=== PATIENT | female | born 1955 | race African-American/Black ===

== ENCOUNTER 2016-04-28 07:12 | Inpatient (IN) ==
--- NOTE | 2016-04-28 08:04 | Oncology History&Physical ---
History of Present Illness Chief complaint: Induction chemotherapy for acute myelogenous leukemia History of present illness: Ms. Hadley is a 60 year old female with recently diagnosed acute myelogenous leukemia and a history within the last year of undergoing treatment for stage IV colon cancer and stage III ovarian cancer. She is admitted now for institution of induction chemotherapy for her acute myelogenous leukemia. This is been bone marrow biopsy proven and we are going to start her with a Cytosar infusion and at least initially not use daunorubicin. So far, flow cytometry and cytogenetics do not suggest that this leukemia would be more resistant than de gio leukemia in someone who has never had chemotherapy. She has had chemotherapy drugs that are known to be oncogenic. See my comments below. She complains of some bruising on her right leg both anteriorly and posteriorly just above the knee. This leukemia is presumably a result of previous chemotherapy as outlined below. Ms. Hadley is a 60 year old female who has been on chemotherapy for metastatic colon cancer, stage IV. She coincidentally was diagnosed as having stage IIIc ovarian cancer. The ovarian cancer was diagnosed in March 2013 and she was treated with Abraxane and carboplatin. Her ovarian cancer antigen improved. 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 She was treated with 11 courses of FOLFOX /Folfiri and has recently been on Avastin as a single agent. She is in complete remission from both the colon cancer and ovarian cancer. She has actually had a remarkable response to chemotherapy and has been off chemotherapy since April 2015. On her last office visit, she had a normal CEA level of 4.6 and a normal ovarian cancer antigen. She continues to have right lower quadrant abdominal pain but as stated, we had a CT of the abdomen and pelvis on 11/29/2015 and she had no evidence of metastatic disease. She is scheduled for another CT of the abdomen and pelvis relatively soon. But it had been held because of elevated serum creatinine. Her serum creatinine is now normal so we will proceed. Past medical history: She has no known allergies. She has a past medical history is positive for anemia, hypertension and for ovarian cancer for which she is undergone surgery. She also has a history of gastroesophageal reflux disease and peptic ulcer disease. Family history is positive for diabetes in her grandmother and cancer of the pancreas and her mother. Social history is negative for alcohol or tobacco use. Review of systems Gen.: Negative for fever or chills weight loss or anorexia Eyes: Negative for inflammation or infections or further visual impairment ENT: Negative for stomatitis, mucositis or odynophagia. Pulmonary: Negative for asthma, emphysema or recurrent pneumonia and negative for hemoptysis Cardiovascular: Negative for congestive heart failure, angina, heart attack, coronary artery disease or cardiac arrhythmia GI: Negative for pancreatic disease or disorders but otherwise positive as pertains to her colon cancer. Negative for abdominal pain or bloating, hematemesis, melena or hematochezia. : Negative for kidney stones, kidney infections or hematuria. Neurologic: Negative for seizures, convulsions or paralysis. Psychiatric: Negative for psychiatric illness or depression confusion. Nodes: Negative for any cervical, supraclavicular, axillary or submandibular adenopathy. Skin: Negative for any significant skin rashes or diseases. Physical examination: Gen.: The patient is well-developed, well-nourished and in no acute distress. Eyes: Lids and conjunctivae are normal. ENT: Her oral mucosa and pharynx are normal, her trachea is midline she has no neck masses. Lungs: Breath sounds are normal without rubs, rales or rhonchi. There is symmetrical unlabored chest motion with respiration. Cardiovascular: Her heart rhythm is regular without murmur, gallop or rub. There is no jugular venous distention, clubbing or cyanosis. Abdomen: She has no abdominal masses, organomegaly, distention, tenderness or ascites. Musculoskeletal: There is no focal muscle atrophy or bone or joint deformity. Neurologic: Cranial nerves II through XII are intact and no focal neurologic deficits. Nodes: There is no submandibular, cervical, supraclavicular or axillary adenopathy. Skin: She has a reddish slightly raised bruise or possibly cellulitis on the right side just above the knee and medially and she also has a second 1 that actually is below the knee on the posterior calf. Impression: Acute myelogenous leukemia admitted for institution of induction chemotherapy thrombocytopenia requiring platelet transfusion Anemia requiring blood transfusion Stage IV adenocarcinoma: In remission Stage III ovarian cancer in remission Home Medications Medication Instructions Recorded Confirmed Type Aspirin [Ecotrin] 81 mg PO DAILY 12/10/14 04/28/16 History Docusate Sodium Cap [Colace Cap] 200 mg PO DAILY 12/10/14 04/28/16 History Famotidine 20 mg PO BID 12/10/14 04/28/16 History Potassium Chloride Cap/Tab [K Dur] 20 meq PO DAILY 12/10/14 04/28/16 History Magnesium Chloride [Mag Delay] 64 mg PO BID W/MEALS 12/31/14 04/28/16 History Furosemide Tab [Lasix Tab] 20 mg PO DAILY PRN 01/28/15 04/28/16 History Cholecalciferol (Vitamin D3) 1,000 unit PO DAILY 02/05/16 04/28/16 History [Vitamin D3] Metoprolol Succinate Xl [Toprol Xl] 25 mg PO DAILY 03/29/16 04/28/16 History Allergies Allergy/AdvReac Type Severity Reaction Status Date / Time No Known Allergies Allergy Verified 01/07/15 10:52 Medical,Surgical,& Family Hx - Medical History Cardio: History of: Hypertension Rheumatology: History of;: 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) Gastrointestinal: History of: Gastrointestinal Cancer (colon cancer) Hematology: No history of: Blood Transfusion Reaction Reproductive: History of: Reproductive Cancer (hx of ovarian cancer) - Surgical History Abdominal Surgeries: Surgical HX of: Abdominal Surgery (colon surgery) - Family History Family History: Reports;: Family Diabetes (grandmother), Family Heart Disease ( grandmother), Family Hypertension (grandmother) Denies;: Family Cancer - Social History Smoking Status: Never smoker Results - Labs CBC & BMP: 04/28/16 08:09
[2016-04-28 08:18] LABS: Eosinophils % 0.7 % (0.00-10.9); Hematocrit 21.7 VOL% (35.7-47.0); Hemoglobin 7.5 GM/DL (12.0-16.0); Lymphocytes # 1.2 10*3/uL (1.4-4.0); Lymphocytes % 81.1 % (21.3-54.2); Mean Corpuscular HGB Conc 34.6 GM/DL (32-36); Mean Corpuscular Hemoglobin 32 PG (27-34); Mean Corpuscular Volume 92.3 FL (87-102); Mean Platelet Volume 9.7 FL (9.6-12.0); Monocytes # 0.2 10*3/uL (0.11-0.8); Monocytes % 13.5 % (1.7-12.7); Neutrophils # 0.1 10*3/uL (1.4-7.4); Neutrophils % 4.7 % (38.7-73.9); Red Blood Count 2.35 10*6/uL (3.8-5.5); Red Cell Distribution Width 15.9 % (9.3-17.3); White Blood Count 1.5 10*3/uL (4.5-13.71)
[2016-04-28 08:21] LABS: Platelet Count 15 10*3/uL (130-400)
[2016-04-28] MEDS ORDERED: FUROSEMIDE 20 MG TABLET PO PRN (08:40)
[2016-04-28] MEDS ORDERED: SODIUM CHLORIDE 0.9% 250 ML IV PRN ×2 (08:42→08:43)
[2016-04-28 08:43] LABS: Atypical Lymphocytes Few; Band Neutrophils 1 % (0-10); Hypochromasia 1+; Lymphocytes 94 % (20-55); Microcytosis Slight; Platelet Estimate Decreased; Segmented Neutrophils 2 % (50-85); Total Cells Counted 100
[2016-04-28 08:52] LABS: Albumin 2.6 G/DL (3.4-5.0); Bilirubin,Total 0.5 MG/DL (0.2-1.0); Calcium 8.4 MG/DL (8.5-10.1); Magnesium 1.8 MG/DL (1.8-2.4); Osmolality,Calculated 282.5 MOS/KG (273-304); Potassium 4.2 MMOL/L (3.5-5.1); Total Protein 7.2 G/DL (6.4-8.3); Uric Acid 4.7 MG/DL (2.6-6.0)
[2016-04-28] MEDS ORDERED: MEROPENEM 500 MG in SODIUM CHLORIDE 0.9% 100 ML IV SCH (09:30)
--- NOTE | 2016-04-28 09:38 | XRay Report ---
XR chest 2V Indication: Leukemia Comparison: Chest x-ray dated March 29, 2016 Technique: Frontal and lateral views of the chest Findings: Borderline heart size, unchanged. Port catheter appears grossly unchanged with tip projecting over the expected location of the brachiocephalic confluence. No focal consolidation, pleural effusion, or pneumothorax. Osseous and surrounding soft tissue structures appear grossly unchanged. IMPRESSION: No acute cardiopulmonary process demonstrated. PROCEDURE INTERPRETED AT [facility] DEPARTMENT OF RADIOLOGY Final Report Signed by: Dr Javon Pizarro
[2016-04-28 09:44] LABS: Apearance,Urine Slightly Hazy (Clear); Bacteria,Urine Occasional /HPF (Few); Bilirubin,Urine Negative (Negative); Blood, Urine Small mg/dL (Negative); Glucose,Urine (UA) Negative (Negative); Ketones,Urine Negative (Negative); Mucus,Urine Occasional /LPF (Occasional); Nitrite,Urine Negative (Negative); Protein,Urine 100 MG/DL; RBC,Urine 5 /HPF (0-4); Squamous Epithelial Cell,Urine Occasional /HPF (0-10); Urine Color Yellow (Yellow); Urine Specific Gravity 1.018 (1.001-1.035); Urine Urobilinogen < 2.0 EU/DL (0.2-1.0); WBC,Urine 1 /HPF (0-6)
[2016-04-28] MEDS ORDERED: VANCOMYCIN INJ 1,000 MG in SODIUM CHLORIDE 0.9% 250 ML IV SCH (10:00)
[2016-04-28] MEDS: SODIUM CHLORIDE 0.9% IV SCH (11:00)
[2016-04-28] MEDS: GRANISETRON 1 MG/1 ML VIAL IV SCH (11:00)
[2016-04-28] MEDS: CYTARABINE IV SCH (11:00)
[2016-04-28] MEDS: DOCUSATE SODIUM 100 MG CAPSULE PO SCH (11:02)
[2016-04-28] MEDS: POTASSIUM CHLORIDE 20 MEQ TABLET PO SCH (11:02)
[2016-04-28] MEDS: ASPIRIN EC 81 MG TABLET PO SCH (11:02)
[2016-04-28] MEDS: METOPROLOL SUCCINATE XL 25 MG TABLET PO SCH (11:02)
[2016-04-28] MEDS: FAMOTIDINE 20 MG TABLET PO SCH ×2 (11:03→20:43)
[2016-04-28] MEDS ORDERED: chlorproMAZINE 25 MG TABLET PO PRN (14:55)
[2016-04-28] MEDS ORDERED: chlorproMAZINE INJ 25 MG in SODIUM CHLORIDE 0.9% 100 ML IV PRN (14:55)
[2016-04-28] MEDS ORDERED: TEMAZEPAM 7.5 MG CAPSULE PO PRN (14:55)
[2016-04-28] MEDS ORDERED: ACETAMINOPHEN 325 MG TABLET PO PRN (14:55)
[2016-04-28] MEDS ORDERED: LACTULOSE 20 GM/30 ML UDCUP PO PRN (14:55)
[2016-04-28] MEDS ORDERED: guaiFENesin 200 MG/10 ML UDCUP PO PRN (14:55)
[2016-04-28] MEDS ORDERED: chlorproMAZINE INJ 50 MG in SODIUM CHLORIDE 0.9% 100 ML IV PRN (14:55)
[2016-04-28] MEDS ORDERED: ALUMINUM/MAGNES/SIMETH MAX STR 30 ML UDCUP PO PRN (14:55)
[2016-04-28] MEDS ORDERED: MYLANTA/LIDO VISC 2:1 300 ML BOTTLE SWISH/SWAL PRN (14:55)
[2016-04-28] MEDS ORDERED: MYLANTA/LIDO VISC 2:1 300 ML BOTTLE SWISH/SPIT PRN (14:55)
[2016-04-28] MEDS ORDERED: BENZTROPINE 2 MG/2 ML AMP IV PRN (14:55)
[2016-04-28] MEDS ORDERED: traMADol 50 MG TABLET PO PRN (14:55)
[2016-04-28] MEDS ORDERED: ALPRAZolam 0.25 MG TABLET PO PRN (14:55)
[2016-04-28] MEDS ORDERED: LOPERAMIDE 2 MG CAPSULE PO PRN ×2 (14:55)
[2016-04-28] MEDS ORDERED: MAGNESIUM HYDROXIDE SUSP 30 ML UDCUP PO PRN (14:55)
[2016-04-28] MEDS: diphenhydrAMINE CAP 25 MG CAPSULE PO PRN (15:12)
[2016-04-28] MEDS: MAGNESIUM CHLORIDE 64 MG TABLET PO SCH (17:21)
[2016-04-29 04:15] LABS: Hematocrit 26.8 VOL% (35.7-47.0); Hemoglobin 9.1 GM/DL (12.0-16.0); Lymphocytes # 1.9 10*3/uL (1.4-4.0); Lymphocytes % 89.4 % (21.3-54.2); Mean Corpuscular Hemoglobin 31 PG (27-34); Mean Corpuscular Volume 90.8 FL (87-102); Mean Platelet Volume 9.7 FL (9.6-12.0); Monocytes # 0.2 10*3/uL (0.11-0.8); Monocytes % 8.2 % (1.7-12.7); Neutrophils # 0.1 10*3/uL (1.4-7.4); Neutrophils % 2.4 % (38.7-73.9); Red Blood Count 2.95 10*6/uL (3.8-5.5); Red Cell Distribution Width 15.5 % (9.3-17.3); White Blood Count 2.1 10*3/uL (4.5-13.71)
[2016-04-29 04:21] LABS: Platelet Count 10 10*3/uL (130-400)
[2016-04-29 04:58] LABS: Anisocytosis Slight; Lymphocytes 93 % (20-55); Myelocytes 1 %; Platelet Estimate Decreased; Segmented Neutrophils 4 % (50-85); Total Cells Counted 100
[2016-04-29 05:03] LABS: Albumin 2.4 G/DL (3.4-5.0); Bilirubin,Total 0.5 MG/DL (0.2-1.0); Calcium 8.1 MG/DL (8.5-10.1); Potassium 4.3 MMOL/L (3.5-5.1); Total Protein 6.6 G/DL (6.4-8.3)
--- NOTE | 2016-04-29 08:54 | Oncology Progress Note ---
Oncology Subjective PN Interval history: This is a patient with acute myelogenous leukemia who has just started her first course of induction chemotherapy using Cytosar-U. She has stage IV adenocarcinoma colon and stage III ovarian cancer for which she has been treated earlier this year. Both of these are in remission. She is thrombocytopenic today and has received platelets. She is having no nausea or vomiting, just some decrease in her appetite. Watching her closely for neutropenic sepsis. We are also monitoring her for toxicity from this chemotherapy. She is neutropenic, thrombocytopenic and anemic. Exam - Constitutional Vitals: Period Temp Pulse Resp BP Sys/Ceballos Pulse Ox Last 24 Hr 96.8 F-98.7 F 81-105 16-20 104-157/57-84 95-99 Results - Labs CBC & BMP: 04/29/16 04:00 04/29/16 04:00 Specialty Discharge - Follow Up or Referrals - Discharge Medications No Action Potassium Chloride Cap/Tab [K Dur] 20 meq PO DAILY Docusate Sodium Cap [Colace Cap] 200 mg PO DAILY Famotidine 20 mg PO BID Aspirin [Ecotrin] 81 mg PO DAILY Magnesium Chloride [Mag Delay] 64 mg PO BID W/MEALS Furosemide Tab [Lasix Tab] 20 mg PO DAILY PRN PRN Reason: Edema Cholecalciferol (Vitamin D3) [Vitamin D3] 1,000 unit PO DAILY Metoprolol Succinate Xl [Toprol Xl] 25 mg PO DAILY
[2016-04-29] MEDS: MAGNESIUM CHLORIDE 64 MG TABLET PO SCH ×2 (11:20→18:52)
[2016-04-29] MEDS: METOPROLOL SUCCINATE XL 25 MG TABLET PO SCH (11:20)
[2016-04-29] MEDS: FAMOTIDINE 20 MG TABLET PO SCH ×2 (11:21→20:49)
[2016-04-29] MEDS: GRANISETRON 1 MG/1 ML VIAL IV SCH (11:21)
[2016-04-29] MEDS: DOCUSATE SODIUM 100 MG CAPSULE PO SCH (11:21)
[2016-04-29] MEDS: POTASSIUM CHLORIDE 20 MEQ TABLET PO SCH (11:21)
[2016-04-29] MEDS: ASPIRIN EC 81 MG TABLET PO SCH (11:22)
[2016-04-29] MEDS: SODIUM CHLORIDE 0.9% IV SCH (13:49)
[2016-04-29] MEDS: CYTARABINE IV SCH (13:49)
[2016-04-30 05:44] LABS: Hematocrit 28.3 VOL% (35.7-47.0); Hemoglobin 9.5 GM/DL (12.0-16.0); Lymphocytes # 2.1 10*3/uL (1.4-4.0); Mean Corpuscular HGB Conc 33.6 GM/DL (32-36); Mean Corpuscular Hemoglobin 31 PG (27-34); Mean Corpuscular Volume 91.6 FL (87-102); Mean Platelet Volume 10.4 FL (9.6-12.0); Monocytes # 0.1 10*3/uL (0.11-0.8); Monocytes % 3.2 % (1.7-12.7); Neutrophils # 0.1 10*3/uL (1.4-7.4); Neutrophils % 2.8 % (38.7-73.9); Red Blood Count 3.09 10*6/uL (3.8-5.5); Red Cell Distribution Width 15.5 % (9.3-17.3); White Blood Count 2.2 10*3/uL (4.5-13.71)
[2016-04-30 05:50] LABS: Platelet Count 33 10*3/uL (130-400)
[2016-04-30 06:11] LABS: Lymphocytes 95 % (20-55); Segmented Neutrophils 3 % (50-85); Total Cells Counted 100
[2016-04-30 06:12] LABS: Atypical Lymphocytes Few; Hypochromasia 1+; Macrocytosis 1+; Platelet Estimate Decreased
[2016-04-30 06:23] LABS: Albumin 2.5 G/DL (3.4-5.0); Bilirubin,Total 1.1 MG/DL (0.2-1.0); Calcium 8.5 MG/DL (8.5-10.1); Potassium 4.2 MMOL/L (3.5-5.1); Total Protein 6.9 G/DL (6.4-8.3)
--- NOTE | 2016-04-30 07:52 | Oncology Progress Note ---
Oncology Subjective PN Interval history: Ms. Hadley is starting day 3 of 7 day course of Cytosar-U induction chemotherapy for acute myelogenous leukemia. She seems to be tolerating it fairly well and I am starting her on daunorubicin but I have ordered today. The dose will be 120 mg IV daily for at least 2 days. She is pancytopenic. She is requiring blood transfusions and platelet transfusions. She is requiring close monitoring for adverse effects from the chemotherapy. She is requiring close monitoring for adverse effects from the complications of the AML as well. She is severely neutropenic and she is severely thrombocytopenic. In addition, within the last year, she has been treated for stage IV colon cancer that remains in remission and for stage III ovarian cancer that remains in remission. White cell count today is 2200. Platelet count is 33,000. Her hemoglobin is above 9. She complains of some substernal chest type pain but I do not think this is cardiac. We will try Mylanta. On physical examination she is acutely ill appearing. Eyes: Lids and conjunctive are normal. ENT: Her oral mucosa and pharynx and her hearing are normal. Lungs: Clear with normal breath sounds. Cardiovascular: Her heart rhythm is regular without murmur, gallop or rub. There is no jugular venous distention, clubbing or cyanosis. Abdomen: No abdominal distention or masses and no significant tenderness. Neurologic: Cranial nerves II through XII are intact no focal neurologic deficits. Continuing chemotherapy and monitor for toxicity. Exam - Constitutional Vitals: Period Temp Pulse Resp BP Sys/Ceballos Pulse Ox Last 24 Hr 96.4 F-98.5 F 85-100 18-18 110-144/60-75 95-98 Results - Labs CBC & BMP: 04/30/16 04:28 04/30/16 04:28 Specialty Discharge - Follow Up or Referrals - Discharge Medications No Action Potassium Chloride Cap/Tab [K Dur] 20 meq PO DAILY Docusate Sodium Cap [Colace Cap] 200 mg PO DAILY Famotidine 20 mg PO BID Aspirin [Ecotrin] 81 mg PO DAILY Magnesium Chloride [Mag Delay] 64 mg PO BID W/MEALS Furosemide Tab [Lasix Tab] 20 mg PO DAILY PRN PRN Reason: Edema Cholecalciferol (Vitamin D3) [Vitamin D3] 1,000 unit PO DAILY Metoprolol Succinate Xl [Toprol Xl] 25 mg PO DAILY
[2016-04-30] MEDS ORDERED: DAUNORUBICIN IV ONE (08:30)
[2016-04-30] MEDS: DOCUSATE SODIUM 100 MG CAPSULE PO SCH (11:24)
[2016-04-30] MEDS: POTASSIUM CHLORIDE 20 MEQ TABLET PO SCH (11:24)
[2016-04-30] MEDS: FAMOTIDINE 20 MG TABLET PO SCH ×3 (11:24→20:40)
[2016-04-30] MEDS: METOPROLOL SUCCINATE XL 25 MG TABLET PO SCH (11:24)
[2016-04-30] MEDS: MAGNESIUM CHLORIDE 64 MG TABLET PO SCH ×2 (11:24→18:18)
[2016-04-30] MEDS: ASPIRIN EC 81 MG TABLET PO SCH (11:24)
[2016-04-30] MEDS: GRANISETRON 1 MG/1 ML VIAL IV SCH (11:25)
[2016-04-30] MEDS ORDERED: DEXAMETHASONE 10 MG/1 ML VIAL ONE (13:24)
[2016-04-30] MEDS ORDERED: DEXAMETHASONE 4 MG/1 ML VIAL IV SCH (13:29)
[2016-04-30] MEDS: CYTARABINE IV SCH (17:00)
[2016-04-30] MEDS: SODIUM CHLORIDE 0.9% IV SCH (17:00)
[2016-05-01 05:15] LABS: Hematocrit 28.8 VOL% (35.7-47.0); Hemoglobin 9.6 GM/DL (12.0-16.0); Lymphocytes # 0.5 10*3/uL (1.4-4.0); Lymphocytes % 85.5 % (21.3-54.2); Mean Corpuscular HGB Conc 33.3 GM/DL (32-36); Mean Corpuscular Hemoglobin 30 PG (27-34); Mean Corpuscular Volume 91.1 FL (87-102); Mean Platelet Volume 10.1 FL (9.6-12.0); Monocytes % 5.5 % (1.7-12.7); Neutrophils # 0.1 10*3/uL (1.4-7.4); Red Blood Count 3.16 10*6/uL (3.8-5.5); Red Cell Distribution Width 14.6 % (9.3-17.3)
[2016-05-01 05:23] LABS: Platelet Count 26 10*3/uL (130-400); White Blood Count 0.6 10*3/uL (4.5-13.71)
[2016-05-01 05:49] LABS: Atypical Lymphocytes Few; Hypochromasia Slight; Lymphocytes 89 % (20-55); Segmented Neutrophils 9 % (50-85); Total Cells Counted 100
[2016-05-01 05:50] LABS: Macrocytosis 1+; Platelet Estimate Decreased
[2016-05-01 05:58] LABS: Albumin 2.4 G/DL (3.4-5.0); Bilirubin,Total 0.5 MG/DL (0.2-1.0); Calcium 9.1 MG/DL (8.5-10.1); Potassium 4.9 MMOL/L (3.5-5.1); Total Protein 7.1 G/DL (6.4-8.3)
[2016-05-01] MEDS ORDERED: DAUNORUBICIN IV ONE (07:30)
[2016-05-01] MEDS: METOPROLOL SUCCINATE XL 25 MG TABLET PO SCH (08:38)
[2016-05-01] MEDS: MAGNESIUM CHLORIDE 64 MG TABLET PO SCH ×2 (08:38→17:02)
[2016-05-01] MEDS: POTASSIUM CHLORIDE 20 MEQ TABLET PO SCH (08:38)
[2016-05-01] MEDS: DOCUSATE SODIUM 100 MG CAPSULE PO SCH (08:38)
[2016-05-01] MEDS: FAMOTIDINE 20 MG TABLET PO SCH ×3 (08:38→20:19)
[2016-05-01] MEDS: ASPIRIN EC 81 MG TABLET PO SCH (08:38)
--- NOTE | 2016-05-01 09:01 | Oncology Progress Note ---
Oncology Subjective PN Interval history: She is starting day 4 of a 7 day course of continuous infusion Cytosar-U 200 mg IV over 24 hours daily. In addition, she is receiving day #2 of daunorubicin. This is induction chemotherapy for recently diagnosed acute myelogenous leukemia. She is pancytopenic and her white cell count is falling. She has standing orders for packed red cells and platelets. Her white cell count is down to 600 today. Secondary diagnoses include stage IV colon cancer and stage III ovarian cancer that are both apparently in complete remission. We have standing orders for side effects and complications from her leukemia. She is fully oriented and alert. Her appetite is not good. Her oral mucosa is normal. She has no focal neurologic deficits. She remains in extremely pleasant person who complains very little about her illness. Psychologically, she seems to be handling this amazingly well. Exam - Constitutional Vitals: Period Temp Pulse Resp BP Sys/Ceballos Pulse Ox Last 24 Hr 96.3 F-99.4 F 80-93 18-20 112-160/67-89 95-100 Results - Labs CBC & BMP: 05/01/16 04:54 05/01/16 04:54 Specialty Discharge - Follow Up or Referrals - Discharge Medications No Action Potassium Chloride Cap/Tab [K Dur] 20 meq PO DAILY Docusate Sodium Cap [Colace Cap] 200 mg PO DAILY Famotidine 20 mg PO BID Aspirin [Ecotrin] 81 mg PO DAILY Magnesium Chloride [Mag Delay] 64 mg PO BID W/MEALS Furosemide Tab [Lasix Tab] 20 mg PO DAILY PRN PRN Reason: Edema Cholecalciferol (Vitamin D3) [Vitamin D3] 1,000 unit PO DAILY Metoprolol Succinate Xl [Toprol Xl] 25 mg PO DAILY
[2016-05-01] MEDS ORDERED: DEXAMETHASONE 10 MG/1 ML VIAL ONE (18:55)
[2016-05-01] MEDS: GRANISETRON 1 MG/1 ML VIAL IV SCH (19:11)
[2016-05-01] MEDS: CYTARABINE IV SCH (19:23)
[2016-05-01] MEDS: SODIUM CHLORIDE 0.9% IV SCH (19:23)
[2016-05-02 04:33] LABS: Hematocrit 28.3 VOL% (35.7-47.0); Hemoglobin 9.5 GM/DL (12.0-16.0); Lymphocytes # 0.4 10*3/uL (1.4-4.0); Lymphocytes % 84.3 % (21.3-54.2); Mean Corpuscular HGB Conc 33.6 GM/DL (32-36); Mean Corpuscular Hemoglobin 31 PG (27-34); Mean Corpuscular Volume 91.3 FL (87-102); Mean Platelet Volume 9.5 FL (9.6-12.0); Monocytes % 3.9 % (1.7-12.7); Neutrophils # 0.1 10*3/uL (1.4-7.4); Neutrophils % 11.8 % (38.7-73.9); Red Cell Distribution Width 14.5 % (9.3-17.3)
[2016-05-02 04:38] LABS: Platelet Count 16 10*3/uL (130-400); White Blood Count 0.5 10*3/uL (4.5-13.71)
[2016-05-02 05:23] LABS: Albumin 2.4 G/DL (3.4-5.0); Bilirubin,Total 1.3 MG/DL (0.2-1.0); Calcium 8.5 MG/DL (8.5-10.1); Osmolality,Calculated 303.7 MOS/KG (273-304); Potassium 5.2 MMOL/L (3.5-5.1); Total Protein 6.6 G/DL (6.4-8.3)
[2016-05-02 06:19] LABS: Lymphocytes 90 % (20-55); Segmented Neutrophils 10 % (50-85)
[2016-05-02 06:20] LABS: Platelet Estimate Decreased; Total Cells Counted 100
--- NOTE | 2016-05-02 06:50 | Oncology Progress Note ---
Oncology Subjective PN Interval history: Patient with distant history of ovarian cancer approximately 4 years prior. Currently receiving day #407+3 chemotherapy for acute myelogenous leukemia. IV access is by previously placed right Mediport catheter. She is on room air. She is ambulatory and nontoxic. Her lungs are clear bilaterally her abdomen is soft and nontender. Her skin is warm and dry. Platelet count of 16 today is noted without significant ecchymosis or hemorrhage. Exam - Constitutional Vitals: Period Temp Pulse Resp BP Sys/Ceballos Pulse Ox Last 24 Hr 96.2 F-97.6 F 57-80 17-20 112-147/54-77 94-100 Results - Labs CBC & BMP: 05/02/16 04:19 05/02/16 04:19 Specialty Discharge - Follow Up or Referrals - Discharge Medications No Action Potassium Chloride Cap/Tab [K Dur] 20 meq PO DAILY Docusate Sodium Cap [Colace Cap] 200 mg PO DAILY Famotidine 20 mg PO BID Aspirin [Ecotrin] 81 mg PO DAILY Magnesium Chloride [Mag Delay] 64 mg PO BID W/MEALS Furosemide Tab [Lasix Tab] 20 mg PO DAILY PRN PRN Reason: Edema Cholecalciferol (Vitamin D3) [Vitamin D3] 1,000 unit PO DAILY Metoprolol Succinate Xl [Toprol Xl] 25 mg PO DAILY
[2016-05-02] MEDS: POTASSIUM CHLORIDE 20 MEQ TABLET PO SCH (10:52)
[2016-05-02] MEDS: FAMOTIDINE 20 MG TABLET PO SCH ×2 (10:52→21:24)
[2016-05-02] MEDS: DOCUSATE SODIUM 100 MG CAPSULE PO SCH (10:52)
[2016-05-02] MEDS: ASPIRIN EC 81 MG TABLET PO SCH (10:53)
[2016-05-02] MEDS: MAGNESIUM CHLORIDE 64 MG TABLET PO SCH ×2 (10:53→18:34)
[2016-05-02] MEDS: METOPROLOL SUCCINATE XL 25 MG TABLET PO SCH (10:53)
[2016-05-02] MEDS: GRANISETRON 1 MG/1 ML VIAL IV SCH (15:55)
[2016-05-02] MEDS: CYTARABINE IV SCH (18:34)
[2016-05-02] MEDS: SODIUM CHLORIDE 0.9% IV SCH (18:34)
[2016-05-02] MEDS: PROMETHAZINE INJ 25 MG in SODIUM CHLORIDE 0.9% 50 ML IV PRN (18:38)
[2016-05-03 06:49] LABS: Hematocrit 25.1 VOL% (35.7-47.0); Hemoglobin 8.5 GM/DL (12.0-16.0); Lymphocytes # 1.3 10*3/uL (1.4-4.0); Mean Corpuscular HGB Conc 33.9 GM/DL (32-36); Mean Corpuscular Hemoglobin 31 PG (27-34); Mean Corpuscular Volume 91.3 FL (87-102); Mean Platelet Volume 10.8 FL (9.6-12.0); Monocytes % 0.8 % (1.7-12.7); Neutrophils % 2.2 % (38.7-73.9); Platelet Count 12 10*3/uL (130-400); Red Blood Count 2.75 10*6/uL (3.8-5.5); Red Cell Distribution Width 14.7 % (9.3-17.3); White Blood Count 1.3 10*3/uL (4.5-13.71)
[2016-05-03 06:58] LABS: Albumin 2.1 G/DL (3.4-5.0); Bilirubin,Total 1.2 MG/DL (0.2-1.0); Calcium 8.4 MG/DL (8.5-10.1); Osmolality,Calculated 298.6 MOS/KG (273-304); Potassium 4.3 MMOL/L (3.5-5.1); Total Protein 5.7 G/DL (6.4-8.3)
[2016-05-03 08:13] LABS: Hypochromasia 2+; Lymphocytes 95 % (20-55); Microcytosis 2+; Platelet Estimate Decreased; Segmented Neutrophils 5 % (50-85); Total Cells Counted 100
[2016-05-03] MEDS ORDERED: diphenhydrAMINE CAP 25 MG CAPSULE PO ONE (08:57)
[2016-05-03] MEDS ORDERED: ACETAMINOPHEN 325 MG TABLET PO ONE (08:57)
--- NOTE | 2016-05-03 10:26 | Oncology Progress Note ---
Oncology Subjective PN Interval history: Patient to receive day 6 today of Moran. Previous 2 days of daunorubicin. Some nausea treated with Phenergan last night. Lately count of 12 is noted today with plans for transfusion. No bleeding. Stable hemoglobin and hematocrit. No fever is noted. I encouraged patient to ambulate in the halls today Exam - Constitutional Vitals: Period Temp Pulse Resp BP Sys/Ceballos Pulse Ox Last 24 Hr 97.4 F-98.1 F 77-88 16-20 108-124/59-72 97-98 Results - Labs CBC & BMP: 05/03/16 04:00 05/03/16 04:00 Specialty Discharge - Follow Up or Referrals - Discharge Medications No Action Potassium Chloride Cap/Tab [K Dur] 20 meq PO DAILY Docusate Sodium Cap [Colace Cap] 200 mg PO DAILY Famotidine 20 mg PO BID Aspirin [Ecotrin] 81 mg PO DAILY Magnesium Chloride [Mag Delay] 64 mg PO BID W/MEALS Furosemide Tab [Lasix Tab] 20 mg PO DAILY PRN PRN Reason: Edema Cholecalciferol (Vitamin D3) [Vitamin D3] 1,000 unit PO DAILY Metoprolol Succinate Xl [Toprol Xl] 25 mg PO DAILY
[2016-05-03] MEDS: ASPIRIN EC 81 MG TABLET PO SCH (11:14)
[2016-05-03] MEDS: DOCUSATE SODIUM 100 MG CAPSULE PO SCH (11:15)
[2016-05-03] MEDS: FAMOTIDINE 20 MG TABLET PO SCH ×2 (11:15→20:46)
[2016-05-03] MEDS: METOPROLOL SUCCINATE XL 25 MG TABLET PO SCH (11:15)
[2016-05-03] MEDS: MAGNESIUM CHLORIDE 64 MG TABLET PO SCH ×2 (11:15→17:25)
[2016-05-03] MEDS: GRANISETRON 1 MG/1 ML VIAL IV SCH (14:38)
[2016-05-03] MEDS: CYTARABINE IV SCH (18:41)
[2016-05-03] MEDS: SODIUM CHLORIDE 0.9% IV SCH (18:41)
[2016-05-04 07:58] LABS: Hematocrit 25.9 VOL% (35.7-47.0); Hemoglobin 8.6 GM/DL (12.0-16.0); Lymphocytes # 1.1 10*3/uL (1.4-4.0); Lymphocytes % 98.2 % (21.3-54.2); Mean Corpuscular HGB Conc 33.2 GM/DL (32-36); Mean Corpuscular Hemoglobin 31 PG (27-34); Mean Corpuscular Volume 91.8 FL (87-102); Mean Platelet Volume 12.4 FL (9.6-12.0); Neutrophils % 1.8 % (38.7-73.9); Platelet Count 40 10*3/uL (130-400); Red Blood Count 2.82 10*6/uL (3.8-5.5); White Blood Count 1.1 10*3/uL (4.5-13.71)
[2016-05-04 08:10] LABS: Albumin 2.2 G/DL (3.4-5.0); Bilirubin,Total 1.3 MG/DL (0.2-1.0); Calcium 8.4 MG/DL (8.5-10.1); Osmolality,Calculated 290.7 MOS/KG (273-304); Potassium 4.1 MMOL/L (3.5-5.1); Total Protein 5.9 G/DL (6.4-8.3)
[2016-05-04] MEDS: GRANISETRON 1 MG/1 ML VIAL IV SCH (08:51)
[2016-05-04] MEDS: DOCUSATE SODIUM 100 MG CAPSULE PO SCH (09:07)
[2016-05-04] MEDS: FAMOTIDINE 20 MG TABLET PO SCH ×2 (09:08→20:41)
[2016-05-04] MEDS: METOPROLOL SUCCINATE XL 25 MG TABLET PO SCH (09:08)
[2016-05-04] MEDS: MAGNESIUM CHLORIDE 64 MG TABLET PO SCH ×2 (09:08→17:49)
--- NOTE | 2016-05-04 09:35 | Oncology Progress Note ---
Oncology Subjective PN Interval history: Day 7 induction chemotherapy for AML. Patient reports ongoing nausea with abdominal queasiness without vomiting. No fever. Blood counts are acceptable today. I am going to place her on scheduled Zofran for the next 36 hours. She has excess sedation from Phenergan, and is reluctant to take this. We discussed the next few weeks to be at time to monitor for thrombocytopenia and infection. We have discussed at least 2 weeks if not 3 weeks of inpatient time awaiting count recovery. We have also discussed a day 14 bone marrow also is a possibility. She appears nontoxic and pleasant. Exam - Constitutional Vitals: Period Temp Pulse Resp BP Sys/Ceballos Pulse Ox Last 24 Hr 97.2 F-98.7 F 77-107 16-20 101-116/54-87 95-98 Results - Labs CBC & BMP: 05/04/16 04:00 05/04/16 04:00 Specialty Discharge - Follow Up or Referrals - Discharge Medications No Action Potassium Chloride Cap/Tab [K Dur] 20 meq PO DAILY Docusate Sodium Cap [Colace Cap] 200 mg PO DAILY Famotidine 20 mg PO BID Aspirin [Ecotrin] 81 mg PO DAILY Magnesium Chloride [Mag Delay] 64 mg PO BID W/MEALS Furosemide Tab [Lasix Tab] 20 mg PO DAILY PRN PRN Reason: Edema Cholecalciferol (Vitamin D3) [Vitamin D3] 1,000 unit PO DAILY Metoprolol Succinate Xl [Toprol Xl] 25 mg PO DAILY
[2016-05-04] MEDS: ONDANSETRON 4 MG/2 ML VIAL IV SCH ×2 (10:10→17:55)
[2016-05-04] MEDS: SODIUM CHLORIDE 0.9% IV SCH (18:56)
[2016-05-04] MEDS: CYTARABINE IV SCH (18:56)
[2016-05-05] MEDS: ONDANSETRON 4 MG/2 ML VIAL IV SCH ×3 (02:05→17:56)
[2016-05-05 08:01] LABS: Hematocrit 26.2 VOL% (35.7-47.0); Hemoglobin 8.9 GM/DL (12.0-16.0); Lymphocytes # 0.9 10*3/uL (1.4-4.0); Lymphocytes % 98.9 % (21.3-54.2); Mean Corpuscular Hemoglobin 31 PG (27-34); Mean Corpuscular Volume 89.7 FL (87-102); Mean Platelet Volume 11.1 FL (9.6-12.0); Neutrophils % 1.1 % (38.7-73.9); Red Blood Count 2.92 10*6/uL (3.8-5.5); Red Cell Distribution Width 14.6 % (9.3-17.3)
[2016-05-05 08:06] LABS: White Blood Count 0.9 10*3/uL (4.5-13.71)
[2016-05-05 08:07] LABS: Platelet Count 28 10*3/uL (130-400)
--- NOTE | 2016-05-05 08:25 | Physician Query Form ---
CLICK EDIT DOCUMENT TO SELECT QUERY ANSWER --> OK --> SIGN Leta Park RN, CCDS Certified Clinical Director [employer] W) [phone] (f) [phone] [email or web address] PROVIDERS: Make your selection(s) from the choices in EACH section by typing an "x" and enter comments in the comment section. Please use your independent medical judgment in providing your response. This request does not imply that any particular answer is desired or expected. CLINICAL INDICATORS: (Providers should not edit this section) Patient admitted for chemo induction for acute myelogenous leukemia, "She is severely pancytopenic. I will continue IV fluids after her chemotherapy completes later today or tonight. Although this is acute myelogenous leukemia following chemotherapy, the cytogenetics and flow cytometry do not suggest that it has a worse prognosis than usual." Based on the above, could you clarify which of the following conditions you are evaluating, treating, and/or monitoring? ( ) Chemo induced pancytopenia ( ) Pancytopenia due to other cause, please specify: ( ) Other condition, please specify: ( ) Clinically unable to determine COMMENTS: Use of terms such as suspected, likely, or probable (associated with a specific diagnosis that is being evaluated, monitored, or treated as if it exists) are acceptable and can be restated in the discharge summary if not ruled out. MTDD
[2016-05-05 08:26] LABS: Albumin 2.5 G/DL (3.4-5.0); Bilirubin,Total 0.5 MG/DL (0.2-1.0); Calcium 8.7 MG/DL (8.5-10.1); Osmolality,Calculated 285.1 MOS/KG (273-304); Potassium 4.1 MMOL/L (3.5-5.1); Total Protein 6.3 G/DL (6.4-8.3)
[2016-05-05] MEDS: PROMETHAZINE INJ 25 MG in SODIUM CHLORIDE 0.9% 50 ML IV PRN ×2 (08:40→22:10)
[2016-05-05] MEDS: GRANISETRON 1 MG/1 ML VIAL IV SCH (08:41)
[2016-05-05 08:42] LABS: Hypochromasia 1+; Lymphocytes 99 % (20-55); Platelet Estimate Decreased; Total Cells Counted 100
[2016-05-05 08:43] LABS: Atypical Lymphocytes Few; Microcytosis Slight
[2016-05-05] MEDS ORDERED: FOSAPREPITANT 150 MG in SODIUM CHLORIDE 0.9% 100 ML IV ONE (09:01)
--- NOTE | 2016-05-05 09:04 | Oncology Progress Note ---
Oncology Subjective PN Interval history: Ms. Hadley completes her first 7 day induction chemotherapy for treatment of acute myelogenous leukemia complicating stage IV colon cancer and stage III ovarian cancer, both of which are in complete remission. She is having intractable nausea and vomiting. She is on Kytril. We are giving her Phenergan. I am going to add Emend. She is severely pancytopenic. I will continue IV fluids after her chemotherapy completes later today or tonight. Although this is acute myelogenous leukemia following chemotherapy, the cytogenetics and flow cytometry do not suggest that it has a worse prognosis than usual. We will continue to monitor count, hemoglobin and white cell count and will continue to transfuse red cells and platelets as needed. Exam - Constitutional Vitals: Period Temp Pulse Resp BP Sys/Ceballos Pulse Ox Last 24 Hr 96.4 F-98.6 F 89-97 18-20 113-133/63-72 97-98 Results - Labs CBC & BMP: 05/05/16 07:45 05/05/16 07:45 Specialty Discharge - Follow Up or Referrals - Discharge Medications No Action Potassium Chloride Cap/Tab [K Dur] 20 meq PO DAILY Docusate Sodium Cap [Colace Cap] 200 mg PO DAILY Famotidine 20 mg PO BID Aspirin [Ecotrin] 81 mg PO DAILY Magnesium Chloride [Mag Delay] 64 mg PO BID W/MEALS Furosemide Tab [Lasix Tab] 20 mg PO DAILY PRN PRN Reason: Edema Cholecalciferol (Vitamin D3) [Vitamin D3] 1,000 unit PO DAILY Metoprolol Succinate Xl [Toprol Xl] 25 mg PO DAILY
[2016-05-05] MEDS: DOCUSATE SODIUM 100 MG CAPSULE PO SCH (09:48)
[2016-05-05] MEDS: MAGNESIUM CHLORIDE 64 MG TABLET PO SCH ×2 (09:48→17:15)
[2016-05-05] MEDS: POTASSIUM CHLORIDE 20 MEQ TABLET PO SCH (09:48)
[2016-05-05] MEDS: METOPROLOL SUCCINATE XL 25 MG TABLET PO SCH (09:48)
[2016-05-05] MEDS: FAMOTIDINE 20 MG TABLET PO SCH ×2 (09:48→21:18)
[2016-05-05] MEDS ORDERED: HEPARIN LOCK FLUSH 500 UNIT/5 ML SYRINGE IV ONE (21:12)
[2016-05-05] MEDS: DEXT 5% NACL 0.45% KCL 20 MEQ 20 MEQ/1,000 ML BAG IV SCH (22:10)
[2016-05-06 05:27] LABS: Hematocrit 23.8 VOL% (35.7-47.0); Hemoglobin 7.8 GM/DL (12.0-16.0); Lymphocytes # 0.7 10*3/uL (1.4-4.0); Lymphocytes % 98.6 % (21.3-54.2); Mean Corpuscular HGB Conc 32.8 GM/DL (32-36); Mean Corpuscular Hemoglobin 30 PG (27-34); Mean Corpuscular Volume 91.5 FL (87-102); Mean Platelet Volume 12.3 FL (9.6-12.0); Neutrophils % 1.4 % (38.7-73.9); Red Cell Distribution Width 14.4 % (9.3-17.3)
[2016-05-06 05:31] LABS: Platelet Count 19 10*3/uL (130-400); White Blood Count 0.7 10*3/uL (4.5-13.71)
[2016-05-06] MEDS ORDERED: SODIUM CHLORIDE 0.9% 250 ML IV PRN (05:38)
[2016-05-06 05:59] LABS: Atypical Lymphocytes Few; Hypochromasia Slight; Lymphocytes 100 % (20-55); Ovalocytes Slight; Platelet Estimate Decreased; Total Cells Counted 100
[2016-05-06 06:00] LABS: Microcytosis Slight
[2016-05-06 07:00] LABS: Albumin 2.3 G/DL (3.4-5.0); Bilirubin,Total 0.4 MG/DL (0.2-1.0); Calcium 8.5 MG/DL (8.5-10.1); Osmolality,Calculated 281.4 MOS/KG (273-304); Potassium 4.1 MMOL/L (3.5-5.1); Total Protein 5.9 G/DL (6.4-8.3)
--- NOTE | 2016-05-06 08:32 | Oncology Progress Note ---
Oncology Subjective PN Interval history: Patient with acute myelogenous leukemia now 8 days post institution of course # 1 of induction chemotherapy. She is pancytopenic. Her hemoglobin is falling. Her white cell count is 700 and her platelet count is significantly depressed. She has standing orders for red blood cell transfusions as well as platelet transfusions. She will receive 2 units of packed red cells today because of anemia. I am uncertain how good her appetite is presently although she is trying to eat and she does not seem to be having any nausea or vomiting. The patient has a history of stage IV colon cancer and stage III ovarian cancer , both of which have been actively treated within the last year and both of which are in complete remission. Exam - Constitutional Vitals: Period Temp Pulse Resp BP Sys/Ceballos Pulse Ox Last 24 Hr 96.8 F-97.9 F 94-102 18-20 103-127/61-83 96-97 Results - Labs CBC & BMP: 05/06/16 04:00 05/06/16 04:00 Specialty Discharge - Follow Up or Referrals - Discharge Medications No Action Potassium Chloride Cap/Tab [K Dur] 20 meq PO DAILY Docusate Sodium Cap [Colace Cap] 200 mg PO DAILY Famotidine 20 mg PO BID Aspirin [Ecotrin] 81 mg PO DAILY Magnesium Chloride [Mag Delay] 64 mg PO BID W/MEALS Furosemide Tab [Lasix Tab] 20 mg PO DAILY PRN PRN Reason: Edema Cholecalciferol (Vitamin D3) [Vitamin D3] 1,000 unit PO DAILY Metoprolol Succinate Xl [Toprol Xl] 25 mg PO DAILY
[2016-05-06] MEDS: POTASSIUM CHLORIDE 20 MEQ TABLET PO SCH (08:47)
[2016-05-06] MEDS: DOCUSATE SODIUM 100 MG CAPSULE PO SCH (08:47)
[2016-05-06] MEDS: METOPROLOL SUCCINATE XL 25 MG TABLET PO SCH (08:47)
[2016-05-06] MEDS: FAMOTIDINE 20 MG TABLET PO SCH ×2 (08:47→20:33)
[2016-05-06] MEDS: MAGNESIUM CHLORIDE 64 MG TABLET PO SCH ×2 (08:47→17:16)
[2016-05-06] MEDS ORDERED: ACETAMINOPHEN 325 MG TABLET PO ONE ×2 (10:36→10:42)
[2016-05-06] MEDS ORDERED: diphenhydrAMINE CAP 25 MG CAPSULE PO ONE ×2 (10:37→10:45)
[2016-05-06] MEDS: DEXT 5% NACL 0.45% KCL 20 MEQ 20 MEQ/1,000 ML BAG IV SCH (17:16)
[2016-05-07 05:26] LABS: Hematocrit 31.4 VOL% (35.7-47.0); Lymphocytes # 0.8 10*3/uL (1.4-4.0); Lymphocytes % 98.8 % (21.3-54.2); Mean Corpuscular HGB Conc 33.8 GM/DL (32-36); Mean Corpuscular Hemoglobin 29 PG (27-34); Mean Corpuscular Volume 84.6 FL (87-102); Mean Platelet Volume 11.1 FL (9.6-12.0); Neutrophils % 1.2 % (38.7-73.9); Red Cell Distribution Width 16.5 % (9.3-17.3)
[2016-05-07 05:43] LABS: Platelet Count 16 10*3/uL (130-400); Red Blood Count 3.71 10*6/uL (3.8-5.5); White Blood Count 0.8 10*3/uL (4.5-13.71)
[2016-05-07 05:44] LABS: Hemoglobin 10.6 GM/DL (12.0-16.0)
[2016-05-07 05:53] LABS: Atypical Lymphocytes Few; Hypochromasia Slight; Lymphocytes 100 % (20-55); Platelet Estimate Decreased; Total Cells Counted 100
[2016-05-07 05:54] LABS: Microcytosis Slight
[2016-05-07 06:20] LABS: Albumin 2.3 G/DL (3.4-5.0); Bilirubin,Total 0.5 MG/DL (0.2-1.0); Osmolality,Calculated 278.5 MOS/KG (273-304); Potassium 4.4 MMOL/L (3.5-5.1)
[2016-05-07] MEDS: DEXT 5% NACL 0.45% KCL 20 MEQ 20 MEQ/1,000 ML BAG IV SCH ×2 (07:52→20:51)
--- NOTE | 2016-05-07 08:07 | Oncology Progress Note ---
Oncology Subjective PN Interval history: Ms. Hadley is 9 days post institution of induction chemotherapy course #1 for acute myelogenous leukemia. She is severely thrombocytopenic as well as severely neutropenic and leukopenic. She has some stomatitis and we are starting her on Diflucan. She is having nausea and diarrhea and we will continue to watch it closely. I do not think it is bad enough to check for Clostridium difficile yet. She has an exudate on her tongue that appears to be monilia. She has underlying stage IV colon cancer and stage III ovarian cancer, both of which are in an apparent remission but both of which have been treated with chemotherapy within about the last year. Exam - Constitutional Vitals: Period Temp Pulse Resp BP Sys/Ceballos Pulse Ox Last 24 Hr 96.2 F-99.3 F 76-98 16-20 88-142/55-81 96-100 Results - Labs CBC & BMP: 05/07/16 04:00 05/07/16 04:00 Specialty Discharge - Follow Up or Referrals - Discharge Medications No Action Potassium Chloride Cap/Tab [K Dur] 20 meq PO DAILY Docusate Sodium Cap [Colace Cap] 200 mg PO DAILY Famotidine 20 mg PO BID Aspirin [Ecotrin] 81 mg PO DAILY Magnesium Chloride [Mag Delay] 64 mg PO BID W/MEALS Furosemide Tab [Lasix Tab] 20 mg PO DAILY PRN PRN Reason: Edema Cholecalciferol (Vitamin D3) [Vitamin D3] 1,000 unit PO DAILY Metoprolol Succinate Xl [Toprol Xl] 25 mg PO DAILY
[2016-05-07] MEDS: POTASSIUM CHLORIDE 20 MEQ TABLET PO SCH (10:10)
[2016-05-07] MEDS: MAGNESIUM CHLORIDE 64 MG TABLET PO SCH ×2 (10:11→19:36)
[2016-05-07] MEDS: METOPROLOL SUCCINATE XL 25 MG TABLET PO SCH (10:11)
[2016-05-07] MEDS: FAMOTIDINE 20 MG TABLET PO SCH ×2 (10:11→20:51)
[2016-05-07] MEDS: DOCUSATE SODIUM 100 MG CAPSULE PO SCH (10:12)
[2016-05-07] MEDS: ONDANSETRON 4 MG/2 ML VIAL IV PRN (10:19)
[2016-05-07] MEDS: FLUCONAZOLE 100 MG TABLET PO SCH (11:38)
[2016-05-07] MEDS: MEROPENEM 1,000 MG in SODIUM CHLORIDE 0.9% 100 ML IV SCH (16:47)
[2016-05-08] MEDS: MEROPENEM 1,000 MG in SODIUM CHLORIDE 0.9% 100 ML IV SCH ×3 (00:53→17:20)
[2016-05-08 03:04] LABS: Apearance,Urine CLEAR (Clear); Bacteria,Urine Many /HPF (Few); Bilirubin,Urine Negative (Negative); Blood, Urine Small mg/dL (Negative); Glucose,Urine (UA) Negative (Negative); Ketones,Urine Negative (Negative); Mucus,Urine Occasional /LPF (Occasional); Nitrite,Urine Negative (Negative); Protein,Urine Negative; RBC,Urine 3 /HPF (0-4); Squamous Epithelial Cell,Urine Occasional /HPF (0-10); Urine Color Yellow (Yellow); Urine Specific Gravity 1.012 (1.001-1.035); Urine Urobilinogen < 2.0 EU/DL (0.2-1.0); WBC,Urine 1 /HPF (0-6)
[2016-05-08 05:32] LABS: Hematocrit 30.9 VOL% (35.7-47.0); Lymphocytes # 0.9 10*3/uL (1.4-4.0); Lymphocytes % 97.7 % (21.3-54.2); Mean Corpuscular HGB Conc 32.4 GM/DL (32-36); Mean Corpuscular Hemoglobin 27 PG (27-34); Mean Corpuscular Volume 84.7 FL (87-102); Monocytes % 1.1 % (1.7-12.7); Neutrophils % 1.2 % (38.7-73.9); Red Blood Count 3.65 10*6/uL (3.8-5.5); Red Cell Distribution Width 16.2 % (9.3-17.3)
[2016-05-08 05:37] LABS: Platelet Count 13 10*3/uL (130-400); White Blood Count 0.9 10*3/uL (4.5-13.71)
[2016-05-08 06:07] LABS: Atypical Lymphocytes Few; Hypochromasia Slight; Lymphocytes 100 % (20-55); Microcytosis Slight; Platelet Estimate Decreased; Total Cells Counted 100
[2016-05-08 06:08] LABS: Alanine Aminotransferase 11 U/L (13-56); Albumin 2.7 G/DL (3.4-5.0); Alkaline Phosphatase 69 U/L (45-117); Aspartate Amino Transferase 15 U/L (0-37); Bilirubin,Total < 0.39 MG/DL (0.2-1.0); Blood Urea Nitrogen 25 MG/DL (7-18); Calcium 8.2 MG/DL (8.5-10.1); Glucose 94 MG/DL (74-106); Osmolality,Calculated 284.3 MOS/KG (273-304); Potassium 4.7 MMOL/L (3.5-5.1); Sodium 141 MMOL/L (136-145)
[2016-05-08] MEDS ORDERED: SODIUM CHLORIDE 0.9% 250 ML IV PRN (06:49)
--- NOTE | 2016-05-08 08:49 | Oncology Progress Note ---
Oncology Subjective PN Interval history: This is a patient with acute myelogenous leukemia who was just diagnosed and who just completed induction chemotherapy using daunorubicin and Cytosar. She complains of severe fatigue and anorexia. She severely pancytopenic and requiring blood and platelet transfusions. However, she is in no acute distress otherwise. She had a fever spike yesterday and we started her on Merrem. She is afebrile today. I will consider adding vancomycin if she has another fever spike. This lady has completed her first course of induction chemotherapy for acute myelogenous leukemia. White cell count today is 900. Platelet count today is 13,000. She has a history of recently been treated for stage IV adenocarcinoma of colorectal origin as well as stage III ovarian cancer. Exam - Constitutional Vitals: Period Temp Pulse Resp BP Sys/Ceballos Pulse Ox Last 24 Hr 96.9 F-100.5 F 92-104 18-20 116-126/60-71 95-100 Results - Labs CBC & BMP: 05/08/16 03:45 05/08/16 04:00 Specialty Discharge - Follow Up or Referrals - Discharge Medications No Action Potassium Chloride Cap/Tab [K Dur] 20 meq PO DAILY Docusate Sodium Cap [Colace Cap] 200 mg PO DAILY Famotidine 20 mg PO BID Aspirin [Ecotrin] 81 mg PO DAILY Magnesium Chloride [Mag Delay] 64 mg PO BID W/MEALS Furosemide Tab [Lasix Tab] 20 mg PO DAILY PRN PRN Reason: Edema Cholecalciferol (Vitamin D3) [Vitamin D3] 1,000 unit PO DAILY Metoprolol Succinate Xl [Toprol Xl] 25 mg PO DAILY
[2016-05-08] MEDS: METOPROLOL SUCCINATE XL 25 MG TABLET PO SCH (09:50)
[2016-05-08] MEDS: POTASSIUM CHLORIDE 20 MEQ TABLET PO SCH (09:51)
[2016-05-08] MEDS: FLUCONAZOLE 100 MG TABLET PO SCH (09:51)
[2016-05-08] MEDS: DOCUSATE SODIUM 100 MG CAPSULE PO SCH (09:51)
[2016-05-08] MEDS: FAMOTIDINE 20 MG TABLET PO SCH ×2 (09:51→21:11)
[2016-05-08] MEDS: MAGNESIUM CHLORIDE 64 MG TABLET PO SCH ×2 (11:10→17:19)
[2016-05-08] MEDS: PROMETHAZINE INJ 25 MG in SODIUM CHLORIDE 0.9% 50 ML IV PRN (14:42)
[2016-05-08] MEDS: DEXT 5% NACL 0.45% KCL 20 MEQ 20 MEQ/1,000 ML BAG IV SCH (15:38)
[2016-05-09] MEDS: MEROPENEM 1,000 MG in SODIUM CHLORIDE 0.9% 100 ML IV SCH ×3 (00:08→16:45)
[2016-05-09] MEDS: DEXT 5% NACL 0.45% KCL 20 MEQ 20 MEQ/1,000 ML BAG IV SCH ×2 (01:52→16:45)
[2016-05-09 06:01] LABS: Hematocrit 29.6 VOL% (35.7-47.0); Hemoglobin 9.9 GM/DL (12.0-16.0); Lymphocytes # 0.8 10*3/uL (1.4-4.0); Lymphocytes % 98.8 % (21.3-54.2); Mean Corpuscular HGB Conc 33.4 GM/DL (32-36); Mean Corpuscular Hemoglobin 28 PG (27-34); Mean Corpuscular Volume 85.1 FL (87-102); Mean Platelet Volume 9.4 FL (9.6-12.0); Monocytes % 1.2 % (1.7-12.7); Platelet Count 41 10*3/uL (130-400); Red Blood Count 3.48 10*6/uL (3.8-5.5); Red Cell Distribution Width 15.9 % (9.3-17.3); White Blood Count 0.8 10*3/uL (4.5-13.71)
[2016-05-09 06:09] LABS: Albumin 2.3 G/DL (3.4-5.0); Bilirubin,Total 0.5 MG/DL (0.2-1.0); Calcium 8.1 MG/DL (8.5-10.1); Osmolality,Calculated 272.8 MOS/KG (273-304); Potassium 4.4 MMOL/L (3.5-5.1); Total Protein 6.1 G/DL (6.4-8.3)
[2016-05-09 06:30] LABS: Lymphocytes 100 % (20-55); Platelet Estimate Decreased; Total Cells Counted 10
[2016-05-09] MEDS: MAGNESIUM CHLORIDE 64 MG TABLET PO SCH ×2 (08:51→16:44)
[2016-05-09] MEDS: FAMOTIDINE 20 MG TABLET PO SCH ×2 (08:51→21:41)
[2016-05-09] MEDS: METOPROLOL SUCCINATE XL 25 MG TABLET PO SCH (08:51)
[2016-05-09] MEDS: POTASSIUM CHLORIDE 20 MEQ TABLET PO SCH (08:51)
[2016-05-09] MEDS: FLUCONAZOLE 100 MG TABLET PO SCH (08:51)
[2016-05-09] MEDS: DOCUSATE SODIUM 100 MG CAPSULE PO SCH (08:51)
--- NOTE | 2016-05-09 11:02 | Oncology Progress Note ---
Oncology Subjective PN Interval history: Hemoglobin today is 9.9. Her absolute neutrophil count is 0, With a total white count of 800. Platelet count is 41,000 after platelet transfusion. This is a patient with AML who is post course #1 of induction chemotherapy and is pancytopenic as expected. She complains of mouth tenderness she still having diarrhea. I am going to try a couple of other things for the diarrhea and mouth discomfort. She has a past history of stage IV colon cancer and stage III ovarian cancer, both of which have been treated within the last year. Exam - Constitutional Vitals: Period Temp Pulse Resp BP Sys/Ceballos Pulse Ox Last 24 Hr 96.4 F-98 F 90-101 18-20 100-132/56-71 94-100 Results - Labs CBC & BMP: 05/09/16 04:00 05/09/16 04:00 Specialty Discharge - Follow Up or Referrals - Discharge Medications No Action Potassium Chloride Cap/Tab [K Dur] 20 meq PO DAILY Docusate Sodium Cap [Colace Cap] 200 mg PO DAILY Famotidine 20 mg PO BID Aspirin [Ecotrin] 81 mg PO DAILY Magnesium Chloride [Mag Delay] 64 mg PO BID W/MEALS Furosemide Tab [Lasix Tab] 20 mg PO DAILY PRN PRN Reason: Edema Cholecalciferol (Vitamin D3) [Vitamin D3] 1,000 unit PO DAILY Metoprolol Succinate Xl [Toprol Xl] 25 mg PO DAILY
[2016-05-09] MEDS: CLOTRIMAZOLE 10 MG TROCHE PO SCH ×3 (14:10→21:42)
[2016-05-09] MEDS: CHOLESTYRAMINE 4 GM PACK PO SCH ×2 (14:11→21:41)
[2016-05-10] MEDS: MEROPENEM 1,000 MG in SODIUM CHLORIDE 0.9% 100 ML IV SCH ×3 (00:29→16:44)
[2016-05-10 06:07] LABS: Hematocrit 29.7 VOL% (35.7-47.0); Hemoglobin 9.8 GM/DL (12.0-16.0); Lymphocytes # 0.9 10*3/uL (1.4-4.0); Lymphocytes % 97.8 % (21.3-54.2); Mean Corpuscular Hemoglobin 28 PG (27-34); Mean Corpuscular Volume 84.9 FL (87-102); Monocytes % 1.1 % (1.7-12.7); Neutrophils % 1.1 % (38.7-73.9); Red Cell Distribution Width 15.8 % (9.3-17.3)
[2016-05-10 06:11] LABS: Platelet Count 29 10*3/uL (130-400); White Blood Count 0.9 10*3/uL (4.5-13.71)
[2016-05-10 06:49] LABS: Albumin 2.3 G/DL (3.4-5.0); Bilirubin,Total 0.8 MG/DL (0.2-1.0); Calcium 8.2 MG/DL (8.5-10.1); Osmolality,Calculated 273.8 MOS/KG (273-304); Potassium 4.3 MMOL/L (3.5-5.1); Total Protein 6.3 G/DL (6.4-8.3)
[2016-05-10 06:51] LABS: Lymphocytes 100 % (20-55); Total Cells Counted 100
[2016-05-10 06:54] LABS: Hypochromasia Slight
[2016-05-10 06:55] LABS: Atypical Lymphocytes Few; Microcytosis 1+; Platelet Estimate Decreased
[2016-05-10] MEDS: DEXT 5% NACL 0.45% KCL 20 MEQ 20 MEQ/1,000 ML BAG IV SCH ×2 (08:23→23:09)
[2016-05-10] MEDS: MAGNESIUM CHLORIDE 64 MG TABLET PO SCH ×2 (09:44→16:44)
[2016-05-10] MEDS: DOCUSATE SODIUM 100 MG CAPSULE PO SCH (09:45)
[2016-05-10] MEDS: POTASSIUM CHLORIDE 20 MEQ TABLET PO SCH (09:45)
[2016-05-10] MEDS: METOPROLOL SUCCINATE XL 25 MG TABLET PO SCH (09:45)
[2016-05-10] MEDS: CLOTRIMAZOLE 10 MG TROCHE PO SCH ×4 (09:45→20:40)
[2016-05-10] MEDS: FLUCONAZOLE 100 MG TABLET PO SCH (09:45)
[2016-05-10] MEDS: FAMOTIDINE 20 MG TABLET PO SCH ×2 (09:45→20:41)
[2016-05-10] MEDS: CHOLESTYRAMINE 4 GM PACK PO SCH ×2 (09:46→20:40)
--- NOTE | 2016-05-10 12:28 | Oncology Progress Note ---
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 She is still effectively severely neutropenic and thrombocytopenic. She has also required blood transfusions for anemia. Her white cell count is 900 with 0 neutrophils. Her platelet count is 29,000 today. She has been having problems with stomatitis. This is improving. She is ambulatory but exceedingly weak and her appetite is only mediocre. We will continue to support her while she recovers from this first course of induction chemotherapy. Exam - Constitutional Vitals: Period Temp Pulse Resp BP Sys/Ceballos Pulse Ox Last 24 Hr 97.1 F-99.5 F 68-109 18-20 106-133/59-77 96-99 Results - Labs CBC & BMP: 05/10/16 04:00 05/10/16 04:00 Specialty Discharge - Follow Up or Referrals - Discharge Medications No Action Potassium Chloride Cap/Tab [K Dur] 20 meq PO DAILY Docusate Sodium Cap [Colace Cap] 200 mg PO DAILY Famotidine 20 mg PO BID Aspirin [Ecotrin] 81 mg PO DAILY Magnesium Chloride [Mag Delay] 64 mg PO BID W/MEALS Furosemide Tab [Lasix Tab] 20 mg PO DAILY PRN PRN Reason: Edema Cholecalciferol (Vitamin D3) [Vitamin D3] 1,000 unit PO DAILY Metoprolol Succinate Xl [Toprol Xl] 25 mg PO DAILY
[2016-05-11] MEDS: MEROPENEM 1,000 MG in SODIUM CHLORIDE 0.9% 100 ML IV SCH ×3 (01:07→16:57)
[2016-05-11 06:34] LABS: Hematocrit 28.5 VOL% (35.7-47.0); Hemoglobin 9.4 GM/DL (12.0-16.0); Lymphocytes # 1.1 10*3/uL (1.4-4.0); Lymphocytes % 99.1 % (21.3-54.2); Mean Corpuscular Hemoglobin 28 PG (27-34); Mean Corpuscular Volume 85.1 FL (87-102); Monocytes % 0.9 % (1.7-12.7); Red Blood Count 3.35 10*6/uL (3.8-5.5); Red Cell Distribution Width 15.5 % (9.3-17.3); White Blood Count 1.1 10*3/uL (4.5-13.71)
[2016-05-11 06:48] LABS: Albumin 2.3 G/DL (3.4-5.0); Bilirubin,Total 0.5 MG/DL (0.2-1.0); Calcium 8.7 MG/DL (8.5-10.1); Osmolality,Calculated 277.5 MOS/KG (273-304); Potassium 4.5 MMOL/L (3.5-5.1); Total Protein 6.1 G/DL (6.4-8.3)
[2016-05-11 06:57] LABS: Platelet Count 22 10*3/uL (130-400)
[2016-05-11 07:12] LABS: Lymphocytes 100 % (20-55); Platelet Estimate Decreased; Total Cells Counted 100
[2016-05-11 07:13] LABS: Atypical Lymphocytes Few; Hypochromasia 1+; Microcytosis 1+; Ovalocytes Slight
--- NOTE | 2016-05-11 07:22 | Oncology Progress Note ---
Oncology Subjective PN Interval history: Ms. Hadley's white cell count is marginally higher but she still has 0 neutrophils. She is about 2 weeks out from her first course of induction chemotherapy for acute myelogenous leukemia that developed shortly after she completed chemotherapy for stage IV colon cancer and stage III B ovarian cancer. Her marrow was hypoplastic at the beginning of induction chemotherapy. This was her first course of it. Although she did not have any adverse chromosomal or cytogenetic findings on evaluation, this is still a leukemia that developed following chemotherapy for 2 prior malignancies with some of the medications that were used to treat him being responsible for causing some myelodysplastic syndromes and even leukemia. Her stomatitis has resolved. She is feeling better generally. I anticipate discharging her later this week and bring her back for consolidation chemotherapy in a couple of weeks. Exam - Constitutional Vitals: Period Temp Pulse Resp BP Sys/Ceballos Pulse Ox Last 24 Hr 96.9 F-98.4 F 18-107 12-20 106-133/53-77 98-99 Results - Labs CBC & BMP: 05/11/16 04:00 05/11/16 04:00 Specialty Discharge - Follow Up or Referrals - Discharge Medications No Action Potassium Chloride Cap/Tab [K Dur] 20 meq PO DAILY Docusate Sodium Cap [Colace Cap] 200 mg PO DAILY Famotidine 20 mg PO BID Aspirin [Ecotrin] 81 mg PO DAILY Magnesium Chloride [Mag Delay] 64 mg PO BID W/MEALS Furosemide Tab [Lasix Tab] 20 mg PO DAILY PRN PRN Reason: Edema Cholecalciferol (Vitamin D3) [Vitamin D3] 1,000 unit PO DAILY Metoprolol Succinate Xl [Toprol Xl] 25 mg PO DAILY
[2016-05-11] MEDS: METOPROLOL SUCCINATE XL 25 MG TABLET PO SCH (11:24)
[2016-05-11] MEDS: MAGNESIUM CHLORIDE 64 MG TABLET PO SCH ×2 (11:24→16:57)
[2016-05-11] MEDS: FLUCONAZOLE 100 MG TABLET PO SCH (11:24)
[2016-05-11] MEDS: FAMOTIDINE 20 MG TABLET PO SCH ×2 (11:25→20:46)
[2016-05-11] MEDS: DOCUSATE SODIUM 100 MG CAPSULE PO SCH (11:25)
[2016-05-11] MEDS: POTASSIUM CHLORIDE 20 MEQ TABLET PO SCH (11:25)
[2016-05-11] MEDS: CHOLESTYRAMINE 4 GM PACK PO SCH ×2 (11:26→20:46)
[2016-05-11] MEDS: CLOTRIMAZOLE 10 MG TROCHE PO SCH ×4 (11:26→20:46)
[2016-05-11] MEDS: DEXT 5% NACL 0.45% KCL 20 MEQ 20 MEQ/1,000 ML BAG IV SCH (13:15)
[2016-05-12] MEDS: MEROPENEM 1,000 MG in SODIUM CHLORIDE 0.9% 100 ML IV SCH ×3 (01:40→16:33)
[2016-05-12] MEDS: DEXT 5% NACL 0.45% KCL 20 MEQ 20 MEQ/1,000 ML BAG IV SCH ×2 (07:19→17:15)
[2016-05-12 07:42] LABS: Hematocrit 28.2 VOL% (35.7-47.0); Hemoglobin 9.4 GM/DL (12.0-16.0); Lymphocytes # 1.1 10*3/uL (1.4-4.0); Lymphocytes % 99.1 % (21.3-54.2); Mean Corpuscular HGB Conc 33.3 GM/DL (32-36); Mean Corpuscular Hemoglobin 28 PG (27-34); Mean Corpuscular Volume 85.2 FL (87-102); Mean Platelet Volume 9.6 FL (9.6-12.0); Neutrophils % 0.9 % (38.7-73.9); Red Blood Count 3.31 10*6/uL (3.8-5.5); Red Cell Distribution Width 15.5 % (9.3-17.3); White Blood Count 1.1 10*3/uL (4.5-13.71)
[2016-05-12 07:46] LABS: Platelet Count 14 10*3/uL (130-400)
--- NOTE | 2016-05-12 07:47 | Oncology Progress Note ---
Oncology Subjective PN Interval history: Ms. Hadley still has no neutrophils. She is over a week post induction chemotherapy for acute myelogenous leukemia that developed after she had been treated earlier last year for stage IV metastatic colon cancer and for stage III ovarian cancer. She is feeling better. Her stomatitis is cleared. She is no longer nauseated. Her oral mucosa appears normal. Cranial nerves II through XII are intact. She is very pleasant and she is fully oriented to time, place, person and situation. We are continuing aggressive supportive care and she is on antibiotics for fever that occurred while she was neutropenic. Exam - Constitutional Vitals: Period Temp Pulse Resp BP Sys/Ceballos Pulse Ox Last 24 Hr 96.7 F-98.5 F 94-114 16-20 110-131/65-80 96-99 Results - Labs CBC & BMP: 05/12/16 04:40 05/11/16 04:00 Specialty Discharge - Follow Up or Referrals - Discharge Medications No Action Potassium Chloride Cap/Tab [K Dur] 20 meq PO DAILY Docusate Sodium Cap [Colace Cap] 200 mg PO DAILY Famotidine 20 mg PO BID Aspirin [Ecotrin] 81 mg PO DAILY Magnesium Chloride [Mag Delay] 64 mg PO BID W/MEALS Furosemide Tab [Lasix Tab] 20 mg PO DAILY PRN PRN Reason: Edema Cholecalciferol (Vitamin D3) [Vitamin D3] 1,000 unit PO DAILY Metoprolol Succinate Xl [Toprol Xl] 25 mg PO DAILY
[2016-05-12 08:09] LABS: Atypical Lymphocytes Few; Hypochromasia 1+; Lymphocytes 98 % (20-55); Microcytosis 1+; Platelet Estimate Decreased; Segmented Neutrophils 1 % (50-85); Total Cells Counted 100
[2016-05-12] MEDS: MAGNESIUM CHLORIDE 64 MG TABLET PO SCH ×2 (09:13→17:15)
[2016-05-12] MEDS: FLUCONAZOLE 100 MG TABLET PO SCH (09:13)
[2016-05-12] MEDS: FAMOTIDINE 20 MG TABLET PO SCH ×2 (09:13→22:03)
[2016-05-12] MEDS: CLOTRIMAZOLE 10 MG TROCHE PO SCH ×4 (09:13→22:03)
[2016-05-12] MEDS: DOCUSATE SODIUM 100 MG CAPSULE PO SCH (09:13)
[2016-05-12] MEDS: POTASSIUM CHLORIDE 20 MEQ TABLET PO SCH (09:13)
[2016-05-12] MEDS: METOPROLOL SUCCINATE XL 25 MG TABLET PO SCH (09:13)
[2016-05-12] MEDS: CHOLESTYRAMINE 4 GM PACK PO SCH ×2 (09:14→22:04)
[2016-05-13] MEDS: MEROPENEM 1,000 MG in SODIUM CHLORIDE 0.9% 100 ML IV SCH ×3 (00:38→17:25)
[2016-05-13] MEDS: DEXT 5% NACL 0.45% KCL 20 MEQ 20 MEQ/1,000 ML BAG IV SCH ×2 (06:48→21:15)
[2016-05-13 07:49] LABS: Hematocrit 26.3 VOL% (35.7-47.0); Hemoglobin 8.8 GM/DL (12.0-16.0); Lymphocytes # 1.2 10*3/uL (1.4-4.0); Lymphocytes % 99.2 % (21.3-54.2); Mean Corpuscular HGB Conc 33.5 GM/DL (32-36); Mean Corpuscular Hemoglobin 28 PG (27-34); Mean Platelet Volume 11.1 FL (9.6-12.0); Monocytes % 0.8 % (1.7-12.7); Red Blood Count 3.13 10*6/uL (3.8-5.5); Red Cell Distribution Width 15.3 % (9.3-17.3); White Blood Count 1.2 10*3/uL (4.5-13.71)
[2016-05-13 07:53] LABS: Platelet Count 65 10*3/uL (130-400)
[2016-05-13 08:16] LABS: Hypochromasia 1+; Lymphocytes 97 % (20-55); Microcytosis 1+; Platelet Estimate Decreased; Total Cells Counted 100
[2016-05-13 08:17] LABS: Atypical Lymphocytes Few
--- NOTE | 2016-05-13 08:30 | Oncology Progress Note ---
Oncology Subjective PN Interval history: Ms. Hadley has had gradual improvement of a minimal nature, and her blood counts. She is post course #1 of induction chemotherapy for acute myelogenous leukemia. Her white cell count is 1200 but she has no neutrophils. Her platelet count is up to 65,000 today. Her hemoglobin is 8.8. She is having symptoms of a vaginal yeast infection. She is already on Diflucan. We will add a nystatin suppository or powder. She is not due chemotherapy again for at least 2 weeks. I am not optimistic that she is going to have a good response to this chemotherapy because of her prior history of stage IV adenocarcinoma colon and stage III ovarian cancer. She had treatment for both of these within the last 12-14 months. Exam - Constitutional Vitals: Period Temp Pulse Resp BP Sys/Ceballos Pulse Ox Last 24 Hr 96.0 F-98.2 F 97-111 18-20 111-144/57-86 94-100 Results - Labs CBC & BMP: 05/13/16 03:45 05/11/16 04:00
[2016-05-13] MEDS: CHOLESTYRAMINE 4 GM PACK PO SCH ×2 (09:19→21:16)
[2016-05-13] MEDS: CLOTRIMAZOLE 10 MG TROCHE PO SCH ×4 (09:19→21:17)
[2016-05-13] MEDS: DOCUSATE SODIUM 100 MG CAPSULE PO SCH (09:19)
[2016-05-13] MEDS: METOPROLOL SUCCINATE XL 25 MG TABLET PO SCH (09:19)
[2016-05-13] MEDS: POTASSIUM CHLORIDE 20 MEQ TABLET PO SCH (09:19)
[2016-05-13] MEDS: FLUCONAZOLE 100 MG TABLET PO SCH (09:19)
[2016-05-13] MEDS: FAMOTIDINE 20 MG TABLET PO SCH ×2 (09:19→21:17)
[2016-05-13] MEDS: MAGNESIUM CHLORIDE 64 MG TABLET PO SCH ×2 (09:19→17:25)
[2016-05-13] MEDS: NYSTATIN POWDER 15 GM BOTTLE TOP SCH (21:19)
[2016-05-14] MEDS: MEROPENEM 1,000 MG in SODIUM CHLORIDE 0.9% 100 ML IV SCH ×3 (01:52→17:23)
[2016-05-14 05:18] LABS: Hematocrit 25.7 VOL% (35.7-47.0); Hemoglobin 8.5 GM/DL (12.0-16.0); Lymphocytes # 1.1 10*3/uL (1.4-4.0); Lymphocytes % 99.1 % (21.3-54.2); Mean Corpuscular HGB Conc 33.1 GM/DL (32-36); Mean Corpuscular Hemoglobin 28 PG (27-34); Mean Corpuscular Volume 84.8 FL (87-102); Mean Platelet Volume 10.2 FL (9.6-12.0); Neutrophils % 0.9 % (38.7-73.9); Red Blood Count 3.03 10*6/uL (3.8-5.5); Red Cell Distribution Width 15.2 % (9.3-17.3); White Blood Count 1.1 10*3/uL (4.5-13.71)
[2016-05-14 05:20] LABS: Platelet Count 39 10*3/uL (130-400)
[2016-05-14 05:50] LABS: Hypochromasia Slight; Lymphocytes 98 % (20-55); Platelet Estimate Decreased; Segmented Neutrophils 2 % (50-85); Total Cells Counted 100
[2016-05-14 05:51] LABS: Atypical Lymphocytes Few; Microcytosis 1+
--- NOTE | 2016-05-14 08:24 | Oncology Progress Note ---
Oncology Subjective PN Interval history: This unfortunate lady has AML and completed induction chemotherapy last week. She is severely neutropenic with an absolute neutrophil count of 0. There is no sign that she is recovering yet from the induction chemotherapy. Her platelet count is 39,000. She is fully oriented and alert but unfortunately she has no neutrophils. I would consider discharging her if her neutrophil count began to rise even a little. She has underlying stage IV adenocarcinoma colon and stage III ovarian cancer. She is oriented and alert. Her oral mucosa is normal. Her respirations are unlabored. She has no focal neurologic deficits. I am still waiting for a response to chemotherapy. She is about 18 days post induction chemotherapy using Cytosar and daunorubicin. Exam - Constitutional Vitals: Period Temp Pulse Resp BP Sys/Ceballos Pulse Ox Last 24 Hr 97.3 F-98.8 F 100-108 18-20 109-122/56-78 96-98 Results - Labs CBC & BMP: 05/15/16 04:00 05/11/16 04:00
[2016-05-14] MEDS: CLOTRIMAZOLE 10 MG TROCHE PO SCH ×4 (08:54→21:20)
[2016-05-14] MEDS: METOPROLOL SUCCINATE XL 25 MG TABLET PO SCH (08:54)
[2016-05-14] MEDS: FAMOTIDINE 20 MG TABLET PO SCH ×2 (08:54→21:18)
[2016-05-14] MEDS: CHOLESTYRAMINE 4 GM PACK PO SCH ×2 (08:54→21:20)
[2016-05-14] MEDS: NYSTATIN POWDER 15 GM BOTTLE TOP SCH ×2 (08:54→21:20)
[2016-05-14] MEDS: DOCUSATE SODIUM 100 MG CAPSULE PO SCH (08:54)
[2016-05-14] MEDS: POTASSIUM CHLORIDE 20 MEQ TABLET PO SCH (08:54)
[2016-05-14] MEDS: FLUCONAZOLE 100 MG TABLET PO SCH (08:54)
[2016-05-14] MEDS: MAGNESIUM CHLORIDE 64 MG TABLET PO SCH ×2 (08:54→17:23)
[2016-05-14] MEDS: DEXT 5% NACL 0.45% KCL 20 MEQ 20 MEQ/1,000 ML BAG IV SCH (13:02)
[2016-05-15] MEDS: MEROPENEM 1,000 MG in SODIUM CHLORIDE 0.9% 100 ML IV SCH ×3 (01:00→16:50)
[2016-05-15] MEDS: DEXT 5% NACL 0.45% KCL 20 MEQ 20 MEQ/1,000 ML BAG IV SCH ×2 (01:46→20:32)
[2016-05-15 05:18] LABS: Hematocrit 25.5 VOL% (35.7-47.0); Hemoglobin 8.3 GM/DL (12.0-16.0); Mean Corpuscular HGB Conc 32.5 GM/DL (32-36); Mean Corpuscular Hemoglobin 28 PG (27-34); Mean Corpuscular Volume 86.4 FL (87-102); Mean Platelet Volume 11.7 FL (9.6-12.0); Red Blood Count 2.95 10*6/uL (3.8-5.5); Red Cell Distribution Width 15.7 % (9.3-17.3)
[2016-05-15 05:25] LABS: Platelet Count 37 10*3/uL (130-400)
[2016-05-15 06:18] LABS: Lymphocytes 100 % (20-55); Total Cells Counted 100
[2016-05-15 06:20] LABS: Microcytosis Slight; Platelet Estimate Decreased
[2016-05-15 06:22] LABS: Atypical Lymphocytes Few
[2016-05-15] MEDS: MAGNESIUM CHLORIDE 64 MG TABLET PO SCH ×2 (09:25→16:51)
[2016-05-15] MEDS: DOCUSATE SODIUM 100 MG CAPSULE PO SCH (09:25)
[2016-05-15] MEDS: METOPROLOL SUCCINATE XL 25 MG TABLET PO SCH (09:25)
[2016-05-15] MEDS: FLUCONAZOLE 100 MG TABLET PO SCH (09:25)
[2016-05-15] MEDS: CLOTRIMAZOLE 10 MG TROCHE PO SCH ×4 (09:26→20:29)
[2016-05-15] MEDS: POTASSIUM CHLORIDE 20 MEQ TABLET PO SCH (09:26)
[2016-05-15] MEDS: FAMOTIDINE 20 MG TABLET PO SCH ×2 (09:26→20:29)
[2016-05-15] MEDS: NYSTATIN POWDER 15 GM BOTTLE TOP SCH ×2 (09:28→20:29)
[2016-05-15] MEDS: CHOLESTYRAMINE 4 GM PACK PO SCH ×2 (09:29→20:32)
--- NOTE | 2016-05-15 10:16 | Oncology Progress Note ---
Oncology Subjective PN Interval history: Ms. Hadley is 18 days post course #1 of induction chemotherapy for acute myelogenous leukemia. She has had no significant marrow recovery so far. She still has no neutrophils. She still thrombocytopenic and requiring platelet transfusions as well as red cell transfusions intermittently. If she improves enough to be discharged, she needs to be scheduled for readmission May 25 as an outpatient to begin with. I will reassess her condition at that point and make a decision about further chemotherapy. She has underlying prior history of both stage IV adenocarcinoma the colon with liver metastases and stage III ovarian cancer which she has apparently achieved complete remission from both of these malignancies. 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 We are basically continuing hematologic support to see if her condition will improve after induction chemotherapy for the AML. Although I have not made the patient a no code, if her condition should clearly deteriorate, it would be appropriate to change her CODE STATUS. However, currently she stable. She has a very sweet disposition and I think she is very realistic about her prognosis but frankly, someone who has survived stage IV colon cancer expects to survive the other malignancies as well. Exam - Constitutional Vitals: Period Temp Pulse Resp BP Sys/Ceballos Pulse Ox Last 24 Hr 96.4 F-97.6 F 105-116 18-20 107-152/54-72 93-100 Results - Labs CBC & BMP: 05/15/16 04:00 05/11/16 04:00
[2016-05-16] MEDS: DEXT 5% NACL 0.45% KCL 20 MEQ 20 MEQ/1,000 ML BAG IV SCH ×2 (01:26→21:06)
[2016-05-16] MEDS: MEROPENEM 1,000 MG in SODIUM CHLORIDE 0.9% 100 ML IV SCH ×3 (01:27→18:06)
[2016-05-16] MEDS ORDERED: HEPARIN LOCK FLUSH 500 UNIT/5 ML SYRINGE IV ONE (04:50)
[2016-05-16 06:20] LABS: Hematocrit 24.4 VOL% (35.7-47.0); Hemoglobin 7.9 GM/DL (12.0-16.0); Mean Corpuscular HGB Conc 32.4 GM/DL (32-36); Mean Corpuscular Hemoglobin 28 PG (27-34); Mean Corpuscular Volume 85.3 FL (87-102); Mean Platelet Volume 11.2 FL (9.6-12.0); Red Blood Count 2.86 10*6/uL (3.8-5.5); Red Cell Distribution Width 14.9 % (9.3-17.3)
[2016-05-16 06:26] LABS: Platelet Count 25 10*3/uL (130-400)
[2016-05-16 06:58] LABS: Lymphocytes 96 % (20-55); Ovalocytes Few; Platelet Estimate Decreased; Segmented Neutrophils 2 % (50-85); Total Cells Counted 100
--- NOTE | 2016-05-16 12:07 | Oncology Progress Note ---
Assessment and Plan (1) AML (acute myeloblastic leukemia) Status: Acute Assessment and plan: Day 19 from induction chemotherapy -tolerated well thus far - continue with count support - transfuse 2 units PRBC today - no platelets today - awaiting count return. ANC remains 0 - continue with diflucan ppx Current Visit: Yes (2) Neutropenia Status: Acute Assessment and plan: h/o febrile neutropenia - cultures negative - resolved now - continue with meropenem while ANC 0 Current Visit: No Oncology Subjective PN Interval history: 60 year old female with PMHx of colon cancer, ovarian cancer and admitted for newly dx AML s/p induction day 19 today. Today patient states generally does not feel well for last couple days without any acute symptoms. No pain. No fevers nor chills. Poor Po intake. Regular bowel movements. Intermittent nausea. Exam - Constitutional Vitals: Period Temp Pulse Resp BP Sys/Ceballos Pulse Ox Last 24 Hr 96.7 F-99.1 F 98-112 16-20 107-124/64-73 96-98 General appearance: no acute distress - Eye Eye Exam: Present: EOMI - Respiratory Respiratory exam: Present: CTAB - Cardiovascular Cardiovascular exam: Present: RRR - GI/Abdominal GI/Abdominal exam: Present: soft. Absent: distended, tenderness - Extremities Exam Extremities exam: Absent: edema - Neurological Exam Neurological exam: Present: alert, oriented X3 - Skin Skin exam: Present: warm Results - Labs CBC & BMP: 05/16/16 04:30 05/11/16 04:00
[2016-05-16] MEDS: CLOTRIMAZOLE 10 MG TROCHE PO SCH ×4 (13:02→20:59)
[2016-05-16] MEDS: DOCUSATE SODIUM 100 MG CAPSULE PO SCH (13:05)
[2016-05-16] MEDS: FAMOTIDINE 20 MG TABLET PO SCH ×2 (13:06→20:59)
[2016-05-16] MEDS: FLUCONAZOLE 100 MG TABLET PO SCH (13:06)
[2016-05-16] MEDS: MAGNESIUM CHLORIDE 64 MG TABLET PO SCH ×2 (13:06→18:02)
[2016-05-16] MEDS: METOPROLOL SUCCINATE XL 25 MG TABLET PO SCH (13:06)
[2016-05-16] MEDS: NYSTATIN POWDER 15 GM BOTTLE TOP SCH ×2 (13:07→20:59)
[2016-05-16] MEDS: POTASSIUM CHLORIDE 20 MEQ TABLET PO SCH (13:07)
[2016-05-16] MEDS: CHOLESTYRAMINE 4 GM PACK PO SCH ×2 (13:08→21:00)
[2016-05-16] MEDS: PROMETHAZINE INJ 25 MG in SODIUM CHLORIDE 0.9% 50 ML IV PRN (23:50)
[2016-05-17] MEDS: MEROPENEM 1,000 MG in SODIUM CHLORIDE 0.9% 100 ML IV SCH ×3 (02:53→17:50)
[2016-05-17] MEDS ORDERED: HEPARIN LOCK FLUSH 500 UNIT/5 ML SYRINGE IV ONE (04:28)
[2016-05-17] MEDS: DEXT 5% NACL 0.45% KCL 20 MEQ 20 MEQ/1,000 ML BAG IV SCH (05:42)
[2016-05-17 06:26] LABS: Hemoglobin 10.5 GM/DL (12.0-16.0); Lymphocytes # 0.7 10*3/uL (1.4-4.0); Lymphocytes % 98.5 % (21.3-54.2); Mean Corpuscular HGB Conc 32.8 GM/DL (32-36); Mean Corpuscular Hemoglobin 28 PG (27-34); Mean Corpuscular Volume 84.9 FL (87-102); Mean Platelet Volume 9.6 FL (9.6-12.0); Neutrophils % 1.5 % (38.7-73.9); Red Blood Count 3.77 10*6/uL (3.8-5.5); Red Cell Distribution Width 14.6 % (9.3-17.3)
[2016-05-17 06:40] LABS: Platelet Count 12 10*3/uL (130-400); White Blood Count 0.7 10*3/uL (4.5-13.71)
[2016-05-17] MEDS ORDERED: SODIUM CHLORIDE 0.9% 250 ML IV PRN (06:45)
[2016-05-17 07:02] LABS: Lymphocytes 98 % (20-55); Microcytosis 1+; Platelet Estimate Decreased; Total Cells Counted 100
[2016-05-17 07:03] LABS: Hypochromasia 1+
[2016-05-17 07:11] LABS: Albumin 2.5 G/DL (3.4-5.0); Bilirubin,Total 0.9 MG/DL (0.2-1.0); Potassium 4.7 MMOL/L (3.5-5.1)
[2016-05-17] MEDS: POTASSIUM CHLORIDE 20 MEQ TABLET PO SCH (09:25)
[2016-05-17] MEDS: FLUCONAZOLE 100 MG TABLET PO SCH (09:25)
[2016-05-17] MEDS: FAMOTIDINE 20 MG TABLET PO SCH ×2 (09:25→21:06)
[2016-05-17] MEDS: DOCUSATE SODIUM 100 MG CAPSULE PO SCH (09:25)
[2016-05-17] MEDS: MAGNESIUM CHLORIDE 64 MG TABLET PO SCH ×2 (09:25→18:00)
[2016-05-17] MEDS: METOPROLOL SUCCINATE XL 25 MG TABLET PO SCH (09:26)
[2016-05-17] MEDS: diphenhydrAMINE CAP 25 MG CAPSULE PO PRN (09:26)
[2016-05-17] MEDS: CHOLESTYRAMINE 4 GM PACK PO SCH ×2 (09:27→21:06)
[2016-05-17] MEDS: NYSTATIN POWDER 15 GM BOTTLE TOP SCH ×2 (09:27→21:15)
[2016-05-17] MEDS: CLOTRIMAZOLE 10 MG TROCHE PO SCH ×4 (09:27→21:06)
[2016-05-17] MEDS: ONDANSETRON 4 MG/2 ML VIAL IV PRN (09:43)
--- NOTE | 2016-05-17 11:59 | Oncology Progress Note ---
Assessment and Plan (1) AML (acute myeloblastic leukemia) Status: Acute Assessment and plan: Day 20 from induction chemotherapy -tolerated well thus far - continue with count support - transfuse 2 units PRBC 05/16/16 - transfuse 1 unit platelets today - awaiting count return. ANC remains 0 - continue with diflucan ppx - may need repeat bone marrow biopsy if counts do not return on own rule out residual disease Current Visit: Yes (2) Neutropenia Status: Acute Assessment and plan: h/o febrile neutropenia - cultures negative - resolved now - continue with meropenem while ANC 0 Current Visit: Yes Oncology Subjective PN Interval history: 60 year old female with PMHx of colon ca, ovarian ca in remission admitted for induction chemotherapy for newly dx AML. Patient is day 20 from induction and tolerated well. At one point had febrile neutropenia now resolved . Doing well today with no compliants and no new events. Refers poor PO intake and intermittent nausea. No chills. Overall feels better today than yesterday. Normal BM. No mucositis. Exam - Constitutional Vitals: Period Temp Pulse Resp BP Sys/Ceballos Pulse Ox Last 24 Hr 97.1 F-99.3 F 101-119 18-20 110-128/58-75 94-99 General appearance: no acute distress - Eye Eye Exam: Present: EOMI Pupils: Present: PERRL - Respiratory Respiratory exam: Present: CTAB - Cardiovascular Cardiovascular exam: Present: RRR - GI/Abdominal GI/Abdominal exam: Present: soft. Absent: ascites, distended, mass - Extremities Exam Extremities exam: Absent: edema - Neurological Exam Neurological exam: Present: alert, oriented X3 - Skin Skin exam: Present: warm Results - Labs CBC & BMP: 05/17/16 06:14 05/17/16 06:14
[2016-05-17] MEDS: PROMETHAZINE INJ 25 MG in SODIUM CHLORIDE 0.9% 50 ML IV PRN (13:37)
[2016-05-18] MEDS: MEROPENEM 1,000 MG in SODIUM CHLORIDE 0.9% 100 ML IV SCH ×4 (00:20→23:52)
[2016-05-18] MEDS: DEXT 5% NACL 0.45% KCL 20 MEQ 20 MEQ/1,000 ML BAG IV SCH ×3 (00:24→23:51)
[2016-05-18 05:15] LABS: Hematocrit 29.5 VOL% (35.7-47.0); Hemoglobin 9.8 GM/DL (12.0-16.0); Lymphocytes # 0.7 10*3/uL (1.4-4.0); Lymphocytes % 98.5 % (21.3-54.2); Mean Corpuscular HGB Conc 33.2 GM/DL (32-36); Mean Corpuscular Hemoglobin 28 PG (27-34); Mean Corpuscular Volume 85.5 FL (87-102); Mean Platelet Volume 10.1 FL (9.6-12.0); Monocytes % 1.5 % (1.7-12.7); Platelet Count 40 10*3/uL (130-400); Red Blood Count 3.45 10*6/uL (3.8-5.5); Red Cell Distribution Width 14.6 % (9.3-17.3)
[2016-05-18 05:21] LABS: White Blood Count 0.7 10*3/uL (4.5-13.71)
[2016-05-18 05:40] LABS: Albumin 2.4 G/DL (3.4-5.0); Bilirubin,Total 0.9 MG/DL (0.2-1.0); Calcium 8.6 MG/DL (8.5-10.1); Osmolality,Calculated 275.7 MOS/KG (273-304); Potassium 4.6 MMOL/L (3.5-5.1); Total Protein 7.1 G/DL (6.4-8.3)
[2016-05-18 05:41] LABS: Lymphocytes 100 % (20-55); Platelet Estimate Decreased; Total Cells Counted 100
--- NOTE | 2016-05-18 08:52 | Oncology Progress Note ---
Oncology Subjective PN Interval history: Day 21 AML induction. Treating with best supportive care. No fever at present. She is receiving meropenem which was started on May 07. Previous negative C. difficile testing. No diarrhea at present. Lungs are clear abdomen is obese but soft and nontender. Neurologically afocal. Still reporting sporadic nausea which we are treating with Phenergan. She is on low rate IV fluids. Her weight was checked today which was down 3-4 pounds from prior levels. She does not require transfusions today Exam - Constitutional Vitals: Period Temp Pulse Resp BP Sys/Ceballos Pulse Ox Last 24 Hr 97.2 F-98.8 F 100-114 16-20 99-147/57-86 94-99 Results - Labs CBC & BMP: 05/18/16 04:54 05/18/16 04:54
[2016-05-18] MEDS: CLOTRIMAZOLE 10 MG TROCHE PO SCH ×4 (10:01→21:29)
[2016-05-18] MEDS: POTASSIUM CHLORIDE 20 MEQ TABLET PO SCH (10:01)
[2016-05-18] MEDS: FAMOTIDINE 20 MG TABLET PO SCH ×2 (10:01→21:29)
[2016-05-18] MEDS: FLUCONAZOLE 100 MG TABLET PO SCH (10:01)
[2016-05-18] MEDS: DOCUSATE SODIUM 100 MG CAPSULE PO SCH (10:01)
[2016-05-18] MEDS: METOPROLOL SUCCINATE XL 25 MG TABLET PO SCH (10:01)
[2016-05-18] MEDS: MAGNESIUM CHLORIDE 64 MG TABLET PO SCH ×2 (10:01→17:42)
[2016-05-18] MEDS: CHOLESTYRAMINE 4 GM PACK PO SCH ×2 (10:02→22:08)
[2016-05-18] MEDS: NYSTATIN POWDER 15 GM BOTTLE TOP SCH ×2 (10:02→21:29)
[2016-05-19 05:16] LABS: Hematocrit 27.9 VOL% (35.7-47.0); Hemoglobin 9.1 GM/DL (12.0-16.0); Lymphocytes # 0.7 10*3/uL (1.4-4.0); Lymphocytes % 96.1 % (21.3-54.2); Mean Corpuscular HGB Conc 32.6 GM/DL (32-36); Mean Corpuscular Hemoglobin 28 PG (27-34); Mean Corpuscular Volume 86.6 FL (87-102); Mean Platelet Volume 10.4 FL (9.6-12.0); Monocytes % 1.3 % (1.7-12.7); Neutrophils % 2.6 % (38.7-73.9); Red Blood Count 3.22 10*6/uL (3.8-5.5); Red Cell Distribution Width 14.5 % (9.3-17.3)
[2016-05-19 05:29] LABS: Platelet Count 31 10*3/uL (130-400); White Blood Count 0.8 10*3/uL (4.5-13.71)
[2016-05-19 05:45] LABS: Albumin 2.3 G/DL (3.4-5.0); Bilirubin,Total 0.5 MG/DL (0.2-1.0); Calcium 8.4 MG/DL (8.5-10.1); Osmolality,Calculated 278.5 MOS/KG (273-304); Potassium 4.6 MMOL/L (3.5-5.1); Total Protein 6.8 G/DL (6.4-8.3)
[2016-05-19 05:53] LABS: Atypical Lymphocytes Few; Lymphocytes 99 % (20-55); Platelet Estimate Decreased; Total Cells Counted 100
[2016-05-19 05:54] LABS: Hypochromasia Slight; Microcytosis 1+
[2016-05-19] MEDS: MEROPENEM 1,000 MG in SODIUM CHLORIDE 0.9% 100 ML IV SCH ×2 (09:25→16:47)
[2016-05-19] MEDS: MAGNESIUM CHLORIDE 64 MG TABLET PO SCH ×2 (09:27→16:48)
[2016-05-19] MEDS: CLOTRIMAZOLE 10 MG TROCHE PO SCH ×4 (09:28→20:17)
[2016-05-19] MEDS: FLUCONAZOLE 100 MG TABLET PO SCH (09:28)
[2016-05-19] MEDS: DOCUSATE SODIUM 100 MG CAPSULE PO SCH (09:28)
[2016-05-19] MEDS: METOPROLOL SUCCINATE XL 25 MG TABLET PO SCH (09:28)
[2016-05-19] MEDS: FAMOTIDINE 20 MG TABLET PO SCH ×2 (09:28→20:16)
[2016-05-19] MEDS: POTASSIUM CHLORIDE 20 MEQ TABLET PO SCH (09:28)
[2016-05-19] MEDS: CHOLESTYRAMINE 4 GM PACK PO SCH ×2 (09:29→20:16)
[2016-05-19] MEDS: DEXT 5% NACL 0.45% KCL 20 MEQ 20 MEQ/1,000 ML BAG IV SCH ×5 (09:29→16:56)
[2016-05-19] MEDS: NYSTATIN POWDER 15 GM BOTTLE TOP SCH ×2 (09:29→20:17)
--- NOTE | 2016-05-19 09:32 | Oncology Progress Note ---
Oncology Subjective PN Interval history: Patient is continuing observation and supportive care for acute myelogenous leukemia now approximately 2 weeks post induction. Still with significant neutropenia and is still requiring occasional transfusions. She appears nontoxic and comfortable this morning. No fever. She is receiving meropenem 1 g every 8 hours. She has as needed orders for vancomycin should she develop fever. Denies diarrhea. Her abdomen is soft and nontender. Her lungs are clear to auscultation bilaterally Exam - Constitutional Vitals: Period Temp Pulse Resp BP Sys/Ceballos Pulse Ox Last 24 Hr 96.2 F-98.6 F 76-114 18-20 114-137/60-93 95-99 Results - Labs CBC & BMP: 05/19/16 04:45 05/19/16 04:45
[2016-05-19] MEDS ORDERED: HEPARIN LOCK FLUSH 500 UNIT/5 ML SYRINGE IV ONE (18:19)
[2016-05-20] MEDS: MEROPENEM 1,000 MG in SODIUM CHLORIDE 0.9% 100 ML IV SCH ×4 (00:05→23:46)
[2016-05-20 05:27] LABS: Hematocrit 28.1 VOL% (35.7-47.0); Hemoglobin 9.1 GM/DL (12.0-16.0); Lymphocytes # 0.9 10*3/uL (1.4-4.0); Lymphocytes % 96.6 % (21.3-54.2); Mean Corpuscular HGB Conc 32.4 GM/DL (32-36); Mean Corpuscular Hemoglobin 28 PG (27-34); Mean Corpuscular Volume 86.5 FL (87-102); Mean Platelet Volume 10.5 FL (9.6-12.0); Monocytes % 1.1 % (1.7-12.7); Neutrophils % 2.3 % (38.7-73.9); Red Blood Count 3.25 10*6/uL (3.8-5.5); Red Cell Distribution Width 14.5 % (9.3-17.3)
[2016-05-20 05:57] LABS: Platelet Count 27 10*3/uL (130-400); White Blood Count 0.9 10*3/uL (4.5-13.71)
[2016-05-20 06:27] LABS: Hypochromasia 1+; Lymphocytes 100 % (20-55); Microcytosis 1+; Platelet Estimate Decreased; Total Cells Counted 100
--- NOTE | 2016-05-20 07:46 | Oncology Progress Note ---
Oncology Subjective PN Interval history: 60-year-old female with acute myelogenous leukemia now approximately 3 weeks into initial induction therapy. We are waiting for bone marrow recovery at this time. She is reporting some mild abdominal pain at this point. She did not require any nausea medicines yesterday. Her white count seems to be slightly improved. She has not required red blood cells in several days. Platelets are still at 27,000 today with last transfusion 4 days prior. She appears nontoxic. Her abdomen is obese but soft and nontender no distention guarding or rebound is noted. Bowel sounds are hypoactive but present. Exam - Constitutional Vitals: Period Temp Pulse Resp BP Sys/Ceballos Pulse Ox Last 24 Hr 96.0 F-98.9 F 96-119 18-20 114-125/60-86 96-100 Results - Labs CBC & BMP: 05/20/16 05:04 05/19/16 04:45
[2016-05-20] MEDS: MAGNESIUM CHLORIDE 64 MG TABLET PO SCH ×2 (07:54→17:12)
[2016-05-20] MEDS: DOCUSATE SODIUM 100 MG CAPSULE PO SCH (09:03)
[2016-05-20] MEDS: CLOTRIMAZOLE 10 MG TROCHE PO SCH ×4 (09:03→20:48)
[2016-05-20] MEDS: CHOLESTYRAMINE 4 GM PACK PO SCH ×2 (09:04→20:52)
[2016-05-20] MEDS: FLUCONAZOLE 100 MG TABLET PO SCH (09:04)
[2016-05-20] MEDS: POTASSIUM CHLORIDE 20 MEQ TABLET PO SCH (09:04)
[2016-05-20] MEDS: FAMOTIDINE 20 MG TABLET PO SCH ×2 (09:04→20:37)
[2016-05-20] MEDS: METOPROLOL SUCCINATE XL 25 MG TABLET PO SCH (09:30)
[2016-05-20] MEDS: NYSTATIN POWDER 15 GM BOTTLE TOP SCH ×2 (09:30→20:54)
[2016-05-20] MEDS: DEXT 5% NACL 0.45% KCL 20 MEQ 20 MEQ/1,000 ML BAG IV SCH ×3 (11:48→23:57)
[2016-05-20] MEDS ORDERED: HEPARIN LOCK FLUSH 500 UNIT/5 ML SYRINGE IV ONE (17:46)
[2016-05-20] MEDS ORDERED: ALTEPLASE 2 MG VIAL INTRACATH ONE (21:27)
[2016-05-21 05:12] LABS: Hematocrit 27.3 VOL% (35.7-47.0); Hemoglobin 8.9 GM/DL (12.0-16.0); Lymphocytes # 0.8 10*3/uL (1.4-4.0); Lymphocytes % 94.3 % (21.3-54.2); Mean Corpuscular HGB Conc 32.6 GM/DL (32-36); Mean Corpuscular Hemoglobin 28 PG (27-34); Mean Corpuscular Volume 86.7 FL (87-102); Mean Platelet Volume 9.2 FL (9.6-12.0); Monocytes % 1.1 % (1.7-12.7); Neutrophils % 4.6 % (38.7-73.9); Red Blood Count 3.15 10*6/uL (3.8-5.5); Red Cell Distribution Width 14.5 % (9.3-17.3)
[2016-05-21 05:42] LABS: Platelet Count 22 10*3/uL (130-400); White Blood Count 0.9 10*3/uL (4.5-13.71)
[2016-05-21 05:46] LABS: Albumin 2.3 G/DL (3.4-5.0); Bilirubin,Total 0.4 MG/DL (0.2-1.0); Calcium 8.6 MG/DL (8.5-10.1); Osmolality,Calculated 275.5 MOS/KG (273-304); Potassium 4.3 MMOL/L (3.5-5.1); Total Protein 6.7 G/DL (6.4-8.3)
[2016-05-21 06:17] LABS: Lymphocytes 95 % (20-55); Segmented Neutrophils 5 % (50-85); Total Cells Counted 100
[2016-05-21 06:18] LABS: Hypochromasia 1+
[2016-05-21 06:19] LABS: Atypical Lymphocytes Few; Microcytosis 1+; Platelet Estimate Decreased
--- NOTE | 2016-05-21 08:08 | Oncology Progress Note ---
Oncology Subjective PN Interval history: AML post induction awaiting marrow recovery. She is having some right upper quadrant discomfort. She does have some abnormal breath sounds on posterior lung auscultation. This simply may be atelectasis. She is not febrile. Her lower abdominal pain is now resolved. She does not require transfusions today. I have encouraged her to be out of bed as much as possible. I will update her chest x-ray Exam - Constitutional Vitals: Period Temp Pulse Resp BP Sys/Ceballos Pulse Ox Last 24 Hr 96.2 F-97.8 F 89-121 16-20 106-116/54-69 94-99 Results - Labs CBC & BMP: 05/21/16 04:19 05/21/16 04:00
--- NOTE | 2016-05-21 09:05 | XRay Report ---
Exam: XR chest 2V Date: 05/21/2016 8:08 AM Indication: Leukemia Comparison: 04/28/2016 Technical:PA lateral chest Findings: A port catheter is present from a right-sided approach with the distal tip in superior vena cava. Minimal atelectatic change present in the basilar regions. No obvious infiltrate or effusion. Mediastinal and bony structures are otherwise intact. No pneumothorax Impression: 1. Minimal basilar atelectasis 2. Stable position of the right sided IJ port catheter PROCEDURE INTERPRETED AT [facility] DEPARTMENT OF RADIOLOGY Final Report Signed by: Dr. Warren Hull
[2016-05-21] MEDS: METOPROLOL SUCCINATE XL 25 MG TABLET PO SCH (09:50)
[2016-05-21] MEDS: POTASSIUM CHLORIDE 20 MEQ TABLET PO SCH (09:50)
[2016-05-21] MEDS: FLUCONAZOLE 100 MG TABLET PO SCH (09:50)
[2016-05-21] MEDS: FAMOTIDINE 20 MG TABLET PO SCH ×2 (09:51→20:12)
[2016-05-21] MEDS: DOCUSATE SODIUM 100 MG CAPSULE PO SCH (09:51)
[2016-05-21] MEDS: MAGNESIUM CHLORIDE 64 MG TABLET PO SCH ×2 (09:51→17:57)
[2016-05-21] MEDS: CLOTRIMAZOLE 10 MG TROCHE PO SCH ×4 (09:51→20:11)
[2016-05-21] MEDS: NYSTATIN POWDER 15 GM BOTTLE TOP SCH ×2 (09:52→20:14)
[2016-05-21] MEDS: MEROPENEM 1,000 MG in SODIUM CHLORIDE 0.9% 100 ML IV SCH ×2 (09:53→18:04)
[2016-05-21] MEDS: CHOLESTYRAMINE 4 GM PACK PO SCH ×2 (09:55→20:12)
[2016-05-21] MEDS: DEXT 5% NACL 0.45% KCL 20 MEQ 20 MEQ/1,000 ML BAG IV SCH (18:03)
[2016-05-22] MEDS: MEROPENEM 1,000 MG in SODIUM CHLORIDE 0.9% 100 ML IV SCH (01:29)
[2016-05-22 04:59] LABS: Hematocrit 27.4 VOL% (35.7-47.0); Hemoglobin 8.8 GM/DL (12.0-16.0); Lymphocytes # 0.8 10*3/uL (1.4-4.0); Lymphocytes % 90.4 % (21.3-54.2); Mean Corpuscular HGB Conc 32.1 GM/DL (32-36); Mean Corpuscular Hemoglobin 28 PG (27-34); Mean Corpuscular Volume 86.4 FL (87-102); Mean Platelet Volume 9.4 FL (9.6-12.0); Monocytes % 2.4 % (1.7-12.7); Neutrophils # 0.1 10*3/uL (1.4-7.4); Neutrophils % 7.2 % (38.7-73.9); Red Blood Count 3.17 10*6/uL (3.8-5.5); Red Cell Distribution Width 14.3 % (9.3-17.3)
[2016-05-22 05:12] LABS: Platelet Count 30 10*3/uL (130-400); White Blood Count 0.8 10*3/uL (4.5-13.71)
[2016-05-22 05:31] LABS: Band Neutrophils 1 % (0-10); Lymphocytes 94 % (20-55); Segmented Neutrophils 4 % (50-85); Total Cells Counted 100
[2016-05-22 05:32] LABS: Atypical Lymphocytes Few; Hypochromasia 1+; Microcytosis 1+; Platelet Estimate Decreased
--- NOTE | 2016-05-22 07:46 | Oncology Progress Note ---
Oncology Subjective PN Interval history: Day 25 AML induction. Patient still with occasional mild nausea. Her platelets are improved today. Still with neutropenia. Afebrile and nontoxic appearing. Abdomen soft and nontender. Respirations even and nonlabored on room air. Cardiac rhythm regular. Still awaiting white blood cell count recovery before planning discharge Exam - Constitutional Vitals: Period Temp Pulse Resp BP Sys/Ceballos Pulse Ox Last 24 Hr 96.3 F-98.8 F 89-109 18-20 105-127/53-64 97-99 Results - Labs CBC & BMP: 05/22/16 04:00 05/21/16 04:00
[2016-05-22] MEDS: DOCUSATE SODIUM 100 MG CAPSULE PO SCH (10:18)
[2016-05-22] MEDS: MAGNESIUM CHLORIDE 64 MG TABLET PO SCH ×2 (10:18→18:37)
[2016-05-22] MEDS: CLOTRIMAZOLE 10 MG TROCHE PO SCH ×4 (10:18→21:21)
[2016-05-22] MEDS: METOPROLOL SUCCINATE XL 25 MG TABLET PO SCH (10:18)
[2016-05-22] MEDS: CHOLESTYRAMINE 4 GM PACK PO SCH ×2 (10:19→21:21)
[2016-05-22] MEDS: NYSTATIN POWDER 15 GM BOTTLE TOP SCH ×2 (10:19→21:21)
[2016-05-22] MEDS: POTASSIUM CHLORIDE 20 MEQ TABLET PO SCH (10:19)
[2016-05-22] MEDS: FAMOTIDINE 20 MG TABLET PO SCH ×2 (10:19→20:29)
[2016-05-22] MEDS: DEXT 5% NACL 0.45% KCL 20 MEQ 20 MEQ/1,000 ML BAG IV SCH ×2 (17:11→17:15)
[2016-05-23 04:43] LABS: Hematocrit 27.5 VOL% (35.7-47.0); Hemoglobin 8.8 GM/DL (12.0-16.0); Lymphocytes # 0.9 10*3/uL (1.4-4.0); Lymphocytes % 89.7 % (21.3-54.2); Mean Corpuscular Hemoglobin 27 PG (27-34); Mean Corpuscular Volume 85.4 FL (87-102); Mean Platelet Volume 9.1 FL (9.6-12.0); Neutrophils # 0.1 10*3/uL (1.4-7.4); Neutrophils % 9.3 % (38.7-73.9); Red Blood Count 3.22 10*6/uL (3.8-5.5); Red Cell Distribution Width 14.4 % (9.3-17.3)
[2016-05-23 05:01] LABS: Platelet Count 38 10*3/uL (130-400)
[2016-05-23 06:37] LABS: Anisocytosis 1+; Lymphocytes 96 % (20-55); Segmented Neutrophils 4 % (50-85); Total Cells Counted 50
[2016-05-23 06:38] LABS: Platelet Estimate Decreased; Tear Drop Cells Few
--- NOTE | 2016-05-23 09:51 | Oncology Progress Note ---
Oncology Subjective PN Interval history: AML status post induction. Patient's platelets are recovering at this time with also gradual improvement of the white blood cell count and hematocrit. I examined her while she was up walking in her room with clear breath sounds on posterior bilateral pulmonary auscultation. Her abdomen is soft nontender. She has no significant peripheral edema and appears nontoxic. We may be approaching discharge within the next 3-4 days hopefully. Exam - Constitutional Vitals: Period Temp Pulse Resp BP Sys/Ceballos Pulse Ox Last 24 Hr 97.2 F-98.2 F 83-110 18-20 110-122/55-68 95-98 Results - Labs CBC & BMP: 05/23/16 04:00 05/21/16 04:00
[2016-05-23] MEDS: CLOTRIMAZOLE 10 MG TROCHE PO SCH ×4 (10:00→20:55)
[2016-05-23] MEDS: FAMOTIDINE 20 MG TABLET PO SCH ×2 (10:00→20:55)
[2016-05-23] MEDS: POTASSIUM CHLORIDE 20 MEQ TABLET PO SCH (10:01)
[2016-05-23] MEDS: METOPROLOL SUCCINATE XL 25 MG TABLET PO SCH (10:01)
[2016-05-23] MEDS: DOCUSATE SODIUM 100 MG CAPSULE PO SCH (10:01)
[2016-05-23] MEDS: MAGNESIUM CHLORIDE 64 MG TABLET PO SCH ×2 (10:01→17:54)
[2016-05-23] MEDS: CHOLESTYRAMINE 4 GM PACK PO SCH ×2 (10:01→20:54)
[2016-05-23] MEDS: NYSTATIN POWDER 15 GM BOTTLE TOP SCH ×2 (10:01→20:56)
[2016-05-23] MEDS: DEXT 5% NACL 0.45% KCL 20 MEQ 20 MEQ/1,000 ML BAG IV SCH (15:19)
[2016-05-24 05:59] LABS: Hematocrit 25.6 VOL% (35.7-47.0); Hemoglobin 8.3 GM/DL (12.0-16.0); Lymphocytes # 0.9 10*3/uL (1.4-4.0); Lymphocytes % 89.4 % (21.3-54.2); Mean Corpuscular HGB Conc 32.4 GM/DL (32-36); Mean Corpuscular Hemoglobin 28 PG (27-34); Mean Corpuscular Volume 86.8 FL (87-102); Mean Platelet Volume 9.7 FL (9.6-12.0); Neutrophils # 0.1 10*3/uL (1.4-7.4); Neutrophils % 10.6 % (38.7-73.9); Platelet Count 44 10*3/uL (130-400); Red Blood Count 2.95 10*6/uL (3.8-5.5); Red Cell Distribution Width 14.3 % (9.3-17.3)
--- NOTE | 2016-05-24 06:28 | Oncology Progress Note ---
Oncology Subjective PN Interval history: Continues to appear stable and nontoxic. Abdomen soft and nontender respirations even and nonlabored. Awake alert and oriented. She continues to show platelet increase from autologous production. Exam - Constitutional Vitals: Period Temp Pulse Resp BP Sys/Ceballos Pulse Ox Last 24 Hr 97 F-98 F 79-116 18-20 112-135/60-69 95-98 Results - Labs CBC & BMP: 05/24/16 04:30 05/21/16 04:00
[2016-05-24 06:59] LABS: Band Neutrophils 5 % (0-10); Lymphocytes 80 % (20-55); Segmented Neutrophils 15 % (50-85); Total Cells Counted 100
[2016-05-24 07:00] LABS: Hypochromasia 2+; Microcytosis 2+; Platelet Estimate Decreased
[2016-05-24] MEDS: DEXT 5% NACL 0.45% KCL 20 MEQ 20 MEQ/1,000 ML BAG IV SCH (08:36)
[2016-05-24] MEDS: POTASSIUM CHLORIDE 20 MEQ TABLET PO SCH (11:51)
[2016-05-24] MEDS: DOCUSATE SODIUM 100 MG CAPSULE PO SCH (11:51)
[2016-05-24] MEDS: FAMOTIDINE 20 MG TABLET PO SCH ×2 (11:51→20:58)
[2016-05-24] MEDS: CLOTRIMAZOLE 10 MG TROCHE PO SCH ×4 (11:51→20:58)
[2016-05-24] MEDS: METOPROLOL SUCCINATE XL 25 MG TABLET PO SCH (11:51)
[2016-05-24] MEDS: MAGNESIUM CHLORIDE 64 MG TABLET PO SCH ×2 (11:51→19:03)
[2016-05-24] MEDS: CHOLESTYRAMINE 4 GM PACK PO SCH ×2 (11:52→20:59)
[2016-05-24] MEDS: NYSTATIN POWDER 15 GM BOTTLE TOP SCH ×2 (11:52→20:59)
[2016-05-25] MEDS: DEXT 5% NACL 0.45% KCL 20 MEQ 20 MEQ/1,000 ML BAG IV SCH (02:13)
[2016-05-25 05:41] LABS: Hematocrit 24.7 VOL% (35.7-47.0); Hemoglobin 7.9 GM/DL (12.0-16.0); Immature Granulocytes % 7.2 %; Immature Granulocytes Absolute 0.08 #; Lymphocytes % 87.4 % (21.3-54.2); Mean Corpuscular Hemoglobin 27 PG (27-34); Mean Corpuscular Volume 85.8 FL (87-102); Neutrophils # 0.1 10*3/uL (1.4-7.4); Neutrophils % 5.4 % (38.7-73.9); Platelet Count 51 10*3/uL (130-400); Red Blood Count 2.88 10*6/uL (3.8-5.5); Red Cell Distribution Width 14.5 % (9.3-17.3); White Blood Count 1.1 10*3/uL (4.5-13.71)
[2016-05-25 06:11] LABS: Lymphocytes 88 % (20-55); Segmented Neutrophils 11 % (50-85); Total Cells Counted 100
[2016-05-25 06:12] LABS: Atypical Lymphocytes Few; Hypochromasia 1+; Microcytosis 1+; Platelet Estimate Decreased
[2016-05-25] MEDS ORDERED: SODIUM CHLORIDE 0.9% 250 ML IV PRN (06:53)
--- NOTE | 2016-05-25 09:06 | Oncology Progress Note ---
Oncology Subjective PN Interval history: Ms. Hadley is now 29 days post induction chemotherapy and she still has no significant number of neutrophils. She was treated for acute myelogenous leukemia. Her platelet count is rising which is encouraging. However, there is no significant rising neutrophils and I am proceeding with a bone marrow biopsy and aspirate in the morning. She seems to feel better but I am discouraged about the lack of production of neutrophils. This is not a good sign. Exam - Constitutional Vitals: Period Temp Pulse Resp BP Sys/Ceballos Pulse Ox Last 24 Hr 97.1 F-97.6 F 65-105 18-20 106-142/65-78 93-98 Results - Labs CBC & BMP: 05/25/16 05:37 05/21/16 04:00
[2016-05-25] MEDS: CHOLESTYRAMINE 4 GM PACK PO SCH ×2 (09:59→22:22)
[2016-05-25] MEDS: FAMOTIDINE 20 MG TABLET PO SCH ×3 (10:00→22:21)
[2016-05-25] MEDS: DOCUSATE SODIUM 100 MG CAPSULE PO SCH (10:00)
[2016-05-25] MEDS: MAGNESIUM CHLORIDE 64 MG TABLET PO SCH ×2 (10:00→17:40)
[2016-05-25] MEDS: POTASSIUM CHLORIDE 20 MEQ TABLET PO SCH (10:00)
[2016-05-25] MEDS: CLOTRIMAZOLE 10 MG TROCHE PO SCH ×5 (10:01→22:20)
[2016-05-25] MEDS: NYSTATIN POWDER 15 GM BOTTLE TOP SCH ×3 (10:01→22:21)
[2016-05-25] MEDS: METOPROLOL SUCCINATE XL 25 MG TABLET PO SCH (10:01)
[2016-05-26] MEDS: DEXT 5% NACL 0.45% KCL 20 MEQ 20 MEQ/1,000 ML BAG IV SCH ×4 (03:56→20:32)
[2016-05-26 05:52] LABS: Hematocrit 31.9 VOL% (35.7-47.0); Hemoglobin 10.5 GM/DL (12.0-16.0); Immature Granulocytes % 2.3 %; Immature Granulocytes Absolute 0.03 #; Lymphocytes # 1.1 10*3/uL (1.4-4.0); Lymphocytes % 83.1 % (21.3-54.2); Mean Corpuscular HGB Conc 32.9 GM/DL (32-36); Mean Corpuscular Hemoglobin 29 PG (27-34); Mean Corpuscular Volume 86.7 FL (87-102); Mean Platelet Volume 8.7 FL (9.6-12.0); Monocytes % 0.8 % (1.7-12.7); Neutrophils # 0.2 10*3/uL (1.4-7.4); Neutrophils % 13.8 % (38.7-73.9); Platelet Count 65 10*3/uL (130-400); Red Blood Count 3.68 10*6/uL (3.8-5.5); White Blood Count 1.3 10*3/uL (4.5-13.71)
[2016-05-26 06:22] LABS: Band Neutrophils 1 % (0-10); Hypochromasia 1+; Lymphocytes 82 % (20-55); Microcytosis 1+; Segmented Neutrophils 16 % (50-85); Total Cells Counted 100
[2016-05-26 06:23] LABS: Atypical Lymphocytes Few; Platelet Estimate Decreased
[2016-05-26 07:26] LABS: Alanine Aminotransferase 31 U/L (13-56); Albumin 2.2 G/DL (3.4-5.0); Alkaline Phosphatase 73 U/L (45-117); Aspartate Amino Transferase 19 U/L (0-37); Bilirubin,Total < 0.39 MG/DL (0.2-1.0); Blood Urea Nitrogen 11 MG/DL (7-18); Calcium 8.4 MG/DL (8.5-10.1); Glucose 215 MG/DL (74-106); Osmolality,Calculated 283.4 MOS/KG (273-304); Potassium 4.1 MMOL/L (3.5-5.1); Sodium 140 MMOL/L (136-145); Total Protein 6.5 G/DL (6.4-8.3)
--- NOTE | 2016-05-26 07:27 | Oncology Progress Note ---
Oncology Subjective PN Interval history: Giovanni is not working I had planned to do a bone marrow biopsy and aspirate on this patient but I do not have time because of this disruption and care. This is a patient with acute myelogenous leukemia who also has a history of stage IV metastatic colon cancer with liver metastases that is in complete remission and stage III ovarian cancer that is in remission. She was treated for both of these cancers within the last 18 months. Her platelet count is rising. Her absolute neutrophil count is also rising but it is extremely low still. She is oriented and alert and in no acute distress. I will try to do the bone marrow biopsy on her as soon as I can get it done but I cannot get everything done on these patients because of delays in being able to document and to order things because of failure of the electronic medical record. Exam - Constitutional Vitals: Period Temp Pulse Resp BP Sys/Ceballos Pulse Ox Last 24 Hr 96 F-97.9 F 80-112 14-20 109-134/60-88 94-99 Results - Labs CBC & BMP: 05/26/16 04:00 05/26/16 04:00
[2016-05-26] MEDS ORDERED: HEPARIN 10,000 UNIT/10 ML VIAL ONE (07:42)
[2016-05-26] MEDS ORDERED: MEPERIDINE 50 MG/1 ML VIAL IV ONE (09:07)
[2016-05-26] MEDS: METOPROLOL SUCCINATE XL 25 MG TABLET PO SCH (09:48)
[2016-05-26] MEDS: DOCUSATE SODIUM 100 MG CAPSULE PO SCH (09:49)
[2016-05-26] MEDS: FAMOTIDINE 20 MG TABLET PO SCH ×2 (09:49→20:37)
[2016-05-26] MEDS: CLOTRIMAZOLE 10 MG TROCHE PO SCH ×4 (09:49→20:37)
[2016-05-26] MEDS: CHOLESTYRAMINE 4 GM PACK PO SCH ×3 (09:49→20:32)
[2016-05-26] MEDS: POTASSIUM CHLORIDE 20 MEQ TABLET PO SCH (09:49)
[2016-05-26] MEDS: MAGNESIUM CHLORIDE 64 MG TABLET PO SCH ×2 (09:49→16:55)
[2016-05-26] MEDS: NYSTATIN POWDER 15 GM BOTTLE TOP SCH ×2 (09:50→20:37)
--- NOTE | 2016-05-26 18:17 | IR History and Physical Update ---
IR Pre-Procedure - History and Physical H&P was reviewed, the patient examined and there: are no changes in the patients condition since last H&P was completed. Reason for procedure:: 60-year-old female with acute myelogenous leukemia. L requesting bone marrow aspirate. - Dictation Physical: refer to H&P completed by admitting physician - Physical Exam Vital Signs: Last Vital Signs Temp 97.1 F L 05/26/16 16:10 Pulse 88 05/26/16 16:10 Resp 18 05/26/16 16:10 BP 112/64 05/26/16 16:10 Pulse Ox 99 05/26/16 16:10 Mental Status: alert and oriented - Sedation IR anesthesia plan for sedation: minimal ASA Class: II - Risks Risks: Procedures explained. Risks discussed include, but not limited to, the following:[ Pain, bleeding, infection] All questions answered. The following alternatives were discussed:[ None] Risks and benefits discussed with: patient Consent obtained from: patient Assessment and Plan - Time spent with patient Time spent with patient: Less than 30 minutes
[2016-05-27 05:13] LABS: Hematocrit 31.5 VOL% (35.7-47.0); Hemoglobin 10.3 GM/DL (12.0-16.0); Immature Granulocytes % 1.7 %; Immature Granulocytes Absolute 0.02 #; Lymphocytes # 0.9 10*3/uL (1.4-4.0); Mean Corpuscular HGB Conc 32.7 GM/DL (32-36); Mean Corpuscular Hemoglobin 29 PG (27-34); Mean Corpuscular Volume 87.5 FL (87-102); Mean Platelet Volume 9.2 FL (9.6-12.0); Monocytes % 0.9 % (1.7-12.7); Neutrophils # 0.2 10*3/uL (1.4-7.4); Neutrophils % 16.4 % (38.7-73.9); Platelet Count 72 10*3/uL (130-400); Red Cell Distribution Width 14.2 % (9.3-17.3); White Blood Count 1.2 10*3/uL (4.5-13.71)
[2016-05-27 05:39] LABS: Atypical Lymphocytes Few; Hypochromasia 1+; Lymphocytes 85 % (20-55); Microcytosis 1+; Platelet Estimate Decreased; Segmented Neutrophils 15 % (50-85); Total Cells Counted 100
[2016-05-27 06:00] LABS: Alanine Aminotransferase 30 U/L (13-56); Albumin 2.3 G/DL (3.4-5.0); Alkaline Phosphatase 75 U/L (45-117); Aspartate Amino Transferase 15 U/L (0-37); Bilirubin,Total < 0.39 MG/DL (0.2-1.0); Blood Urea Nitrogen 12 MG/DL (7-18); Calcium 8.6 MG/DL (8.5-10.1); Glucose 173 MG/DL (74-106); Potassium 4.3 MMOL/L (3.5-5.1); Sodium 143 MMOL/L (136-145); Total Protein 6.7 G/DL (6.4-8.3)
[2016-05-27] MEDS ORDERED: DIAZEPAM 5 MG TABLET PO ONE (07:00)
[2016-05-27] MEDS ORDERED: fentaNYL 100 MCG/2 ML VIAL IV ONE (07:00)
[2016-05-27] MEDS ORDERED: MIDAZOLAM 2 MG/2 ML VIAL IV ONE (07:00)
--- NOTE | 2016-05-27 07:32 | Oncology Progress Note ---
Oncology Subjective PN Interval history: Patient with acute myelogenous leukemia complicating to other prior cancers including stage IV colon cancer with liver metastases and stage III ovarian cancer. She is 4 weeks out from her first course of induction chemotherapy and does not show what I considered to be adequate signs of recovery. Her ANC is still only 200. Her platelet count continues to rise and is currently 72,000. Her hemoglobin is 10.3. She is fully oriented and alert. Respirations are unlabored. Her voice is clear. Her oral mucosa is normal. We will make a decision about continuing chemotherapy on her acute myelogenous leukemia depending on the reports from the bone marrow biopsy. Exam - Constitutional Vitals: Period Temp Pulse Resp BP Sys/Ceballos Pulse Ox Last 24 Hr 97.1 F-97.6 F 88-107 18-20 112-135/64-82 97-100 Results - Labs CBC & BMP: 05/27/16 03:40 05/27/16 03:40
[2016-05-27] MEDS: MAGNESIUM CHLORIDE 64 MG TABLET PO SCH ×2 (09:58→17:12)
[2016-05-27] MEDS: CLOTRIMAZOLE 10 MG TROCHE PO SCH ×4 (09:58→20:50)
[2016-05-27] MEDS: CHOLESTYRAMINE 4 GM PACK PO SCH ×2 (09:59→20:50)
[2016-05-27] MEDS: POTASSIUM CHLORIDE 20 MEQ TABLET PO SCH (10:02)
[2016-05-27] MEDS: FAMOTIDINE 20 MG TABLET PO SCH ×2 (10:02→20:49)
[2016-05-27] MEDS: METOPROLOL SUCCINATE XL 25 MG TABLET PO SCH (10:02)
[2016-05-27] MEDS: DOCUSATE SODIUM 100 MG CAPSULE PO SCH (10:02)
[2016-05-27] MEDS: NYSTATIN POWDER 15 GM BOTTLE TOP SCH ×2 (10:03→20:49)
[2016-05-27] MEDS ORDERED: HEPARIN 1,000 UNIT/1 ML VIAL ONE (10:43)
--- NOTE | 2016-05-27 10:58 | Post Interventional Procedure ---
Pre-op diagnosis: AML Post-op diagnosis: same Procedure: Bone marrow aspirate Flouroscopy: 0.7 min Radiologist: Marvin Polk Anesthesia: local Specimens: other (15 cc marrow aspirate, 11 ga core biopsy marrow) Estimated blood loss: none Complications: none Condition: stable Assessment and Plan - Time spent with patient Time spent with patient: Less than 30 minutes
--- NOTE | 2016-05-27 16:40 | Interventional Radiology Rpt ---
IR Bone Marrow Biopsy Indication: AML. BONE MARROW BIOPSY- ASPIRATE Description: A formal timeout was performed. Fluoroscopic observation shows the right iliac bone to be the best candidate for sampling from posterior approach. With the patient prone on the fluoroscopy table, the right low back was prepped and draped in a sterile fashion. Skin was anesthetized with 5 cc 1% lidocaine, with lidocaine injected down to the periosteal surface. Under fluoroscopic observation, a 11 gauge Arrow guide needle was advanced to the posterior right iliac crest periosteum. The outer cortex was gently penetrated with the hoa tip stylette needle. A "Arrow on Control" the Trerotola was then used to penetrate the cortex several millimeters. After removing the stylette, bone marrow aspirate was performed obtaining 15 cc of bone marrow, directly into a syringe prefilled with 2000 units heparin. Cytopathology received the bone marrow aspirate and determined it was an adequate sample. The drill was reattached and the coring needle advanced an additional 3 cm into the marrow space and then withdrawn and one motion. The 11-gauge biopsy specimen was then removed from the needle and handed to cytopathology. A bandage is placed the puncture site. Patient tolerated the procedure well. Medications: None. Fluoroscopy: 0.7 minutes. Impression: Uncomplicated successful bone marrow biopsy and aspirate as described. PROCEDURE INTERPRETED AT [facility] DEPARTMENT OF RADIOLOGY Final Report Signed by: Marvin Polk M.D.
[2016-05-27] MEDS: DEXT 5% NACL 0.45% KCL 20 MEQ 20 MEQ/1,000 ML BAG IV SCH (17:12)
[2016-05-28] MEDS: DEXT 5% NACL 0.45% KCL 20 MEQ 20 MEQ/1,000 ML BAG IV SCH ×3 (00:49→23:51)
[2016-05-28 05:58] LABS: Hematocrit 31.6 VOL% (35.7-47.0); Hemoglobin 10.3 GM/DL (12.0-16.0); Immature Granulocytes % 2.9 %; Immature Granulocytes Absolute 0.04 #; Lymphocytes # 1.1 10*3/uL (1.4-4.0); Lymphocytes % 81.4 % (21.3-54.2); Mean Corpuscular HGB Conc 32.6 GM/DL (32-36); Mean Corpuscular Hemoglobin 29 PG (27-34); Mean Platelet Volume 8.9 FL (9.6-12.0); Monocytes % 0.7 % (1.7-12.7); Neutrophils # 0.2 10*3/uL (1.4-7.4); Platelet Count 90 10*3/uL (130-400); Red Blood Count 3.59 10*6/uL (3.8-5.5); Red Cell Distribution Width 14.1 % (9.3-17.3); White Blood Count 1.4 10*3/uL (4.5-13.71)
[2016-05-28 06:30] LABS: Lymphocytes 83 % (20-55); Platelet Estimate Decreased; Segmented Neutrophils 15 % (50-85); Total Cells Counted 100
[2016-05-28 06:31] LABS: Atypical Lymphocytes Few; Hypochromasia 1+; Microcytosis 1+; Ovalocytes Slight
[2016-05-28 07:00] LABS: Alanine Aminotransferase 26 U/L (13-56); Albumin 2.3 G/DL (3.4-5.0); Alkaline Phosphatase 68 U/L (45-117); Aspartate Amino Transferase 13 U/L (0-37); Bilirubin,Total < 0.39 MG/DL (0.2-1.0); Blood Urea Nitrogen 13 MG/DL (7-18); Calcium 8.7 MG/DL (8.5-10.1); Glucose 147 MG/DL (74-106); Potassium 4.4 MMOL/L (3.5-5.1); Sodium 143 MMOL/L (136-145); Total Protein 6.5 G/DL (6.4-8.3)
--- NOTE | 2016-05-28 07:41 | Oncology Progress Note ---
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 The absolute neutrophil count today is 200. The platelet count continues to rise and is 90,000 today. This is a patient with acute myelogenous leukemia complicating previously treated stage IV colon cancer with liver metastases in complete remission and also stage III ovarian cancer in remission. These were both treated with chemotherapy and not surgery. I am continuing to follow daily lab work. Exam - Constitutional Vitals: Period Temp Pulse Resp BP Sys/Ceballos Pulse Ox Last 24 Hr 96.8 F-98.6 F 68-111 16-20 109-180/58-103 96-100 Results - Labs CBC & BMP: 05/28/16 05:00 05/28/16 05:00
[2016-05-28] MEDS: DOCUSATE SODIUM 100 MG CAPSULE PO SCH (09:12)
[2016-05-28] MEDS: POTASSIUM CHLORIDE 20 MEQ TABLET PO SCH (09:12)
[2016-05-28] MEDS: FAMOTIDINE 20 MG TABLET PO SCH ×2 (09:12→21:23)
[2016-05-28] MEDS: METOPROLOL SUCCINATE XL 25 MG TABLET PO SCH (09:12)
[2016-05-28] MEDS: CLOTRIMAZOLE 10 MG TROCHE PO SCH ×4 (09:13→21:23)
[2016-05-28] MEDS: CHOLESTYRAMINE 4 GM PACK PO SCH ×2 (09:13→21:23)
[2016-05-28] MEDS: NYSTATIN POWDER 15 GM BOTTLE TOP SCH ×2 (09:13→21:23)
[2016-05-28] MEDS: MAGNESIUM CHLORIDE 64 MG TABLET PO SCH ×2 (09:13→17:54)
[2016-05-29 06:20] LABS: Hematocrit 30.7 VOL% (35.7-47.0); Hemoglobin 9.8 GM/DL (12.0-16.0); Lymphocytes # 1.2 10*3/uL (1.4-4.0); Mean Corpuscular HGB Conc 31.9 GM/DL (32-36); Mean Corpuscular Hemoglobin 28 PG (27-34); Mean Corpuscular Volume 88.5 FL (87-102); Monocytes % 1.3 % (1.7-12.7); Neutrophils # 0.3 10*3/uL (1.4-7.4); Neutrophils % 17.7 % (38.7-73.9); Platelet Count 102 10*3/uL (130-400); Red Blood Count 3.47 10*6/uL (3.8-5.5); Red Cell Distribution Width 14.1 % (9.3-17.3); White Blood Count 1.5 10*3/uL (4.5-13.71)
[2016-05-29 06:47] LABS: Atypical Lymphocytes Few; Hypochromasia 1+; Lymphocytes 84 % (20-55); Microcytosis 1+; Nucleated Red Blood Cells 2 (0-5); Platelet Estimate Decreased; Segmented Neutrophils 14 % (50-85); Total Cells Counted 100
[2016-05-29 06:57] LABS: Albumin 2.2 G/DL (3.4-5.0); Bilirubin,Total 0.6 MG/DL (0.2-1.0); Calcium 8.4 MG/DL (8.5-10.1); Potassium 4.2 MMOL/L (3.5-5.1); Total Protein 6.4 G/DL (6.4-8.3)
[2016-05-29 07:55] VITALS: BP 118/59
--- NOTE | 2016-05-29 08:46 | Oncology Progress Note ---
Oncology Subjective PN Interval history: Patient with AML Exam - Constitutional Vitals: Period Temp Pulse Resp BP Sys/Ceballos Pulse Ox Last 24 Hr 96.5 F-97.6 F 67-108 16-20 114-145/59-90 97-100 Results - Labs CBC & BMP: 05/29/16 04:52 05/29/16 04:52
--- NOTE | 2016-05-29 09:59 | Discharge Summary ---
Hospital Course - Hospital Course Hospital Course: Diagnoses: Acute myelogenous leukemia post chemotherapy, final bone marrow studies pending Stage IV colon cancer with liver metastases, in complete remission Stage III ovarian cancer in complete remission Severe neutropenia Severe thrombocytopenia Anemia requiring blood transfusions This dictation is being disrupted by this in a patient EMR system causing me to have to repeat myself This 60-year-old patient was recently diagnosed as having acute myelogenous leukemia. She had a past history of widely metastatic colon cancer with liver metastases. The primary was in the right colon and hepatic flexure. He also was found to have stage III ovarian cancer. She has been previously treated for both of these cancers and was in complete remission when she developed pancytopenia and was subsequently diagnosed as having AML earlier this year. The next section is from her history and physical and explains on this admission and it explains the timeframe of her prior malignancies. Ms. Hadley is a 60 year old female who has been on chemotherapy for metastatic colon cancer, stage IV. She coincidentally was diagnosed as having stage IIIc ovarian cancer. The ovarian cancer was diagnosed in March 2013 and she was treated with Abraxane and carboplatin. Her ovarian cancer antigen improved. 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 She was treated with 11 courses of FOLFOX /Folfiri and has recently been on Avastin as a single agent. She is in complete remission from both the colon cancer and ovarian cancer. At this point the patient has had one course of induction chemotherapy. It was given slightly less than 5 weeks ago. The chemotherapy consisted of daunorubicin 120 mg given IV on April 30 and . She also received Cytosar 200 mg IV over 24 hours daily by continuous infusion beginning April 28 Wasted a lot of time going back to find these doses and dates. Part of the patient's bone marrow biopsy and aspirate her back and they indicate that the patient is possibly in complete remission. She is still neutropenic however with an absolute neutrophil count of 300. I have discussed her case with Dr. Deras will be occupational health technician this weekend in case the patient returns. My plan is to have the patient come by my office on June 03 and we will check a CBC and hopefully somebody will have sent me the final report on the bone marrow biopsy and aspirate by that time. I will check the CBC and possibly make arrangements for the patient to begin consolidation chemotherapy using high-dose Cytosar at that point versus receiving a second course of induction chemotherapy. In order to be sure this patient does not all through the cracks I am going to set up an appointment for her to see me 2 weeks from now as well with a CBC, CMP and LDH. Specialty Discharge - Follow Up or Referrals Follow up with: Marvin Castaneda MD [Physician] - Discharge Plan - Discharge Data Disposition: Disch To Home/Self Care Condition at Discharge: Guarded Discharge Diet: advance to your usual diet Activity: resume usual activities as tolerated Hygiene: no restrictions Weight Bearing at Discharge: weight bear as tolerated Driving: other Contact your physician if you experience:: fever over 101, Difficulty voiding, Redness or swelling, Nausea/Vomiting, Shortness of breath, Bleeding, pain uncontrolled by pain medications - Discharge Medications Continue Potassium Chloride Cap/Tab [K Dur] 20 meq PO DAILY Magnesium Chloride [Mag Delay] 64 mg PO BID W/MEALS Metoprolol Succinate Xl [Toprol Xl] 25 mg PO DAILY Discontinued Aspirin [Ecotrin] 81 mg PO DAILY Cholecalciferol (Vitamin D3) [Vitamin D3] 1,000 unit PO DAILY No Action Docusate Sodium Cap [Colace Cap] 200 mg PO DAILY Famotidine 20 mg PO BID Furosemide Tab [Lasix Tab] 20 mg PO DAILY PRN PRN Reason: Edema - Follow Up or Referral Follow Up: Marvin Castaneda MD [Physician] - - Forms/Instructions Additional Discharge Instructions: CBC at my office on Wednesday, June 03. Appointment to see me in 2 weeks on June 10 or with CBC, CMP, LDH and red top tube. Exam - Constitutional Vitals: Period Temp Pulse Resp BP Sys/Ceballos Pulse Ox Last 24 Hr 96.5 F-97.6 F 67-108 16-20 114-145/59-90 97-100 Discharge Results Procedures and tests throughout hospitalization: Pending Orders 05/30/16 04:00 Comprehensive Metabolic Panel IN AM 05/31/16 04:00 Comprehensive Metabolic Panel IN AM Labs on day of discharge: Labs from last 24 hours 05/29/16 05/29/16 04:52 04:52 WBC 1.5 L RBC 3.47 L Hgb 9.8 L Hct 30.7 L MCV 88.5 MCH 28 MCHC 31.9 L RDW 14.1 Plt Count 102 L MPV 9.0 L Neut % (Auto) 17.7 L Lymph % (Auto) 81.0 H Erie % (Auto) 1.3 L Eos % (Auto) 0.0 Baso % (Auto) 0.0 Neut # (Auto) 0.3 L Lymph # (Auto) 1.2 L Erie # (Auto) 0.0 L Eos # (Auto) 0.0 Baso # (Auto) 0.0 Total Counted 100 Immature Gran % 0.0 Nucleated RBC % 0.0 Immature Gran # 0.00 Segmented Neutrophils 14 L Lymphocytes 84 H Monocytes 2 Nucleated RBCs 2 Nucleated RBCs # 0.00 Atypical Lymphocytes Few Platelet Estimate Decreased Hypochromasia 1+ Microcytosis 1+ Morphology Comment Sodium 143 Potassium 4.2 Chloride 108 H Carbon Dioxide 27 Anion Gap 12.2 BUN 15 Creatinine 0.60 GFR Calculation 129 BUN/Creatinine Ratio 25.00 H Glucose 183 H Calculated Osmolality 290.0 Calcium 8.4 L Total Bilirubin 0.60 AST 11 ALT 26 Alkaline Phosphatase 72 Total Protein 6.4 Albumin 2.2 L Globulin 4.2 H Albumin/Globulin Ratio 0.5 L DS: Provider Date of admission: 04/28/16 07:12 Primary care physician: . No PCP Attending physician on admission: Marvin Castaneda MD Discharging clinician: Marvin Castaneda MD
[2016-05-29] MEDS ORDERED: HEPARIN LOCK FLUSH 500 UNIT/5 ML SYRINGE IV PRN (10:22)
[2016-05-29] MEDS: MAGNESIUM CHLORIDE 64 MG TABLET PO SCH (10:55)
[2016-05-29] MEDS: POTASSIUM CHLORIDE 20 MEQ TABLET PO SCH (10:55)
[2016-05-29] MEDS: FAMOTIDINE 20 MG TABLET PO SCH (10:55)
[2016-05-29] MEDS: DOCUSATE SODIUM 100 MG CAPSULE PO SCH (10:55)
[2016-05-29] MEDS: METOPROLOL SUCCINATE XL 25 MG TABLET PO SCH (10:55)
[2016-05-29] MEDS: CHOLESTYRAMINE 4 GM PACK PO SCH (10:56)
[2016-05-29] MEDS: CLOTRIMAZOLE 10 MG TROCHE PO SCH (10:56)
[2016-05-29] MEDS: NYSTATIN POWDER 15 GM BOTTLE TOP SCH (10:56)
--- NOTE | 2016-06-05 14:40 | Pathology Report from [facility] ---
ACCESSION # : [id number] PATIENT NAME : Gema Dunn ORDERING DR : GRISELDA GANN III, MD CLINICAL HX: Acute Myelogenous leukemia POST-OP DX: Same SPECIMEN INFO: Bone marrow biopsy GROSS DESCRIPTION: Received labeled with the patient's name and consists of a bone marrow biopsy to be packed and shipped to [facility] by the Hematology Department. DIAGNOSIS FOR GEMA DUNN: The following is the bone marrow report from Jozef Carmona MD., [facility], [place], [place]:FINAL DIAGNOSIS: Hypocellular marrow with a persistent acute myeloid leukemia.COMPREHENSIVE ASSESSMENT: In summary, flow cytometric analysis show no immunophenotypic evidence of lymphoma or leukemia. Previously, flow cytometry showed increased CD34+ HLA-DR+ myeloblasts (16%). Morphologic evaluation continues to show a hypocellular marrow with increased CD34+ blasts (30-40% vs. 80-90%, previously). Cytogenetic studies continue to show a complex karyotype. 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 Overall , the findings are consistent with a persistent acute myeloid leukemia. The lymphoid aggregate is likely reactive in nature. Correlation with clinical data is recommended. SERVICE DATE: 05/27/2016 REPORT DATE: 06/05/2016 PATHOLOGIST: Melita Mina
== END 2016-05-29 11:20 | disposition home or self-care (01) | DRG 838 ==
LOC: N.4E 07:12
PROVIDERS: ADMIT Specialist; ATTEND Specialist

== ENCOUNTER 2016-06-02 07:00 | Inpatient (IN) ==
[2016-06-02 08:13] LABS: Hematocrit 31.9 VOL% (35.7-47.0); Hemoglobin 10.1 GM/DL (12.0-16.0); Lymphocytes # 1.1 10*3/uL (1.4-4.0); Lymphocytes % 63.9 % (21.3-54.2); Mean Corpuscular HGB Conc 31.7 GM/DL (32-36); Mean Corpuscular Hemoglobin 29 PG (27-34); Mean Corpuscular Volume 90.1 FL (87-102); Monocytes # 0.1 10*3/uL (0.11-0.8); Neutrophils # 0.6 10*3/uL (1.4-7.4); Neutrophils % 33.1 % (38.7-73.9); Platelet Count 146 T/CUMM (130-400); Red Blood Count 3.54 MC/CUMM (3.8-5.5); Red Cell Distribution Width 14.5 % (9.3-17.3); White Blood Count 1.7 T/CUMM (4-12)
[2016-06-02] MEDS ORDERED: diphenhydrAMINE CAP 25 MG CAPSULE PO PRN (08:15)
[2016-06-02] MEDS ORDERED: TEMAZEPAM 7.5 MG CAPSULE PO PRN (08:15)
[2016-06-02] MEDS ORDERED: LACTULOSE 20 GM/30 ML UDCUP PO PRN (08:15)
[2016-06-02] MEDS ORDERED: chlorproMAZINE INJ 25 MG in SODIUM CHLORIDE 0.9% 100 ML IV PRN (08:15)
[2016-06-02] MEDS ORDERED: traMADol 50 MG TABLET PO PRN (08:15)
[2016-06-02] MEDS ORDERED: chlorproMAZINE 25 MG TABLET PO PRN (08:15)
[2016-06-02] MEDS ORDERED: chlorproMAZINE INJ 50 MG in SODIUM CHLORIDE 0.9% 100 ML IV PRN (08:15)
[2016-06-02] MEDS ORDERED: ALPRAZolam 0.25 MG TABLET PO PRN (08:15)
[2016-06-02] MEDS ORDERED: LOPERAMIDE 2 MG CAPSULE PO PRN ×2 (08:15)
[2016-06-02] MEDS ORDERED: ALUMINUM/MAGNES/SIMETH MAX STR 30 ML UDCUP PO PRN (08:15)
[2016-06-02] MEDS ORDERED: MYLANTA/LIDO VISC 2:1 300 ML BOTTLE SWISH/SWAL PRN (08:15)
[2016-06-02] MEDS ORDERED: MYLANTA/LIDO VISC 2:1 300 ML BOTTLE SWISH/SPIT PRN (08:15)
[2016-06-02] MEDS ORDERED: BENZTROPINE 2 MG/2 ML AMP IV PRN (08:15)
[2016-06-02] MEDS ORDERED: guaiFENesin 200 MG/10 ML UDCUP PO PRN (08:15)
[2016-06-02] MEDS ORDERED: MAGNESIUM HYDROXIDE SUSP 30 ML UDCUP PO PRN (08:15)
--- NOTE | 2016-06-02 08:16 | Oncology History&Physical ---
History of Present Illness Chief complaint: Administration of course #2 of induction chemotherapy for acute myelogenous History of present illness: Ms. Hadley is a 60 year old female with acute myelogenous leukemia who has had one course of induction chemotherapy and is admitted now for her second course. A bone marrow biopsy and aspirate done last week confirmed that there was persistence of leukemic infiltrate. She is already had one course of induction daunorubicin and Cytosar and is admitted now for her second course of it. I am adjusting the chemotherapy doses somewhat. 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 She is in remission from this. She also has a history of stage IIIB ovarian cancer and she is in remission from it as well. Her last course of palliative chemotherapy for the colon cancer was about a year ago. Ms. Hadley is a 60 year old female who has been on chemotherapy for metastatic colon cancer, stage IV. Prior to being diagnosed with colon cancer, she was diagnosed as having stage IIIc ovarian cancer. The ovarian cancer was diagnosed in March 2013 and she was treated with Abraxane and carboplatin. Her ovarian cancer antigen improved. 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 She was treated with 11 courses of FOLFOX/Folfiri and has recently been on Avastin as a single agent. She is in complete remission from both the colon cancer and ovarian cancer. She has actually had a remarkable response to chemotherapy and had been off chemotherapy since April 2015. On her last office visit, she had a normal CEA level of 4.6 and a normal ovarian cancer antigen. She continues to have right lower quadrant abdominal pain but as stated, we had a CT of the abdomen and pelvis on 11/29/2015 and she had no evidence of metastatic disease. She is scheduled for another CT of the abdomen and pelvis relatively soon. But it had been held because of elevated serum creatinine. Her serum creatinine is now normal so we will proceed. Past medical history: She has no known allergies. She has a past medical history is positive for anemia, hypertension and for ovarian cancer for which she is undergone surgery. She also has a history of gastroesophageal reflux disease and peptic ulcer disease. Family history is positive for diabetes in her grandmother and cancer of the pancreas and her mother. Social history is negative for alcohol or tobacco use. Review of systems Gen.: Negative for fever or chills weight loss or anorexia Eyes: Negative for inflammation or infections or further visual impairment ENT: Negative for stomatitis, mucositis or odynophagia. Pulmonary: Negative for asthma, emphysema or recurrent pneumonia and negative for hemoptysis Cardiovascular: Negative for congestive heart failure, angina, heart attack, coronary artery disease or cardiac arrhythmia GI: Negative for pancreatic disease or disorders but otherwise positive as pertains to her colon cancer. Negative for abdominal pain or bloating, hematemesis, melena or hematochezia. : Negative for kidney stones, kidney infections or hematuria. Neurologic: Negative for seizures, convulsions or paralysis. Psychiatric: Negative for psychiatric illness or depression confusion. Nodes: Negative for any cervical, supraclavicular, axillary or submandibular adenopathy. Skin: Negative for any significant skin rashes or diseases. Physical examination: Gen.: The patient is well-developed, well-nourished and in no acute distress. Eyes: Lids and conjunctivae are normal. ENT: Her oral mucosa and pharynx are normal, her trachea is midline she has no neck masses. Lungs: Breath sounds are normal without rubs, rales or rhonchi. There is symmetrical unlabored chest motion with respiration. Cardiovascular: Her heart rhythm is regular without murmur, gallop or rub. There is no jugular venous distention, clubbing or cyanosis. Abdomen: She has no abdominal masses, organomegaly, distention, tenderness or ascites. Musculoskeletal: There is no focal muscle atrophy or bone or joint deformity. Neurologic: Cranial nerves II through XII are intact and no focal neurologic deficits. Nodes: There is no submandibular, cervical, supraclavicular or axillary adenopathy. Skin: She has a reddish slightly raised bruise or possibly cellulitis on the right side just above the knee and medially and she also has a second 1 that actually is below the knee on the posterior calf. Impression: Acute myelogenous leukemia admitted for course #2 of induction chemotherapy thrombocytopenia requiring platelet transfusion Anemia requiring blood transfusion Stage IV adenocarcinoma: In remission Stage III ovarian cancer in remission Chemotherapy on this admission will include: Daunorubicin 120 mg IV daily for 3 days Cytosar-U 400 mg IV by continuous 24 hour infusion daily for 7 days. I have handwritten these orders because this electronic medical record system is the leading orders presently. Home Medications Medication Instructions Recorded Confirmed Type Docusate Sodium Cap [Colace Cap] 200 mg PO DAILY 12/10/14 06/02/16 History Famotidine 20 mg PO BID 12/10/14 06/02/16 History Potassium Chloride Cap/Tab [K Dur] 20 meq PO DAILY 12/10/14 06/02/16 History Magnesium Chloride [Mag Delay] 64 mg PO BID W/MEALS 12/31/14 06/02/16 History Furosemide Tab [Lasix Tab] 20 mg PO DAILY PRN 01/28/15 06/02/16 History Metoprolol Succinate Xl [Toprol Xl] 25 mg PO DAILY 03/29/16 06/02/16 History Allergies Allergy/AdvReac Type Severity Reaction Status Date / Time No Known Allergies Allergy Verified 01/07/15 10:52 Medical,Surgical,& Family Hx - Medical History Cardio: History of: Hypertension Rheumatology: History of;: 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) Gastrointestinal: History of: Gastrointestinal Cancer (colon cancer) Hematology: No history of: Blood Transfusion Reaction Reproductive: History of: Reproductive Cancer (hx of ovarian cancer) - Surgical History Abdominal Surgeries: Surgical HX of: Abdominal Surgery (colon surgery) - Family History Family History: Reports;: Family Diabetes (grandmother), Family Heart Disease ( grandmother), Family Hypertension (grandmother) Denies;: Family Cancer - Social History Smoking Status: Never smoker Frequency of Alcohol Use: None Type of Drug Use: None Exam - Constitutional Vitals: Period Temp Pulse Resp BP Sys/Ceballos Pulse Ox Last 24 Hr 97.2 F 109 20 136/91 100 Results - Labs CBC & BMP: 06/02/16 08:00 06/02/16 08:00
[2016-06-02 08:18] LABS: Apearance,Urine CLEAR (Clear); Bilirubin,Urine Negative (Negative); Blood, Urine Negative (Negative); Glucose,Urine (UA) 50 mg/dL (Negative); Hyaline Casts,Urine 1 /LPF (0-3); Ketones,Urine 5 mg/dL (Negative); Mucus,Urine Occasional /LPF (Occasional); Nitrite,Urine Negative (Negative); Protein,Urine Negative; RBC,Urine 1 /HPF (0-4); Squamous Epithelial Cell,Urine Occasional /HPF (0-10); Urine Color Yellow (Yellow); Urine Specific Gravity 1.017 (1.001-1.035); Urine Urobilinogen < 2.0 EU/DL (0.2-1.0); WBC,Urine 3 /HPF (0-6)
[2016-06-02 08:34] LABS: Lymphocytes 67 % (20-55); Nucleated Red Blood Cells 1 (0-5); Segmented Neutrophils 32 % (50-85); Total Cells Counted 100
[2016-06-02 08:35] LABS: Hypochromasia 1+
[2016-06-02 08:36] LABS: Microcytosis 1+
[2016-06-02 08:37] LABS: Platelet Estimate Adequate
[2016-06-02 08:38] LABS: Atypical Lymphocytes Few
[2016-06-02 08:46] LABS: Albumin 2.7 G/DL (3.4-5.0); Bilirubin,Total 0.5 MG/DL (0.2-1.0); Calcium 9.3 MG/DL (8.5-10.1); Potassium 4.3 MMOL/L (3.5-5.1); Total Protein 7.3 G/DL (6.4-8.3); Uric Acid 4.8 MG/DL (2.6-6.0)
[2016-06-02 08:51] LABS: Magnesium 1.4 MG/DL (1.8-2.4)
[2016-06-02] MEDS: DEXAMETHASONE 4 MG/1 ML VIAL IV SCH (09:43)
[2016-06-02] MEDS: GRANISETRON 1 MG/1 ML VIAL IV SCH (09:44)
[2016-06-02] MEDS: DAUNORUBICIN IV SCH (10:34)
[2016-06-02] MEDS: SODIUM CHLORIDE 0.9% IV SCH (10:50)
[2016-06-02] MEDS: CYTARABINE IV SCH (10:50)
[2016-06-02] MEDS ORDERED: FUROSEMIDE 20 MG TABLET PO PRN (14:48)
[2016-06-02] MEDS: MAGNESIUM CHLORIDE 64 MG TABLET PO SCH (17:39)
[2016-06-02] MEDS: FAMOTIDINE 20 MG TABLET PO SCH (21:18)
[2016-06-03 07:23] LABS: Hematocrit 30.1 VOL% (35.7-47.0); Hemoglobin 9.8 GM/DL (12.0-16.0); Lymphocytes # 0.8 10*3/uL (1.4-4.0); Lymphocytes % 43.6 % (21.3-54.2); Mean Corpuscular HGB Conc 32.6 GM/DL (32-36); Mean Corpuscular Hemoglobin 29 PG (27-34); Mean Corpuscular Volume 87.5 FL (87-102); Mean Platelet Volume 9.9 FL (9.6-12.0); Monocytes # 0.1 10*3/uL (0.11-0.8); Monocytes % 3.2 % (1.7-12.7); Neutrophils % 53.2 % (38.7-73.9); Platelet Count 137 T/CUMM (130-400); Red Blood Count 3.44 MC/CUMM (3.8-5.5); Red Cell Distribution Width 14.6 % (9.3-17.3); White Blood Count 1.9 T/CUMM (4-12)
[2016-06-03 07:48] LABS: Alanine Aminotransferase 27 U/L (13-56); Albumin 2.4 G/DL (3.4-5.0); Alkaline Phosphatase 73 U/L (45-117); Aspartate Amino Transferase 15 U/L (0-37); Bilirubin,Total < 0.39 MG/DL (0.2-1.0); Blood Urea Nitrogen 20 MG/DL (7-18); Calcium 8.8 MG/DL (8.5-10.1); Glucose 294 MG/DL (74-106); Potassium 4.4 MMOL/L (3.5-5.1); Sodium 143 MMOL/L (136-145); Total Protein 6.7 G/DL (6.4-8.3)
[2016-06-03 08:13] LABS: Eosinophils 1 % (0-10); Hypochromasia 1+; Lymphocytes 41 % (20-55); Platelet Estimate Normal; Segmented Neutrophils 55 % (50-85); Total Cells Counted 100
[2016-06-03 08:14] LABS: Atypical Lymphocytes Few; Microcytosis 1+
--- NOTE | 2016-06-03 08:22 | Oncology Progress Note ---
Oncology Subjective PN Interval history: This patient's absolute neutrophil count today is 1000. Today is day #2 of course #2 of induction chemotherapy for acute myelogenous leukemia. Her platelet count is normal. She still has 40% blasts on her bone marrow biopsy and aspirate. She is continuing chemotherapy and tolerating it well so far. Her condition is critical due to the fact that this is a leukemia, AML, that has arisen from chemotherapy for other malignancies. This is actually her third malignancy. She is oriented and alert and in no acute distress. Exam - Constitutional Vitals: Period Temp Pulse Resp BP Sys/Ceballos Pulse Ox Last 24 Hr 96.7 F-98.4 F 88-104 18-18 107-136/55-80 96-100 Results - Labs CBC & BMP: 06/03/16 06:56 06/03/16 06:56
[2016-06-03] MEDS: FAMOTIDINE 20 MG TABLET PO SCH ×2 (09:45→20:30)
[2016-06-03] MEDS: DOCUSATE SODIUM 100 MG CAPSULE PO SCH (09:45)
[2016-06-03] MEDS: MAGNESIUM CHLORIDE 64 MG TABLET PO SCH ×2 (09:46→18:22)
[2016-06-03] MEDS: POTASSIUM CHLORIDE 20 MEQ TABLET PO SCH (09:46)
[2016-06-03] MEDS: METOPROLOL SUCCINATE XL 25 MG TABLET PO SCH (09:46)
[2016-06-03] MEDS: DEXAMETHASONE 4 MG/1 ML VIAL IV SCH (09:46)
[2016-06-03] MEDS: GRANISETRON 1 MG/1 ML VIAL IV SCH (09:49)
[2016-06-03] MEDS: DAUNORUBICIN IV SCH (12:42)
[2016-06-03] MEDS: SODIUM CHLORIDE 0.9% IV SCH (12:44)
[2016-06-03] MEDS: CYTARABINE IV SCH (12:44)
[2016-06-03] MEDS ORDERED: POLYVINYL ALCOHOL 1.4% OPH SOLN 15 ML BOTTLE BOTH EYES PRN (15:05)
[2016-06-04 05:16] LABS: Albumin 2.6 G/DL (3.4-5.0); Bilirubin,Total 0.4 MG/DL (0.2-1.0); Calcium 9.1 MG/DL (8.5-10.1); Osmolality,Calculated 307.7 MOS/KG (273-304); Potassium 4.7 MMOL/L (3.5-5.1); Total Protein 6.7 G/DL (6.4-8.3)
[2016-06-04 08:05] LABS: Hematocrit 29.9 VOL% (35.7-47.0); Hemoglobin 9.9 GM/DL (12.0-16.0); Immature Granulocytes % 0.5 %; Immature Granulocytes Absolute 0.01 #; Lymphocytes # 0.8 10*3/uL (1.4-4.0); Lymphocytes % 37.1 % (21.3-54.2); Mean Corpuscular HGB Conc 33.1 GM/DL (32-36); Mean Corpuscular Hemoglobin 29 PG (27-34); Mean Corpuscular Volume 87.4 FL (87-102); Mean Platelet Volume 9.5 FL (9.6-12.0); Monocytes % 1.5 % (1.7-12.7); Neutrophils # 1.2 10*3/uL (1.4-7.4); Neutrophils % 60.9 % (38.7-73.9); Platelet Count 159 T/CUMM (130-400); Red Blood Count 3.42 MC/CUMM (3.8-5.5); Red Cell Distribution Width 14.8 % (9.3-17.3)
--- NOTE | 2016-06-04 08:13 | Oncology Progress Note ---
Oncology Subjective PN Interval history: Blood work today includes an absolute neutrophil count of 1200 and a total platelet count of 159,000. This is a patient with acute myelogenous leukemia who is undergoing course #2 of induction chemotherapy and should be starting day #3 today. She is oriented and alert. She complains of her eyes burning. I think this is toxicity from the Cytosar-U. Her oral mucosa is normal. Cranial nerves II through XII are intact. There are no focal neurologic deficits. We are continuing chemotherapy and monitoring for toxicity. This patient has AML as well as stage IV adenocarcinoma colon and stage III ovarian cancer and has an exceedingly poor prognosis. Exam - Constitutional Vitals: Period Temp Pulse Resp BP Sys/Ceballos Pulse Ox Last 24 Hr 96.0 F-97.6 F 88-104 18-20 118-129/62-86 94-100 Results - Labs CBC & BMP: 06/04/16 04:00 06/04/16 04:00
[2016-06-04] MEDS: GRANISETRON 1 MG/1 ML VIAL IV SCH (09:13)
[2016-06-04] MEDS: MAGNESIUM CHLORIDE 64 MG TABLET PO SCH ×2 (09:13→17:44)
[2016-06-04] MEDS: DOCUSATE SODIUM 100 MG CAPSULE PO SCH (09:13)
[2016-06-04] MEDS: POTASSIUM CHLORIDE 20 MEQ TABLET PO SCH (09:13)
[2016-06-04] MEDS: FAMOTIDINE 20 MG TABLET PO SCH ×2 (09:13→21:15)
[2016-06-04] MEDS: METOPROLOL SUCCINATE XL 25 MG TABLET PO SCH (09:13)
[2016-06-04] MEDS: DEXAMETHASONE 4 MG/1 ML VIAL IV SCH (09:15)
[2016-06-04] MEDS: DAUNORUBICIN IV SCH (14:20)
[2016-06-04] MEDS: CYTARABINE IV SCH (14:24)
[2016-06-04] MEDS: SODIUM CHLORIDE 0.9% IV SCH (14:24)
[2016-06-04] MEDS ORDERED: DAUNORUBICIN IV ONE (14:30)
[2016-06-05 05:36] LABS: Lymphocytes # 0.6 10*3/uL (1.4-4.0); Lymphocytes % 34.5 % (21.3-54.2); Mean Corpuscular HGB Conc 32.3 GM/DL (32-36); Mean Corpuscular Hemoglobin 28 PG (27-34); Mean Corpuscular Volume 87.8 FL (87-102); Mean Platelet Volume 9.1 FL (9.6-12.0); Neutrophils # 1.1 10*3/uL (1.4-7.4); Neutrophils % 65.5 % (38.7-73.9); Platelet Count 168 T/CUMM (130-400); Red Blood Count 3.53 MC/CUMM (3.8-5.5); White Blood Count 1.7 T/CUMM (4-12)
[2016-06-05 05:56] LABS: Alanine Aminotransferase 28 U/L (13-56); Albumin 2.7 G/DL (3.4-5.0); Alkaline Phosphatase 80 U/L (45-117); Aspartate Amino Transferase 12 U/L (0-37); Bilirubin,Total < 0.39 MG/DL (0.2-1.0); Blood Urea Nitrogen 24 MG/DL (7-18); Calcium 9.5 MG/DL (8.5-10.1); Glucose 492 MG/DL (74-106); Potassium 4.1 MMOL/L (3.5-5.1); Sodium 143 MMOL/L (136-145)
[2016-06-05 06:14] LABS: Hypochromasia 2+; Lymphocytes 20 % (20-55); Microcytosis 2+; Segmented Neutrophils 80 % (50-85); Total Cells Counted 100
[2016-06-05] MEDS: METOPROLOL SUCCINATE XL 25 MG TABLET PO SCH (08:25)
[2016-06-05] MEDS: MAGNESIUM CHLORIDE 64 MG TABLET PO SCH ×2 (08:25→17:58)
[2016-06-05] MEDS: DOCUSATE SODIUM 100 MG CAPSULE PO SCH (08:25)
[2016-06-05] MEDS: DEXAMETHASONE 4 MG/1 ML VIAL IV SCH (08:25)
[2016-06-05] MEDS: FAMOTIDINE 20 MG TABLET PO SCH ×2 (08:26→20:57)
[2016-06-05] MEDS: GRANISETRON 1 MG/1 ML VIAL IV SCH (08:26)
[2016-06-05] MEDS: POTASSIUM CHLORIDE 20 MEQ TABLET PO SCH (08:26)
--- NOTE | 2016-06-05 10:08 | Oncology Progress Note ---
Oncology Subjective PN Interval history: Patient with AML on course #2 of induction chemotherapy. ANC is 1100 today. Platelet count is 168,00 today and the hemoglobin is 10.0. She is in complete remission from stage IV adenocarcinoma colon with liver metastases and also stage III B ovarian cancer, both of which were treated until approximately 1 year ago. She was continued on Avastin as a single agent for several months after completion of chemotherapy. She received Taxol and carboplatin for her ovarian cancer beginning early last year and later in the year was found to have stage IV adenocarcinoma colon with liver metastases and she received FOLFOX for it. She achieved a complete remission and then unfortunately developed AML in the fall of last year. She had been on maintenance Avastin and it was stopped at least a couple of months before she was diagnosed with the AML. I am hoping that her blood work will remain satisfactory so that she can be discharged at the end of chemotherapy which will be Wednesday of this coming week. She is tolerating chemotherapy well. She has had no mouth or throat irritation lately and no nausea or vomiting. She does have some conjunctivitis but not enough for me to consider corticosteroid eyedrops. She is oriented and alert and has no focal neurologic deficits. Her oral mucosa is normal. Her respirations are unlabored. We will continue chemotherapy and monitor for toxicity. Exam - Constitutional Vitals: Period Temp Pulse Resp BP Sys/Ceballos Pulse Ox Last 24 Hr 96.1 F-97.7 F 67-102 16-20 125-153/63-74 93-98 Results - Labs CBC & BMP: 06/05/16 04:00 06/05/16 04:00
[2016-06-05] MEDS: SODIUM CHLORIDE 0.9% IV SCH (15:59)
[2016-06-05] MEDS: CYTARABINE IV SCH (15:59)
[2016-06-06 05:43] LABS: Hemoglobin 9.9 GM/DL (12.0-16.0); Lymphocytes # 0.7 10*3/uL (1.4-4.0); Lymphocytes % 48.6 % (21.3-54.2); Mean Corpuscular Hemoglobin 29 PG (27-34); Mean Platelet Volume 9.1 FL (9.6-12.0); Neutrophils # 0.7 10*3/uL (1.4-7.4); Neutrophils % 51.4 % (38.7-73.9); Platelet Count 141 T/CUMM (130-400); Red Blood Count 3.45 MC/CUMM (3.8-5.5); White Blood Count 1.4 T/CUMM (4-12)
[2016-06-06 06:22] LABS: Albumin 2.7 G/DL (3.4-5.0); Bilirubin,Total 0.7 MG/DL (0.2-1.0); Calcium 9.7 MG/DL (8.5-10.1); Osmolality,Calculated 309.8 MOS/KG (273-304); Potassium 4.3 MMOL/L (3.5-5.1); Total Protein 6.8 G/DL (6.4-8.3)
[2016-06-06 06:39] LABS: Atypical Lymphocytes Few; Eosinophils 1 % (0-10); Hypochromasia 1+; Lymphocytes 47 % (20-55); Microcytosis 1+; Ovalocytes Slight; Platelet Estimate Normal; Segmented Neutrophils 52 % (50-85); Total Cells Counted 100
[2016-06-06] MEDS: METOPROLOL SUCCINATE XL 25 MG TABLET PO SCH (08:56)
[2016-06-06] MEDS: POTASSIUM CHLORIDE 20 MEQ TABLET PO SCH (08:56)
[2016-06-06] MEDS: DOCUSATE SODIUM 100 MG CAPSULE PO SCH (08:56)
[2016-06-06] MEDS: MAGNESIUM CHLORIDE 64 MG TABLET PO SCH ×2 (08:56→17:33)
[2016-06-06] MEDS: DEXAMETHASONE 4 MG/1 ML VIAL IV SCH (08:57)
[2016-06-06] MEDS: GRANISETRON 1 MG/1 ML VIAL IV SCH (08:57)
[2016-06-06] MEDS: FAMOTIDINE 20 MG TABLET PO SCH ×2 (08:57→21:43)
--- NOTE | 2016-06-06 10:21 | Oncology Progress Note ---
Assessment and Plan (1) AML (acute myeloblastic leukemia) Status: Acute Assessment and plan: 60 year old female with PMHx of ovarian Ca and colon ca in remission complicated by AML admitted for second induction chemotherapy after a bone marrow on count return revealed continued residual disease. - continue with Day 4 cytarabine. - tolerating treatment well - no need transfusion today - will check a UA and urine culture for urinary frequency today - continue with supportive care Current Visit: No Oncology Subjective PN Interval history: 60 year old female with PMHx of ovarian Ca and colon ca in remission complicated by AML admitted for second induction chemotherapy after a bone marrow on count return revealed continued residual disease. Today is day 4 of cytarabine. Tolerating treatment well. Refers some urinary frequency today new since admission. No fevers, chills, nor rigors. Refers ok PO intake. No nausea. Denies pain in eyes. No SOB, abdominal pain. Continues to ambulate. Exam - Constitutional Vitals: Period Temp Pulse Resp BP Sys/Ceballos Pulse Ox Last 24 Hr 96.0 F-97.4 F 75-99 18-20 123-154/66-92 95-97 General appearance: no acute distress - Eye Eye Exam: Present: EOMI Pupils: Present: PERRL - Respiratory Respiratory exam: Present: CTAB - Cardiovascular Cardiovascular exam: Present: RRR - GI/Abdominal GI/Abdominal exam: Present: soft. Absent: ascites, distended, mass, tenderness - Extremities Exam Extremities exam: Absent: edema - Neurological Exam Neurological exam: Present: alert, oriented X3 - Skin Skin exam: Present: warm Results - Labs CBC & BMP: 06/06/16 05:36 06/06/16 04:00
[2016-06-06 11:02] LABS: Apearance,Urine CLEAR (Clear); Bilirubin,Urine Negative (Negative); Blood, Urine Negative (Negative); Glucose,Urine (UA) >=500 mg/dL (Negative); Ketones,Urine Negative (Negative); Mucus,Urine Occasional /LPF (Occasional); Nitrite,Urine Negative (Negative); Protein,Urine Negative; RBC,Urine 1 /HPF (0-4); Squamous Epithelial Cell,Urine Occasional /HPF (0-10); Urine Color Yellow (Yellow); Urine Specific Gravity 1.014 (1.001-1.035); Urine Urobilinogen < 2.0 EU/DL (0.2-1.0); WBC,Urine 1 /HPF (0-6)
[2016-06-06] MEDS: CYTARABINE IV SCH (16:35)
[2016-06-06] MEDS: SODIUM CHLORIDE 0.9% IV SCH (16:35)
[2016-06-06] MEDS ORDERED: INSULIN REGULAR 100 UNIT/ML SUBCUT ONE (19:18)
[2016-06-06] MEDS ORDERED: GLUCAGON 1 MG VIAL IM PRN (19:19)
[2016-06-06] MEDS ORDERED: DEXTROSE 50% 25 GM/50 ML VIAL IV PRN (19:19)
[2016-06-06] MEDS: INSULIN REGULAR 100 UNIT/ML SUBCUT SCH (21:44)
[2016-06-06] MEDS: INSULIN GLARGINE 100 UNIT/ML SUBCUT SCH (21:45)
[2016-06-07] MEDS: ONDANSETRON 4 MG/2 ML VIAL IV PRN (05:14)
[2016-06-07 06:03] LABS: Hematocrit 30.7 VOL% (35.7-47.0); Hemoglobin 10.1 GM/DL (12.0-16.0); Immature Granulocytes % 1.1 %; Immature Granulocytes Absolute 0.01 #; Lymphocytes # 0.8 10*3/uL (1.4-4.0); Lymphocytes % 83.7 % (21.3-54.2); Mean Corpuscular HGB Conc 32.9 GM/DL (32-36); Mean Corpuscular Hemoglobin 28 PG (27-34); Mean Platelet Volume 8.6 FL (9.6-12.0); Neutrophils # 0.1 10*3/uL (1.4-7.4); Neutrophils % 15.2 % (38.7-73.9); Platelet Count 116 T/CUMM (130-400); Red Blood Count 3.57 MC/CUMM (3.8-5.5); Red Cell Distribution Width 14.7 % (9.3-17.3)
[2016-06-07 06:06] LABS: White Blood Count 0.9 T/CUMM (4-12)
[2016-06-07 06:17] LABS: Albumin 2.8 G/DL (3.4-5.0); Bilirubin,Total 0.4 MG/DL (0.2-1.0); Calcium 9.7 MG/DL (8.5-10.1); Osmolality,Calculated 300.4 MOS/KG (273-304); Potassium 3.8 MMOL/L (3.5-5.1)
[2016-06-07 06:36] LABS: Hypochromasia 1+; Lymphocytes 85 % (20-55); Microcytosis Slight; Ovalocytes Slight; Platelet Estimate Decreased; Segmented Neutrophils 15 % (50-85); Total Cells Counted 100
[2016-06-07 06:37] LABS: Atypical Lymphocytes Few
--- NOTE | 2016-06-07 09:50 | Oncology Progress Note ---
Assessment and Plan (1) AML (acute myeloblastic leukemia) Status: Acute Assessment and plan: 60 year old female with PMHx of ovarian Ca and colon ca in remission complicated by AML admitted for second induction chemotherapy after a bone marrow on count return revealed continued residual disease. - continue with Day 5 cytarabine. - tolerating treatment well - no need transfusion today - continue with supportive care Current Visit: No (2) Hyperglycemia Status: Acute Assessment and plan: elevated glucoses yesterday secondary to steroids likely - improved with regular insulin 10 units and lantus 15 units - will continue with lantus 15 unit QHS and regular insulin sliding scale for now - will back off insulin once steroids completed Current Visit: Yes Oncology Subjective PN Interval history: Continues to tolerate chemotherapy well. Appears a little more down today. No complaints. Refers some mild nausea and anorexia. States urinary frequency improved. No fevers. No new pains. Exam - Constitutional Vitals: Period Temp Pulse Resp BP Sys/Ceballos Pulse Ox Last 24 Hr 97.3 F-98.7 F 74-96 17-18 134-171/75-91 95-98 General appearance: no acute distress - Eye Eye Exam: Present: EOMI Pupils: Present: PERRL - Respiratory Respiratory exam: Present: CTAB - Cardiovascular Cardiovascular exam: Present: RRR - GI/Abdominal GI/Abdominal exam: Present: soft. Absent: ascites, distended, firm, tenderness - Extremities Exam Extremities exam: Present: edema - Neurological Exam Neurological exam: Present: alert, oriented X3 - Skin Skin exam: Present: warm Results - Labs CBC & BMP: 06/07/16 04:47 06/07/16 04:47
[2016-06-07] MEDS: INSULIN REGULAR 100 UNIT/ML SUBCUT SCH ×4 (10:10→21:58)
[2016-06-07] MEDS: DEXAMETHASONE 4 MG/1 ML VIAL IV SCH (10:11)
[2016-06-07] MEDS: GRANISETRON 1 MG/1 ML VIAL IV SCH (10:11)
[2016-06-07] MEDS: METOPROLOL SUCCINATE XL 25 MG TABLET PO SCH (10:15)
[2016-06-07] MEDS: DOCUSATE SODIUM 100 MG CAPSULE PO SCH (10:15)
[2016-06-07] MEDS: MAGNESIUM CHLORIDE 64 MG TABLET PO SCH ×2 (10:16→21:58)
[2016-06-07] MEDS: POTASSIUM CHLORIDE 20 MEQ TABLET PO SCH (10:17)
[2016-06-07] MEDS: FAMOTIDINE 20 MG TABLET PO SCH ×2 (11:19→21:58)
[2016-06-07] MEDS: DEXAMETHASONE 0.1% OPH SOLN 5 ML BOTTLE BOTH EYES SCH ×3 (13:41→22:00)
[2016-06-07] MEDS: PROMETHAZINE INJ 25 MG in SODIUM CHLORIDE 0.9% 50 ML IV PRN (16:36)
[2016-06-07] MEDS: CYTARABINE IV SCH (17:24)
[2016-06-07] MEDS: SODIUM CHLORIDE 0.9% IV SCH (17:24)
[2016-06-07] MEDS: INSULIN GLARGINE 100 UNIT/ML SUBCUT SCH (21:58)
[2016-06-08 06:10] LABS: Albumin 2.7 G/DL (3.4-5.0); Bilirubin,Total 0.5 MG/DL (0.2-1.0); Calcium 9.1 MG/DL (8.5-10.1); Osmolality,Calculated 298.3 MOS/KG (273-304); Potassium 3.9 MMOL/L (3.5-5.1); Total Protein 6.9 G/DL (6.4-8.3)
[2016-06-08] MEDS: DEXAMETHASONE 0.1% OPH SOLN 5 ML BOTTLE BOTH EYES SCH ×4 (06:32→23:13)
[2016-06-08 06:34] LABS: Hematocrit 30.6 VOL% (35.7-47.0); Immature Granulocytes Absolute 0.01 #; Lymphocytes # 0.5 10*3/uL (1.4-4.0); Lymphocytes % 90.2 % (21.3-54.2); Mean Corpuscular HGB Conc 32.7 GM/DL (32-36); Mean Corpuscular Hemoglobin 28 PG (27-34); Mean Corpuscular Volume 86.2 FL (87-102); Mean Platelet Volume 8.8 FL (9.6-12.0); Neutrophils % 5.8 % (38.7-73.9); Platelet Count 93 T/CUMM (130-400); Red Blood Count 3.55 MC/CUMM (3.8-5.5); Red Cell Distribution Width 14.6 % (9.3-17.3)
[2016-06-08 06:36] LABS: White Blood Count 0.5 T/CUMM (4-12)
[2016-06-08 06:53] LABS: Atypical Lymphocytes Few; Hypochromasia 1+; Lymphocytes 97 % (20-55); Microcytosis Slight; Platelet Estimate Decreased; Segmented Neutrophils 3 % (50-85); Total Cells Counted 100
--- NOTE | 2016-06-08 07:54 | Oncology Progress Note ---
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 She is about to start day #7 of infusion Cytosar-U. She appears weaker than she did on June 05. She is developed a cough. She also has a few colonies of gram-negative bacteria of her urinary tract infection. I am starting her on Bactrim DS. On physical examination her oral mucosa appears normal. Cranial nerves II through XII are intact. She is oriented to time, place, person and situation. Breath sounds are slightly coarse but I hear no rubs, rales or rhonchi. Heart sounds are normal. See my orders. She continues to be perilously leukopenia with an absolute neutrophil count of 300 today. Her platelet count remains acceptable. Exam - Constitutional Vitals: Period Temp Pulse Resp BP Sys/Ceballos Pulse Ox Last 24 Hr 97.2 F-98 F 90-107 16-20 110-130/58-73 96-98 Results - Labs CBC & BMP: 06/08/16 04:36 06/08/16 04:00
[2016-06-08] MEDS: INSULIN REGULAR 100 UNIT/ML SUBCUT SCH ×4 (08:03→21:30)
[2016-06-08] MEDS: MAGNESIUM CHLORIDE 64 MG TABLET PO SCH ×2 (10:39→17:55)
[2016-06-08] MEDS: METOPROLOL SUCCINATE XL 25 MG TABLET PO SCH (10:39)
[2016-06-08] MEDS: FAMOTIDINE 20 MG TABLET PO SCH ×2 (10:40→21:30)
[2016-06-08] MEDS: DOCUSATE SODIUM 100 MG CAPSULE PO SCH (10:41)
[2016-06-08] MEDS: POTASSIUM CHLORIDE 20 MEQ TABLET PO SCH (10:41)
[2016-06-08] MEDS: SULFAMETHOX/TRIMETHOPRIM 800-160 MG TABLET PO SCH ×2 (10:41→21:30)
[2016-06-08] MEDS: GRANISETRON 1 MG/1 ML VIAL IV SCH (10:48)
[2016-06-08] MEDS ORDERED: DEXAMETHASONE 4 MG/1 ML VIAL IV SCH (11:00)
[2016-06-08] MEDS: DEXAMETHASONE 4 MG/1 ML VIAL IV SCH (11:41)
[2016-06-08] MEDS: CYTARABINE IV SCH (17:44)
[2016-06-08] MEDS: SODIUM CHLORIDE 0.9% IV SCH (17:44)
[2016-06-08] MEDS: INSULIN GLARGINE 100 UNIT/ML SUBCUT SCH (21:30)
[2016-06-09] MEDS: ACETAMINOPHEN 325 MG TABLET PO PRN ×3 (05:35→20:34)
[2016-06-09] MEDS: MEROPENEM 1,000 MG in SODIUM CHLORIDE 0.9% 100 ML IV SCH ×3 (05:53→20:33)
[2016-06-09] MEDS: DEXAMETHASONE 0.1% OPH SOLN 5 ML BOTTLE BOTH EYES SCH ×4 (05:56→21:49)
[2016-06-09 06:35] LABS: Hematocrit 31.9 VOL% (35.7-47.0); Hemoglobin 10.3 GM/DL (12.0-16.0); Lymphocytes # 0.3 10*3/uL (1.4-4.0); Lymphocytes % 97.1 % (21.3-54.2); Mean Corpuscular HGB Conc 32.3 GM/DL (32-36); Mean Corpuscular Hemoglobin 29 PG (27-34); Mean Corpuscular Volume 88.4 FL (87-102); Neutrophils % 2.9 % (38.7-73.9); Platelet Count 69 T/CUMM (130-400); Red Blood Count 3.61 MC/CUMM (3.8-5.5); Red Cell Distribution Width 14.5 % (9.3-17.3)
[2016-06-09 06:41] LABS: White Blood Count 0.3 T/CUMM (4-12)
[2016-06-09 07:01] LABS: Hypochromasia 2+; Lymphocytes 75 % (20-55); Microcytosis 2+; Platelet Estimate Decreased; Segmented Neutrophils 25 % (50-85); Total Cells Counted 100
[2016-06-09] MEDS: INSULIN REGULAR 100 UNIT/ML SUBCUT SCH ×4 (07:15→20:36)
[2016-06-09 07:22] LABS: Albumin 2.6 G/DL (3.4-5.0); Bilirubin,Total 0.8 MG/DL (0.2-1.0); Calcium 8.5 MG/DL (8.5-10.1); Osmolality,Calculated 287.8 MOS/KG (273-304); Potassium 3.9 MMOL/L (3.5-5.1); Total Protein 6.9 G/DL (6.4-8.3)
--- NOTE | 2016-06-09 08:13 | Oncology Progress Note ---
Oncology Subjective PN Interval history: Ms. Hadley had a fever spike after she had shaking chills today. Blood cultures have been done and she has been started on Merrem. She is severely neutropenic. Currently she is in no acute distress. Her oral mucosa is normal. Cranial nerves II through XII are intact. Respirations are unlabored. Chemotherapy will not be done until late tonight and I do not think she will go home tomorrow because of this fever spike. We will need to watch her closely because we may need to add vancomycin if she has another fever spike. Exam - Constitutional Vitals: Period Temp Pulse Resp BP Sys/Ceballos Pulse Ox Last 24 Hr 97.1 F-101 F 92-112 16-20 97-116/51-64 93-98 Results - Labs CBC & BMP: 06/09/16 06:27 06/09/16 06:27
[2016-06-09] MEDS: GRANISETRON 1 MG/1 ML VIAL IV SCH (09:39)
[2016-06-09] MEDS: METOPROLOL SUCCINATE XL 25 MG TABLET PO SCH (09:44)
[2016-06-09] MEDS: POTASSIUM CHLORIDE 20 MEQ TABLET PO SCH (09:44)
[2016-06-09] MEDS: FAMOTIDINE 20 MG TABLET PO SCH ×2 (09:44→20:35)
[2016-06-09] MEDS: MAGNESIUM CHLORIDE 64 MG TABLET PO SCH ×2 (09:44→17:12)
[2016-06-09] MEDS: SULFAMETHOX/TRIMETHOPRIM 800-160 MG TABLET PO SCH ×2 (09:44→20:34)
[2016-06-09] MEDS: DOCUSATE SODIUM 100 MG CAPSULE PO SCH (09:45)
[2016-06-09] MEDS: CHOLESTYRAMINE 4 GM PACK PO SCH ×2 (09:54→20:34)
[2016-06-09] MEDS: VANCOMYCIN INJ 1,000 MG in SODIUM CHLORIDE 0.9% 250 ML IV SCH ×2 (12:11→21:43)
[2016-06-09] MEDS: ONDANSETRON 4 MG/2 ML VIAL IV PRN (17:18)
[2016-06-09] MEDS ORDERED: DEXT 5% NACL 0.45% KCL 20 MEQ 20 MEQ/1,000 ML BAG IV SCH (18:00)
[2016-06-09] MEDS: INSULIN GLARGINE 100 UNIT/ML SUBCUT SCH (20:35)
[2016-06-09] MEDS: PROMETHAZINE INJ 25 MG in SODIUM CHLORIDE 0.9% 50 ML IV PRN (23:19)
[2016-06-10] MEDS: DEXAMETHASONE 0.1% OPH SOLN 5 ML BOTTLE BOTH EYES SCH ×5 (00:11→22:07)
[2016-06-10] MEDS: ACETAMINOPHEN 325 MG TABLET PO PRN (04:11)
[2016-06-10 04:45] LABS: Hematocrit 30.8 VOL% (35.7-47.0); Lymphocytes # 0.2 10*3/uL (1.4-4.0); Lymphocytes % 95.5 % (21.3-54.2); Mean Corpuscular HGB Conc 32.5 GM/DL (32-36); Mean Corpuscular Hemoglobin 28 PG (27-34); Mean Corpuscular Volume 87.5 FL (87-102); Mean Platelet Volume 8.4 FL (9.6-12.0); Neutrophils % 4.5 % (38.7-73.9); Red Blood Count 3.52 MC/CUMM (3.8-5.5); Red Cell Distribution Width 14.7 % (9.3-17.3)
[2016-06-10 05:01] LABS: White Blood Count 0.2 T/CUMM (4-12)
[2016-06-10 05:02] LABS: Platelet Count 36 T/CUMM (130-400)
[2016-06-10 05:12] LABS: Albumin 2.3 G/DL (3.4-5.0); Bilirubin,Total 0.4 MG/DL (0.2-1.0); Osmolality,Calculated 283.4 MOS/KG (273-304); Potassium 4.2 MMOL/L (3.5-5.1); Total Protein 6.5 G/DL (6.4-8.3)
[2016-06-10 05:21] LABS: Atypical Lymphocytes Few; Hypochromasia Slight; Lymphocytes 100 % (20-55); Microcytosis Slight; Ovalocytes Slight; Platelet Estimate Decreased; Total Cells Counted 100
[2016-06-10] MEDS: MEROPENEM 1,000 MG in SODIUM CHLORIDE 0.9% 100 ML IV SCH ×3 (05:50→22:04)
--- NOTE | 2016-06-10 08:24 | Oncology Progress Note ---
Oncology Subjective PN Interval history: We are now treating Ms. Hadley for apparent Klebsiella sepsis. Her urine culture is positive for Klebsiella and 1 blood cultures positive for gram- negative rods. The second blood culture is negative. She has been on Merrem. I added vancomycin yesterday when she had a second fever spike but I am discontinuing it today and start her on Levaquin. She is severely leukopenic with white cell count of 200 and an absolute neutrophil count of 0. Her platelet count is down to 36,000. She remains acutely ill. She is very weak and bedridden presently. Her oral mucosa is normal. Her voice is clear and her trachea is midline. Her respirations are unlabored. Cranial nerves II through XII are intact and she has no focal neurologic deficits. We are continuing IV antibiotics and hematologic support including blood and platelet transfusions as necessary. Exam - Constitutional Vitals: Period Temp Pulse Resp BP Sys/Ceballos Pulse Ox Last 24 Hr 99.4 F-102.7 F 106-117 19-20 112-136/62-73 92-98 Results - Labs CBC & BMP: 06/10/16 04:00 06/10/16 04:00
[2016-06-10] MEDS: SODIUM CHLOR 0.9% KCL 20 MEQ 20 MEQ/1,000 ML BAG IV SCH (09:14)
[2016-06-10] MEDS: LEVOFLOXACIN INJ 750 MG in PREMIX 1 EACH IV SCH (09:14)
[2016-06-10] MEDS: METOPROLOL SUCCINATE XL 25 MG TABLET PO SCH (09:19)
[2016-06-10] MEDS: MAGNESIUM CHLORIDE 64 MG TABLET PO SCH ×2 (09:19→17:08)
[2016-06-10] MEDS: SULFAMETHOX/TRIMETHOPRIM 800-160 MG TABLET PO SCH ×2 (09:19→22:04)
[2016-06-10] MEDS: POTASSIUM CHLORIDE 20 MEQ TABLET PO SCH (09:20)
[2016-06-10] MEDS: INSULIN REGULAR 100 UNIT/ML SUBCUT SCH ×4 (09:20→22:18)
[2016-06-10] MEDS: FAMOTIDINE 20 MG TABLET PO SCH ×2 (09:20→22:06)
[2016-06-10] MEDS: CHOLESTYRAMINE 4 GM PACK PO SCH ×2 (09:21→22:06)
[2016-06-10] MEDS: ONDANSETRON 4 MG/2 ML VIAL IV PRN (12:31)
--- NOTE | 2016-06-10 12:36 | Physician Query Form ---
CLICK EDIT DOCUMENT TO SELECT QUERY ANSWER --> OK --> SIGN Leta Park RN, CCDS Certified Clinical Aquatic Director W) [phone] (f) [phone] [email or web address] PROVIDERS: Make your selection(s) from the choices in EACH section by typing an "x" and enter comments in the comment section. Please use your independent medical judgment in providing your response. This request does not imply that any particular answer is desired or expected. CLINICAL INDICATORS: (Providers should not edit this section) The medical record indicates that the patient was admitted with Acute Myelogenous Leukemia, WBC 0.2, RBC 3.52, Hgb 10.0, Hct 30.8, Plt of 36 and the patient is on chem. Based on the above, could you clarify the appropriate diagnosis, if significant , that supports the above abnormalities and additional evaluation, monitoring, and/or treatment rendered: ( ) patient is being treated for pancytopenia ( ) patient is being treated for chemotherapy induced pancytopenia ( ) Other, please specify: ( ) Clinically unable to determine COMMENTS: Use of terms such as suspected, likely, or probable (associated with a specific diagnosis that is being evaluated, monitored, or treated as if it exists) are acceptable and can be restated in the discharge summary if not ruled out. MTDD
[2016-06-10] MEDS: PROMETHAZINE INJ 25 MG in SODIUM CHLORIDE 0.9% 50 ML IV PRN (13:30)
[2016-06-10] MEDS: DOCUSATE SODIUM 100 MG CAPSULE PO SCH (13:49)
[2016-06-10] MEDS: INSULIN GLARGINE 100 UNIT/ML SUBCUT SCH (22:18)
[2016-06-11 05:21] LABS: Hematocrit 27.6 VOL% (35.7-47.0); Hemoglobin 9.3 GM/DL (12.0-16.0); Lymphocytes # 0.3 10*3/uL (1.4-4.0); Lymphocytes % 96.7 % (21.3-54.2); Mean Corpuscular HGB Conc 33.7 GM/DL (32-36); Mean Corpuscular Hemoglobin 28 PG (27-34); Mean Corpuscular Volume 84.4 FL (87-102); Neutrophils % 3.3 % (38.7-73.9); Red Blood Count 3.27 MC/CUMM (3.8-5.5); Red Cell Distribution Width 14.5 % (9.3-17.3)
[2016-06-11 05:31] LABS: White Blood Count 0.3 T/CUMM (4-12)
[2016-06-11 05:32] LABS: Platelet Count 21 T/CUMM (130-400)
[2016-06-11] MEDS: DEXAMETHASONE 0.1% OPH SOLN 5 ML BOTTLE BOTH EYES SCH ×3 (05:57→17:18)
[2016-06-11 06:00] LABS: Albumin 2.2 G/DL (3.4-5.0); Bilirubin,Total 0.6 MG/DL (0.2-1.0); Calcium 8.3 MG/DL (8.5-10.1); Osmolality,Calculated 281.3 MOS/KG (273-304); Potassium 4.2 MMOL/L (3.5-5.1); Total Protein 6.4 G/DL (6.4-8.3)
[2016-06-11] MEDS: MEROPENEM 1,000 MG in SODIUM CHLORIDE 0.9% 100 ML IV SCH ×3 (06:00→21:14)
[2016-06-11 06:26] LABS: Hypochromasia 1+; Lymphocytes 100 % (20-55); Total Cells Counted 100
--- NOTE | 2016-06-11 08:09 | Oncology Progress Note ---
Oncology Subjective PN Interval history: This lady completed her second course of induction chemotherapy for acute myelogenous leukemia on June 09 or . She had immediate fever spike. Her urine is growing Klebsiella that is broadly sensitive to antibiotics. Sensitivities still have not been reported for her positive blood culture. In fact it is still only identified as a gram-negative adriano. She is on Levaquin and Merrem which should cover Klebsiella. She is severely pancytopenic including severe neutropenia and severe thrombocytopenia as listed below in the automatic lab work that shows up. She is also anemic and requiring blood transfusions at times. We are continuing to monitor her for toxicity from her chemotherapy. We are also monitoring her for complications of antibiotic coverage. Her white cell count is 300 and her platelet count is 21,000 today. She has multiple life-threatening complications of her acute myelogenous leukemia, including sepsis, severe leukopenia and severe thrombocytopenia. She still feels weak and her appetite is poor although she does not complain of stomatitis. Exam - Constitutional Vitals: Period Temp Pulse Resp BP Sys/Ceballos Pulse Ox Last 24 Hr 99 F-100.4 F 109-117 18-22 116-125/56-73 94-97 Results - Labs CBC & BMP: 06/11/16 04:00 06/11/16 04:00
[2016-06-11] MEDS: LEVOFLOXACIN INJ 750 MG in PREMIX 1 EACH IV SCH (09:16)
[2016-06-11] MEDS: SODIUM CHLOR 0.9% KCL 20 MEQ 20 MEQ/1,000 ML BAG IV SCH (09:17)
[2016-06-11] MEDS: SULFAMETHOX/TRIMETHOPRIM 800-160 MG TABLET PO SCH ×2 (09:19→20:46)
[2016-06-11] MEDS: MAGNESIUM CHLORIDE 64 MG TABLET PO SCH ×2 (09:19→18:10)
[2016-06-11] MEDS: METOPROLOL SUCCINATE XL 25 MG TABLET PO SCH (09:19)
[2016-06-11] MEDS: FAMOTIDINE 20 MG TABLET PO SCH ×2 (09:19→20:46)
[2016-06-11] MEDS: CHOLESTYRAMINE 4 GM PACK PO SCH ×2 (09:20→20:46)
[2016-06-11] MEDS: POTASSIUM CHLORIDE 20 MEQ TABLET PO SCH (09:20)
[2016-06-11] MEDS: DOCUSATE SODIUM 100 MG CAPSULE PO SCH (09:34)
[2016-06-11] MEDS: INSULIN REGULAR 100 UNIT/ML SUBCUT SCH ×4 (09:34→21:13)
[2016-06-11] MEDS: PROMETHAZINE INJ 25 MG in SODIUM CHLORIDE 0.9% 50 ML IV PRN ×2 (11:26→20:42)
[2016-06-11] MEDS ORDERED: SODIUM CHLORIDE 0.65% NASAL SPRAY 45 ML BOTTLE BOTH NARES PRN (21:00)
[2016-06-11] MEDS: INSULIN GLARGINE 100 UNIT/ML SUBCUT SCH (21:12)
[2016-06-12] MEDS: DEXAMETHASONE 0.1% OPH SOLN 5 ML BOTTLE BOTH EYES SCH ×5 (00:42→22:19)
[2016-06-12] MEDS: PROMETHAZINE INJ 25 MG in SODIUM CHLORIDE 0.9% 50 ML IV PRN (03:00)
[2016-06-12] MEDS: MEROPENEM 1,000 MG in SODIUM CHLORIDE 0.9% 100 ML IV SCH ×3 (06:24→21:09)
[2016-06-12 06:30] LABS: Hematocrit 25.5 VOL% (35.7-47.0); Hemoglobin 8.7 GM/DL (12.0-16.0); Lymphocytes # 0.3 10*3/uL (1.4-4.0); Mean Corpuscular HGB Conc 34.1 GM/DL (32-36); Mean Corpuscular Hemoglobin 29 PG (27-34); Mean Corpuscular Volume 83.6 FL (87-102); Mean Platelet Volume 8.4 FL (9.6-12.0); Red Blood Count 3.05 MC/CUMM (3.8-5.5); Red Cell Distribution Width 14.5 % (9.3-17.3)
[2016-06-12 06:34] LABS: Platelet Count 8 T/CUMM (130-400); White Blood Count 0.3 T/CUMM (4-12)
[2016-06-12] MEDS ORDERED: SODIUM CHLORIDE 0.9% 250 ML IV PRN (06:41)
[2016-06-12 06:58] LABS: Lymphocytes 100 % (20-55); Total Cells Counted 100
[2016-06-12 06:59] LABS: Hypochromasia Slight
[2016-06-12 07:00] LABS: Microcytosis 1+; Platelet Estimate Decreased
[2016-06-12 07:06] LABS: Albumin 2.1 G/DL (3.4-5.0); Bilirubin,Total 0.5 MG/DL (0.2-1.0); Calcium 8.3 MG/DL (8.5-10.1); Osmolality,Calculated 279.4 MOS/KG (273-304); Potassium 4.3 MMOL/L (3.5-5.1); Total Protein 6.1 G/DL (6.4-8.3)
[2016-06-12] MEDS: INSULIN REGULAR 100 UNIT/ML SUBCUT SCH ×4 (08:15→22:23)
--- NOTE | 2016-06-12 08:42 | Oncology Progress Note ---
Oncology Subjective PN Interval history: Patient with acute myelogenous leukemia with severe pancytopenia and now with Klebsiella septicemia that was picked up immediately after she had a febrile spike. It is sensitive to both IV antibiotics that she is receiving. This is her second course of induction chemotherapy and unfortunately her prognosis is poor. Her prognosis is poor in part due to the fact that she already has been treated for stage IV colorectal adenocarcinoma and stage III ovarian cancer. She is in remission from both of these cancers but the fact that she has been treated for them makes her prognosis worse. He does not have any cytogenetic changes that suggest that this is a worse than usual leukemia but she has been so heavily treated that started her on daunorubicin for only 2 days with her first course of induction chemotherapy and gave her 200 mg of Cytosar-U IV daily over 7 days by 24 hour infusion. I have gone up on the dose this time, both only daunorubicin and the Cytosar. She has had stomatitis and we started her on Mycelex. Her platelet count is low and I have ordered single donor platelets anytime her platelet count is less than 15,000. On physical examination her tongue is coated. This appears to be stomatitis and not monilia but we are covering her with my splints. She is already on IV antibiotics as mentioned above for her Klebsiella septicemia. These medications are Merrem and Levaquin. Exam - Constitutional Vitals: Period Temp Pulse Resp BP Sys/Ceballos Pulse Ox Last 24 Hr 99 F-100.0 F 113-130 16-20 105-125/63-76 96-100 Results - Labs CBC & BMP: 06/12/16 05:00 06/12/16 05:00
[2016-06-12] MEDS: CHOLESTYRAMINE 4 GM PACK PO SCH ×2 (09:33→21:09)
[2016-06-12] MEDS: SULFAMETHOX/TRIMETHOPRIM 800-160 MG TABLET PO SCH ×2 (09:36→21:08)
[2016-06-12] MEDS: FAMOTIDINE 20 MG TABLET PO SCH ×2 (09:36→21:08)
[2016-06-12] MEDS: POTASSIUM CHLORIDE 20 MEQ TABLET PO SCH (09:36)
[2016-06-12] MEDS: METOPROLOL SUCCINATE XL 25 MG TABLET PO SCH (09:36)
[2016-06-12] MEDS: MAGNESIUM CHLORIDE 64 MG TABLET PO SCH ×2 (09:37→17:30)
[2016-06-12] MEDS: CLOTRIMAZOLE 10 MG TROCHE PO SCH ×4 (09:37→21:08)
[2016-06-12] MEDS: DOCUSATE SODIUM 100 MG CAPSULE PO SCH (09:37)
[2016-06-12] MEDS: LEVOFLOXACIN INJ 750 MG in PREMIX 1 EACH IV SCH (09:39)
--- NOTE | 2016-06-12 11:02 | Physician Query Form ---
CLICK EDIT DOCUMENT TO SELECT QUERY ANSWER --> OK --> SIGN Leta Park RN, CCDS Certified Clinical Account Service Associate W) [phone] (f) [phone] [email or web address] PROVIDERS: Make your selection(s) from the choices in EACH section by typing an "x" and enter comments in the comment section. Please use your independent medical judgment in providing your response. This request does not imply that any particular answer is desired or expected. CLINICAL INDICATORS: (Providers should not edit this section) The medical record indicates that the patient was admitted with Acute Myelogenous Leukemia, WBC 0.2, RBC 3.52, Hgb 10.0, Hct 30.8, Plt of 36 and the patient is on chem. Based on the above, could you clarify the appropriate diagnosis, if significant , that supports the above abnormalities and additional evaluation, monitoring, and/or treatment rendered: ( ) patient is being treated for pancytopenia ( ) patient is being treated for chemotherapy induced pancytopenia ( ) Other, please specify: ( ) Clinically unable to determine COMMENTS: Use of terms such as suspected, likely, or probable (associated with a specific diagnosis that is being evaluated, monitored, or treated as if it exists) are acceptable and can be restated in the discharge summary if not ruled out. MTDD
[2016-06-12] MEDS: SODIUM CHLOR 0.9% KCL 20 MEQ 20 MEQ/1,000 ML BAG IV SCH (12:50)
[2016-06-12] MEDS ORDERED: ACETAMINOPHEN 500 MG TABLET PO STA (16:31)
[2016-06-12] MEDS ORDERED: DEXAMETHASONE 4 MG/1 ML VIAL IV STA (16:32)
[2016-06-12] MEDS ORDERED: HEPARIN LOCK FLUSH 500 UNIT/5 ML SYRINGE IV ONE (17:59)
[2016-06-12] MEDS: INSULIN GLARGINE 100 UNIT/ML SUBCUT SCH (22:24)
[2016-06-13] MEDS: MEROPENEM 1,000 MG in SODIUM CHLORIDE 0.9% 100 ML IV SCH (04:33)
[2016-06-13] MEDS: ONDANSETRON 4 MG/2 ML VIAL IV PRN (04:36)
[2016-06-13] MEDS: DEXAMETHASONE 0.1% OPH SOLN 5 ML BOTTLE BOTH EYES SCH ×4 (04:37→23:30)
[2016-06-13] MEDS: SODIUM CHLOR 0.9% KCL 20 MEQ 20 MEQ/1,000 ML BAG IV SCH ×2 (04:44→13:51)
[2016-06-13 05:04] LABS: Hematocrit 25.7 VOL% (35.7-47.0); Hemoglobin 8.7 GM/DL (12.0-16.0); Lymphocytes # 0.1 10*3/uL (1.4-4.0); Lymphocytes % 91.7 % (21.3-54.2); Mean Corpuscular HGB Conc 33.9 GM/DL (32-36); Mean Corpuscular Hemoglobin 29 PG (27-34); Mean Corpuscular Volume 84.5 FL (87-102); Mean Platelet Volume 10.2 FL (9.6-12.0); Neutrophils % 8.3 % (38.7-73.9); Platelet Count 86 T/CUMM (130-400); Red Blood Count 3.04 MC/CUMM (3.8-5.5); Red Cell Distribution Width 14.2 % (9.3-17.3)
[2016-06-13 05:22] LABS: White Blood Count 0.1 T/CUMM (4-12)
[2016-06-13 05:37] LABS: Alanine Aminotransferase 17 U/L (13-56); Albumin 2.3 G/DL (3.4-5.0); Alkaline Phosphatase 52 U/L (45-117); Aspartate Amino Transferase 10 U/L (0-37); Bilirubin,Total < 0.39 MG/DL (0.2-1.0); Blood Urea Nitrogen 13 MG/DL (7-18); Calcium 8.7 MG/DL (8.5-10.1); Glucose 269 MG/DL (74-106); Osmolality,Calculated 287.4 MOS/KG (273-304); Potassium 4.5 MMOL/L (3.5-5.1); Sodium 140 MMOL/L (136-145); Total Protein 6.4 G/DL (6.4-8.3)
[2016-06-13 06:59] LABS: Hypochromasia 1+; Lymphocytes 100 % (20-55); Microcytosis 1+; Platelet Estimate Decreased; Total Cells Counted 100
--- NOTE | 2016-06-13 09:57 | Oncology Progress Note ---
Assessment and Plan (1) Pancytopenia Status: Acute Current Visit: No (2) Neutropenia Status: Acute Current Visit: No (3) AML (acute myeloblastic leukemia) Status: Acute Current Visit: No Oncology Subjective PN Interval history: Mr. Hadley seems to be doing well. Her blood counts are sensitive stable. She does not any transfusions today. She associates severe back spasms after each dose of Merrem. Her recent urine and blood cultures are growing out Klebsiella sensitive to Rocephin. I told her that we will try to change the Merrem to Rocephin to see if this is truly what is causing her back spasms. She is not having any fevers now. She did have an isolated fevers yesterday during a platelet transfusion. She is getting out of bed numerous times throughout the day. She is also sitting in chair. She does not have any severe mucositis oral candidiasis. We'll continue with her current medications other than the Rocephin. Her prognosis is poor. Exam - Constitutional Vitals: Period Temp Pulse Resp BP Sys/Ceballos Pulse Ox Last 24 Hr 97.7 F-101.1 F 100-120 18-20 97-119/65-80 96-100 General appearance: normal weight, no acute distress - Head Head Exam: Present: normocephalic, atraumatic - Neck Neck exam: Absent: lymphadenopathy, thyromegaly - Respiratory Respiratory exam: Present: CTAB. Absent: wheezes Results - Labs CBC & BMP: 06/13/16 04:10 06/13/16 04:10
[2016-06-13] MEDS: CHOLESTYRAMINE 4 GM PACK PO SCH ×2 (10:05→21:00)
[2016-06-13] MEDS: METOPROLOL SUCCINATE XL 25 MG TABLET PO SCH (10:05)
[2016-06-13] MEDS: CLOTRIMAZOLE 10 MG TROCHE PO SCH ×4 (10:06→21:37)
[2016-06-13] MEDS: SULFAMETHOX/TRIMETHOPRIM 800-160 MG TABLET PO SCH ×2 (10:06→21:38)
[2016-06-13] MEDS: MAGNESIUM CHLORIDE 64 MG TABLET PO SCH ×2 (10:06→16:38)
[2016-06-13] MEDS: POTASSIUM CHLORIDE 20 MEQ TABLET PO SCH (10:06)
[2016-06-13] MEDS: FAMOTIDINE 20 MG TABLET PO SCH ×2 (10:06→21:38)
[2016-06-13] MEDS: LEVOFLOXACIN INJ 750 MG in PREMIX 1 EACH IV SCH (10:07)
[2016-06-13] MEDS: DOCUSATE SODIUM 100 MG CAPSULE PO SCH (10:07)
[2016-06-13] MEDS: INSULIN REGULAR 100 UNIT/ML SUBCUT SCH ×4 (10:51→20:59)
[2016-06-13] MEDS: cefTRIAXone 1,000 MG in SODIUM CHLORIDE 0.9% 100 ML IV SCH (11:51)
[2016-06-13] MEDS: INSULIN GLARGINE 100 UNIT/ML SUBCUT SCH (21:38)
[2016-06-14 05:36] LABS: Hematocrit 25.7 VOL% (35.7-47.0); Hemoglobin 8.5 GM/DL (12.0-16.0); Lymphocytes # 0.4 10*3/uL (1.4-4.0); Lymphocytes % 95.1 % (21.3-54.2); Mean Corpuscular HGB Conc 33.1 GM/DL (32-36); Mean Corpuscular Hemoglobin 28 PG (27-34); Mean Corpuscular Volume 84.8 FL (87-102); Mean Platelet Volume 11.3 FL (9.6-12.0); Monocytes % 4.9 % (1.7-12.7); Red Blood Count 3.03 MC/CUMM (3.8-5.5); Red Cell Distribution Width 14.4 % (9.3-17.3)
[2016-06-14 05:40] LABS: Platelet Count 67 T/CUMM (130-400)
[2016-06-14 05:42] LABS: White Blood Count 0.4 T/CUMM (4-12)
[2016-06-14 06:21] LABS: Alanine Aminotransferase 19 U/L (13-56); Albumin 2.3 G/DL (3.4-5.0); Alkaline Phosphatase 51 U/L (45-117); Aspartate Amino Transferase 7 U/L (0-37); Bilirubin,Total < 0.39 MG/DL (0.2-1.0); Blood Urea Nitrogen 12 MG/DL (7-18); Calcium 8.4 MG/DL (8.5-10.1); Glucose 126 MG/DL (74-106); Osmolality,Calculated 282.3 MOS/KG (273-304); Potassium 4.2 MMOL/L (3.5-5.1); Sodium 141 MMOL/L (136-145); Total Protein 6.5 G/DL (6.4-8.3)
[2016-06-14] MEDS: SODIUM CHLOR 0.9% KCL 20 MEQ 20 MEQ/1,000 ML BAG IV SCH (06:30)
[2016-06-14] MEDS: DEXAMETHASONE 0.1% OPH SOLN 5 ML BOTTLE BOTH EYES SCH ×4 (06:31→22:38)
[2016-06-14 06:37] LABS: Hypochromasia Slight; Lymphocytes 100 % (20-55); Microcytosis 1+; Ovalocytes Slight; Platelet Estimate Decreased; Total Cells Counted 100
--- NOTE | 2016-06-14 08:55 | Oncology Progress Note ---
Assessment and Plan (1) Pancytopenia Status: Acute Current Visit: No (2) Neutropenia Status: Acute Current Visit: No (3) AML (acute myeloblastic leukemia) Status: Acute Current Visit: No Oncology Subjective PN Interval history: Ms. Hadley complains of right hip pain today. She is having low-grade fevers as well. We discontinued her Merrem yesterday and convert this to Rocephin. This did seem to improve her lower back spasms. She does not need any transfusions today. She'll most likely need some over the next couple days. She states she is still ablating around the room. I encouraged her to continue this today and to sit in the chair as well. Exam - Constitutional Vitals: Period Temp Pulse Resp BP Sys/Ceballos Pulse Ox Last 24 Hr 97.8 F-98.9 F 104-110 20-20 107-115/57-78 98-99 General appearance: normal weight - Head Head Exam: Present: normocephalic, atraumatic - Eye Eye Exam: Present: EOMI - ENT ENT exam: Present: normal exam, normal oropharynx Results - Labs CBC & BMP: 06/14/16 04:00 06/14/16 04:00 Lab Results: I have reviewed the past 24 hour labs
[2016-06-14] MEDS: CHOLESTYRAMINE 4 GM PACK PO SCH ×2 (09:35→21:26)
[2016-06-14] MEDS: SULFAMETHOX/TRIMETHOPRIM 800-160 MG TABLET PO SCH ×2 (09:35→21:28)
[2016-06-14] MEDS: METOPROLOL SUCCINATE XL 25 MG TABLET PO SCH (09:35)
[2016-06-14] MEDS: CLOTRIMAZOLE 10 MG TROCHE PO SCH ×4 (09:37→21:27)
[2016-06-14] MEDS: MAGNESIUM CHLORIDE 64 MG TABLET PO SCH ×2 (09:37→16:45)
[2016-06-14] MEDS: POTASSIUM CHLORIDE 20 MEQ TABLET PO SCH (09:37)
[2016-06-14] MEDS: FAMOTIDINE 20 MG TABLET PO SCH ×2 (09:37→21:27)
[2016-06-14] MEDS: DOCUSATE SODIUM 100 MG CAPSULE PO SCH (09:39)
[2016-06-14] MEDS: LEVOFLOXACIN INJ 750 MG in PREMIX 1 EACH IV SCH (09:40)
[2016-06-14] MEDS: INSULIN REGULAR 100 UNIT/ML SUBCUT SCH ×4 (09:41→21:25)
[2016-06-14] MEDS: cefTRIAXone 1,000 MG in SODIUM CHLORIDE 0.9% 100 ML IV SCH (11:14)
[2016-06-14] MEDS: ONDANSETRON 4 MG/2 ML VIAL IV PRN (11:20)
[2016-06-14] MEDS ORDERED: VANCOMYCIN INJ 1,000 MG in SODIUM CHLORIDE 0.9% 250 ML IV ONE (16:11)
[2016-06-14] MEDS: PROMETHAZINE INJ 25 MG in SODIUM CHLORIDE 0.9% 50 ML IV PRN (16:37)
[2016-06-14] MEDS: INSULIN GLARGINE 100 UNIT/ML SUBCUT SCH (21:25)
[2016-06-14] MEDS: ACETAMINOPHEN 325 MG TABLET PO PRN (21:28)
[2016-06-15] MEDS: SODIUM CHLOR 0.9% KCL 20 MEQ 20 MEQ/1,000 ML BAG IV SCH (03:50)
[2016-06-15] MEDS: DEXAMETHASONE 0.1% OPH SOLN 5 ML BOTTLE BOTH EYES SCH ×4 (04:00→23:30)
[2016-06-15] MEDS: ACETAMINOPHEN 325 MG TABLET PO PRN ×2 (04:06→12:44)
[2016-06-15 05:11] LABS: Hematocrit 23.8 VOL% (35.7-47.0); Hemoglobin 7.9 GM/DL (12.0-16.0); Lymphocytes # 0.4 10*3/uL (1.4-4.0); Lymphocytes % 97.7 % (21.3-54.2); Mean Corpuscular HGB Conc 33.2 GM/DL (32-36); Mean Corpuscular Hemoglobin 28 PG (27-34); Mean Corpuscular Volume 85.3 FL (87-102); Mean Platelet Volume 10.9 FL (9.6-12.0); Monocytes % 2.3 % (1.7-12.7); Red Blood Count 2.79 MC/CUMM (3.8-5.5); Red Cell Distribution Width 14.5 % (9.3-17.3)
[2016-06-15 05:22] LABS: Albumin 2.1 G/DL (3.4-5.0); Bilirubin,Total 0.7 MG/DL (0.2-1.0); Calcium 8.2 MG/DL (8.5-10.1); Osmolality,Calculated 281.3 MOS/KG (273-304); Potassium 4.4 MMOL/L (3.5-5.1); Total Protein 6.2 G/DL (6.4-8.3)
[2016-06-15 05:28] LABS: Platelet Count 35 T/CUMM (130-400); White Blood Count 0.4 T/CUMM (4-12)
[2016-06-15 06:24] LABS: Anisocytosis 1+; Lymphocytes 64 % (20-55); Metamyelocytes 14 %; Microcytosis 1+; Platelet Estimate Decreased; Segmented Neutrophils 14 % (50-85); Total Cells Counted 14
[2016-06-15] MEDS: LEVOFLOXACIN INJ 750 MG in PREMIX 1 EACH IV SCH (08:25)
[2016-06-15] MEDS: CHOLESTYRAMINE 4 GM PACK PO SCH ×2 (08:29→20:41)
[2016-06-15] MEDS: SULFAMETHOX/TRIMETHOPRIM 800-160 MG TABLET PO SCH ×2 (08:30→20:39)
[2016-06-15] MEDS: MAGNESIUM CHLORIDE 64 MG TABLET PO SCH ×2 (08:30→18:12)
[2016-06-15] MEDS: POTASSIUM CHLORIDE 20 MEQ TABLET PO SCH (08:30)
[2016-06-15] MEDS: CLOTRIMAZOLE 10 MG TROCHE PO SCH ×4 (08:31→20:41)
[2016-06-15] MEDS: METOPROLOL SUCCINATE XL 25 MG TABLET PO SCH (08:31)
[2016-06-15] MEDS: FAMOTIDINE 20 MG TABLET PO SCH ×2 (08:31→20:39)
--- NOTE | 2016-06-15 08:50 | Oncology Progress Note ---
Oncology Subjective PN Interval history: Ms. Hadley remains acutely ill with severe pancytopenia and Klebsiella sepsis following her second course of induction chemotherapy for acute myelogenous leukemia. Her acute leukemia is complicated by the fact that she has a past history of stage IV adenocarcinoma colon with liver metastases and stage III B ovarian cancer, both of which have been treated with chemotherapy and both of which appear to be in remission presently. Her white cell count is only 400. Her platelet count is 35,000 after transfusion. She has mild stomatitis but does not complaining of mouth irritation or rawness. Her oral intake is not good and I am starting IV fluids. She is extremely weak and debilitated and critically ill with acute leukemia and is complicating problems including neutropenia and thrombocytopenia. Her electrolytes are normal. We are discontinuing some of her Accu-Cheks because her blood sugars are relatively satisfactory. Exam - Constitutional Vitals: Period Temp Pulse Resp BP Sys/Ceballos Pulse Ox Last 24 Hr 99.9 F-101.2 F 103-113 17-21 107-121/50-62 98-100 Results - Labs CBC & BMP: 06/15/16 04:47 06/15/16 04:47
[2016-06-15] MEDS: INSULIN REGULAR 100 UNIT/ML SUBCUT SCH ×4 (10:02→20:40)
[2016-06-15] MEDS: DOCUSATE SODIUM 100 MG CAPSULE PO SCH (10:04)
[2016-06-15] MEDS: cefTRIAXone 1,000 MG in SODIUM CHLORIDE 0.9% 100 ML IV SCH (10:27)
[2016-06-15] MEDS: PROMETHAZINE INJ 25 MG in SODIUM CHLORIDE 0.9% 50 ML IV PRN (12:43)
[2016-06-15] MEDS: INSULIN GLARGINE 100 UNIT/ML SUBCUT SCH (20:40)
[2016-06-15] MEDS: DEXT 5% NACL 0.45% KCL 20 MEQ 20 MEQ/1,000 ML BAG IV SCH ×2 (20:53→20:58)
[2016-06-16] MEDS: PROMETHAZINE INJ 25 MG in SODIUM CHLORIDE 0.9% 50 ML IV PRN ×3 (02:46→22:32)
[2016-06-16] MEDS: ACETAMINOPHEN 325 MG TABLET PO PRN ×3 (04:21→22:17)
[2016-06-16] MEDS: DEXT 5% NACL 0.45% KCL 20 MEQ 20 MEQ/1,000 ML BAG IV SCH ×2 (05:35→21:38)
[2016-06-16] MEDS: DEXAMETHASONE 0.1% OPH SOLN 5 ML BOTTLE BOTH EYES SCH ×3 (05:35→21:39)
[2016-06-16 05:48] LABS: Hematocrit 21.2 VOL% (35.7-47.0); Lymphocytes # 0.3 10*3/uL (1.4-4.0); Lymphocytes % 93.5 % (21.3-54.2); Mean Corpuscular Hemoglobin 28 PG (27-34); Mean Corpuscular Volume 85.1 FL (87-102); Mean Platelet Volume 10.5 FL (9.6-12.0); Monocytes % 6.5 % (1.7-12.7); Red Blood Count 2.49 MC/CUMM (3.8-5.5); Red Cell Distribution Width 14.4 % (9.3-17.3)
[2016-06-16 05:59] LABS: Platelet Count 15 T/CUMM (130-400); White Blood Count 0.3 T/CUMM (4-12)
[2016-06-16 06:25] LABS: Alanine Aminotransferase 15 U/L (13-56); Albumin 1.9 G/DL (3.4-5.0); Alkaline Phosphatase 50 U/L (45-117); Aspartate Amino Transferase 11 U/L (0-37); Bilirubin,Total < 0.39 MG/DL (0.2-1.0); Blood Urea Nitrogen 6 MG/DL (7-18); Calcium 7.5 MG/DL (8.5-10.1); Glucose 223 MG/DL (74-106); Osmolality,Calculated 279.7 MOS/KG (273-304); Sodium 138 MMOL/L (136-145); Total Protein 5.6 G/DL (6.4-8.3)
[2016-06-16 06:31] LABS: Lymphocytes 100 % (20-55); Total Cells Counted 100
[2016-06-16 06:32] LABS: Hypochromasia 1+; Microcytosis 1+; Platelet Estimate Decreased
--- NOTE | 2016-06-16 07:03 | XRay Report ---
XR chest 1V portable Indication: Fever. Chest one view: Comparison 05/21/2016. Lung volumes are decreased with increasing atelectasis and pulmonary vascular congestion centrally. No focal pneumonia is seen. Heart size is upper limits normal. Mediport catheter is unchanged. Impression: Progressive pulmonary hypoinflation. Minimal atelectasis and mild fluid overload. PROCEDURE INTERPRETED AT [facility] DEPARTMENT OF RADIOLOGY Final Report Signed by: Marvin Polk M.D.
[2016-06-16] MEDS: PIPERACILLIN/TAZOBACTAM 3,375 MG in SODIUM CHLORIDE 0.9% 100 ML IV SCH ×2 (07:11→15:51)
--- NOTE | 2016-06-16 09:02 | Oncology Progress Note ---
Oncology Subjective PN Interval history: Ms. Hadley's platelet count is 15,000 today we are going to go ahead and transfuse platelets. She has acute myelogenous leukemia and she has completed her second course of induction chemotherapy and is severely pancytopenic and febrile. She was complaining of abdominal pain with Merrem. She was switched to Rocephin this weekend and last night Zosyn was added. I am discontinuing the Rocephin. I am adding Diflucan. She is critically ill with severe pancytopenia. She has basically no neutrophils presently. Her prognosis is poor. This is versus third malignancy. She has acute myelogenous leukemia that has developed after being treated for stage IV metastatic colon cancer and stage III ovarian cancer. The likelihood of achieving a complete remission is very slim. Exam - Constitutional Vitals: Period Temp Pulse Resp BP Sys/Ceballos Pulse Ox Last 24 Hr 97.2 F-102.4 F 114-125 18-20 107-124/59-79 97-100 Results - Labs CBC & BMP: 06/16/16 04:49 06/16/16 04:49
[2016-06-16] MEDS: CHOLESTYRAMINE 4 GM PACK PO SCH ×2 (09:45→22:18)
[2016-06-16] MEDS: METOPROLOL SUCCINATE XL 25 MG TABLET PO SCH (09:46)
[2016-06-16] MEDS: FAMOTIDINE 20 MG TABLET PO SCH ×2 (09:46→22:18)
[2016-06-16] MEDS: CLOTRIMAZOLE 10 MG TROCHE PO SCH ×4 (09:46→22:18)
[2016-06-16] MEDS: MAGNESIUM CHLORIDE 64 MG TABLET PO SCH ×2 (09:46→21:39)
[2016-06-16] MEDS: SULFAMETHOX/TRIMETHOPRIM 800-160 MG TABLET PO SCH ×2 (09:47→22:18)
[2016-06-16] MEDS: LEVOFLOXACIN INJ 750 MG in PREMIX 1 EACH IV SCH (11:31)
[2016-06-16] MEDS: DOCUSATE SODIUM 100 MG CAPSULE PO SCH (11:40)
[2016-06-16] MEDS: INSULIN REGULAR 100 UNIT/ML SUBCUT SCH ×4 (11:41→22:20)
[2016-06-16 12:10] LABS: Apearance,Urine Slightly Hazy (Clear); Bilirubin,Urine Negative (Negative); Blood, Urine Negative (Negative); Glucose,Urine (UA) 50 mg/dL (Negative); Ketones,Urine Negative (Negative); Mucus,Urine Occasional /LPF (Occasional); Nitrite,Urine Negative (Negative); Protein,Urine 100 MG/DL; RBC,Urine 1 /HPF (0-4); Squamous Epithelial Cell,Urine Occasional /HPF (0-10); Urine Color Yellow (Yellow); Urine Specific Gravity 1.015 (1.001-1.035); Urine Urobilinogen < 2.0 EU/DL (0.2-1.0); WBC,Urine 1 /HPF (0-6)
[2016-06-16] MEDS: FLUCONAZOLE INJ 100 MG in IV BAG 1 EACH IV SCH (13:32)
[2016-06-16] MEDS: INSULIN GLARGINE 100 UNIT/ML SUBCUT SCH (22:18)
[2016-06-17] MEDS: DEXAMETHASONE 0.1% OPH SOLN 5 ML BOTTLE BOTH EYES SCH ×5 (00:17→22:59)
[2016-06-17] MEDS: PIPERACILLIN/TAZOBACTAM 3,375 MG in SODIUM CHLORIDE 0.9% 100 ML IV SCH ×3 (01:15→18:14)
[2016-06-17] MEDS: DEXT 5% NACL 0.45% KCL 20 MEQ 20 MEQ/1,000 ML BAG IV SCH ×3 (05:30→22:59)
[2016-06-17 05:36] LABS: Hematocrit 19.9 VOL% (35.7-47.0); Hemoglobin 6.8 GM/DL (12.0-16.0); Lymphocytes # 0.2 10*3/uL (1.4-4.0); Lymphocytes % 95.7 % (21.3-54.2); Mean Corpuscular HGB Conc 34.2 GM/DL (32-36); Mean Corpuscular Hemoglobin 29 PG (27-34); Mean Corpuscular Volume 84.3 FL (87-102); Mean Platelet Volume 11.4 FL (9.6-12.0); Neutrophils % 4.3 % (38.7-73.9); Red Blood Count 2.36 MC/CUMM (3.8-5.5); Red Cell Distribution Width 14.4 % (9.3-17.3)
[2016-06-17 05:43] LABS: Platelet Count 36 T/CUMM (130-400); White Blood Count 0.2 T/CUMM (4-12)
[2016-06-17 06:01] LABS: Hypochromasia 1+; Lymphocytes 100 % (20-55); Microcytosis 1+; Platelet Estimate Decreased; Total Cells Counted 100
[2016-06-17 06:32] LABS: Bilirubin,Total 0.4 MG/DL (0.2-1.0); Calcium 7.9 MG/DL (8.5-10.1); Osmolality,Calculated 279.4 MOS/KG (273-304); Potassium 3.5 MMOL/L (3.5-5.1)
[2016-06-17] MEDS ORDERED: SODIUM CHLORIDE 0.9% 250 ML IV PRN (08:51)
--- NOTE | 2016-06-17 08:56 | Oncology Progress Note ---
Oncology Subjective PN Interval history: This is a patient with acute myelogenous leukemia with severe pancytopenia. She is requiring platelet transfusions and red cell transfusions and I have a standing order now for 2 units of packed red cells for hemoglobin of less than 8. She is febrile in spite of the fact that she is on Diflucan, Zosyn and Levaquin. She also had been on Bactrim and I am discontinuing it. She has standing orders for platelet transfusions as well. She is recovering from her second course of induction chemotherapy for acute myelogenous leukemia. Her prognosis is poor because this is her third malignancy. She has a history of stage IV metastatic adenocarcinoma colon and stage III ovarian cancer treated prior to the development of the acute myelogenous leukemia. Prior to being diagnosed with colon cancer, she was diagnosed as having stage IIIc ovarian cancer. The ovarian cancer was diagnosed in March 2013 and she was treated with Abraxane and carboplatin. Her ovarian cancer antigen improved. 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 She was treated with 11 courses of FOLFOX/Folfiri and has recently been on Avastin as a single agent. She is in complete remission from both the colon cancer and ovarian cancer. She has actually had a remarkable response to chemotherapy and had been off chemotherapy for these malignancies since April 2015. Now she has severe life-threatening acute myelogenous leukemia that failed to respond to the first course of induction chemotherapy. Her second course of chemotherapy induction was started on June 02 and she is certainly in severe krista blood counts now. Her white cell count is 200. Her hemoglobin is 6.8 and we are going to transfuse packed red cells. Her platelet count is 36,000 and we are transfusing platelets routinely. Exam - Constitutional Vitals: Period Temp Pulse Resp BP Sys/Ceballos Pulse Ox Last 24 Hr 98.7 F-103.8 F 115-138 18-22 110-133/56-71 95-99 Results - Labs CBC & BMP: 06/17/16 04:00 06/17/16 04:00
[2016-06-17] MEDS: LEVOFLOXACIN INJ 750 MG in PREMIX 1 EACH IV SCH (09:27)
[2016-06-17] MEDS: FAMOTIDINE 20 MG TABLET PO SCH ×2 (09:30→21:09)
[2016-06-17] MEDS: METOPROLOL SUCCINATE XL 25 MG TABLET PO SCH (09:30)
[2016-06-17] MEDS: MAGNESIUM CHLORIDE 64 MG TABLET PO SCH ×2 (09:30→18:19)
[2016-06-17] MEDS: CLOTRIMAZOLE 10 MG TROCHE PO SCH ×4 (09:30→21:10)
[2016-06-17] MEDS: INSULIN REGULAR 100 UNIT/ML SUBCUT SCH ×4 (09:31→22:58)
[2016-06-17] MEDS: CHOLESTYRAMINE 4 GM PACK PO SCH ×2 (09:32→21:53)
[2016-06-17] MEDS: DOCUSATE SODIUM 100 MG CAPSULE PO SCH (09:32)
[2016-06-17] MEDS: FLUCONAZOLE INJ 100 MG in IV BAG 1 EACH IV SCH (13:44)
[2016-06-17] MEDS: ONDANSETRON 4 MG/2 ML VIAL IV PRN (15:29)
[2016-06-17] MEDS: INSULIN GLARGINE 100 UNIT/ML SUBCUT SCH (22:59)
[2016-06-18] MEDS: PIPERACILLIN/TAZOBACTAM 3,375 MG in SODIUM CHLORIDE 0.9% 100 ML IV SCH ×3 (00:39→19:32)
[2016-06-18] MEDS: ACETAMINOPHEN 325 MG TABLET PO PRN ×2 (00:46→17:06)
[2016-06-18] MEDS: DEXT 5% NACL 0.45% KCL 20 MEQ 20 MEQ/1,000 ML BAG IV SCH ×4 (03:56→22:49)
[2016-06-18 05:23] LABS: Hemoglobin 8.9 GM/DL (12.0-16.0); Lymphocytes # 0.3 10*3/uL (1.4-4.0); Mean Corpuscular HGB Conc 34.2 GM/DL (32-36); Mean Corpuscular Hemoglobin 29 PG (27-34); Mean Corpuscular Volume 84.7 FL (87-102); Mean Platelet Volume 10.6 FL (9.6-12.0); Red Blood Count 3.07 MC/CUMM (3.8-5.5); Red Cell Distribution Width 14.9 % (9.3-17.3)
[2016-06-18 05:42] LABS: Platelet Count 19 T/CUMM (130-400); White Blood Count 0.3 T/CUMM (4-12)
[2016-06-18 05:49] LABS: Albumin 1.8 G/DL (3.4-5.0); Bilirubin,Total 0.7 MG/DL (0.2-1.0); Calcium 7.8 MG/DL (8.5-10.1); Lymphocytes 100 % (20-55); Osmolality,Calculated 284.8 MOS/KG (273-304); Potassium 3.2 MMOL/L (3.5-5.1); Total Cells Counted 100; Total Protein 5.9 G/DL (6.4-8.3)
[2016-06-18 05:50] LABS: Hypochromasia 1+; Microcytosis 1+
[2016-06-18 05:51] LABS: Platelet Estimate Decreased
[2016-06-18] MEDS: DEXAMETHASONE 0.1% OPH SOLN 5 ML BOTTLE BOTH EYES SCH ×3 (06:33→18:43)
[2016-06-18] MEDS: FAMOTIDINE 20 MG TABLET PO SCH ×2 (08:48→20:53)
[2016-06-18] MEDS: METOPROLOL SUCCINATE XL 25 MG TABLET PO SCH (08:48)
[2016-06-18] MEDS: MAGNESIUM CHLORIDE 64 MG TABLET PO SCH ×2 (08:48→17:05)
[2016-06-18] MEDS: CHOLESTYRAMINE 4 GM PACK PO SCH ×2 (08:49→21:58)
[2016-06-18] MEDS: CLOTRIMAZOLE 10 MG TROCHE PO SCH ×4 (08:49→20:53)
[2016-06-18] MEDS: LEVOFLOXACIN INJ 750 MG in PREMIX 1 EACH IV SCH (08:52)
[2016-06-18] MEDS: INSULIN REGULAR 100 UNIT/ML SUBCUT SCH (08:54)
[2016-06-18] MEDS: DOCUSATE SODIUM 100 MG CAPSULE PO SCH (08:55)
--- NOTE | 2016-06-18 09:03 | Oncology Progress Note ---
Oncology Subjective PN Interval history: Ms. Hadley is hypokalemic. I am adding oral potassium. She already has IV fluids with supplemental additive potassium. She completed her second course of induction chemotherapy for acute myelogenous leukemia about a week ago. She is still severely pancytopenic. This is her third malignancy. She has had stage IV colon cancer and stage III ovarian cancer. There has been no evidence of recurrence of either 1 of these but I am going to go ahead and check a CEA level and a CA 125 that she has not had one checked in a while. We are hoping that she will achieve a complete remission with this chemotherapy course. The doses were higher than with the first course of induction chemotherapy. Her white cell count is 300 and her platelet count is 19,000. She is severely debilitated and weak. We will continue to monitor lab work daily. Cranial nerves II through XII are intact. There are no focal neurologic deficits. Her oral mucosa is somewhat boggy. Exam - Constitutional Vitals: Period Temp Pulse Resp BP Sys/Ceballos Pulse Ox Last 24 Hr 98.6 F-101.5 F 112-135 18-20 96-126/56-71 93-96 Results - Labs CBC & BMP: 06/18/16 04:34 06/18/16 04:34
[2016-06-18] MEDS: POTASSIUM CHLORIDE 20 MEQ TABLET PO SCH (10:22)
[2016-06-18] MEDS: FLUCONAZOLE INJ 100 MG in IV BAG 1 EACH IV SCH (10:23)
[2016-06-18] MEDS: ONDANSETRON 4 MG/2 ML VIAL IV PRN (20:54)
[2016-06-18] MEDS: INSULIN GLARGINE 100 UNIT/ML SUBCUT SCH (21:59)
[2016-06-19] MEDS: PIPERACILLIN/TAZOBACTAM 3,375 MG in SODIUM CHLORIDE 0.9% 100 ML IV SCH ×3 (00:28→18:29)
[2016-06-19] MEDS: ACETAMINOPHEN 325 MG TABLET PO PRN ×3 (00:33→16:09)
[2016-06-19 04:56] LABS: Hematocrit 23.7 VOL% (35.7-47.0); Hemoglobin 8.2 GM/DL (12.0-16.0); Lymphocytes # 0.2 10*3/uL (1.4-4.0); Mean Corpuscular HGB Conc 34.6 GM/DL (32-36); Mean Corpuscular Hemoglobin 29 PG (27-34); Mean Corpuscular Volume 84.3 FL (87-102); Mean Platelet Volume 10.6 FL (9.6-12.0); Platelet Count 48 T/CUMM (130-400); Red Blood Count 2.81 MC/CUMM (3.8-5.5)
[2016-06-19 05:02] LABS: White Blood Count 0.2 T/CUMM (4-12)
[2016-06-19 05:22] LABS: Lymphocytes 100 % (20-55); Platelet Estimate Decreased; Total Cells Counted 10
[2016-06-19 05:24] LABS: Albumin 1.8 G/DL (3.4-5.0); Bilirubin,Total 1.2 MG/DL (0.2-1.0); Calcium 8.3 MG/DL (8.5-10.1); Osmolality,Calculated 287.8 MOS/KG (273-304); Potassium 3.2 MMOL/L (3.5-5.1); Total Protein 5.7 G/DL (6.4-8.3)
[2016-06-19] MEDS: DEXT 5% NACL 0.45% KCL 20 MEQ 20 MEQ/1,000 ML BAG IV SCH ×2 (05:44→13:02)
[2016-06-19] MEDS: FLUCONAZOLE INJ 100 MG in IV BAG 1 EACH IV SCH ×2 (07:47→10:34)
[2016-06-19] MEDS: LEVOFLOXACIN INJ 750 MG in PREMIX 1 EACH IV SCH (08:20)
--- NOTE | 2016-06-19 09:09 | Oncology Progress Note ---
Oncology Subjective PN Interval history: This is day 18 of course #2 of induction chemotherapy for acute myelogenous leukemia using daunorubicin and Cytosar U. The patient remains severely pancytopenic and critically ill. Her hemoglobin is 8.2 today. Her platelet count is 48,000. She has 0 granulocytes in her white cell circulation. She also has a history of stage IV adenocarcinoma colon and stage III B ovarian cancer. Her CEA level was 3.9. The ovarian cancer antigen may or may not be pending since there is no way of my knowing for certain. She still feels extremely weak. Her oral mucosa is coated with a whitish substance. She is continuing to run fever. We will check stool for Clostridium difficile. She is critically ill and has no evidence of marrow recovery at this time. She is on multiple antibiotics and still running fever she still has 0 neutrophils on white cell differential. Exam - Constitutional Vitals: Period Temp Pulse Resp BP Sys/Ceballos Pulse Ox Last 24 Hr 98.6 F-102.2 F 102-136 18-24 106-127/54-84 96-100 Results - Labs CBC & BMP: 06/19/16 04:00 06/19/16 04:00
[2016-06-19] MEDS: DOCUSATE SODIUM 100 MG CAPSULE PO SCH (10:32)
[2016-06-19] MEDS: METOPROLOL SUCCINATE XL 25 MG TABLET PO SCH (10:59)
[2016-06-19] MEDS: POTASSIUM CHLORIDE 20 MEQ TABLET PO SCH (10:59)
[2016-06-19] MEDS: MAGNESIUM CHLORIDE 64 MG TABLET PO SCH ×2 (11:00→16:59)
[2016-06-19] MEDS: FAMOTIDINE 20 MG TABLET PO SCH (11:00)
[2016-06-19] MEDS: CLOTRIMAZOLE 10 MG TROCHE PO SCH ×3 (11:01→16:59)
[2016-06-19] MEDS: CHOLESTYRAMINE 4 GM PACK PO SCH (11:02)
[2016-06-19] MEDS: INSULIN REGULAR 100 UNIT/ML SUBCUT SCH (14:20)
[2016-06-19] MEDS: ONDANSETRON 4 MG/2 ML VIAL IV PRN (16:07)
[2016-06-19] MEDS: PROMETHAZINE INJ 25 MG in SODIUM CHLORIDE 0.9% 50 ML IV PRN (17:01)
[2016-06-19] MEDS ORDERED: ACETAMINOPHEN 650 MG SUPP RECTAL PRN (17:41)
[2016-06-19] MEDS: INSULIN GLARGINE 100 UNIT/ML SUBCUT SCH (20:45)
[2016-06-20] MEDS: CLOTRIMAZOLE 10 MG TROCHE PO SCH ×5 (00:13→21:15)
[2016-06-20] MEDS: FAMOTIDINE 20 MG TABLET PO SCH ×3 (00:13→21:14)
[2016-06-20] MEDS: CHOLESTYRAMINE 4 GM PACK PO SCH ×3 (00:14→21:15)
[2016-06-20] MEDS: DEXT 5% NACL 0.45% KCL 20 MEQ 20 MEQ/1,000 ML BAG IV SCH ×3 (00:15→15:47)
[2016-06-20] MEDS: PIPERACILLIN/TAZOBACTAM 3,375 MG in SODIUM CHLORIDE 0.9% 100 ML IV SCH ×3 (02:42→18:55)
[2016-06-20] MEDS: ONDANSETRON 4 MG/2 ML VIAL IV PRN (02:49)
[2016-06-20] MEDS: ACETAMINOPHEN 325 MG TABLET PO PRN ×2 (03:47→12:33)
[2016-06-20 05:08] LABS: Hematocrit 24.9 VOL% (35.7-47.0); Hemoglobin 8.4 GM/DL (12.0-16.0); Lymphocytes # 0.2 10*3/uL (1.4-4.0); Lymphocytes % 95.7 % (21.3-54.2); Mean Corpuscular HGB Conc 33.7 GM/DL (32-36); Mean Corpuscular Hemoglobin 29 PG (27-34); Mean Corpuscular Volume 86.8 FL (87-102); Mean Platelet Volume 11.1 FL (9.6-12.0); Neutrophils % 4.3 % (38.7-73.9); Red Blood Count 2.87 MC/CUMM (3.8-5.5); Red Cell Distribution Width 15.2 % (9.3-17.3)
[2016-06-20 05:14] LABS: Platelet Count 32 T/CUMM (130-400); White Blood Count 0.2 T/CUMM (4-12)
[2016-06-20 05:33] LABS: Albumin 1.7 G/DL (3.4-5.0); Calcium 8.4 MG/DL (8.5-10.1); Osmolality,Calculated 284.1 MOS/KG (273-304); Potassium 3.2 MMOL/L (3.5-5.1); Total Protein 5.6 G/DL (6.4-8.3)
[2016-06-20 06:54] LABS: Lymphocytes 90 % (20-55); Segmented Neutrophils 10 % (50-85); Total Cells Counted 100
[2016-06-20 06:55] LABS: Platelet Estimate Decreased
[2016-06-20] MEDS: FLUCONAZOLE INJ 100 MG in PREMIX 1 EACH IV SCH (08:05)
[2016-06-20] MEDS: METOPROLOL SUCCINATE XL 25 MG TABLET PO SCH (08:10)
[2016-06-20] MEDS: MAGNESIUM CHLORIDE 64 MG TABLET PO SCH ×2 (08:10→16:50)
[2016-06-20] MEDS: POTASSIUM CHLORIDE 20 MEQ TABLET PO SCH (08:10)
[2016-06-20] MEDS: LEVOFLOXACIN INJ 750 MG in PREMIX 1 EACH IV SCH (08:41)
[2016-06-20] MEDS ORDERED: LEVOFLOXACIN INJ 750 MG in PREMIX 1 EACH IV SCH (09:00)
--- NOTE | 2016-06-20 11:09 | Oncology Progress Note ---
Oncology Subjective PN Interval history: Ms. Hadley has acute myelogenous leukemia and is now 18 days post course #2 of induction chemotherapy. She has little evidence of recovery so far. Her white cell count is 200. Her platelet count is 32,000. Her hemoglobin is 8.4. We are checking lab work on a daily basis and transfusing platelets and red cells as needed. The patient's potassium is 3.2. I was unaware that the Zosyn was being given by a 4 hour infusion. This is not an approved method of administering this antibiotic and I am changing the order so that is given IV over 30 minutes each time. Not only is it on approved, the Zosyn infusion interferes with IV hydration of this patient and also with treatment of her hypokalemia. She actually feels a little bit better today but I am not optimistic that she is going to achieve a complete and sustained remission for her acute leukemia. Her past history is already positive for stage IV colon cancer although the CEA level on this admission was normal. She also has a history of ovarian cancer but the ovarian cancer antigen is still pending. Today her oral mucosa is coated slightly with an exudate. Lungs are clear and heart sounds are normal. Cranial nerves II through XII are intact. The no focal neurologic deficit. This is a critical illness that is life-threatening. Exam - Constitutional Vitals: Period Temp Pulse Resp BP Sys/Ceballos Pulse Ox Last 24 Hr 98.0 F-102.3 F 112-126 18-22 104-140/61-85 95-99 Results - Labs CBC & BMP: 06/20/16 04:00 06/20/16 04:00
[2016-06-20] MEDS: DOCUSATE SODIUM 100 MG CAPSULE PO SCH (11:16)
[2016-06-20] MEDS: INSULIN REGULAR 100 UNIT/ML SUBCUT SCH (12:05)
[2016-06-20] MEDS: INSULIN GLARGINE 100 UNIT/ML SUBCUT SCH (21:14)
[2016-06-21] MEDS: DEXT 5% NACL 0.45% KCL 20 MEQ 20 MEQ/1,000 ML BAG IV SCH ×3 (00:55→13:36)
[2016-06-21] MEDS: PIPERACILLIN/TAZOBACTAM 3,375 MG in SODIUM CHLORIDE 0.9% 100 ML IV SCH ×3 (02:42→20:21)
[2016-06-21 05:32] LABS: Hematocrit 22.7 VOL% (35.7-47.0); Hemoglobin 7.6 GM/DL (12.0-16.0); Lymphocytes # 0.2 10*3/uL (1.4-4.0); Lymphocytes % 95.5 % (21.3-54.2); Mean Corpuscular HGB Conc 33.5 GM/DL (32-36); Mean Corpuscular Hemoglobin 29 PG (27-34); Mean Corpuscular Volume 87.3 FL (87-102); Mean Platelet Volume 11.2 FL (9.6-12.0); Neutrophils % 4.5 % (38.7-73.9); Red Cell Distribution Width 15.2 % (9.3-17.3)
[2016-06-21 05:39] LABS: Platelet Count 20 T/CUMM (130-400); White Blood Count 0.2 T/CUMM (4-12)
[2016-06-21 06:05] LABS: Albumin 1.5 G/DL (3.4-5.0); Bilirubin,Total 0.4 MG/DL (0.2-1.0); Calcium 8.3 MG/DL (8.5-10.1); Osmolality,Calculated 283.1 MOS/KG (273-304); Potassium 3.2 MMOL/L (3.5-5.1); Total Protein 5.4 G/DL (6.4-8.3)
[2016-06-21 07:29] LABS: Hypochromasia 2+; Lymphocytes 60 % (20-55); Microcytosis 2+; Platelet Estimate Decreased; Segmented Neutrophils 40 % (50-85); Total Cells Counted 100
[2016-06-21] MEDS: FLUCONAZOLE INJ 100 MG in PREMIX 1 EACH IV SCH (07:59)
[2016-06-21] MEDS: LEVOFLOXACIN INJ 750 MG in PREMIX 1 EACH IV SCH (08:38)
--- NOTE | 2016-06-21 10:16 | Oncology Progress Note ---
Oncology Subjective PN Interval history: This is day 20 of course #2 of induction chemotherapy using daunorubicin and Cytosar in this patient who has acute myelogenous leukemia complicated by the fact that she has already been treated for stage IV colon cancer and stage III B ovarian cancer. She has a normal CEA level. I will ordered a CA 125 on the same date I ordered the CEA level. It is pending. And pending and pending and pending. Blood work today includes a white cell count 200, platelet count 20,000 and hemoglobin 7.6. We will transfuse packed red cells today. Exam - Constitutional Vitals: Period Temp Pulse Resp BP Sys/Ceballos Pulse Ox Last 24 Hr 97.6 F-102.2 F 101-119 19-20 105-125/65-76 98-99 Results - Labs CBC & BMP: 06/21/16 04:00 06/21/16 04:00
[2016-06-21] MEDS: MAGNESIUM CHLORIDE 64 MG TABLET PO SCH ×2 (10:17→20:22)
[2016-06-21] MEDS: FAMOTIDINE 20 MG TABLET PO SCH ×2 (10:17→20:22)
[2016-06-21] MEDS: METOPROLOL SUCCINATE XL 25 MG TABLET PO SCH (10:17)
[2016-06-21] MEDS: POTASSIUM CHLORIDE 20 MEQ TABLET PO SCH (10:17)
[2016-06-21] MEDS: CHOLESTYRAMINE 4 GM PACK PO SCH ×2 (10:17→20:28)
[2016-06-21] MEDS: INSULIN REGULAR 100 UNIT/ML SUBCUT SCH (11:17)
[2016-06-21] MEDS: DOCUSATE SODIUM 100 MG CAPSULE PO SCH (11:17)
[2016-06-21] MEDS: CLOTRIMAZOLE 10 MG TROCHE PO SCH ×4 (11:18→20:22)
[2016-06-21] MEDS ORDERED: SODIUM CHLORIDE 0.9% 250 ML IV PRN (11:47)
[2016-06-21] MEDS: INSULIN GLARGINE 100 UNIT/ML SUBCUT SCH (20:22)
[2016-06-22] MEDS: DEXT 5% NACL 0.45% KCL 20 MEQ 20 MEQ/1,000 ML BAG IV SCH ×3 (03:52→16:42)
[2016-06-22] MEDS: PIPERACILLIN/TAZOBACTAM 3,375 MG in SODIUM CHLORIDE 0.9% 100 ML IV SCH (04:42)
[2016-06-22 05:35] LABS: Hematocrit 20.1 VOL% (35.7-47.0); Hemoglobin 6.9 GM/DL (12.0-16.0); Lymphocytes # 0.2 10*3/uL (1.4-4.0); Lymphocytes % 86.4 % (21.3-54.2); Mean Corpuscular HGB Conc 34.3 GM/DL (32-36); Mean Corpuscular Hemoglobin 29 PG (27-34); Mean Corpuscular Volume 85.2 FL (87-102); Monocytes % 4.5 % (1.7-12.7); Neutrophils % 9.1 % (38.7-73.9); Red Blood Count 2.36 MC/CUMM (3.8-5.5); Red Cell Distribution Width 15.4 % (9.3-17.3)
[2016-06-22 05:55] LABS: Platelet Count 13 T/CUMM (130-400); White Blood Count 0.2 T/CUMM (4-12)
[2016-06-22 06:07] LABS: Albumin 1.5 G/DL (3.4-5.0); Bilirubin,Total 0.8 MG/DL (0.2-1.0); Potassium 3.5 MMOL/L (3.5-5.1); Total Protein 5.5 G/DL (6.4-8.3)
[2016-06-22 06:21] LABS: Hypochromasia 1+; Lymphocytes 100 % (20-55); Total Cells Counted 100
[2016-06-22 06:22] LABS: Microcytosis 1+; Platelet Estimate Decreased
--- NOTE | 2016-06-22 08:30 | Oncology Progress Note ---
Oncology Subjective PN Interval history: This is day #20 of the second course of induction chemotherapy for this patient with acute myelogenous leukemia. Her leukemia is complicated by the fact that she has a prior history of stage IV colon cancer and also prior history of stage IIIB ovarian cancer. Her CEA level was normal but the ovarian cancer antigen level is still not back yet. She remains critically ill and I am not optimistic that she will achieve a complete remission. She just had another fever spike and we are repeating blood cultures. I am changing antibiotics after the blood cultures. White cell count 200, platelet count 13,000, hemoglobin 6.9. We will be transfusing platelets and red cells. I ordered a CA 125 level last week. The lab indicates that it was just ordered today which is not true. This is falsification of medical records as far as I am concerned. I am switching her to Sahilpricila from [facility]. I am also writing standing orders for blood transfusions for hemoglobin of less than 8.0. She is critically ill. This may be refractory leukemia that does not respond in which case her long-term prognosis is exceedingly poor. Exam - Constitutional Vitals: Period Temp Pulse Resp BP Sys/Ceballos Pulse Ox Last 24 Hr 100 F-102.1 F 115-126 18-20 104-129/65-75 96-99 Results - Labs CBC & BMP: 06/22/16 04:00 06/22/16 04:00
[2016-06-22] MEDS: ACETAMINOPHEN 325 MG TABLET PO PRN (09:01)
[2016-06-22] MEDS: FAMOTIDINE 20 MG TABLET PO SCH ×2 (09:03→20:39)
[2016-06-22] MEDS: METOPROLOL SUCCINATE XL 25 MG TABLET PO SCH (09:03)
[2016-06-22] MEDS: DOCUSATE SODIUM 100 MG CAPSULE PO SCH (09:03)
[2016-06-22] MEDS: CLOTRIMAZOLE 10 MG TROCHE PO SCH ×4 (09:04→20:42)
[2016-06-22] MEDS: POTASSIUM CHLORIDE 20 MEQ TABLET PO SCH (09:04)
[2016-06-22] MEDS: MAGNESIUM CHLORIDE 64 MG TABLET PO SCH ×2 (09:04→17:05)
[2016-06-22] MEDS: INSULIN REGULAR 100 UNIT/ML SUBCUT SCH (09:05)
[2016-06-22] MEDS: FLUCONAZOLE INJ 100 MG in PREMIX 1 EACH IV SCH (09:07)
[2016-06-22] MEDS ORDERED: SODIUM CHLORIDE 0.9% 250 ML IV PRN (09:28)
[2016-06-22] MEDS: CHOLESTYRAMINE 4 GM PACK PO SCH ×2 (10:13→20:42)
[2016-06-22] MEDS: LEVOFLOXACIN INJ 750 MG in PREMIX 1 EACH IV SCH (11:36)
[2016-06-22] MEDS ORDERED: HYDROCORTISONE 100 MG VIAL IV ONE (15:07)
[2016-06-22] MEDS: INSULIN GLARGINE 100 UNIT/ML SUBCUT SCH (20:41)
[2016-06-23] MEDS ORDERED: HEPARIN LOCK FLUSH 500 UNIT/5 ML SYRINGE IV ONE (04:33)
[2016-06-23 05:37] LABS: Albumin 1.4 G/DL (3.4-5.0); Bilirubin,Total 0.7 MG/DL (0.2-1.0); Calcium 8.3 MG/DL (8.5-10.1); Total Protein 5.6 G/DL (6.4-8.3)
[2016-06-23 05:50] LABS: Hematocrit 27.6 VOL% (35.7-47.0); Lymphocytes # 0.1 10*3/uL (1.4-4.0); Lymphocytes % 60.9 % (21.3-54.2); Mean Corpuscular HGB Conc 35.5 GM/DL (32-36); Mean Corpuscular Hemoglobin 31 PG (27-34); Mean Platelet Volume 10.8 FL (9.6-12.0); Monocytes % 4.3 % (1.7-12.7); Neutrophils # 0.1 10*3/uL (1.4-7.4); Neutrophils % 34.8 % (38.7-73.9); Red Cell Distribution Width 14.8 % (9.3-17.3)
[2016-06-23 05:55] LABS: Red Blood Count 3.21 MC/CUMM (3.8-5.5); White Blood Count 0.2 T/CUMM (4-12)
[2016-06-23 05:56] LABS: Hemoglobin 9.8 GM/DL (12.0-16.0); Platelet Count 36 T/CUMM (130-400)
[2016-06-23 06:23] LABS: Lymphocytes 70 % (20-55); Segmented Neutrophils 30 % (50-85); Total Cells Counted 100
[2016-06-23 06:24] LABS: Hypochromasia Slight; Microcytosis 1+; Platelet Estimate Decreased
--- NOTE | 2016-06-23 07:44 | Oncology Progress Note ---
Oncology Subjective PN Interval history: This patient is now 21 days post course #2 of induction chemotherapy for acute myelogenous leukemia. She remains pancytopenic with hemoglobin 9.8. Platelet count 36,000. White cell count 200. Her illness is complicated by the fact that she is already in complete remission for stage IV adenocarcinoma colon and stage III B ovarian cancer. I actually ordered an ovarian cancer antigen on June 18 and it is still pending. She remains critically ill with life-threatening disease. Exam - Constitutional Vitals: Period Temp Pulse Resp BP Sys/Ceballos Pulse Ox Last 24 Hr 97.8 F-102.2 F 18-121 15-20 109-175/65-96 94-99 Results - Labs CBC & BMP: 06/23/16 04:00 06/23/16 04:00
[2016-06-23] MEDS: DEXT 5% NACL 0.45% KCL 20 MEQ 20 MEQ/1,000 ML BAG IV SCH ×2 (09:11)
[2016-06-23] MEDS: CHOLESTYRAMINE 4 GM PACK PO SCH ×2 (09:12→20:37)
[2016-06-23] MEDS: INSULIN REGULAR 100 UNIT/ML SUBCUT SCH (09:12)
[2016-06-23] MEDS: POTASSIUM CHLORIDE 20 MEQ TABLET PO SCH (09:13)
[2016-06-23] MEDS: MAGNESIUM CHLORIDE 64 MG TABLET PO SCH ×2 (09:13→17:05)
[2016-06-23] MEDS: CLOTRIMAZOLE 10 MG TROCHE PO SCH ×4 (09:13→20:37)
[2016-06-23] MEDS: DOCUSATE SODIUM 100 MG CAPSULE PO SCH (09:13)
[2016-06-23] MEDS: FAMOTIDINE 20 MG TABLET PO SCH ×2 (09:13→20:37)
[2016-06-23] MEDS: METOPROLOL SUCCINATE XL 25 MG TABLET PO SCH (09:13)
[2016-06-23] MEDS: FLUCONAZOLE INJ 100 MG in PREMIX 1 EACH IV SCH (09:24)
[2016-06-23] MEDS: LEVOFLOXACIN INJ 750 MG in PREMIX 1 EACH IV SCH (10:16)
[2016-06-23] MEDS: SODIUM CHLOR 0.45% KCL 20 MEQ 20 MEQ/1,000 ML BAG IV SCH (13:15)
[2016-06-23] MEDS ORDERED: ALTEPLASE 2 MG VIAL INTRACATH ONE (16:57)
[2016-06-23] MEDS: INSULIN GLARGINE 100 UNIT/ML SUBCUT SCH (20:37)
[2016-06-24] MEDS: ACETAMINOPHEN 325 MG TABLET PO PRN (00:46)
[2016-06-24] MEDS: SODIUM CHLOR 0.45% KCL 20 MEQ 20 MEQ/1,000 ML BAG IV SCH ×3 (00:49→14:29)
[2016-06-24 04:55] LABS: Hematocrit 27.7 VOL% (35.7-47.0); Hemoglobin 9.2 GM/DL (12.0-16.0); Immature Granulocytes % 9.3 %; Immature Granulocytes Absolute 0.04 #; Lymphocytes # 0.3 10*3/uL (1.4-4.0); Lymphocytes % 65.1 % (21.3-54.2); Mean Corpuscular HGB Conc 33.2 GM/DL (32-36); Mean Corpuscular Hemoglobin 29 PG (27-34); Mean Corpuscular Volume 86.6 FL (87-102); Mean Platelet Volume 9.6 FL (9.6-12.0); Monocytes % 2.3 % (1.7-12.7); Neutrophils # 0.1 10*3/uL (1.4-7.4); Neutrophils % 23.3 % (38.7-73.9); Red Cell Distribution Width 14.8 % (9.3-17.3)
[2016-06-24 05:01] LABS: Platelet Count 30 T/CUMM (130-400); White Blood Count 0.4 T/CUMM (4-12)
[2016-06-24 05:20] LABS: Hypochromasia 1+; Lymphocytes 80 % (20-55); Microcytosis 1+; Platelet Estimate Decreased; Segmented Neutrophils 20 % (50-85); Total Cells Counted 100
[2016-06-24 05:21] LABS: Tear Drop Cells Slight
[2016-06-24 05:53] LABS: Albumin 1.3 G/DL (3.4-5.0); Bilirubin,Total 0.5 MG/DL (0.2-1.0); Osmolality,Calculated 289.4 MOS/KG (273-304); Potassium 3.3 MMOL/L (3.5-5.1); Total Protein 5.1 G/DL (6.4-8.3)
[2016-06-24] MEDS: FLUCONAZOLE INJ 100 MG in PREMIX 1 EACH IV SCH (08:13)
--- NOTE | 2016-06-24 08:17 | Oncology Progress Note ---
Oncology Subjective PN Interval history: This patient is 30 days post course #2 of induction chemotherapy for acute myelogenous leukemia. She remains severely pancytopenic. She has had refractory fever as well. I have changed her antibiotics several times now. In addition, she has a history of stage IV colon cancer and stage III B ovarian cancer, both of which have been treated with chemotherapy and both of which are in remission presently. She has a normal CEA level. Her ovarian cancer antigen was ordered several days ago and we still do not have the report. Her white cell count is up to 400 but without any obvious recovery of neutrophils. She is also anemic with a hemoglobin of 9.2 and severely thrombocytopenic with platelet count of 30,000 and is dependent on platelet transfusions. She remains critically ill with an extremely poor prognosis. Stools are negative for Clostridium difficile and also negative for enteric pathogens but she still having diarrhea. I am starting her on Questran. Exam - Constitutional Vitals: Period Temp Pulse Resp BP Sys/Ceballos Pulse Ox Last 24 Hr 98.1 F-100.3 F 100-129 15-98 123-147/72-77 97-99 Results - Labs CBC & BMP: 06/24/16 04:00 06/24/16 04:00
[2016-06-24] MEDS: LEVOFLOXACIN INJ 750 MG in PREMIX 1 EACH IV SCH (09:07)
[2016-06-24] MEDS ORDERED: FUROSEMIDE 20 MG TABLET PO PRN (09:16)
[2016-06-24] MEDS: ONDANSETRON 4 MG/2 ML VIAL IV PRN (09:51)
[2016-06-24] MEDS: CHOLESTYRAMINE 4 GM PACK PO SCH ×2 (09:52→21:08)
[2016-06-24] MEDS: METOPROLOL SUCCINATE XL 25 MG TABLET PO SCH (09:53)
[2016-06-24] MEDS: FAMOTIDINE 20 MG TABLET PO SCH ×2 (09:53→21:08)
[2016-06-24] MEDS: POTASSIUM CHLORIDE 20 MEQ TABLET PO SCH (09:53)
[2016-06-24] MEDS: MAGNESIUM CHLORIDE 64 MG TABLET PO SCH ×2 (09:53→18:30)
[2016-06-24] MEDS: DOCUSATE SODIUM 100 MG CAPSULE PO SCH (10:41)
[2016-06-24] MEDS: CLOTRIMAZOLE 10 MG TROCHE PO SCH ×4 (10:42→21:06)
[2016-06-24] MEDS: INSULIN REGULAR 100 UNIT/ML SUBCUT SCH (17:35)
[2016-06-24] MEDS ORDERED: FAMOTIDINE 20 MG TABLET PO SCH (21:00)
[2016-06-24] MEDS: INSULIN GLARGINE 100 UNIT/ML SUBCUT SCH (21:07)
[2016-06-25] MEDS: SODIUM CHLOR 0.45% KCL 20 MEQ 20 MEQ/1,000 ML BAG IV SCH ×4 (01:44→23:05)
[2016-06-25 06:08] LABS: Hematocrit 26.4 VOL% (35.7-47.0); Hemoglobin 9.1 GM/DL (12.0-16.0); Immature Granulocytes % 5.6 %; Immature Granulocytes Absolute 0.03 #; Lymphocytes # 0.3 10*3/uL (1.4-4.0); Lymphocytes % 51.9 % (21.3-54.2); Mean Corpuscular HGB Conc 34.5 GM/DL (32-36); Mean Corpuscular Hemoglobin 30 PG (27-34); Mean Corpuscular Volume 87.1 FL (87-102); Mean Platelet Volume 10.1 FL (9.6-12.0); Monocytes % 1.9 % (1.7-12.7); Neutrophils # 0.2 10*3/uL (1.4-7.4); Neutrophils % 40.6 % (38.7-73.9); Red Blood Count 3.03 MC/CUMM (3.8-5.5); Red Cell Distribution Width 14.9 % (9.3-17.3)
[2016-06-25 06:10] LABS: Platelet Count 33 T/CUMM (130-400); White Blood Count 0.5 T/CUMM (4-12)
[2016-06-25 06:30] LABS: Lymphocytes 60 % (20-55); Platelet Estimate Decreased; Segmented Neutrophils 40 % (50-85); Total Cells Counted 100
[2016-06-25 06:31] LABS: Hypochromasia 1+; Microcytosis 1+; Ovalocytes Slight
[2016-06-25 06:38] LABS: Albumin 1.4 G/DL (3.4-5.0); Bilirubin,Total 0.4 MG/DL (0.2-1.0); Calcium 8.1 MG/DL (8.5-10.1); Potassium 3.6 MMOL/L (3.5-5.1); Total Protein 5.1 G/DL (6.4-8.3)
--- NOTE | 2016-06-25 08:08 | Oncology Progress Note ---
Oncology Subjective PN Interval history: This is a patient with acute myelogenous leukemia who has completed her second course of induction chemotherapy. She has been gravely ill with recurrent febrile episodes and with pancytopenia as well as weakness, prostration and diarrhea. She has tested negative for Clostridium difficile and enteric pathogens. The absolute neutrophil count is 200 today. Her platelet count is 33,000 and rising on its own. Her hemoglobin is 9.1 today. Her illness is complicated by the fact that she is in remission from stage IV adenocarcinoma of the colon with a normal CEA level. Her CA 125 level is finally back and is 12.0. The CA 125 level is reported as of June 19 although it was not posted yesterday. She remains extremely weak and prostrate. She continues to have diarrhea. We have no evidence of enteric pathogens. Although she may have persistent stomatitis, she is being nauseated by the Mycelex troches so we are discontinuing them. Exam - Constitutional Vitals: Period Temp Pulse Resp BP Sys/Ceballos Pulse Ox Last 24 Hr 98.5 F-100.4 F 97-117 18-20 122-142/77-83 98-99 Results - Labs CBC & BMP: 06/25/16 04:00 06/25/16 04:00
[2016-06-25] MEDS: FLUCONAZOLE INJ 100 MG in PREMIX 1 EACH IV SCH (08:46)
[2016-06-25] MEDS: LEVOFLOXACIN INJ 750 MG in PREMIX 1 EACH IV SCH (09:32)
[2016-06-25] MEDS: CHOLESTYRAMINE 4 GM PACK PO SCH ×2 (09:34→20:42)
[2016-06-25] MEDS: ONDANSETRON 4 MG/2 ML VIAL IV PRN (09:34)
[2016-06-25] MEDS: METOPROLOL SUCCINATE XL 25 MG TABLET PO SCH (09:36)
[2016-06-25] MEDS: POTASSIUM CHLORIDE 20 MEQ TABLET PO SCH (09:37)
[2016-06-25] MEDS: MAGNESIUM CHLORIDE 64 MG TABLET PO SCH ×2 (09:37→18:45)
[2016-06-25] MEDS: FAMOTIDINE 20 MG TABLET PO SCH ×2 (09:37→20:41)
[2016-06-25] MEDS: DOCUSATE SODIUM 100 MG CAPSULE PO SCH (13:59)
[2016-06-25] MEDS: INSULIN REGULAR 100 UNIT/ML SUBCUT SCH (16:29)
[2016-06-25] MEDS: INSULIN GLARGINE 100 UNIT/ML SUBCUT SCH (20:44)
[2016-06-26 06:36] LABS: Hematocrit 25.1 VOL% (35.7-47.0); Hemoglobin 8.7 GM/DL (12.0-16.0); Immature Granulocytes % 8.3 %; Immature Granulocytes Absolute 0.06 #; Lymphocytes # 0.3 10*3/uL (1.4-4.0); Lymphocytes % 40.3 % (21.3-54.2); Mean Corpuscular HGB Conc 34.7 GM/DL (32-36); Mean Corpuscular Hemoglobin 30 PG (27-34); Mean Corpuscular Volume 86.6 FL (87-102); Mean Platelet Volume 10.5 FL (9.6-12.0); Monocytes % 4.2 % (1.7-12.7); Neutrophils # 0.3 10*3/uL (1.4-7.4); Neutrophils % 47.2 % (38.7-73.9); Platelet Count 36 T/CUMM (130-400); Red Cell Distribution Width 14.7 % (9.3-17.3)
[2016-06-26 07:03] LABS: White Blood Count 0.7 T/CUMM (4-12)
[2016-06-26 07:17] LABS: Lymphocytes 100 % (20-55); Total Cells Counted 100
[2016-06-26 07:18] LABS: Hypochromasia 2+; Microcytosis 2+; Platelet Estimate Decreased
[2016-06-26 07:22] LABS: Albumin 1.4 G/DL (3.4-5.0); Bilirubin,Total 0.5 MG/DL (0.2-1.0); Calcium 8.1 MG/DL (8.5-10.1); Osmolality,Calculated 278.1 MOS/KG (273-304); Potassium 3.8 MMOL/L (3.5-5.1); Total Protein 5.2 G/DL (6.4-8.3)
--- NOTE | 2016-06-26 08:07 | Oncology Progress Note ---
Oncology Subjective PN Interval history: Patient with acute myelogenous leukemia post course #2 of induction chemotherapy. She remains pancytopenic. However, she appears to be recovering from this second course of induction chemotherapy. Blood work today includes: White cell count 700, ANC 300, hemoglobin 8.7 and platelet count 36,000. In addition to acute myelogenous leukemia, she has a history of stage IV colon cancer and stage III B ovarian cancer. She is apparently in complete remission from both these. She still having fevers on switching her back to vancomycin. She is on Levaquin that I am discontinuing. This is her second course of induction chemotherapy and I increased the dosage. Her prognosis is poor if we do not achieve a remission with the second course. Also, I am doubtful that she will accept further chemotherapy under the circumstances. Exam - Constitutional Vitals: Period Temp Pulse Resp BP Sys/Ceballos Pulse Ox Last 24 Hr 98.1 F-100.8 F 97-111 18-20 118-142/74-89 96-99 Results - Labs CBC & BMP: 06/26/16 04:00 06/26/16 04:00
[2016-06-26] MEDS: FAMOTIDINE 20 MG TABLET PO SCH ×2 (09:40→20:35)
[2016-06-26] MEDS: METOPROLOL SUCCINATE XL 25 MG TABLET PO SCH (09:40)
[2016-06-26] MEDS: CHOLESTYRAMINE 4 GM PACK PO SCH ×2 (09:41→20:36)
[2016-06-26] MEDS: MAGNESIUM CHLORIDE 64 MG TABLET PO SCH ×2 (09:41→17:17)
[2016-06-26] MEDS: DOCUSATE SODIUM 100 MG CAPSULE PO SCH (09:41)
[2016-06-26] MEDS: POTASSIUM CHLORIDE 20 MEQ TABLET PO SCH (09:41)
[2016-06-26] MEDS: SODIUM CHLOR 0.45% KCL 20 MEQ 20 MEQ/1,000 ML BAG IV SCH ×2 (09:42→22:40)
[2016-06-26] MEDS: FLUCONAZOLE INJ 100 MG in PREMIX 1 EACH IV SCH (09:53)
[2016-06-26] MEDS: INSULIN REGULAR 100 UNIT/ML SUBCUT SCH (12:27)
[2016-06-26] MEDS: VANCOMYCIN INJ 1,000 MG in SODIUM CHLORIDE 0.9% 250 ML IV SCH (13:01)
[2016-06-26] MEDS: LEVOFLOXACIN INJ 750 MG in PREMIX 1 EACH IV SCH (13:08)
[2016-06-26] MEDS: INSULIN GLARGINE 100 UNIT/ML SUBCUT SCH (20:33)
[2016-06-26] MEDS: ACETAMINOPHEN 325 MG TABLET PO PRN (20:35)
[2016-06-27] MEDS: VANCOMYCIN INJ 1,000 MG in SODIUM CHLORIDE 0.9% 250 ML IV SCH ×2 (00:51→12:48)
[2016-06-27] MEDS: ACETAMINOPHEN 325 MG TABLET PO PRN ×2 (04:43→12:47)
[2016-06-27 05:52] LABS: Hematocrit 31.3 VOL% (35.7-47.0); Hemoglobin 10.5 GM/DL (12.0-16.0); Immature Granulocytes % 4.3 %; Immature Granulocytes Absolute 0.06 #; Lymphocytes # 0.5 10*3/uL (1.4-4.0); Lymphocytes % 36.4 % (21.3-54.2); Mean Corpuscular HGB Conc 33.5 GM/DL (32-36); Mean Corpuscular Hemoglobin 30 PG (27-34); Mean Corpuscular Volume 89.7 FL (87-102); Mean Platelet Volume 9.7 FL (9.6-12.0); Monocytes % 2.9 % (1.7-12.7); Neutrophils # 0.8 10*3/uL (1.4-7.4); Neutrophils % 56.4 % (38.7-73.9); Platelet Count 62 T/CUMM (130-400); Red Blood Count 3.49 MC/CUMM (3.8-5.5); Red Cell Distribution Width 14.7 % (9.3-17.3); White Blood Count 1.4 T/CUMM (4-12)
[2016-06-27 06:30] LABS: Lymphocytes 30 % (20-55); Segmented Neutrophils 70 % (50-85); Total Cells Counted 100
[2016-06-27 06:31] LABS: Hypochromasia 1+; Microcytosis 1+; Platelet Estimate Decreased
[2016-06-27 06:35] LABS: Albumin 1.7 G/DL (3.4-5.0); Bilirubin,Total 0.4 MG/DL (0.2-1.0); Calcium 8.4 MG/DL (8.5-10.1); Potassium 4.7 MMOL/L (3.5-5.1); Total Protein 6.3 G/DL (6.4-8.3)
[2016-06-27] MEDS: INSULIN REGULAR 100 UNIT/ML SUBCUT SCH (07:41)
[2016-06-27] MEDS: FLUCONAZOLE INJ 100 MG in PREMIX 1 EACH IV SCH (09:07)
[2016-06-27] MEDS: SODIUM CHLOR 0.45% KCL 20 MEQ 20 MEQ/1,000 ML BAG IV SCH ×2 (09:07→23:42)
[2016-06-27] MEDS: POTASSIUM CHLORIDE 20 MEQ TABLET PO SCH (09:11)
[2016-06-27] MEDS: MAGNESIUM CHLORIDE 64 MG TABLET PO SCH ×2 (09:11→17:45)
[2016-06-27] MEDS: CHOLESTYRAMINE 4 GM PACK PO SCH ×3 (09:11→20:21)
[2016-06-27] MEDS: METOPROLOL SUCCINATE XL 25 MG TABLET PO SCH (09:11)
[2016-06-27] MEDS: FAMOTIDINE 20 MG TABLET PO SCH ×2 (09:11→20:21)
[2016-06-27] MEDS: DOCUSATE SODIUM 100 MG CAPSULE PO SCH ×2 (09:11→09:14)
--- NOTE | 2016-06-27 13:10 | Oncology Progress Note ---
Oncology Subjective PN Interval history: AML status post second induction with continued pancytopenia. She has been febrile this morning and appears uncomfortable. She has had some diarrhea and also reports some dysuria. Microbiology will be reviewed. She is on broad-spectrum antibiotics that were adjusted yesterday. I will escalate her antifungal coverage and continue to provide all other necessary medical support at this time Exam - Constitutional Vitals: Period Temp Pulse Resp BP Sys/Ceballos Pulse Ox Last 24 Hr 97.1 F-101.6 F 101-119 16-20 108-128/64-83 95-100 Results - Labs CBC & BMP: 06/27/16 04:00 06/27/16 04:00
[2016-06-27] MEDS: MICAFUNGIN 100 MG in SODIUM CHLORIDE 0.9% 100 ML IV SCH (15:04)
[2016-06-27 16:03] LABS: Apearance,Urine CLEAR (Clear); Bilirubin,Urine Negative (Negative); Blood, Urine Negative (Negative); Glucose,Urine (UA) Negative (Negative); Ketones,Urine Negative (Negative); Mucus,Urine Occasional /LPF (Occasional); Nitrite,Urine Negative (Negative); Protein,Urine Negative; Squamous Epithelial Cell,Urine Occasional /HPF (0-10); Urine Color Straw (Yellow); Urine Specific Gravity 1.006 (1.001-1.035); Urine Urobilinogen < 2.0 EU/DL (0.2-1.0); WBC,Urine <1 /HPF (0-6)
[2016-06-27] MEDS: INSULIN GLARGINE 100 UNIT/ML SUBCUT SCH (20:18)
[2016-06-28] MEDS: VANCOMYCIN INJ 1,000 MG in SODIUM CHLORIDE 0.9% 250 ML IV SCH ×2 (00:57→13:20)
[2016-06-28] MEDS: SODIUM CHLOR 0.45% KCL 20 MEQ 20 MEQ/1,000 ML BAG IV SCH ×4 (01:12→15:11)
[2016-06-28 04:26] LABS: Basophils % 0.8 % (0.0-0.8); Hematocrit 25.9 VOL% (35.7-47.0); Hemoglobin 9.1 GM/DL (12.0-16.0); Immature Granulocytes % 9.8 %; Immature Granulocytes Absolute 0.12 #; Lymphocytes # 0.4 10*3/uL (1.4-4.0); Lymphocytes % 30.3 % (21.3-54.2); Mean Corpuscular HGB Conc 35.1 GM/DL (32-36); Mean Corpuscular Hemoglobin 31 PG (27-34); Mean Corpuscular Volume 88.7 FL (87-102); Monocytes # 0.1 10*3/uL (0.11-0.8); Monocytes % 6.6 % (1.7-12.7); Neutrophils # 0.6 10*3/uL (1.4-7.4); Neutrophils % 52.5 % (38.7-73.9); Red Blood Count 2.92 MC/CUMM (3.8-5.5); Red Cell Distribution Width 14.5 % (9.3-17.3); White Blood Count 1.2 T/CUMM (4-12)
[2016-06-28 04:31] LABS: Platelet Count 59 T/CUMM (130-400)
[2016-06-28 05:12] LABS: Albumin 1.6 G/DL (3.4-5.0); Bilirubin,Total 0.9 MG/DL (0.2-1.0); Osmolality,Calculated 275.4 MOS/KG (273-304); Potassium 4.1 MMOL/L (3.5-5.1); Total Protein 5.4 G/DL (6.4-8.3)
[2016-06-28 05:29] LABS: Lymphocytes 32 % (20-55); Segmented Neutrophils 58 % (50-85)
[2016-06-28 05:32] LABS: Anisocytosis Slight; Microcytosis Slight; Platelet Estimate Decreased
[2016-06-28 05:35] LABS: Total Cells Counted 100
--- NOTE | 2016-06-28 08:37 | Oncology Progress Note ---
Oncology Subjective PN Interval history: The patient continues to appear uncomfortable. She may have some depression as well. Her oral intake appears adequate. She is complained of polyuria and I have decreased her IV fluids. Her potassium level is normal. I am going to update her chest x-ray today. I have asked the nurses to redraw blood cultures if she has further fever spikes. Escalated her fungal coverage yesterday. She remains on aggressive antibiotics. Her platelets actually seemed to be making some degree of recovery. She has no significant peripheral edema. Her abdomen is soft and nontender and her lungs are clear on bilateral posterior auscultation. Exam - Constitutional Vitals: Period Temp Pulse Resp BP Sys/Ceballos Pulse Ox Last 24 Hr 98.6 F-100.9 F 80-109 16-20 112-146/70-95 95-98 Results - Labs CBC & BMP: 06/28/16 04:00 06/28/16 04:00
[2016-06-28] MEDS: FAMOTIDINE 20 MG TABLET PO SCH ×3 (09:26→21:17)
[2016-06-28] MEDS: POTASSIUM CHLORIDE 20 MEQ TABLET PO SCH (09:26)
[2016-06-28] MEDS: METOPROLOL SUCCINATE XL 25 MG TABLET PO SCH (09:26)
[2016-06-28] MEDS: MAGNESIUM CHLORIDE 64 MG TABLET PO SCH ×2 (09:26→17:03)
[2016-06-28] MEDS: INSULIN REGULAR 100 UNIT/ML SUBCUT SCH (09:27)
--- NOTE | 2016-06-28 10:27 | XRay Report ---
Referring Physician: Marvin Berry Exam: XR chest 1V Date: June 28, 2016 at 8:40 AM Reason: AML Comparison: Chest one view portable June 16, 2016 Findings: A right-sided Mediport is again in place with its distal tip within the SVC. The cardiac silhouette is upper normal in size. There is mild elevation of the right hemidiaphragm and minimal atelectasis at the right lung base. No pneumothorax or pleural effusion is identified. No acute osseous process is seen. There may be a remote fracture of the mid right clavicle. Impression: Minimal atelectasis at the right lung base. PROCEDURE INTERPRETED AT [facility] DEPARTMENT OF RADIOLOGY Final Report Signed by: Dr. Laura Choudhury
[2016-06-28] MEDS: DOCUSATE SODIUM 100 MG CAPSULE PO SCH (10:57)
[2016-06-28] MEDS: CHOLESTYRAMINE 4 GM PACK PO SCH ×2 (10:57→21:11)
[2016-06-28] MEDS: MICAFUNGIN 100 MG in SODIUM CHLORIDE 0.9% 100 ML IV SCH (15:09)
[2016-06-28] MEDS: INSULIN GLARGINE 100 UNIT/ML SUBCUT SCH (21:12)
[2016-06-29] MEDS: VANCOMYCIN INJ 1,000 MG in SODIUM CHLORIDE 0.9% 250 ML IV SCH ×2 (01:22→13:35)
[2016-06-29] MEDS: ONDANSETRON 4 MG/2 ML VIAL IV PRN (02:01)
[2016-06-29 05:05] LABS: Basophils % 0.5 % (0.0-0.8); Hematocrit 25.4 VOL% (35.7-47.0); Hemoglobin 8.6 GM/DL (12.0-16.0); Immature Granulocytes % 6.5 %; Immature Granulocytes Absolute 0.13 #; Lymphocytes # 0.6 10*3/uL (1.4-4.0); Mean Corpuscular HGB Conc 33.9 GM/DL (32-36); Mean Corpuscular Hemoglobin 31 PG (27-34); Mean Platelet Volume 9.3 FL (9.6-12.0); Monocytes # 0.2 10*3/uL (0.11-0.8); Monocytes % 7.5 % (1.7-12.7); Neutrophils # 1.1 10*3/uL (1.4-7.4); Neutrophils % 53.5 % (38.7-73.9); Red Blood Count 2.79 MC/CUMM (3.8-5.5); Red Cell Distribution Width 14.5 % (9.3-17.3)
[2016-06-29 05:07] LABS: Platelet Count 77 T/CUMM (130-400)
[2016-06-29 05:27] LABS: Albumin 1.7 G/DL (3.4-5.0); Bilirubin,Total 0.6 MG/DL (0.2-1.0); Calcium 7.9 MG/DL (8.5-10.1); Total Protein 5.9 G/DL (6.4-8.3)
[2016-06-29 05:28] LABS: Osmolality,Calculated 277.3 MOS/KG (273-304)
[2016-06-29 05:40] LABS: Atypical Lymphocytes Few; Hypochromasia 1+; Lymphocytes 30 % (20-55); Microcytosis 1+; Nucleated Red Blood Cells 1 (0-5); Platelet Estimate Decreased; Segmented Neutrophils 63 % (50-85); Total Cells Counted 100
--- NOTE | 2016-06-29 08:06 | Oncology Progress Note ---
Oncology Subjective PN Interval history: This patient is continuing to recover from course #2 of induction chemotherapy for acute myelogenous leukemia. This is day 28 of course #2 of induction chemotherapy. She beginning to feel a little bit better. Her diarrhea is improving and so is her stomatitis. She has underlying stage IV adenocarcinoma colon as well as stage III ovarian cancer. Lab work today includes:White cell count 2000 with an absolute neutrophil count of 1100. Her hemoglobin is 8.6 and her platelet count is 77,000 and rising. Her fever has been below 101 since June 27. She appears to be improving. I just hope she is in remission. Exam - Constitutional Vitals: Period Temp Pulse Resp BP Sys/Ceballos Pulse Ox Last 24 Hr 98.6 F-100.9 F 80-110 16-20 109-145/65-83 95-100 Results - Labs CBC & BMP: 06/29/16 04:00 06/29/16 04:00
[2016-06-29] MEDS: INSULIN REGULAR 100 UNIT/ML SUBCUT SCH (08:40)
[2016-06-29] MEDS: MAGNESIUM CHLORIDE 64 MG TABLET PO SCH ×2 (09:19→20:15)
[2016-06-29] MEDS: FAMOTIDINE 20 MG TABLET PO SCH ×2 (09:19→20:16)
[2016-06-29] MEDS: METOPROLOL SUCCINATE XL 25 MG TABLET PO SCH (09:19)
[2016-06-29] MEDS: POTASSIUM CHLORIDE 20 MEQ TABLET PO SCH (09:19)
[2016-06-29] MEDS: CHOLESTYRAMINE 4 GM PACK PO SCH ×2 (11:26→20:16)
[2016-06-29] MEDS: MICAFUNGIN 100 MG in SODIUM CHLORIDE 0.9% 100 ML IV SCH (15:32)
[2016-06-29] MEDS: SODIUM CHLOR 0.45% KCL 20 MEQ 20 MEQ/1,000 ML BAG IV SCH (16:47)
[2016-06-29] MEDS: DOCUSATE SODIUM 100 MG CAPSULE PO SCH (18:09)
[2016-06-29] MEDS: INSULIN GLARGINE 100 UNIT/ML SUBCUT SCH (20:16)
[2016-06-30] MEDS: VANCOMYCIN INJ 1,000 MG in SODIUM CHLORIDE 0.9% 250 ML IV SCH ×2 (00:46→12:33)
[2016-06-30 07:13] LABS: Hematocrit 22.1 VOL% (35.7-47.0); Immature Granulocytes % 4.7 %; Immature Granulocytes Absolute 0.11 #; Lymphocytes # 0.6 10*3/uL (1.4-4.0); Lymphocytes % 27.4 % (21.3-54.2); Mean Corpuscular HGB Conc 36.2 GM/DL (32-36); Mean Corpuscular Hemoglobin 33 PG (27-34); Mean Corpuscular Volume 90.9 FL (87-102); Mean Platelet Volume 9.8 FL (9.6-12.0); Monocytes # 0.2 10*3/uL (0.11-0.8); Monocytes % 10.3 % (1.7-12.7); Neutrophils # 1.4 10*3/uL (1.4-7.4); Neutrophils % 57.6 % (38.7-73.9); Platelet Count 110 T/CUMM (130-400); Red Blood Count 2.43 MC/CUMM (3.8-5.5); Red Cell Distribution Width 14.8 % (9.3-17.3); White Blood Count 2.3 T/CUMM (4-12)
[2016-06-30 07:38] LABS: Band Neutrophils 9 % (0-10); Hypochromasia 2+; Lymphocytes 20 % (20-55); Microcytosis 2+; Nucleated Red Blood Cells 1 (0-5); Platelet Estimate Decreased; Segmented Neutrophils 64 % (50-85); Total Cells Counted 100
[2016-06-30 07:45] LABS: Albumin 1.6 G/DL (3.4-5.0); Bilirubin,Total 1.2 MG/DL (0.2-1.0); Calcium 8.1 MG/DL (8.5-10.1); Osmolality,Calculated 275.4 MOS/KG (273-304); Potassium 4.3 MMOL/L (3.5-5.1); Total Protein 5.4 G/DL (6.4-8.3)
--- NOTE | 2016-06-30 07:54 | Oncology Progress Note ---
Oncology Subjective PN Interval history: This lady is now 29 days post course #2 of induction chemotherapy for acute myelogenous leukemia.Lab work today includes a white cell count of 2300 with an absolute neutrophil count of 1400. Her hemoglobin is 8.0. Her platelet count has risen to 110,000. Her leukemia is complicated by the fact that she has stage IV colon cancer and stage III ovarian cancer. Both of these diseases remain surprisingly in complete remission and it is very tragic that she has developed this third malignancy that I am not optimistic that she can be. I am consulting interventional radiology for a bone marrow biopsy and aspirate to include flow cytometry and cytogenetics today. The procedure can actually be done anytime within the next 48 hours. I just do not want to wait until Wednesday because there would be an increased risk of the cytogenetics and flow cytometry not being done properly over the weekend. I anticipate discharge fairly soon even if we consider consolidation chemotherapy. Exam - Constitutional Vitals: Period Temp Pulse Resp BP Sys/Ceballos Pulse Ox Last 24 Hr 98.6 F-100.2 F 103-111 18-20 93-119/62-71 98-100 Results - Labs CBC & BMP: 06/30/16 06:52 06/30/16 06:52
[2016-06-30] MEDS: METOPROLOL SUCCINATE XL 25 MG TABLET PO SCH (08:02)
[2016-06-30] MEDS: MAGNESIUM CHLORIDE 64 MG TABLET PO SCH ×2 (08:02→20:51)
[2016-06-30] MEDS: FAMOTIDINE 20 MG TABLET PO SCH ×2 (08:02→20:51)
[2016-06-30] MEDS: POTASSIUM CHLORIDE 20 MEQ TABLET PO SCH (08:02)
[2016-06-30] MEDS: INSULIN REGULAR 100 UNIT/ML SUBCUT SCH (08:43)
[2016-06-30] MEDS: CHOLESTYRAMINE 4 GM PACK PO SCH ×2 (08:44→20:51)
--- NOTE | 2016-06-30 10:18 | Inventional Radiology Consult ---
Assessment and Plan - Time spent with patient Time spent with patient: Less than 30 minutes (1) AML (acute myeloblastic leukemia) Problem details: undergoing treatment now with peripheral counts showing improvement Status: Acute Assessment and plan: plan for bone marrow biopsy today Current Visit: No IR Consult - Data of Consult Patient: new to practice Consult date: 06/30/16 Requesting Physician: Marvin Castaneda - Consult Narrative Reason for consult: leukemia History of present illness: Jomar is a 61 year old F with history of advanced colon and ovarian cancers which are now in remission who has developed a third cancer, acute myelogenous leukemia. Patient is currently undergoing therapy for AML, and some of the peripheral blood counts are improving. Repeat bone marrow biopsy is requested for evaluation of response to treatment. No other complaints. Patient is tired and not eating well due to nausea. The review of systems is otherwise negative. - Home Medications and Allergies Home Medications: Home Medications Medication Instructions Recorded Confirmed Type Docusate Sodium Cap [Colace Cap] 200 mg PO DAILY 12/10/14 06/02/16 History Famotidine 20 mg PO BID 12/10/14 06/02/16 History Potassium Chloride Cap/Tab [K Dur] 20 meq PO DAILY 12/10/14 06/02/16 History Magnesium Chloride [Mag Delay] 64 mg PO BID W/MEALS 12/31/14 06/02/16 History Furosemide Tab [Lasix Tab] 20 mg PO DAILY PRN 01/28/15 06/02/16 History Metoprolol Succinate Xl [Toprol Xl] 25 mg PO DAILY 03/29/16 06/02/16 History Allergies/Adverse Reactions: Allergies Allergy/AdvReac Type Severity Reaction Status Date / Time No Known Allergies Allergy Verified 01/07/15 10:52 12 point system: reviewed and no additional remarkable complaints except as stated Medical,Surgical,& Family Hx - Medical History Cardio: History of: Hypertension Rheumatology: History of;: 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) Gastrointestinal: History of: Gastrointestinal Cancer (colon cancer) Hematology: No history of: Blood Transfusion Reaction Reproductive: History of: Reproductive Cancer (hx of ovarian cancer) - Surgical History Abdominal Surgeries: Surgical HX of: Abdominal Surgery (colon surgery) - Family History Family History: Reports;: Family Diabetes (grandmother), Family Heart Disease ( grandmother), Family Hypertension (grandmother) Denies;: Family Cancer - Social History Smoking Status: Never smoker Frequency of Alcohol Use: None Type of Drug Use: None Exam - Labs CBC & BMP: 06/30/16 06:52 06/30/16 06:52 Lab Results: I have reviewed the past 24 hour labs - Constitutional Vitals: Period Temp Pulse Resp BP Sys/Ceballos Pulse Ox Last 24 Hr 98.6 F-100.2 F 103-107 18-20 93-119/62-71 95-99 General appearance: over weight - Eye Eye exam: Present: EOMI - Respiratory Respiratory exam: Present: clear to auscultation bilaterally - Cardiovascular Cardiovascular exam: Present: regular rate and rhythm - GI/Abdominal GI/Abdominal exam: Present: normal bowel sounds - Neurological Exam Neurological exam: Present: alert, oriented X3 - Psychiatric Psychiatric exam: Present: normal affect, normal mood - Skin Skin exam: Present: normal color, dry
[2016-06-30] MEDS ORDERED: DIAZEPAM 5 MG TABLET PO ONE (10:19)
[2016-06-30] MEDS: ONDANSETRON 4 MG/2 ML VIAL IV PRN (10:29)
[2016-06-30] MEDS ORDERED: SODIUM CHLORIDE 0.45% 1,000 ML IV SCH (10:30)
[2016-06-30] MEDS ORDERED: HEPARIN 5,000 UNIT/1 ML VIAL ONE (11:12)
--- NOTE | 2016-06-30 12:11 | Post Interventional Procedure ---
Pre-op diagnosis: acute myelogenous leukemia Post-op diagnosis: same Procedure: bone marrow biopsy Contrast: none Flouroscopy: 0.8 min Radiologist: Kyle Simon Anesthesia: local Specimens: other (bone marrow aspirate and biopsy sample sent) Estimated blood loss: minimal (3 mL) Complications: none Condition: stable Description/Findings: BMBx done at the right posterior superior iliac crest without difficulty. Patient tolerated procedure well. See formal dictation for additional details. Assessment and Plan - Time spent with patient Time spent with patient: Less than 30 minutes (1) AML (acute myeloblastic leukemia) Problem details: undergoing treatment now with peripheral counts showing improvement Status: Acute Assessment and plan: plan for bone marrow biopsy today Current Visit: No
--- NOTE | 2016-06-30 14:23 | Interventional Radiology Rpt ---
IR Bone Marrow Biopsy Clinical Information: 61-year-old female with acute myelogenous leukemia. Bone marrow biopsy is requested for further analysis Physician[s]: Dr. Simon Procedure: The patient was advised of the benefits, risks, and alternatives of the procedure and informed consent was obtained. A time out was performed with verification of the patient's name, MRN, site of procedure, and type of procedure to be performed. The patient was positioned in the prone position on the angiographic table. The anticipated puncture site was prepped and draped in the usual sterile fashion. A bisque finisher radiograph reveals no relevant abnormality. Local anesthesia was used for the procedure. The right posterior superior iliac crest was accessed with the needle. 12 mL of marrow aspirate was obtained and mixed with heparin. The needle was repositioned slightly and a 2 cm marrow core was obtained. All samples were submitted for pathologic analysis. The patient tolerated the procedure well and was returned to the post procedure monitoring area in stable condition. EBL: < 5 mL. Complications: None. Total fluoroscopy time: 0.8 minutes Conclusion: Technically successful bone marrow aspiration and biopsy. PROCEDURE INTERPRETED AT [facility] DEPARTMENT OF RADIOLOGY Final Report Signed by: Kyle Simon
[2016-06-30] MEDS: MICAFUNGIN 100 MG in SODIUM CHLORIDE 0.9% 100 ML IV SCH (15:38)
[2016-06-30] MEDS: PROMETHAZINE INJ 25 MG in SODIUM CHLORIDE 0.9% 50 ML IV PRN ×2 (17:21→17:25)
[2016-06-30] MEDS: SODIUM CHLOR 0.45% KCL 20 MEQ 20 MEQ/1,000 ML BAG IV SCH (17:26)
[2016-06-30] MEDS: INSULIN GLARGINE 100 UNIT/ML SUBCUT SCH (20:51)
[2016-06-30] MEDS: ACETAMINOPHEN 325 MG TABLET PO PRN (20:56)
[2016-07-01] MEDS: VANCOMYCIN INJ 1,000 MG in SODIUM CHLORIDE 0.9% 250 ML IV SCH (01:09)
[2016-07-01 05:39] LABS: Hemoglobin 7.5 GM/DL (12.0-16.0); Immature Granulocytes Absolute 0.06 #; Lymphocytes # 0.6 10*3/uL (1.4-4.0); Lymphocytes % 19.1 % (21.3-54.2); Mean Corpuscular HGB Conc 34.1 GM/DL (32-36); Mean Corpuscular Hemoglobin 31 PG (27-34); Mean Corpuscular Volume 91.7 FL (87-102); Mean Platelet Volume 9.4 FL (9.6-12.0); Monocytes # 0.4 10*3/uL (0.11-0.8); Monocytes % 12.3 % (1.7-12.7); Neutrophils % 66.6 % (38.7-73.9); Platelet Count 137 T/CUMM (130-400); Red Cell Distribution Width 14.6 % (9.3-17.3); White Blood Count 2.9 T/CUMM (4-12)
[2016-07-01 06:18] LABS: Hypochromasia Slight; Lymphocytes 16 % (20-55); Microcytosis Slight; Ovalocytes Slight; Platelet Estimate Normal; Segmented Neutrophils 72 % (50-85); Total Cells Counted 100
[2016-07-01 06:20] LABS: Albumin 1.6 G/DL (3.4-5.0); Bilirubin,Total 1.1 MG/DL (0.2-1.0); Calcium 8.4 MG/DL (8.5-10.1); Osmolality,Calculated 284.7 MOS/KG (273-304); Potassium 4.2 MMOL/L (3.5-5.1); Total Protein 5.8 G/DL (6.4-8.3)
--- NOTE | 2016-07-01 08:18 | Oncology Progress Note ---
Oncology Subjective PN Interval history: Ms. Hadley underwent bone marrow biopsy yesterday for flow cytometry and cytogenetic studies. Yesterday was her 28 day post institution of course #2 of induction chemotherapy for acute myelogenous leukemia. Lab work today:White cell count 2900 with an absolute neutrophil count of 2000, platelet count 137,000, hemoglobin 7.5. Creatinine 0.4. LDH 250. She has a prior history of stage IV colon cancer and stage III B ovarian cancer , both of which are apparently in remission. Her last treatment for these cancers was approximately 1 year ago. I am discontinuing vancomycin today. She is running low-grade fever only. We are awaiting the results of the bone marrow biopsy and aspirate. I am going to allow her blood counts to improve slightly before considering discharge. If she has not achieved a complete remission with this second course of induction chemotherapy, I doubt that I will offer much additional treatment. Exam - Constitutional Vitals: Period Temp Pulse Resp BP Sys/Ceballos Pulse Ox Last 24 Hr 97.6 F-101 F 90-110 17-18 97-118/59-75 90-100 Results - Labs CBC & BMP: 07/01/16 Unknown 07/01/16 04:00
[2016-07-01] MEDS: INSULIN REGULAR 100 UNIT/ML SUBCUT SCH (09:14)
[2016-07-01] MEDS: METOPROLOL SUCCINATE XL 25 MG TABLET PO SCH (09:19)
[2016-07-01] MEDS: POTASSIUM CHLORIDE 20 MEQ TABLET PO SCH (09:19)
[2016-07-01] MEDS: FAMOTIDINE 20 MG TABLET PO SCH ×2 (09:19→20:46)
[2016-07-01] MEDS: MAGNESIUM CHLORIDE 64 MG TABLET PO SCH ×2 (09:19→16:48)
[2016-07-01] MEDS: CHOLESTYRAMINE 4 GM PACK PO SCH ×2 (09:20→20:46)
[2016-07-01] MEDS: MICAFUNGIN 100 MG in SODIUM CHLORIDE 0.9% 100 ML IV SCH (17:37)
[2016-07-01] MEDS: SODIUM CHLOR 0.45% KCL 20 MEQ 20 MEQ/1,000 ML BAG IV SCH (19:08)
[2016-07-01] MEDS: INSULIN GLARGINE 100 UNIT/ML SUBCUT SCH (20:46)
[2016-07-02 06:20] LABS: Albumin 1.8 G/DL (3.4-5.0); Bilirubin,Total 0.5 MG/DL (0.2-1.0); Calcium 8.6 MG/DL (8.5-10.1); Osmolality,Calculated 272.7 MOS/KG (273-304); Potassium 4.5 MMOL/L (3.5-5.1); Total Protein 6.2 G/DL (6.4-8.3)
[2016-07-02 06:22] LABS: Basophils % 0.2 % (0.0-0.8); Immature Granulocytes % 1.6 %; Immature Granulocytes Absolute 0.08 #; Lymphocytes % 19.3 % (21.3-54.2); Mean Corpuscular HGB Conc 34.2 GM/DL (32-36); Mean Corpuscular Hemoglobin 31 PG (27-34); Mean Corpuscular Volume 90.9 FL (87-102); Mean Platelet Volume 9.3 FL (9.6-12.0); Monocytes # 0.9 10*3/uL (0.11-0.8); Monocytes % 17.9 % (1.7-12.7); NRBC # 0.02 10*3/uL; Neutrophils # 3.1 10*3/uL (1.4-7.4); Red Cell Distribution Width 14.9 % (9.3-17.3)
[2016-07-02 06:24] LABS: Hemoglobin 11.3 GM/DL (12.0-16.0); Platelet Count 178 T/CUMM (130-400); Red Blood Count 3.63 MC/CUMM (3.8-5.5)
[2016-07-02 06:28] LABS: Band Neutrophils 1 % (0-10); Hypochromasia Slight; Lymphocytes 21 % (20-55); Microcytosis 1+; Platelet Estimate Normal; Segmented Neutrophils 59 % (50-85); Total Cells Counted 100
--- NOTE | 2016-07-02 07:38 | Oncology Progress Note ---
Oncology Subjective PN Interval history: Patient with acute myelogenous leukemia now 30 days post course #2 of induction chemotherapy. Her AML is complicated by the fact that she has a prior history of stage IV colon cancer and stage III ovarian cancer. Lab work today includes white cell count of 5000 with an absolute neutrophil count of 3100. The patient's absolute lymphocyte count is slightly low at 1000. Her hemoglobin is 11.3 following transfusion. Her platelet count is 178, 000. She has had a bone marrow biopsy and aspirate and I am awaiting the results of it. She is nauseated today. She is weak. She still having fever spikes. Additional cultures have been drawn and are pending. The diarrhea that she had been having is improving. She is oriented and alert. She appears acutely and chronically ill. Respirations are unlabored. She is on Fortaz as a single antibiotic presently. Exam - Constitutional Vitals: Period Temp Pulse Resp BP Sys/Ceballos Pulse Ox Last 24 Hr 97.7 F-101.2 F 93-120 16-20 98-114/62-79 96-100 Results - Labs CBC & BMP: 07/02/16 04:00 07/02/16 04:00
[2016-07-02] MEDS: INSULIN REGULAR 100 UNIT/ML SUBCUT SCH (08:08)
[2016-07-02] MEDS: POTASSIUM CHLORIDE 20 MEQ TABLET PO SCH (09:01)
[2016-07-02] MEDS: METOPROLOL SUCCINATE XL 25 MG TABLET PO SCH (09:01)
[2016-07-02] MEDS: MAGNESIUM CHLORIDE 64 MG TABLET PO SCH ×2 (09:01→17:16)
[2016-07-02] MEDS: FAMOTIDINE 20 MG TABLET PO SCH ×2 (09:01→20:27)
[2016-07-02] MEDS: CHOLESTYRAMINE 4 GM PACK PO SCH ×2 (09:02→20:27)
[2016-07-02] MEDS: SODIUM CHLOR 0.45% KCL 20 MEQ 20 MEQ/1,000 ML BAG IV SCH (14:01)
--- NOTE | 2016-07-02 16:36 | ECHO Report ---
Gema Hadley Exam Date: 07/02/2016 09:43 Referring Physician: Technologist: Lindsay MOURA Age: 61 Ht (in): Wt (lb): Gender: F Exam Location: [facility] Echo Indications: fever, high risk chemo, vegetation BP: / HR: Rhythm: Sinus Technical Quality: Good IMPRESSIONS Left ventricular ejection fraction is estimated at 50-55 % with no regional wall motion abnormality. Moderately concentric left ventricular hypertrophy with Grade I diastolic dysfunction. Mild tricuspid valve regurgitation. Tricuspid regurgitation velocities suggest a RVSP of 27 mmHg + RAP There is no significant valvular regurgitation and no evidence vegetation seen on this study Small posterior pericardial effusion MEASUREMENTS (Male / Female) Normal Values 2D ECHO LV Diastolic Diameter PLAX 2.9 cm 4.2 - 5.9 / 3.9 - 5.3 cm LV Systolic Diameter PLAX 2.2 cm LV Fractional Shortening PLAX 24.3 % IVS Diastolic Thickness 1.5 cm 0.6 - 1.0 / 0.6 - 0.9 cm LVPW Diastolic Thickness 1.1 cm 0.6 - 1.0 / 0.6 - 0.9 cm RV Internal Dim ED PLAX 2.5 cm Aortic Root Diameter 2.2 cm LA Systolic Diameter LX 3.6 cm 3.0 - 4.0 / 2.7 - 3.8 cm DOPPLER TR Peak Velocity 258.0 cm/s TR Peak Gradient 26.6 mmHg FINDINGS Left Ventricle Moderately concentric left ventricular hypertrophy with Grade I diastolic dysfunction. Left ventricular ejection fraction is estimated at 50-55 % with no regional wall motion abnormality. Right Ventricle Normal right ventricular size. Right Atrium Normal right atrial size. Left Atrium Normal left atrial size. Mitral Valve Mitral valve sclerosis. Mildly thickened mitral valve with mild mitral regurgitation. Aortic Valve Aortic valve sclerosis without stenosis or regurgitation. Tricuspid Valve Morphologically normal tricuspid valve. Mild tricuspid valve regurgitation. Tricuspid regurgitation velocities suggest a RVSP of 27 mmHg + RAP. Pulmonic Valve Morphologically normal pulmonic valve. Trace pulmonary valve regurgitation. Pericardium Small pericardial effusion that appears to localized posteriorly. Aorta Normal size aortic root and proximal ascending aorta. Chyna Eubanks (Electronically Signed) Final Date: 02 July 2016 16:35
[2016-07-02] MEDS: MICAFUNGIN 100 MG in SODIUM CHLORIDE 0.9% 100 ML IV SCH (17:15)
[2016-07-02] MEDS: INSULIN GLARGINE 100 UNIT/ML SUBCUT SCH (20:27)
[2016-07-03 05:30] LABS: Albumin 1.8 G/DL (3.4-5.0); Bilirubin,Total 0.7 MG/DL (0.2-1.0); Calcium 8.4 MG/DL (8.5-10.1); Osmolality,Calculated 272.7 MOS/KG (273-304); Potassium 4.5 MMOL/L (3.5-5.1)
[2016-07-03 06:00] LABS: Basophils % 0.2 % (0.0-0.8); Hematocrit 33.3 VOL% (35.7-47.0); Hemoglobin 10.9 GM/DL (12.0-16.0); Immature Granulocytes % 1.8 %; Immature Granulocytes Absolute 0.12 #; Lymphocytes # 1.1 10*3/uL (1.4-4.0); Lymphocytes % 16.1 % (21.3-54.2); Mean Corpuscular HGB Conc 32.7 GM/DL (32-36); Mean Corpuscular Hemoglobin 29 PG (27-34); Mean Corpuscular Volume 88.6 FL (87-102); Mean Platelet Volume 9.2 FL (9.6-12.0); Monocytes # 1.8 10*3/uL (0.11-0.8); Monocytes % 26.7 % (1.7-12.7); Neutrophils # 3.7 10*3/uL (1.4-7.4); Neutrophils % 55.2 % (38.7-73.9); Platelet Count 210 T/CUMM (130-400); Red Blood Count 3.76 MC/CUMM (3.8-5.5); Red Cell Distribution Width 14.5 % (9.3-17.3); White Blood Count 6.6 T/CUMM (4-12)
[2016-07-03 06:12] LABS: Hypochromasia 1+; Lymphocytes 15 % (20-55); Microcytosis Slight; Platelet Estimate Normal; Segmented Neutrophils 56 % (50-85); Total Cells Counted 100
--- NOTE | 2016-07-03 08:01 | Oncology Progress Note ---
Oncology Subjective PN Interval history: This patient with AML has completed 2 full courses of induction chemotherapy for it. She is now 32 days post course #2. Reports from the bone marrow biopsy and aspirate done here suggests that she is in remission. Today's CBC includes a white cell count of 6600 with a hemoglobin of 10.9 and a platelet count of 210,000. Her white cell differential includes 1100 neutrophils. The complete report is not back at my office. The marrow was done here. Interestingly, the report has not been posted on this electronic medical record but it is reached my office already. She still feels exceedingly weak and washed out. I am concerned about the monocytes reported on her white cell differential. She is not ready to go home. I will discharge her next week when I return and after I have seen the completed results of the patient's bone marrow biopsy and aspirate which I am sure will return to my office before it ever gets loaded on to this electronic medical record. Exam - Constitutional Vitals: Period Temp Pulse Resp BP Sys/Ceballos Pulse Ox Last 24 Hr 98.9 F-99.0 F 110-110 17-20 106-120/54-79 96 Results - Labs CBC & BMP: 07/03/16 04:00 07/03/16 04:00
[2016-07-03] MEDS: INSULIN REGULAR 100 UNIT/ML SUBCUT SCH (08:20)
[2016-07-03] MEDS: METOPROLOL SUCCINATE XL 25 MG TABLET PO SCH (08:32)
[2016-07-03] MEDS: FAMOTIDINE 20 MG TABLET PO SCH ×2 (08:32→20:38)
[2016-07-03] MEDS: MAGNESIUM CHLORIDE 64 MG TABLET PO SCH ×2 (08:32→16:36)
[2016-07-03] MEDS: POTASSIUM CHLORIDE 20 MEQ TABLET PO SCH (08:32)
[2016-07-03] MEDS: CHOLESTYRAMINE 4 GM PACK PO SCH ×2 (10:04→20:38)
[2016-07-03] MEDS: SODIUM CHLOR 0.45% KCL 20 MEQ 20 MEQ/1,000 ML BAG IV SCH (16:40)
[2016-07-03] MEDS: MICAFUNGIN 100 MG in SODIUM CHLORIDE 0.9% 100 ML IV SCH (18:13)
[2016-07-03] MEDS: INSULIN GLARGINE 100 UNIT/ML SUBCUT SCH (20:38)
[2016-07-04 05:36] LABS: Albumin 1.7 G/DL (3.4-5.0); Bilirubin,Total 0.5 MG/DL (0.2-1.0); Calcium 8.4 MG/DL (8.5-10.1); Osmolality,Calculated 272.7 MOS/KG (273-304); Potassium 4.7 MMOL/L (3.5-5.1)
[2016-07-04 06:00] LABS: Basophils % 0.1 % (0.0-0.8); Hematocrit 32.2 VOL% (35.7-47.0); Hemoglobin 10.2 GM/DL (12.0-16.0); Immature Granulocytes % 1.5 %; Immature Granulocytes Absolute 0.11 #; Lymphocytes % 14.5 % (21.3-54.2); Mean Corpuscular HGB Conc 31.7 GM/DL (32-36); Mean Corpuscular Hemoglobin 29 PG (27-34); Mean Platelet Volume 9.3 FL (9.6-12.0); Monocytes # 2.4 10*3/uL (0.11-0.8); Monocytes % 33.2 % (1.7-12.7); NRBC # 0.02 10*3/uL; Neutrophils # 3.6 10*3/uL (1.4-7.4); Neutrophils % 50.7 % (38.7-73.9); Platelet Count 220 T/CUMM (130-400); Red Blood Count 3.54 MC/CUMM (3.8-5.5); Red Cell Distribution Width 14.6 % (9.3-17.3); White Blood Count 7.2 T/CUMM (4-12)
[2016-07-04 06:15] LABS: Band Neutrophils 1 % (0-10); Lymphocytes 28 % (20-55); Platelet Estimate Normal; Segmented Neutrophils 53 % (50-85); Total Cells Counted 100
[2016-07-04] MEDS: INSULIN REGULAR 100 UNIT/ML SUBCUT SCH (09:28)
--- NOTE | 2016-07-04 09:28 | Oncology Progress Note ---
Assessment and Plan (1) AML (acute myeloblastic leukemia) Problem details: undergoing treatment now with peripheral counts showing improvement Status: Acute Current Visit: No Oncology Subjective PN Interval history: Mrs. Hadley seems to be doing well today. She has not had any fevers since July 01. All of her recent cultures are no growth. Her CBC is recovering well. Hopefully the return of her white blood cell count is not a sign of increasing blast but is normal white cells. Her primary oncologist is considering discharging her home in the next 2-3 days. I'll go ahead and DC her IV Mycamine and Fortaz. This will give us time to see if she began spiking fevers but these antimicrobial agents removed. She is ambulating around the room. Exam - Constitutional Vitals: Period Temp Pulse Resp BP Sys/Ceballos Pulse Ox Last 24 Hr 97.6 F-99 F 102-139 18-20 99-108/64-73 97-100 General appearance: normal weight, no acute distress - Head Head Exam: Present: normocephalic, atraumatic - Eye Eye Exam: Present: EOMI Pupils: Present: PERRL - ENT ENT exam: Present: normal exam, normal oropharynx - Neck Neck exam: Absent: lymphadenopathy, thyromegaly - Respiratory Respiratory exam: Present: CTAB. Absent: wheezes - Cardiovascular Cardiovascular exam: Present: tachycardia. Absent: irregular rhythm, JVD - GI/Abdominal GI/Abdominal exam: Present: soft. Absent: ascites, distended, mass Results - Labs CBC & BMP: 07/04/16 04:00 07/04/16 04:00 Lab Results: I have reviewed the past 24 hour labs
[2016-07-04] MEDS: METOPROLOL SUCCINATE XL 25 MG TABLET PO SCH (09:46)
[2016-07-04] MEDS: FAMOTIDINE 20 MG TABLET PO SCH ×2 (09:46→20:05)
[2016-07-04] MEDS: MAGNESIUM CHLORIDE 64 MG TABLET PO SCH ×2 (09:46→20:05)
[2016-07-04] MEDS: POTASSIUM CHLORIDE 20 MEQ TABLET PO SCH (09:46)
[2016-07-04] MEDS: CHOLESTYRAMINE 4 GM PACK PO SCH (09:52)
[2016-07-04] MEDS: SODIUM CHLOR 0.45% KCL 20 MEQ 20 MEQ/1,000 ML BAG IV SCH (10:09)
[2016-07-04] MEDS: INSULIN GLARGINE 100 UNIT/ML SUBCUT SCH (20:10)
[2016-07-05 06:01] LABS: Basophils % 0.3 % (0.0-0.8); Immature Granulocytes % 0.8 %; Immature Granulocytes Absolute 0.05 #; Lymphocytes % 14.8 % (21.3-54.2); Mean Corpuscular HGB Conc 40.1 GM/DL (32-36); Mean Corpuscular Hemoglobin 39 PG (27-34); Mean Corpuscular Volume 96.2 FL (87-102); Mean Platelet Volume 9.8 FL (9.6-12.0); Monocytes # 2.1 10*3/uL (0.11-0.8); Monocytes % 31.3 % (1.7-12.7); Neutrophils # 3.5 10*3/uL (1.4-7.4); Neutrophils % 52.8 % (38.7-73.9); Platelet Count 260 T/CUMM (130-400); Red Blood Count 2.93 MC/CUMM (3.8-5.5); Red Cell Distribution Width 16.2 % (9.3-17.3); White Blood Count 6.6 T/CUMM (4-12)
[2016-07-05 06:07] LABS: Hemoglobin 11.4 GM/DL (12.0-16.0)
[2016-07-05 06:29] LABS: Albumin 1.8 G/DL (3.4-5.0); Bilirubin,Total 0.6 MG/DL (0.2-1.0); Calcium 8.6 MG/DL (8.5-10.1); Osmolality,Calculated 271.8 MOS/KG (273-304); Potassium 5.9 MMOL/L (3.5-5.1); Total Protein 6.8 G/DL (6.4-8.3)
[2016-07-05 06:37] LABS: Lymphocytes 21 % (20-55); Segmented Neutrophils 60 % (50-85); Total Cells Counted 100
[2016-07-05 06:38] LABS: Microcytosis 1+
[2016-07-05 06:39] LABS: Platelet Estimate Adequate
[2016-07-05] MEDS: POTASSIUM CHLORIDE 20 MEQ TABLET PO SCH (09:05)
[2016-07-05] MEDS: METOPROLOL SUCCINATE XL 25 MG TABLET PO SCH (09:05)
[2016-07-05] MEDS: MAGNESIUM CHLORIDE 64 MG TABLET PO SCH ×3 (09:05→18:17)
[2016-07-05] MEDS: FAMOTIDINE 20 MG TABLET PO SCH ×3 (09:05→20:18)
--- NOTE | 2016-07-05 09:31 | Oncology Progress Note ---
Assessment and Plan - Time spent with patient Time spent with patient: Greater than 30 minutes (1) AML (acute myeloblastic leukemia) Problem details: undergoing treatment now with peripheral counts showing improvement Status: Acute Current Visit: No (2) Hypomagnesemia Status: Acute Current Visit: Yes (3) Hyperkalemia Status: Acute Current Visit: Yes Oncology Subjective PN Interval history: Mrs. Hadley is doing well today. She has no new complaints. She remains afebrile. Her CBC is stable. I will make further adjustments to her medications. She is now hyperkalemic swallow discontinue her supplemental potassium and we'll also discontinue her IV fluids that have supplemental potassium in them. I will increase her magnesium replacement to 3 times a day. Hopefully she'll be discharged home in the next day or 2. She will likely receive consolidation in next few weeks unless she shows evidence of persistent disease. Exam - Constitutional Vitals: Period Temp Pulse Resp BP Sys/Ceballos Pulse Ox Last 24 Hr 96.8 F-99.5 F 103-121 18-20 100-115/60-71 94-98 General appearance: normal weight, no acute distress - Head Head Exam: Present: normocephalic, atraumatic - Eye Eye Exam: Present: EOMI Pupils: Present: PERRL - ENT ENT exam: Present: normal exam, normal oropharynx - Neck Neck exam: Absent: lymphadenopathy, thyromegaly - Respiratory Respiratory exam: Present: CTAB. Absent: wheezes - Cardiovascular Cardiovascular exam: Present: RRR. Absent: JVD, systolic murmur - GI/Abdominal GI/Abdominal exam: Present: distended, soft. Absent: ascites, mass - Neurological Exam Neurological exam: Present: alert, oriented X3 - Psychiatric Psychiatric exam: Present: normal affect, normal mood - Skin Skin exam: Present: warm, dry Results - Labs CBC & BMP: 07/05/16 05:00 07/05/16 05:00 Lab Results: I have reviewed the past 24 hour labs
[2016-07-05] MEDS: INSULIN REGULAR 100 UNIT/ML SUBCUT SCH (13:30)
[2016-07-06] MEDS ORDERED: HEPARIN LOCK FLUSH 500 UNIT/5 ML SYRINGE IV ONE (04:14)
[2016-07-06 06:32] LABS: Basophils % 0.3 % (0.0-0.8); Hemoglobin 9.6 GM/DL (12.0-16.0); Immature Granulocytes % 1.1 %; Immature Granulocytes Absolute 0.08 #; Lymphocytes # 0.8 10*3/uL (1.4-4.0); Mean Corpuscular HGB Conc 36.9 GM/DL (32-36); Mean Corpuscular Hemoglobin 34 PG (27-34); Mean Corpuscular Volume 91.5 FL (87-102); Mean Platelet Volume 9.2 FL (9.6-12.0); Monocytes # 2.1 10*3/uL (0.11-0.8); Monocytes % 29.7 % (1.7-12.7); Neutrophils # 4.1 10*3/uL (1.4-7.4); Neutrophils % 57.9 % (38.7-73.9); Platelet Count 352 T/CUMM (130-400); Red Blood Count 2.84 MC/CUMM (3.8-5.5); Red Cell Distribution Width 14.5 % (9.3-17.3); White Blood Count 7.1 T/CUMM (4-12)
[2016-07-06 07:08] LABS: Hypochromasia 1+; Lymphocytes 11 % (20-55); Microcytosis 1+; Platelet Estimate Adequate; Polychromasia Slight; Segmented Neutrophils 65 % (50-85); Total Cells Counted 100
[2016-07-06 07:11] LABS: Albumin 1.7 G/DL (3.4-5.0); Bilirubin,Total 0.7 MG/DL (0.2-1.0); Calcium 8.4 MG/DL (8.5-10.1); Osmolality,Calculated 281.5 MOS/KG (273-304); Potassium 4.9 MMOL/L (3.5-5.1); Total Protein 6.3 G/DL (6.4-8.3)
--- NOTE | 2016-07-06 09:00 | Oncology Progress Note ---
Oncology Subjective PN Interval history: This lady remains hospitalized with sequelae of chemotherapy for acute myelogenous leukemia. She is still weak and she still running low-grade fever. She is in remission from her AML and we are starting physical therapy and trying to get her up and move her around. Lab work today includes a white cell count of 7100 with an absolute neutrophil count of 4100, hemoglobin of 9.6 and a platelet count of 352,000. The only positive blood cultures were for Klebsiella quite some time back. It has been treated. She has been having diarrhea that is negative for pathogens on stool culture. She needs to receive at least one course of consolidation chemotherapy but she is not up to it yet. Exam - Constitutional Vitals: Period Temp Pulse Resp BP Sys/Ceballos Pulse Ox Last 24 Hr 96.4 F-100.3 F 103-114 18-20 95-109/64-71 95-98 Results - Labs CBC & BMP: 07/06/16 06:02 07/06/16 06:02
[2016-07-06] MEDS: MAGNESIUM CHLORIDE 64 MG TABLET PO SCH ×3 (09:38→17:48)
[2016-07-06] MEDS: FAMOTIDINE 20 MG TABLET PO SCH ×2 (09:38→21:47)
[2016-07-06] MEDS: METOPROLOL SUCCINATE XL 25 MG TABLET PO SCH (09:38)
[2016-07-07] MEDS ORDERED: HEPARIN LOCK FLUSH 500 UNIT/5 ML SYRINGE IV ONE ×2 (04:15→20:01)
[2016-07-07] MEDS ORDERED: ALTEPLASE 2 MG VIAL INTRACATH ONE (04:45)
[2016-07-07 05:46] LABS: Basophils % 0.4 % (0.0-0.8); Hematocrit 28.3 VOL% (35.7-47.0); Hemoglobin 9.6 GM/DL (12.0-16.0); Immature Granulocytes % 1.1 %; Immature Granulocytes Absolute 0.09 #; Lymphocytes # 0.9 10*3/uL (1.4-4.0); Lymphocytes % 11.3 % (21.3-54.2); Mean Corpuscular HGB Conc 33.9 GM/DL (32-36); Mean Corpuscular Hemoglobin 32 PG (27-34); Mean Corpuscular Volume 93.1 FL (87-102); Mean Platelet Volume 8.7 FL (9.6-12.0); Monocytes # 2.6 10*3/uL (0.11-0.8); Monocytes % 32.4 % (1.7-12.7); NRBC # 0.02 10*3/uL; Neutrophils # 4.4 10*3/uL (1.4-7.4); Neutrophils % 54.8 % (38.7-73.9); Platelet Count 374 T/CUMM (130-400); Red Blood Count 3.04 MC/CUMM (3.8-5.5); Red Cell Distribution Width 14.6 % (9.3-17.3)
[2016-07-07 06:05] LABS: Band Neutrophils 2 % (0-10); Lymphocytes 12 % (20-55); Segmented Neutrophils 58 % (50-85); Total Cells Counted 100
[2016-07-07 06:06] LABS: Hypochromasia Slight; Microcytosis 1+
[2016-07-07 06:07] LABS: Platelet Estimate Normal
[2016-07-07 06:26] LABS: Albumin 1.6 G/DL (3.4-5.0); Calcium 8.4 MG/DL (8.5-10.1); Osmolality,Calculated 278.5 MOS/KG (273-304); Potassium 4.1 MMOL/L (3.5-5.1); Total Protein 6.3 G/DL (6.4-8.3)
--- NOTE | 2016-07-07 07:55 | Oncology Progress Note ---
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 This is day #36 following course #2 of induction chemotherapy and she still too weak to proceed with consolidation. In attempting to look for her last bone marrow studies, it came to my attention that they were not listed on the pathology report. They were listed under miscellaneous lab. This is inappropriate. The lab should be responsible and the pathologist should be responsible for loading these reports into the electronic medical record properly. Otherwise, they get placed under a miscellaneous heading where it is difficult to locate them. She just had a fever spike although it was not documented to be 101. She is currently sweating and feels bad generally. Her oral mucosa and pharynx are normal. Her blood counts are adequate for me to send her down for a chest x-ray PA and lateral today. In addition, I am ordering blood cultures for her next fever spike of 100.5 or higher. Secondary diagnosis this patient carries include stage IV adenocarcinoma colon and stage III B ovarian cancer. She is apparently in complete remission from both of these malignancies. It is my intent to consider consolidation chemotherapy for her AML at some point , once she is more stable. Exam - Constitutional Vitals: Period Temp Pulse Resp BP Sys/Ceballos Pulse Ox Last 24 Hr 96.0 F-99.5 F 66-121 14-20 102-158/59-82 94-99 Results - Labs CBC & BMP: 07/07/16 05:36 07/07/16 05:36
--- NOTE | 2016-07-07 08:57 | XRay Report ---
Exam: Chest 2 views Date: July 07, 2016 at 8:50 AM Comparison: Chest one view June 28, 2016 Reason: Fever Findings: A right-sided Mediport is again in place. The cardiac silhouette is upper normal in size, and there is persistent mild elevation of the right hemidiaphragm. No focal consolidation, pneumothorax or pleural effusion is identified. However, there may be minimal atelectasis at the right lung base. No acute osseous process is seen. Impression: Questionable minimal atelectasis at the right lung base. PROCEDURE INTERPRETED AT [facility] DEPARTMENT OF RADIOLOGY Final Report Signed by: Dr. Laura Choudhury
[2016-07-07] MEDS: MAGNESIUM CHLORIDE 64 MG TABLET PO SCH ×3 (09:48→17:59)
[2016-07-07] MEDS: METOPROLOL SUCCINATE XL 25 MG TABLET PO SCH (09:48)
[2016-07-07] MEDS: FAMOTIDINE 20 MG TABLET PO SCH ×2 (09:48→23:04)
[2016-07-07] MEDS: SODIUM CHLOR 0.45% KCL 20 MEQ 20 MEQ/1,000 ML BAG IV SCH (23:07)
[2016-07-08 03:25] LABS: Basophils % 0.4 % (0.0-0.8); Hematocrit 25.1 VOL% (35.7-47.0); Hemoglobin 9.7 GM/DL (12.0-16.0); Immature Granulocytes % 1.7 %; Immature Granulocytes Absolute 0.14 #; Lymphocytes # 1.2 10*3/uL (1.4-4.0); Lymphocytes % 14.6 % (21.3-54.2); Mean Corpuscular HGB Conc 38.6 GM/DL (32-36); Mean Corpuscular Hemoglobin 36 PG (27-34); Mean Corpuscular Volume 91.9 FL (87-102); Mean Platelet Volume 9.2 FL (9.6-12.0); Monocytes # 2.9 10*3/uL (0.11-0.8); Monocytes % 35.3 % (1.7-12.7); Neutrophils # 3.9 10*3/uL (1.4-7.4); Platelet Count 403 T/CUMM (130-400); Red Blood Count 2.73 MC/CUMM (3.8-5.5); Red Cell Distribution Width 14.7 % (9.3-17.3); White Blood Count 8.2 T/CUMM (4-12)
[2016-07-08 03:57] LABS: Albumin 1.9 G/DL (3.4-5.0); Bilirubin,Total 1.6 MG/DL (0.2-1.0); Osmolality,Calculated 279.3 MOS/KG (273-304); Potassium 4.2 MMOL/L (3.5-5.1); Total Protein 6.3 G/DL (6.4-8.3)
[2016-07-08 04:11] LABS: Band Neutrophils 1 % (0-10); Lymphocytes 11 % (20-55); Segmented Neutrophils 57 % (50-85); Total Cells Counted 100
[2016-07-08 04:12] LABS: Hypochromasia 1+; Microcytosis 1+; Platelet Estimate Adequate
[2016-07-08 04:13] LABS: Polychromasia Slight
--- NOTE | 2016-07-08 08:34 | Oncology Progress Note ---
Oncology Subjective PN Interval history: Patient with acute myelogenous leukemia post induction chemotherapy by a little over 5 weeks. She is in complete remission but she is extremely weak and debilitated and we are trying to get her on her feet and get her discharged at least temporarily before bringing her back for consolidation chemotherapy. Lab work today includes a white cell count of 8200 with an absolute neutrophil count of 3900. Platelet count is 403,000 and the hemoglobin is 9.7. Her condition is stable and if she remained satisfactory my plan is to discharge her tomorrow and schedule her for consolidation chemotherapy. I reviewed her chest x-ray from yesterday and it is satisfactory. I find nothing acute and I do not find anything to suggest a reason for her fever. Her lung coto are free of any infiltrates or soft tissue masses. Exam - Constitutional Vitals: Period Temp Pulse Resp BP Sys/Ceballos Pulse Ox Last 24 Hr 96.9 F-99.4 F 101-119 18-20 103-145/60-83 96-100 Results - Labs CBC & BMP: 07/08/16 01:52 07/08/16 01:52
[2016-07-08] MEDS: MAGNESIUM CHLORIDE 64 MG TABLET PO SCH ×3 (09:51→20:31)
[2016-07-08] MEDS: METOPROLOL SUCCINATE XL 25 MG TABLET PO SCH (09:51)
[2016-07-08] MEDS: FAMOTIDINE 20 MG TABLET PO SCH ×2 (09:51→20:31)
[2016-07-09 05:24] LABS: Basophils % 0.4 % (0.0-0.8); Hematocrit 25.4 VOL% (35.7-47.0); Hemoglobin 9.2 GM/DL (12.0-16.0); Immature Granulocytes % 1.1 %; Immature Granulocytes Absolute 0.11 #; Lymphocytes % 10.8 % (21.3-54.2); Mean Corpuscular HGB Conc 36.2 GM/DL (32-36); Mean Corpuscular Hemoglobin 35 PG (27-34); Mean Corpuscular Volume 96.2 FL (87-102); Mean Platelet Volume 9.1 FL (9.6-12.0); Monocytes # 2.8 10*3/uL (0.11-0.8); Monocytes % 28.9 % (1.7-12.7); Neutrophils # 5.7 10*3/uL (1.4-7.4); Neutrophils % 58.8 % (38.7-73.9); Platelet Count 446 T/CUMM (130-400); Red Blood Count 2.64 MC/CUMM (3.8-5.5); Red Cell Distribution Width 15.1 % (9.3-17.3); White Blood Count 9.7 T/CUMM (4-12)
[2016-07-09 05:49] LABS: Band Neutrophils 3 % (0-10); Lymphocytes 9 % (20-55); Myelocytes 1 %; Platelet Estimate Adequate; Segmented Neutrophils 62 % (50-85); Total Cells Counted 100
[2016-07-09 05:50] LABS: Hypochromasia 1+; Microcytosis 1+
[2016-07-09 05:57] LABS: Albumin 1.9 G/DL (3.4-5.0); Bilirubin,Total 0.5 MG/DL (0.2-1.0); Calcium 8.8 MG/DL (8.5-10.1); Osmolality,Calculated 279.5 MOS/KG (273-304); Potassium 4.2 MMOL/L (3.5-5.1); Total Protein 6.7 G/DL (6.4-8.3)
--- NOTE | 2016-07-09 08:35 | Discharge Summary ---
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 She required multiple blood transfusions and platelet transfusions. She had intractable diarrhea she had stomatitis she had previously been treated with chemotherapy for adenocarcinoma of the colon with liver metastases and also for stage IIIB adenocarcinoma of the ovaries that had not been surgically resected and had been treated as palliative chemotherapy only. She appears to be in remission from all 3 malignancies presently. A bone marrow biopsy and aspirate was performed on the patient following the second course of induction chemotherapy. It confirmed complete remission. The report is listed on this electronic medical record somewhere but it was hidden by lab personnel under miscellaneous lab for a prolonged period of time. Cytogenetics and flow cytometry at the time of her initial diagnosis did not reveal any adverse prognostic abnormalities. Chemotherapy on this admission, which was started on June 02, 2016, included: Daunorubicin 120 mg IV daily for 3 days Cytosar-U 400 mg IV by continuous 24 hour infusion daily for 7 days. My plan is to discharge the patient and have her return for high-dose jabier-C consolidation chemotherapy. I plan to give 3 g/m every 12 hours on days 1, 3 and 5. In her case, the dose would actually be 6 g IV every 12 hours in view of the fact that her body surface area is 1.9 m. This dose is usually administered IV over 3 hours twice daily as mentioned. I will discharge her with an appointment to see me in a week and we will probably set this up as an outpatient. Discharge Plan - Discharge Data Disposition: Disch To Home/Self Care Condition at Discharge: Guarded Discharge Diet: advance to your usual diet Activity: resume usual activities as tolerated Hygiene: no restrictions Weight Bearing at Discharge: weight bear as tolerated Driving: other Contact your physician if you experience:: fever over 101, Difficulty voiding, Redness or swelling, Nausea/Vomiting, Shortness of breath, Bleeding, pain uncontrolled by pain medications - Discharge Medications Continue Docusate Sodium Cap [Colace Cap] 200 mg PO DAILY Famotidine 20 mg PO BID Magnesium Chloride [Mag Delay] 64 mg PO TID W/MEALS Furosemide Tab [Lasix Tab] 20 mg PO DAILY PRN PRN Reason: Edema Metoprolol Succinate Xl [Toprol Xl] 25 mg PO DAILY Discontinued Potassium Chloride Cap/Tab [K Dur] 20 meq PO DAILY - Follow Up or Referral - Forms/Instructions Additional Discharge Instructions: I am writing the patient prescriptions for Slow-Mag 64 mg with 90 tablets and 5 refills to take 1 3 times daily. Also Phenergan 25 mg with 20 tablets and 5 refills to take 1 every 6 hours as needed for nausea and Toprol-XL 50 mg with 30 tablets and 5 refills to take 1 daily for hypertension. I will schedule her to return on July 19, early that morning and have a CBC, CMP, LDH, serum magnesium and uric acid checked. My intent will be to proceed with consolidation chemotherapy starting that day. I am going to hand write those orders. I am also writing the patient a prescription for [place] 5/325 with 40 tablets and no refills to take 1 as needed every 4 hours for significant or severe pain. Exam - Constitutional Vitals: Period Temp Pulse Resp BP Sys/Ceballos Pulse Ox Last 24 Hr 96.1 F-98.3 F 96-117 18-18 110-133/67-82 96-97 Discharge Results Procedures and tests throughout hospitalization: Pending Orders 07/10/16 04:00 Comp Blood Count Auto Diff IN AM Comprehensive Metabolic Panel IN AM LDH [Lactate Dehydrogenase] IN AM 07/11/16 04:00 Comp Blood Count Auto Diff IN AM Comprehensive Metabolic Panel IN AM LDH [Lactate Dehydrogenase] IN AM 07/12/16 04:00 Comp Blood Count Auto Diff IN AM Comprehensive Metabolic Panel IN AM LDH [Lactate Dehydrogenase] IN AM 07/13/16 04:00 Comp Blood Count Auto Diff IN AM Comprehensive Metabolic Panel IN AM Labs on day of discharge: Labs from last 24 hours 07/09/16 07/09/16 04:00 04:00 WBC 9.7 RBC 2.64 L Hgb 9.2 L Hct 25.4 L MCV 96.2 MCH 35 H MCHC 36.2 H RDW 15.1 Plt Count 446 H MPV 9.1 L Neut % (Auto) 58.8 Lymph % (Auto) 10.8 L [place] % (Auto) 28.9 H Eos % (Auto) 0.0 Baso % (Auto) 0.4 Neut # (Auto) 5.7 Lymph # (Auto) 1.0 L [place] # (Auto) 2.8 H Eos # (Auto) 0.0 Baso # (Auto) 0.0 Total Counted 100 Immature Gran % 1.1 Nucleated RBC % 0.0 Immature Gran # 0.11 Segmented Neutrophils 62 Band Neutrophils 3 Lymphocytes 9 L Monocytes 25 H Myelocytes 1 Nucleated RBCs # 0.00 Platelet Estimate Adequate Hypochromasia 1+ Microcytosis 1+ Morphology Comment Sodium 139 Potassium 4.2 Chloride 103 Carbon Dioxide 26 Anion Gap 14.2 BUN 6 L Creatinine 0.50 L GFR Calculation 139 BUN/Creatinine Ratio 12.00 Glucose 191 H Calculated Osmolality 279.5 Calcium 8.8 Total Bilirubin 0.50 AST 48 H ALT 38 Alkaline Phosphatase 76 Lactate Dehydrogenase 203 Total Protein 6.7 Albumin 1.9 L Globulin 4.8 H Albumin/Globulin Ratio 0.3 L DS: Provider Date of admission: 06/02/16 07:05 Primary care physician: . No PCP Attending physician on admission: Marvin Castaneda MD Consults: 07/06/16 08:28 Consult to Physical Therapy [CONS] Routine Reason for Physical Therapy: Evaluate and Treat Discharging clinician: Marvin Castaneda MD
[2016-07-09 08:43] VITALS: BP 112/71
[2016-07-09] MEDS ORDERED: HEPARIN LOCK FLUSH 500 UNIT/5 ML SYRINGE IV PRN (09:59)
[2016-07-09] MEDS: METOPROLOL SUCCINATE XL 25 MG TABLET PO SCH (10:05)
[2016-07-09] MEDS: MAGNESIUM CHLORIDE 64 MG TABLET PO SCH (10:06)
[2016-07-09] MEDS: FAMOTIDINE 20 MG TABLET PO SCH (10:06)
--- NOTE | 2016-07-13 12:24 | Pathology Report from [facility] ---
ACCESSION # : [id number] PATIENT NAME : Gema Dunn ORDERING DR : Kyle Simon MD CLINICAL HX: AML POST-OP DX: Same SPECIMEN INFO: BMB GROSS DESCRIPTION: Received labeled "GEMA DUNN" is a bone marrow biopsy sent to [facility] for evaluation. DIAGNOSIS FOR GEMA DUNN: The following is the bone marrow report from Jozef Carmona MD., [facility], [facility] [place]:FINAL DIAGNOSIS: Hypocellular marrow with no clonal evidence for a residual/recurrent acute myeloid leukemia.COMPREHENSIVE ASSESSMENT: In summary, flow cytometric analysis continues to show no immunophenotypic evidence of lymphoma or leukemia. Morphologic evaluation continues to show a hypocellular marrow, now with trilineage hematopoiesis and a lymphoid aggregate. Previously, the marrow showed increased CD34+ blasts (30-40%). No definitive metastases are identified. Cytogenetic studies no longer show abnormalities associated with myeloid neoplasms identified on previous specimens. 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 Overall, the findings are nonspecific. There is no good evidence for a residual/ recurrent acute myeloid leukemia. The lymphoid aggregate is likely reactive in nature. Correlation with clinical data is recommended.MORPHOLOGY: Hypocellular marrow with trilineage hematopoiesis and a lymphoid aggregate.FLOW CYTOMETRY: Bone marrow with no immunophenotypic evidence of lymphoma or leukemia.CYTOGENETICS: Karyotype: Normal. FISH: Normal. SERVICE DATE: 06/30/2016 REPORT DATE: 07/10/2016 PATHOLOGIST: Scott Mercado M.D. [facility]
== END 2016-07-09 10:27 | disposition home or self-care (01) | DRG 846 ==
LOC: N.4E 07:05
PROVIDERS: ADMIT Specialist; ATTEND Specialist

== ENCOUNTER 2016-08-05 09:02 | Inpatient (IN) ==
[2016-08-05] MEDS ORDERED: SODIUM CHLORIDE 0.9% 500 ML IV STA ×2 (09:27→11:02)
[2016-08-05] MEDS ORDERED: ACETAMINOPHEN 500 MG TABLET PO STA (09:27)
[2016-08-05] MEDS ORDERED: ACETAMINOPHEN 500 MG TABLET ONE (09:44)
--- NOTE | 2016-08-05 09:53 | XRay Report ---
XR chest 1V portable Indication: SOB/fever Comparison: Chest x-ray dated July 07, 2016 Technique: Single frontal view of the chest Findings: Port catheter appears grossly unchanged. Cardiomediastinal silhouette is stable in configuration. No focal consolidation, pleural effusion, or pneumothorax. Osseous and surrounding soft tissue structures appear grossly unchanged. IMPRESSION: No acute cardiopulmonary process demonstrated. PROCEDURE INTERPRETED AT [facility] DEPARTMENT OF RADIOLOGY Final Report Signed by: Dr Javon Pizarro
[2016-08-05 10:14] LABS: Lymphocytes # 0.3 10*3/uL (1.4-4.0); Lymphocytes % 94.1 % (21.3-54.2); Mean Corpuscular HGB Conc 33.9 GM/DL (32-36); Mean Corpuscular Hemoglobin 30 PG (27-34); Mean Corpuscular Volume 88.7 FL (87-102); Mean Platelet Volume 8.4 FL (9.6-12.0); Monocytes % 5.9 % (1.7-12.7); Red Blood Count 2.03 MC/CUMM (3.8-5.5); Red Cell Distribution Width 14.3 % (9.3-17.3)
[2016-08-05 10:17] LABS: Hemoglobin 6.1 GM/DL (12.0-16.0); Platelet Count 9 T/CUMM (130-400); White Blood Count 0.3 T/CUMM (4-12)
--- NOTE | 2016-08-05 10:21 | Emergency Department Note ---
John Soto Gwan, am scribing for, and in the presence of, Edouard Best MD 09:34. Nasir Soto Phillip K, MD, personally performed the services described in this documentation, ascribed by Marcell Lopez in my presence, and it is both accurate and complete . Arrival - Arrival Chief Complaint: Fever Stated Complaint: cancer patient weak and shakey ED Nursing Triage Note: h/a and generalized weakness since she woke up this morning. had chemo on 07/23/16. has fever today. oral temp is 103.7. Mode of Arrival: Wheelchair Limitations: No Limitations Source: Patient, Family (Daughter), Old Records Reviewed, RN Notes Reviewed Time Seen by Provider: 08/05/16 09:18 - History of Present Illness HPI Narrative: Pt is a 61 y/o female, with a hx of ovarian CA/colon CA / AML leukemia, who presents to the ED with a c/o MACKEY and generalized weakness with an onset yesterday. Her sxs began to worsen this morning prompting her visit to the ED for further evaluation. At time of triage, pt's temperature was 103.7. Patient stated that she also has some nausea, chills and her cough has been non productive. Daughter confirmed that the pt's last chemotherapy treatment was on 07/23/16-07/26/2016, that pt had blood transfusion 3 weeks ago, that she is currently being treated for AML Leukemia and that pt has a hx of getting a fever s/p treatment. Patient denies any V/D, having a sore throat or currently being in any pain. Patient is followed by Dr. Castaneda. No other problems/ complaints reported in ED. Onset (ago): hour(s) Consistency: constant Severity: moderate Allergies/Adverse Reactions: Allergies Allergy/AdvReac Type Severity Reaction Status Date / Time No Known Allergies Allergy Verified 01/07/15 10:52 Home Medications: Home Medications Medication Instructions Recorded Confirmed Type Docusate Sodium Cap [Colace Cap] 200 mg PO DAILY PRN 12/10/14 07/19/16 History Famotidine 20 mg PO BID 12/10/14 07/19/16 History Magnesium Chloride [Mag Delay] 64 mg PO TID W/MEALS 12/31/14 07/19/16 History Furosemide Tab [Lasix Tab] 20 mg PO DAILY PRN 01/28/15 07/19/16 History Metoprolol Succinate Xl [Toprol Xl] 25 mg PO DAILY 03/29/16 07/19/16 History Review of System - Review of System 12 point system: reviewed and no additional remarkable complaints except as stated - Review of System Constitutional: Present: as per HPI, chills, fever, weakness Respiratory: Present: as per HPI, cough Neurological: Present: as per HPI, headache Medical,Surgical,& Family Hx - Medical History Cardio: History of: Hypertension Rheumatology: History of;: 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) Gastrointestinal: History of: Gastrointestinal Cancer (colon cancer) Hematology: History of: Hematologic Cancer (leukemia) No history of: Blood Transfusion Reaction Reproductive: History of: Reproductive Cancer (hx of ovarian cancer) - Surgical History Abdominal Surgeries: Surgical HX of: Abdominal Surgery (colon surgery) - Family History Family History: Reports;: Family Diabetes (grandmother), Family Heart Disease ( grandmother), Family Hypertension (grandmother) Denies;: Family Cancer - Social History Smoking Status: Never smoker Exam Vital Signs: Vital Signs Temperature 103.7 F H 08/05/16 09:30 Pulse Rate 135 H 08/05/16 09:30 Respiratory Rate 20 08/05/16 09:30 Blood Pressure 126/74 08/05/16 09:30 O2 Sat by Pulse Oximetry 95 08/05/16 09:06 - General General appearance: alert - Head Head exam: Present: atraumatic, normocephalic - Eye Eye exam: Present: normal appearance, PERRL, EOMI - ENT ENT exam: Present: normal oropharynx, mucous membranes moist, TM's normal bilaterally, normal external ear exam - Neck Neck exam: Present: full ROM, trachea midline. Absent: tenderness, meningismus , lymphadenopathy, thyromegaly - Chest Chest inspection: Present: symmetric chest wall rise. Absent: tenderness - Respiratory Respiratory exam: Present: normal lung sounds bilaterally. Absent: respiratory distress - Cardiovascular Cardiovascular exam: Present: tachycardia - Abdominal Exam Abdominal exam: Present: soft, normal bowel sounds. Absent: distention, tenderness, guarding - Extremities Exam Extremities exam: Present: other (+1 bilateral lower edema) - Back Exam Back exam: Present: CVA tenderness (R), CVA tenderness (L), other (bilateral CVA tenderness) - Neurological Exam Neurological exam: Present: alert, oriented X3, CN II-XII intact. Absent: motor sensory deficit - Psychiatric Psychiatric exam: Present: normal affect, normal mood - Skin Skin exam: Present: warm, dry, intact, normal color Course Course Narrative: Patient discussed with Dr. Castaenda and we will admit for transfusion of blood products and platelets and IV antibiotics. Results - Labs CBC & BMP: 08/05/16 09:50 - Diagnostic Findings Procedure: Chest x-ray: report reviewed by me (No acute cardiopulmonary process demonstrated. ) Disposition Clinical Impression: Fever, Thrombocytopenia, Leukopenia, Fever of unknown origin, Anemia, AML ( acute myeloblastic leukemia) Case discussed with: patient, patient's family Disposition: Still a Patient Condition: Critical Additional Instructions: Admit to Dr. Castaneda.
[2016-08-05] MEDS ORDERED: SODIUM CHLORIDE 0.9% 250 ML IV PRN ×3 (10:22→16:39)
[2016-08-05] MEDS ORDERED: ONDANSETRON 4 MG/2 ML VIAL IV PRN (10:25)
[2016-08-05] MEDS ORDERED: guaiFENesin 200 MG/10 ML UDCUP PO PRN (10:25)
[2016-08-05] MEDS ORDERED: ALUMINUM/MAGNES/SIMETH MAX STR 30 ML UDCUP PO PRN (10:25)
[2016-08-05] MEDS ORDERED: chlorproMAZINE INJ 25 MG in SODIUM CHLORIDE 0.9% 100 ML IV PRN (10:25)
[2016-08-05] MEDS ORDERED: PROMETHAZINE INJ 25 MG in SODIUM CHLORIDE 0.9% 50 ML IV PRN (10:25)
[2016-08-05] MEDS ORDERED: traMADol 50 MG TABLET PO PRN (10:25)
[2016-08-05] MEDS ORDERED: LOPERAMIDE 2 MG CAPSULE PO PRN ×2 (10:25)
[2016-08-05] MEDS ORDERED: MYLANTA/LIDO VISC 2:1 300 ML BOTTLE SWISH/SPIT PRN (10:25)
[2016-08-05] MEDS ORDERED: TEMAZEPAM 7.5 MG CAPSULE PO PRN (10:25)
[2016-08-05] MEDS ORDERED: LACTULOSE 20 GM/30 ML UDCUP PO PRN (10:25)
[2016-08-05] MEDS ORDERED: MAGNESIUM HYDROXIDE SUSP 30 ML UDCUP PO PRN (10:25)
[2016-08-05] MEDS ORDERED: chlorproMAZINE INJ 50 MG in SODIUM CHLORIDE 0.9% 100 ML IV PRN (10:25)
[2016-08-05] MEDS ORDERED: chlorproMAZINE 25 MG TABLET PO PRN (10:25)
[2016-08-05] MEDS ORDERED: diphenhydrAMINE CAP 25 MG CAPSULE PO PRN (10:25)
[2016-08-05] MEDS ORDERED: BENZTROPINE 2 MG/2 ML AMP IV PRN (10:25)
[2016-08-05] MEDS ORDERED: ALPRAZolam 0.25 MG TABLET PO PRN (10:25)
[2016-08-05] MEDS ORDERED: MYLANTA/LIDO VISC 2:1 300 ML BOTTLE SWISH/SWAL PRN (10:25)
[2016-08-05] MEDS ORDERED: MEROPENEM 1,000 MG VIAL IV ONE (10:26)
[2016-08-05] MEDS ORDERED: SODIUM CHLORIDE 0.9% 1,000 ML IV SCH (10:30)
[2016-08-05] MEDS: MEROPENEM 1,000 MG in SODIUM CHLORIDE 0.9% 100 ML IV SCH ×2 (10:32→20:40)
[2016-08-05 10:47] LABS: Lymphocytes 90 % (20-55); Platelet Estimate Decreased; Total Cells Counted 100
[2016-08-05 10:48] LABS: Hypochromasia 1+; Microcytosis 1+
[2016-08-05 10:54] LABS: Alanine Aminotransferase 15 U/L (13-56); Albumin 2.5 G/DL (3.4-5.0); Alkaline Phosphatase 88 U/L (45-117); Aspartate Amino Transferase 9 U/L (0-37); Bilirubin,Total < 0.39 MG/DL (0.2-1.0); Blood Urea Nitrogen 7 MG/DL (7-18); Calcium 8.4 MG/DL (8.5-10.1); Glucose 231 MG/DL (74-106); Potassium 3.5 MMOL/L (3.5-5.1); Sodium 136 MMOL/L (136-145); Total Protein 6.7 G/DL (6.4-8.3)
[2016-08-05] MEDS: ACETAMINOPHEN 325 MG TABLET PO PRN (14:30)
--- NOTE | 2016-08-05 16:04 | Oncology History&Physical ---
History of Present Illness Chief complaint: Severe pancytopenia and fever and sepsis due to AML consolidation chemother History of present illness: Ms. Hadley is a 61 year old female with acute myelogenous leukemia and a past history of stage IV colon cancer as well as a past history of stage III ovarian cancer. She was treated with 2 courses of induction chemotherapy and because of prolonged debilitation, this course of consolidation chemotherapy was delayed until now. She received consolidation chemotherapy for the first time on July 19, July 21 and July 23 and the doses consisted of 2 or 3 g of Cytosar every 12 hours on those 3 days, given outpatient. She is admitted now due to complications of that consolidation chemotherapy including shaking chills and fever, severe thrombocytopenia and severe anemia, all of which are life-threatening. In addition, she is severely neutropenic. Blood work today includes a white cell count of 300 with a hemoglobin of 6.1 and a platelet count of 9000. Her absolute neutrophil count is 0. Her comprehensive metabolic profile includes a blood glucose of 231. Her transaminases and alkaline phosphatase and LDH are all normal. She has a serum albumin of 2.5 with a globulin of 4.2.. She received induction chemotherapy with daunorubicin and Cytosar in April 2016 and she received a second course of induction chemotherapy about 6 weeks later because of persistent disease. Following marrow recovery, she was found to have achieved a complete remission confirmed on bone marrow biopsy including flow cytometry and cytogenetics and she has now had the 1 course of consolidation chemotherapy using high-dose Cytosar given on the dates mentioned above. She has had 2 courses of induction chemotherapy with the second 1 being given beginning June 02, 2016. 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 She is in remission from this. She also has a history of stage IIIB ovarian cancer and she is in remission from it as well. Her last course of palliative chemotherapy for the colon cancer was about a year ago although she continued to receive Avastin as a single agent until January or February 2016. Prior to being diagnosed with colon cancer, she was diagnosed as having stage IIIc ovarian cancer. The ovarian cancer was diagnosed in March 2013 and she was treated with Abraxane and carboplatin. Her ovarian cancer antigen improved. 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 She was treated with 11 courses of FOLFOX/Folfiri and has recently been on Avastin as a single agent. She is in complete remission from both the colon cancer and ovarian cancer. She has actually had a remarkable response to chemotherapy and had been off chemotherapy since April 2015. She has had a normal CEA level of 4.6 and a normal ovarian cancer antigen rechecked on several occasions. A CT of the abdomen and pelvis on March 30, 2016 and she had no evidence of metastatic disease to suggest recurrence of these of the colon or ovarian cancers. Past medical history: She has no known allergies. She has a past medical history is positive for anemia, hypertension and for ovarian cancer for which she is undergone surgery. She also has a history of gastroesophageal reflux disease and peptic ulcer disease. Family history is positive for diabetes in her grandmother and cancer of the pancreas and her mother. Social history is negative for alcohol or tobacco use. Review of systems Gen.: Positive for shaking chills and fever and anorexia. Eyes: Negative for inflammation or infections or further visual impairment ENT: Positive for stomatitis, mucositis or odynophagia. Pulmonary: Negative for asthma, emphysema or recurrent pneumonia and negative for hemoptysis Cardiovascular: Negative for congestive heart failure, angina, heart attack, coronary artery disease or cardiac arrhythmia GI: Negative for pancreatic disease or disorders but otherwise positive as pertains to her colon cancer. Negative for abdominal pain or bloating, hematemesis, melena or hematochezia. : Negative for kidney stones, kidney infections or hematuria. Neurologic: Negative for seizures, convulsions or paralysis. Psychiatric: Negative for psychiatric illness or depression confusion. Nodes: Negative for any cervical, supraclavicular, axillary or submandibular adenopathy. Skin: Negative for any significant skin rashes or diseases. Physical examination: General: The patient is already started chemotherapy and she is diaphoretic already but otherwise in no acute distress. Eyes: Normal lids and conjunctivae. ENT: She has mucositis. Her hearing is normal. Her trachea is midline. She has no neck masses. Lungs: Breath sounds are normal and her chest moves symmetrically with respiration. Respirations are unlabored. Cardiovascular: Her heart rhythm is regular without murmur, gallop or rub. There is no jugular venous distention, clubbing, cyanosis or edema. Abdomen: There are no abdominal masses, organomegaly, distention, tenderness or ascites. Musculoskeletal: There is no focal muscle atrophy or bone or joint deformity. There is no focal weakness. Neurologic: Cranial nerves II through XII are intact. There are no focal neurologic deficits. Nodes: There is no submandibular, cervical, supraclavicular or axillary adenopathy. Skin: There are no skin rashes. She has sweating profusely from the chemotherapy. She does have darkening of the nails due to the chemotherapy. Impression: #1: Neutropenic sepsis with an ANC of 0 #2: Severe life-threatening anemia #3: Severe life-threatening thrombocytopenia #4: Mucositis #5: Acute myelogenous leukemia in remission, admitted for consolidation chemotherapy and monitoring for toxicity #6: Stage IV colorectal adenocarcinoma with liver metastases, in complete remission #7: Stage III unresectable ovarian cancer in remission. Home Medications Medication Instructions Recorded Confirmed Type Docusate Sodium Cap [Colace Cap] 200 mg PO DAILY PRN 12/10/14 08/05/16 History Famotidine 20 mg PO BID 12/10/14 08/05/16 History Magnesium Chloride [Mag Delay] 64 mg PO TID W/MEALS 12/31/14 08/05/16 History HYDROcodone/ACETAMIN 5-325 [[place] 1 tablet PO Q4H 08/05/16 08/05/16 History 5-325] Metoprolol Succinate Xl [Toprol Xl] 50 mg PO DAILY 08/05/16 08/05/16 History Promethazine Tab [Phenergan Tab] 25 mg PO Q6H PRN 08/05/16 08/05/16 History Allergies Allergy/AdvReac Type Severity Reaction Status Date / Time No Known Allergies Allergy Verified 01/07/15 10:52 Medical,Surgical,& Family Hx - Medical History Cardio: History of: Hypertension Rheumatology: History of;: 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) Gastrointestinal: History of: Gastrointestinal Cancer (colon cancer) Hematology: History of: Hematologic Cancer (leukemia) No history of: Blood Transfusion Reaction Reproductive: History of: Reproductive Cancer (hx of ovarian cancer) Other: History of: Cancer - Surgical History Abdominal Surgeries: Surgical HX of: Abdominal Surgery (colon surgery) - Family History Family History: Reports;: Family Diabetes (grandmother), Family Heart Disease ( grandmother), Family Hypertension (grandmother) Denies;: Family Cancer - Social History Smoking Status: Never smoker Frequency of Alcohol Use: None Type of Drug Use: None Exam - Constitutional Vitals: Period Temp Pulse Resp BP Sys/Ceballos Pulse Ox Last 24 Hr 98.9 F-103.5 F 116-140 16-20 82-98/51-74 97-98 Results - Labs CBC & BMP: 08/05/16 09:50 08/05/16 09:50
[2016-08-05] MEDS ORDERED: GLUCAGON 1 MG VIAL IM PRN (16:34)
[2016-08-05] MEDS ORDERED: DEXTROSE 50% 25 GM/50 ML VIAL IV PRN (16:34)
[2016-08-05] MEDS: DEXT 5% NACL 0.45% KCL 20 MEQ 20 MEQ/1,000 ML BAG IV SCH (20:39)
[2016-08-05] MEDS: FLUCONAZOLE 100 MG TABLET PO SCH (20:39)
[2016-08-05] MEDS: INSULIN REGULAR 100 UNIT/ML SUBCUT SCH (20:43)
[2016-08-06 03:11] LABS: Apearance,Urine Slightly Hazy (Clear); Bilirubin,Urine Negative (Negative); Blood, Urine Small mg/dL (Negative); Glucose,Urine (UA) 50 mg/dL (Negative); Ketones,Urine 5 mg/dL (Negative); Mucus,Urine Occasional /LPF (Occasional); Nitrite,Urine Negative (Negative); Protein,Urine 30 MG/DL; RBC,Urine 3 /HPF (0-4); Squamous Epithelial Cell,Urine Occasional /HPF (0-10); Urine Color Yellow (Yellow); Urine Specific Gravity 1.014 (1.001-1.035); Urine Urobilinogen < 2.0 EU/DL (0.2-1.0); WBC,Urine 1 /HPF (0-6)
[2016-08-06] MEDS: MEROPENEM 1,000 MG in SODIUM CHLORIDE 0.9% 100 ML IV SCH ×3 (05:01→19:58)
[2016-08-06] MEDS: DEXT 5% NACL 0.45% KCL 20 MEQ 20 MEQ/1,000 ML BAG IV SCH ×2 (05:01→19:58)
[2016-08-06 05:40] LABS: Hematocrit 20.2 VOL% (35.7-47.0); Hemoglobin 7.6 GM/DL (12.0-16.0); Lymphocytes # 0.4 10*3/uL (1.4-4.0); Lymphocytes % 82.6 % (21.3-54.2); Mean Corpuscular HGB Conc 37.6 GM/DL (32-36); Mean Corpuscular Hemoglobin 34 PG (27-34); Mean Corpuscular Volume 89.8 FL (87-102); Mean Platelet Volume 10.9 FL (9.6-12.0); Monocytes % 8.7 % (1.7-12.7); Neutrophils % 8.7 % (38.7-73.9); Red Blood Count 2.25 MC/CUMM (3.8-5.5); Red Cell Distribution Width 14.9 % (9.3-17.3)
[2016-08-06 05:48] LABS: Platelet Count 38 T/CUMM (130-400); White Blood Count 0.5 T/CUMM (4-12)
[2016-08-06 06:10] LABS: Albumin 2.2 G/DL (3.4-5.0); Bilirubin,Total 0.4 MG/DL (0.2-1.0); Calcium 7.9 MG/DL (8.5-10.1); Osmolality,Calculated 284.3 MOS/KG (273-304); Potassium 4.2 MMOL/L (3.5-5.1)
[2016-08-06 06:20] LABS: Hypochromasia 1+; Lymphocytes 100 % (20-55); Microcytosis 1+; Total Cells Counted 100
[2016-08-06 06:21] LABS: Platelet Estimate Decreased
--- NOTE | 2016-08-06 07:21 | Oncology Progress Note ---
Oncology Subjective PN Interval history: Lab work today includes a white cell count of 500 with a hemoglobin of 7.6 and a platelet count of 38,000. I am proceeding with additional blood transfusions today. This is a patient with AML who has had consolidation chemotherapy using high- dose Cytosar. She was admitted with fever, an absolute neutrophil count of 0, severe thrombocytopenia and severe anemia. She has a past history of stage IV colon cancer and also stage III ovarian cancer. This patient was supposed to have 2 blood cultures done in the emergency room. There is no indication whether they were done or not. There is no information on her microbiology. The patient persistently anemic and I am ordering 2 units of packed red cells to be transfused. Her absolute neutrophil count remains 0 and her platelet count is 38,000 Exam - Constitutional Vitals: Period Temp Pulse Resp BP Sys/Ceballos Pulse Ox Last 24 Hr 97.7 F-103.5 F 101-140 16-168 82-138/42-74 97-100 Results - Labs CBC & BMP: 08/06/16 04:30 08/06/16 04:00
[2016-08-06] MEDS ORDERED: SODIUM CHLORIDE 0.9% 250 ML IV PRN ×2 (07:42→08:01)
[2016-08-06] MEDS: FLUCONAZOLE 100 MG TABLET PO SCH (09:28)
[2016-08-06] MEDS: INSULIN REGULAR 100 UNIT/ML SUBCUT SCH ×4 (09:28→20:01)
[2016-08-06] MEDS: ACETAMINOPHEN 325 MG TABLET PO PRN (11:08)
[2016-08-07] MEDS: MEROPENEM 1,000 MG in SODIUM CHLORIDE 0.9% 100 ML IV SCH ×3 (04:42→20:37)
[2016-08-07] MEDS: DEXT 5% NACL 0.45% KCL 20 MEQ 20 MEQ/1,000 ML BAG IV SCH ×2 (04:47→15:46)
[2016-08-07 05:15] LABS: Hematocrit 25.5 VOL% (35.7-47.0); Hemoglobin 9.2 GM/DL (12.0-16.0); Lymphocytes # 0.8 10*3/uL (1.4-4.0); Lymphocytes % 79.2 % (21.3-54.2); Mean Corpuscular HGB Conc 36.1 GM/DL (32-36); Mean Corpuscular Hemoglobin 33 PG (27-34); Mean Corpuscular Volume 91.7 FL (87-102); Mean Platelet Volume 11.5 FL (9.6-12.0); Monocytes # 0.1 10*3/uL (0.11-0.8); Monocytes % 11.9 % (1.7-12.7); Neutrophils # 0.1 10*3/uL (1.4-7.4); Neutrophils % 8.9 % (38.7-73.9); Red Blood Count 2.78 MC/CUMM (3.8-5.5); Red Cell Distribution Width 14.5 % (9.3-17.3)
[2016-08-07 05:34] LABS: Platelet Count 38 T/CUMM (130-400)
[2016-08-07 05:50] LABS: Albumin 1.9 G/DL (3.4-5.0); Bilirubin,Total 0.6 MG/DL (0.2-1.0); Calcium 7.6 MG/DL (8.5-10.1); Osmolality,Calculated 275.5 MOS/KG (273-304); Potassium 3.5 MMOL/L (3.5-5.1); Total Protein 5.5 G/DL (6.4-8.3)
[2016-08-07 06:00] LABS: Hypochromasia Slight; Lymphocytes 74 % (20-55); Segmented Neutrophils 18 % (50-85); Total Cells Counted 100
[2016-08-07 06:01] LABS: Microcytosis 1+; Platelet Estimate Decreased
--- NOTE | 2016-08-07 07:28 | Oncology Progress Note ---
Oncology Subjective PN Interval history: Patient with acute myelogenous leukemia admitted with severe pancytopenia and gram-negative sepsis. Her admission absolute neutrophil count was 0. 2 blood cultures were positive for gram-negative rods. Her admission white cell count was 200. Her white cell count is up to 1000 today. Her absolute neutrophil count is still only 100. Her hemoglobin is 9.2 after transfusion. She was also transfused because of severe thrombocytopenia and her platelet count is being maintained at 38,000. She is on intravenous Merrem. Her last fever spike was August 06, 2016 at 6 PM. Exam - Constitutional Vitals: Period Temp Pulse Resp BP Sys/Ceballos Pulse Ox Last 24 Hr 97.9 F-101.8 F 104-119 16-20 112-140/63-89 98-100 Results - Labs CBC & BMP: 08/07/16 04:10 08/07/16 04:15
[2016-08-07] MEDS: FLUCONAZOLE 100 MG TABLET PO SCH (09:40)
[2016-08-07] MEDS: INSULIN REGULAR 100 UNIT/ML SUBCUT SCH ×4 (09:52→22:40)
--- NOTE | 2016-08-07 11:16 | Ultrasound Report ---
History is leg pain Bilateral lower extremity venous Doppler performed with grayscale, spectral Doppler, and color flow analysis performed and interpreted. No evidence of echogenic, noncompressible thrombus seen in either common femoral, superficial femoral, popliteal, or saphenous veins Impression: No evidence of DVT seen in either lower extremity. PROCEDURE INTERPRETED AT [facility] DEPARTMENT OF RADIOLOGY Final Report Signed by: Dr. Shazia Suarez
[2016-08-07] MEDS: NYSTATIN 500,000 UNIT/5 ML UDCUP SWISH/SWAL SCH ×3 (12:58→20:36)
[2016-08-08] MEDS: DEXT 5% NACL 0.45% KCL 20 MEQ 20 MEQ/1,000 ML BAG IV SCH ×4 (02:25→12:40)
[2016-08-08] MEDS: MEROPENEM 1,000 MG in SODIUM CHLORIDE 0.9% 100 ML IV SCH ×3 (04:18→19:58)
[2016-08-08 05:21] LABS: Hematocrit 26.1 VOL% (35.7-47.0); Hemoglobin 9.8 GM/DL (12.0-16.0); Immature Granulocytes % 0.7 %; Immature Granulocytes Absolute 0.01 #; Lymphocytes # 0.9 10*3/uL (1.4-4.0); Lymphocytes % 60.5 % (21.3-54.2); Mean Corpuscular HGB Conc 37.5 GM/DL (32-36); Mean Corpuscular Hemoglobin 34 PG (27-34); Mean Corpuscular Volume 91.3 FL (87-102); Mean Platelet Volume 10.8 FL (9.6-12.0); Monocytes # 0.3 10*3/uL (0.11-0.8); Monocytes % 20.4 % (1.7-12.7); Neutrophils # 0.3 10*3/uL (1.4-7.4); Neutrophils % 18.4 % (38.7-73.9); Platelet Count 40 T/CUMM (130-400); Red Blood Count 2.86 MC/CUMM (3.8-5.5); Red Cell Distribution Width 14.4 % (9.3-17.3); White Blood Count 1.5 T/CUMM (4-12)
[2016-08-08 05:47] LABS: Bilirubin,Total 0.5 MG/DL (0.2-1.0); Calcium 8.5 MG/DL (8.5-10.1); Osmolality,Calculated 271.8 MOS/KG (273-304); Potassium 3.9 MMOL/L (3.5-5.1); Total Protein 5.6 G/DL (6.4-8.3)
[2016-08-08 07:15] LABS: Anisocytosis Slight; Band Neutrophils 8 % (0-10); Lymphocytes 56 % (20-55); Macrocytosis Slight; Platelet Estimate Decreased; Segmented Neutrophils 20 % (50-85); Total Cells Counted 100
[2016-08-08] MEDS: NYSTATIN 500,000 UNIT/5 ML UDCUP SWISH/SWAL SCH ×5 (08:41→20:38)
[2016-08-08] MEDS: FLUCONAZOLE 100 MG TABLET PO SCH (08:43)
[2016-08-08] MEDS: INSULIN REGULAR 100 UNIT/ML SUBCUT SCH ×3 (08:44→16:30)
--- NOTE | 2016-08-08 09:32 | Oncology Progress Note ---
Oncology Subjective PN Interval history: Patient with AML whose last chemotherapy consisted of high-dose jabier-C. This was approximately 2 weeks ago. She was admitted with shortness of breath fever and lethargy. She has blood cultures positive for Klebsiella and is receiving antibiotics. She is still having some fever but does feel better overall. We have discussed repeating blood cultures perhaps in another day or 2. Her lungs are clear bilaterally no wheezes or crackles Her abdomen is obese but nontender. She appears nontoxic. Continue present Rx Exam - Constitutional Vitals: Period Temp Pulse Resp BP Sys/Ceballos Pulse Ox Last 24 Hr 96.6 F-101.0 F 100-112 18-20 117-146/69-83 95-99 Results - Labs CBC & BMP: 08/08/16 04:00 08/08/16 04:00
[2016-08-09] MEDS: DEXT 5% NACL 0.45% KCL 20 MEQ 20 MEQ/1,000 ML BAG IV SCH ×4 (00:42→17:06)
[2016-08-09] MEDS: INSULIN REGULAR 100 UNIT/ML SUBCUT SCH ×5 (00:43→21:20)
[2016-08-09] MEDS: MEROPENEM 1,000 MG in SODIUM CHLORIDE 0.9% 100 ML IV SCH ×3 (04:02→20:00)
[2016-08-09 05:17] LABS: Hematocrit 26.4 VOL% (35.7-47.0); Hemoglobin 9.6 GM/DL (12.0-16.0); Immature Granulocytes % 0.4 %; Immature Granulocytes Absolute 0.01 #; Lymphocytes # 1.1 10*3/uL (1.4-4.0); Lymphocytes % 46.1 % (21.3-54.2); Mean Corpuscular HGB Conc 36.4 GM/DL (32-36); Mean Corpuscular Hemoglobin 33 PG (27-34); Mean Corpuscular Volume 90.4 FL (87-102); Mean Platelet Volume 11.2 FL (9.6-12.0); Monocytes # 0.6 10*3/uL (0.11-0.8); Monocytes % 26.7 % (1.7-12.7); Neutrophils # 0.6 10*3/uL (1.4-7.4); Neutrophils % 26.8 % (38.7-73.9); Red Blood Count 2.92 MC/CUMM (3.8-5.5); Red Cell Distribution Width 14.4 % (9.3-17.3); White Blood Count 2.3 T/CUMM (4-12)
[2016-08-09 05:27] LABS: Platelet Count 42 T/CUMM (130-400)
[2016-08-09 06:13] LABS: Band Neutrophils 2 % (0-10); Bilirubin,Total 1.9 MG/DL (0.2-1.0); Hypochromasia 1+; Lymphocytes 43 % (20-55); Osmolality,Calculated 274.5 MOS/KG (273-304); Platelet Estimate Decreased; Segmented Neutrophils 28 % (50-85); Total Cells Counted 100; Total Protein 5.7 G/DL (6.4-8.3)
[2016-08-09] MEDS: NYSTATIN 500,000 UNIT/5 ML UDCUP SWISH/SWAL SCH ×4 (09:26→21:22)
[2016-08-09] MEDS: FLUCONAZOLE 100 MG TABLET PO SCH (09:26)
--- NOTE | 2016-08-09 11:01 | Oncology Progress Note ---
Oncology Subjective PN Interval history: White blood cell count somewhat increased today. No fever overnight. She is reporting mild pedal edema and IV fluids are further decreased. She has adequate liquid intake but has stomatitis and is still lacking in her solid food intake. She requires no transfusions today. Continuing antibiotics. Blood cultures demonstrate Klebsiella with near palomo sensitivity, on meropenem Exam - Constitutional Vitals: Period Temp Pulse Resp BP Sys/Ceballos Pulse Ox Last 24 Hr 97.3 F-98.9 F 90-110 18-24 118-135/61-79 96-99 Results - Labs CBC & BMP: 08/09/16 04:10 08/09/16 04:10
[2016-08-09] MEDS ORDERED: HEPARIN LOCK FLUSH 500 UNIT/5 ML SYRINGE IV ONE (13:38)
[2016-08-10] MEDS: DEXT 5% NACL 0.45% KCL 20 MEQ 20 MEQ/1,000 ML BAG IV SCH ×2 (01:48→14:33)
[2016-08-10] MEDS: MEROPENEM 1,000 MG in SODIUM CHLORIDE 0.9% 100 ML IV SCH ×3 (04:26→20:04)
[2016-08-10 06:07] LABS: Hemoglobin 10.2 GM/DL (12.0-16.0); Immature Granulocytes % 1.9 %; Immature Granulocytes Absolute 0.05 #; Lymphocytes # 1.2 10*3/uL (1.4-4.0); Lymphocytes % 45.5 % (21.3-54.2); Mean Corpuscular HGB Conc 36.4 GM/DL (32-36); Mean Corpuscular Hemoglobin 33 PG (27-34); Mean Corpuscular Volume 89.2 FL (87-102); Mean Platelet Volume 10.5 FL (9.6-12.0); Monocytes # 0.6 10*3/uL (0.11-0.8); Monocytes % 24.2 % (1.7-12.7); Neutrophils # 0.8 10*3/uL (1.4-7.4); Neutrophils % 28.4 % (38.7-73.9); Platelet Count 63 T/CUMM (130-400); Red Blood Count 3.14 MC/CUMM (3.8-5.5); Red Cell Distribution Width 14.3 % (9.3-17.3); White Blood Count 2.6 T/CUMM (4-12)
[2016-08-10 06:48] LABS: Lymphocytes 51 % (20-55); Segmented Neutrophils 30 % (50-85); Total Cells Counted 100
[2016-08-10 06:49] LABS: Hypochromasia 1+; Microcytosis 1+
[2016-08-10 06:50] LABS: Albumin 2.1 G/DL (3.4-5.0); Bilirubin,Total 0.6 MG/DL (0.2-1.0); Calcium 8.8 MG/DL (8.5-10.1); Osmolality,Calculated 278.3 MOS/KG (273-304); Platelet Estimate Decreased; Potassium 3.8 MMOL/L (3.5-5.1); Total Protein 5.9 G/DL (6.4-8.3)
--- NOTE | 2016-08-10 07:35 | Oncology Progress Note ---
Oncology Subjective PN Interval history: Patient with AML post course #1 of consolidation chemotherapy. Admitted with Klebsiella pneumoniae sepsis and severe life-threatening thrombocytopenia, leukopenia and anemia. Her white cell count today is up to 2600 with an absolute neutrophil count of 800. She has a hemoglobin of 10.2 and her platelet count is 63,000 and rising. She is afebrile. She is afebrile and on IV antibiotics which we will continue until her absolute neutrophil count rises further. She is feeling better today. Her monilial stomatitis has resolved. I will continue to monitor CBCs daily. I will also continue current IV antibiotics until her blood counts rise further. She is oriented and alert. She has no focal neurologic deficits. Her oral mucosa is normal. Exam - Constitutional Vitals: Period Temp Pulse Resp BP Sys/Ceballos Pulse Ox Last 24 Hr 96.7 F-98.3 F 96-106 18-20 97-165/63-75 96-100 Results - Labs CBC & BMP: 08/10/16 04:31 08/10/16 04:31
[2016-08-10] MEDS: INSULIN REGULAR 100 UNIT/ML SUBCUT SCH ×4 (09:08→20:06)
[2016-08-10] MEDS: NYSTATIN 500,000 UNIT/5 ML UDCUP SWISH/SWAL SCH ×4 (10:08→20:06)
[2016-08-10] MEDS: FLUCONAZOLE 100 MG TABLET PO SCH (10:09)
[2016-08-10] MEDS: POTASSIUM CHLORIDE 20 MEQ TABLET PO SCH (12:41)
[2016-08-10] MEDS: DESITIN 4OZ/NYSTATIN 15 GRAM MIXTURE PASTE TOP SCH ×2 (14:33→20:08)
[2016-08-10] MEDS: MAGNESIUM CHLORIDE 64 MG TABLET PO SCH ×2 (15:56→20:05)
[2016-08-11] MEDS: MEROPENEM 1,000 MG in SODIUM CHLORIDE 0.9% 100 ML IV SCH ×3 (04:17→20:04)
[2016-08-11 05:49] LABS: Hematocrit 27.7 VOL% (35.7-47.0); Hemoglobin 9.6 GM/DL (12.0-16.0); Immature Granulocytes Absolute 0.08 #; Lymphocytes # 1.7 10*3/uL (1.4-4.0); Lymphocytes % 43.5 % (21.3-54.2); Mean Corpuscular HGB Conc 34.7 GM/DL (32-36); Mean Corpuscular Hemoglobin 32 PG (27-34); Mean Corpuscular Volume 92.6 FL (87-102); Monocytes % 25.1 % (1.7-12.7); Neutrophils # 1.2 10*3/uL (1.4-7.4); Neutrophils % 29.4 % (38.7-73.9); Platelet Count 93 T/CUMM (130-400); Red Blood Count 2.99 MC/CUMM (3.8-5.5); Red Cell Distribution Width 14.4 % (9.3-17.3)
[2016-08-11 06:25] LABS: Bilirubin,Total 0.8 MG/DL (0.2-1.0); Calcium 8.4 MG/DL (8.5-10.1); Osmolality,Calculated 281.1 MOS/KG (273-304); Total Protein 5.7 G/DL (6.4-8.3)
[2016-08-11 06:42] LABS: Band Neutrophils 1 % (0-10); Lymphocytes 42 % (20-55); Segmented Neutrophils 38 % (50-85); Total Cells Counted 100
[2016-08-11 06:43] LABS: Atypical Lymphocytes Few; Hypochromasia 1+; Microcytosis Slight; Ovalocytes Slight; Platelet Estimate Decreased
--- NOTE | 2016-08-11 07:03 | Oncology Progress Note ---
Oncology Subjective PN Interval history: Blood work today includes a white cell count of 4000 with an absolute neutrophil count of 1200. The hemoglobin is 9.2. The platelet count is 93,000 and rising. She is having left flank pain and nausea. I am checking a urinalysis. She is still on Merrem for Klebsiella sepsis. Her blood work is improving. She is feeling better. Her stomatitis is resolving. This patient has a past history of stage IV metastatic colon cancer with liver metastases and also a history of stage III ovarian cancer treated with chemotherapy only. Exam - Constitutional Vitals: Period Temp Pulse Resp BP Sys/Ceballos Pulse Ox Last 24 Hr 96.1 F-99 F 92-119 18-20 105-133/55-75 98-100 Results - Labs CBC & BMP: 08/12/16 05:14 08/12/16 05:14
[2016-08-11] MEDS: INSULIN REGULAR 100 UNIT/ML SUBCUT SCH ×4 (08:10→21:17)
[2016-08-11] MEDS: NYSTATIN 500,000 UNIT/5 ML UDCUP SWISH/SWAL SCH ×4 (12:21→20:05)
[2016-08-11] MEDS: MAGNESIUM CHLORIDE 64 MG TABLET PO SCH ×3 (12:32→20:05)
[2016-08-11] MEDS: FLUCONAZOLE 100 MG TABLET PO SCH (12:32)
[2016-08-11] MEDS: POTASSIUM CHLORIDE 20 MEQ TABLET PO SCH (12:33)
[2016-08-11] MEDS: WITCH HAZEL PADS 100/JAR TOP PRN ×2 (12:37→20:06)
[2016-08-11 13:10] LABS: Apearance,Urine CLEAR (Clear); Bilirubin,Urine Negative (Negative); Blood, Urine Negative (Negative); Glucose,Urine (UA) Negative (Negative); Ketones,Urine Negative (Negative); Mucus,Urine Occasional /LPF (Occasional); Nitrite,Urine Negative (Negative); Protein,Urine Negative; Squamous Epithelial Cell,Urine Occasional /HPF (0-10); Urine Color Straw (Yellow); Urine Specific Gravity 1.006 (1.001-1.035); Urine Urobilinogen < 2.0 EU/DL (0.2-1.0); WBC,Urine <1 /HPF (0-6)
[2016-08-11] MEDS: DESITIN 4OZ/NYSTATIN 15 GRAM MIXTURE PASTE TOP SCH ×2 (13:43→20:06)
[2016-08-11] MEDS: DEXT 5% NACL 0.45% KCL 20 MEQ 20 MEQ/1,000 ML BAG IV SCH ×2 (13:45→18:57)
[2016-08-12] MEDS: MEROPENEM 1,000 MG in SODIUM CHLORIDE 0.9% 100 ML IV SCH ×3 (04:10→20:33)
[2016-08-12 05:38] LABS: Basophils % 0.2 % (0.0-0.8); Hematocrit 28.8 VOL% (35.7-47.0); Hemoglobin 9.8 GM/DL (12.0-16.0); Immature Granulocytes Absolute 0.08 #; Lymphocytes # 1.7 10*3/uL (1.4-4.0); Lymphocytes % 41.1 % (21.3-54.2); Mean Corpuscular Hemoglobin 32 PG (27-34); Mean Corpuscular Volume 92.9 FL (87-102); Mean Platelet Volume 9.8 FL (9.6-12.0); Monocytes % 24.2 % (1.7-12.7); Neutrophils # 1.3 10*3/uL (1.4-7.4); Neutrophils % 32.5 % (38.7-73.9); Platelet Count 138 T/CUMM (130-400); Red Cell Distribution Width 14.2 % (9.3-17.3); White Blood Count 4.1 T/CUMM (4-12)
[2016-08-12 06:16] LABS: Albumin 2.1 G/DL (3.4-5.0); Bilirubin,Total 0.4 MG/DL (0.2-1.0); Calcium 8.7 MG/DL (8.5-10.1); Osmolality,Calculated 276.4 MOS/KG (273-304); Potassium 4.4 MMOL/L (3.5-5.1); Total Protein 5.9 G/DL (6.4-8.3)
[2016-08-12 06:17] LABS: Hypochromasia Slight; Lymphocytes 46 % (20-55); Segmented Neutrophils 34 % (50-85); Total Cells Counted 100
[2016-08-12 06:18] LABS: Microcytosis 1+; Platelet Estimate Adequate
--- NOTE | 2016-08-12 07:59 | Oncology Progress Note ---
Oncology Subjective PN Interval history: Patient with AML, recovering from her first course of consolidation chemotherapy. She was admitted with severe life-threatening neutropenia and thrombocytopenia and with Klebsiella septicemia. She is on IV antibiotics and she remains afebrile. Lab work today includes a white cell count of 4100 with an absolute neutrophil count of 1300. Her hemoglobin is 9.8 and her platelet count is now normal at 138,000. Her last tumor markers were checked on June 19, 2016 and included a CA-19-9 of 3.9, a CEA level of 3.9 and a CA 125 of 12.0, all of which are normal. I note that she had a folic acid that was low on March 31 so I am going to recheck that level with next blood work drawn. She is feeling a little bit better. Her appetite is poor. Her mouth irritation has improved. See my orders. Exam - Constitutional Vitals: Period Temp Pulse Resp BP Sys/Ceballos Pulse Ox Last 24 Hr 96.9 F-98 F 88-109 16-20 99-120/56-65 96-100 Results - Labs CBC & BMP: 08/12/16 05:14 08/12/16 05:14
[2016-08-12] MEDS: INSULIN REGULAR 100 UNIT/ML SUBCUT SCH ×4 (08:23→20:33)
[2016-08-12] MEDS: FLUCONAZOLE 100 MG TABLET PO SCH (09:27)
[2016-08-12] MEDS: MAGNESIUM CHLORIDE 64 MG TABLET PO SCH ×3 (09:28→20:32)
[2016-08-12] MEDS: POTASSIUM CHLORIDE 20 MEQ TABLET PO SCH (09:28)
[2016-08-12] MEDS: NYSTATIN 500,000 UNIT/5 ML UDCUP SWISH/SWAL SCH ×4 (09:30→20:32)
[2016-08-12] MEDS: DESITIN 4OZ/NYSTATIN 15 GRAM MIXTURE PASTE TOP SCH ×2 (10:30→20:42)
[2016-08-12] MEDS ORDERED: HEPARIN LOCK FLUSH 500 UNIT/5 ML SYRINGE IV ONE (18:23)
[2016-08-12] MEDS: DEXT 5% NACL 0.45% KCL 20 MEQ 20 MEQ/1,000 ML BAG IV SCH (20:41)
[2016-08-13] MEDS: MEROPENEM 1,000 MG in SODIUM CHLORIDE 0.9% 100 ML IV SCH (04:12)
[2016-08-13 04:43] LABS: Basophils % 0.2 % (0.0-0.8); Hematocrit 29.6 VOL% (35.7-47.0); Hemoglobin 10.2 GM/DL (12.0-16.0); Immature Granulocytes % 1.6 %; Immature Granulocytes Absolute 0.07 #; Lymphocytes # 1.8 10*3/uL (1.4-4.0); Lymphocytes % 40.4 % (21.3-54.2); Mean Corpuscular HGB Conc 34.5 GM/DL (32-36); Mean Corpuscular Hemoglobin 32 PG (27-34); Mean Corpuscular Volume 92.8 FL (87-102); Mean Platelet Volume 10.3 FL (9.6-12.0); Neutrophils # 1.6 10*3/uL (1.4-7.4); Neutrophils % 35.8 % (38.7-73.9); Platelet Count 161 T/CUMM (130-400); Red Blood Count 3.19 MC/CUMM (3.8-5.5); Red Cell Distribution Width 14.6 % (9.3-17.3); White Blood Count 4.5 T/CUMM (4-12)
[2016-08-13 05:18] LABS: Atypical Lymphocytes Few; Hypochromasia 1+; Lymphocytes 40 % (20-55); Microcytosis 1+; Ovalocytes Slight; Platelet Estimate Normal; Segmented Neutrophils 46 % (50-85); Total Cells Counted 100
--- NOTE | 2016-08-13 07:50 | Discharge Summary ---
Hospital Course - Hospital Course Hospital Course: Diagnoses: Neutropenic Klebsiella sepsis Life-threatening thrombocytopenia requiring platelet transfusion Severe anemia requiring red blood cell transfusion Stage IV metastatic adenocarcinoma of the colon with liver metastases Stage III ovarian cancer in complete remission in complete remission Mucositis with monilial stomatitis This patient was admitted with febrile neutropenia. Blood cultures were reported as growing Klebsiella and the patient was placed on IV antibiotics and her fever resolved. Her admission white cell count was 300 with 0% neutrophils. Her hemoglobin was 6.1 and her platelet count was 9000 on admission. She was transfused with packed red cells, and also transfused with platelets. She had been treated with consolidation chemotherapy for AML on July 19, July 20 1 July 23 outpatient receiving high-dose Cytosar on those 3 days. It was given every 12 hours on those 3 days and a dose of 2 or 3 g every 12 hours. We have kept the patient until today when I am discharging her. I will discharge her on Bactrim DS 1 p.o. twice daily for the next 7 days and I will give her one refill on this prescription. She has no known allergies. I will will arrange for her to see me in 2 weeks and I will discuss one more course of consolidation chemotherapy with her at that time. A CEA level was checked on August 12, 2016 and it was normal at 3.7. I also ordered an ovarian cancer antigen to be done that day but it has not been reported. As far as I can tell this patient has no evidence of recurrence of either her colon cancer or her ovarian cancer and her acute leukemia appears to remain in complete remission. Discharge Plan - Discharge Data Disposition: Disch To Home/Self Care Condition at Discharge: Guarded Discharge Diet: advance to your usual diet Activity: resume usual activities as tolerated Hygiene: no restrictions Weight Bearing at Discharge: weight bear as tolerated Driving: other Contact your physician if you experience:: fever over 101, Difficulty voiding, Redness or swelling, Nausea/Vomiting, Shortness of breath, Bleeding, pain uncontrolled by pain medications - Discharge Medications Continue Docusate Sodium Cap [Colace Cap] 200 mg PO DAILY PRN PRN Reason: Constipation Famotidine 20 mg PO BID Magnesium Chloride [Mag Delay] 64 mg PO TID W/MEALS Promethazine Tab [Phenergan Tab] 25 mg PO Q6H PRN PRN Reason: Nausea/Vomiting Potassium Chloride Cap/Tab [K Dur] 20 meq PO DAILY HYDROcodone/ACETAMIN 5-325 [[place] 5-325] 1 tablet PO Q4H Metoprolol Succinate Xl [Toprol Xl] 50 mg PO DAILY - Follow Up or Referral - Forms/Instructions Additional Discharge Instructions: Discharge today. Be sure she gets a prescription for Bactrim DS 1 p.o. twice daily for 7 days. Appointment to see me in 2 weeks on Wednesday or Wednesday with CBC, CMP and LDH. Exam - Constitutional Vitals: Period Temp Pulse Resp BP Sys/Ceballos Pulse Ox Last 24 Hr 96.3 F-97.4 F 89-121 18-20 101-120/61-83 96-99 Discharge Results Procedures and tests throughout hospitalization: Pending Orders 08/12/16 09:43 CA 125 [Cancer Antigen 125] Routine 08/13/16 04:30 Folate IN AM 08/13/16 06:04 Comprehensive Metabolic Panel IN AM 08/14/16 04:00 Comp Blood Count Auto Diff IN AM Comprehensive Metabolic Panel IN AM 08/15/16 04:00 Comp Blood Count Auto Diff IN AM Comprehensive Metabolic Panel IN AM 08/16/16 04:00 Comp Blood Count Auto Diff IN AM Comprehensive Metabolic Panel IN AM 08/17/16 04:00 Comp Blood Count Auto Diff IN AM Comprehensive Metabolic Panel IN AM 08/18/16 04:00 Comp Blood Count Auto Diff IN AM Comprehensive Metabolic Panel IN AM 08/19/16 04:00 Comp Blood Count Auto Diff IN AM Comprehensive Metabolic Panel IN AM Labs on day of discharge: Labs from last 24 hours 08/13/16 08/13/16 08/12/16 07:11 04:30 19:22 WBC 4.5 RBC 3.19 L Hgb 10.2 L Hct 29.6 L MCV 92.8 MCH 32 MCHC 34.5 RDW 14.6 Plt Count 161 MPV 10.3 Neut % (Auto) 35.8 L Lymph % (Auto) 40.4 [place] % (Auto) 22.0 H Eos % (Auto) 0.0 Baso % (Auto) 0.2 Neut # (Auto) 1.6 Lymph # (Auto) 1.8 [place] # (Auto) 1.0 H Eos # (Auto) 0.0 Baso # (Auto) 0.0 Total Counted 100 Immature Gran % 1.6 Nucleated RBC % 0.0 Immature Gran # 0.07 Segmented Neutrophils 46 L Lymphocytes 40 Monocytes 14 Nucleated RBCs # 0.00 Atypical Lymphocytes Few Platelet Estimate Normal Hypochromasia 1+ Microcytosis 1+ Ovalocytes Slight POC Glucose 133 H 161 H Carcinoembryonic Ag 08/12/16 08/12/16 08/12/16 15:39 11:16 09:43 WBC RBC Hgb Hct MCV MCH MCHC RDW Plt Count MPV Neut % (Auto) Lymph % (Auto) [place] % (Auto) Eos % (Auto) Baso % (Auto) Neut # (Auto) Lymph # (Auto) [place] # (Auto) Eos # (Auto) Baso # (Auto) Total Counted Immature Gran % Nucleated RBC % Immature Gran # Segmented Neutrophils Lymphocytes Monocytes Nucleated RBCs # Atypical Lymphocytes Platelet Estimate Hypochromasia Microcytosis Ovalocytes POC Glucose 118 H 128 H Carcinoembryonic Ag 3.7 08/12/16 08:20 WBC RBC Hgb Hct MCV MCH MCHC RDW Plt Count MPV Neut % (Auto) Lymph % (Auto) [place] % (Auto) Eos % (Auto) Baso % (Auto) Neut # (Auto) Lymph # (Auto) [place] # (Auto) Eos # (Auto) Baso # (Auto) Total Counted Immature Gran % Nucleated RBC % Immature Gran # Segmented Neutrophils Lymphocytes Monocytes Nucleated RBCs # Atypical Lymphocytes Platelet Estimate Hypochromasia Microcytosis Ovalocytes POC Glucose 119 H Carcinoembryonic Ag DS: Provider Date of admission: 08/05/16 10:23 Primary care physician: . No PCP Attending physician on admission: Marvin Castaneda MD Consults: 08/05/16 13:04 Consult to Pharmacy [CONS] Routine Reason for Pharmacy Consult: Adjust Meds Renal Funct 08/05/16 15:03 Consult to Dietitian [CONS] Routine Reason for Dietitian: Diet Recommendations Discharging clinician: Marvin Castaneda MD
[2016-08-13] MEDS: INSULIN REGULAR 100 UNIT/ML SUBCUT SCH (07:57)
[2016-08-13 08:07] VITALS: BP 100/55
[2016-08-13 09:14] LABS: Albumin 2.7 G/DL (3.4-5.0); Bilirubin,Total 1.2 MG/DL (0.2-1.0); Calcium 9.5 MG/DL (8.5-10.1); Total Protein 7.1 G/DL (6.4-8.3)
[2016-08-13 09:15] LABS: Osmolality,Calculated 277.4 MOS/KG (273-304); Potassium 4.6 MMOL/L (3.5-5.1)
[2016-08-13] MEDS: FLUCONAZOLE 100 MG TABLET PO SCH (09:21)
[2016-08-13] MEDS: MAGNESIUM CHLORIDE 64 MG TABLET PO SCH (09:22)
[2016-08-13] MEDS: DESITIN 4OZ/NYSTATIN 15 GRAM MIXTURE PASTE TOP SCH (09:23)
[2016-08-13] MEDS: NYSTATIN 500,000 UNIT/5 ML UDCUP SWISH/SWAL SCH (09:23)
[2016-08-13] MEDS: POTASSIUM CHLORIDE 20 MEQ TABLET PO SCH (09:26)
[2016-08-13] MEDS ORDERED: HEPARIN LOCK FLUSH 500 UNIT/5 ML SYRINGE IV ONE (10:16)
== END 2016-08-13 10:32 | disposition home or self-care (01) | DRG 871 ==
LOC: N.ED 09:02 → N.EDINP 10:23 → N.4E 11:39
PROVIDERS: ADMIT Specialist; ATTEND Specialist

== ENCOUNTER 2016-08-31 07:03 | Inpatient (IN) ==
--- NOTE | 2016-08-31 07:21 | Oncology History&Physical ---
History of Present Illness Chief complaint: Admitted for course #2 of consolidation chemotherapy for AML History of present illness: Ms. Hadley is a 61 year old female with acute myelogenous leukemia and a past history of stage IV colon cancer as well as a past history of stage III ovarian cancer. She was treated with 2 courses of induction chemotherapy and because of prolonged debilitation, this course of consolidation chemotherapy was delayed until now. She received consolidation chemotherapy for the first time on July 19, July 21 and July 23 and the doses consisted of 2 or 3 g of Cytosar every 12 hours on those 3 days, given outpatient. She is admitted now due to complications of that consolidation chemotherapy including shaking chills and fever, severe thrombocytopenia and severe anemia, all of which are life-threatening. In addition, she is severely neutropenic. She received induction chemotherapy with daunorubicin and Cytosar in April 2016 and she received a second course of induction chemotherapy about 6 weeks later because of persistent disease. Following marrow recovery, she was found to have achieved a complete remission confirmed on bone marrow biopsy including flow cytometry and cytogenetics and she has now had the 1 course of consolidation chemotherapy using high-dose Cytosar given on the dates mentioned above. She has had 2 courses of induction chemotherapy with the second 1 being given beginning June 02, 2016. 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 She is in remission from this. She also has a history of stage IIIB ovarian cancer and she is in remission from it as well. Her last course of palliative chemotherapy for the colon cancer was about a year ago although she continued to receive Avastin as a single agent until January or February 2016. Prior to being diagnosed with colon cancer, she was diagnosed as having stage IIIc ovarian cancer. The ovarian cancer was diagnosed in March 2013 and she was treated with Abraxane and carboplatin. Her ovarian cancer antigen improved. 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 She was treated with 11 courses of FOLFOX/Folfiri and has recently been on Avastin as a single agent. She is in complete remission from both the colon cancer and ovarian cancer. She has actually had a remarkable response to chemotherapy and had been off chemotherapy since April 2015. She has had a normal CEA level of 4.6 and a normal ovarian cancer antigen rechecked on several occasions. A CT of the abdomen and pelvis on March 30, 2016 and she had no evidence of metastatic disease to suggest recurrence of these of the colon or ovarian cancers. Past medical history: She has no known allergies. She has a past medical history is positive for anemia, hypertension and for ovarian cancer for which she is undergone surgery. She also has a history of gastroesophageal reflux disease and peptic ulcer disease. In March 2016, the patient had an event that I suspect was a small cerebral infarct resulting in difficulty ambulating. Family history is positive for diabetes in her grandmother and cancer of the pancreas and her mother. Social history is negative for alcohol or tobacco use. Review of systems Gen.: Positive for shaking chills and fever and anorexia. Eyes: Negative for inflammation or infections or further visual impairment ENT: Positive for stomatitis, mucositis or odynophagia. Pulmonary: Negative for asthma, emphysema or recurrent pneumonia and negative for hemoptysis Cardiovascular: Negative for congestive heart failure, angina, heart attack, coronary artery disease or cardiac arrhythmia GI: Negative for pancreatic disease or disorders but otherwise positive as pertains to her colon cancer. Negative for abdominal pain or bloating, hematemesis, melena or hematochezia. : Negative for kidney stones, kidney infections or hematuria. Neurologic: She has had a minor TIA and walks with a cane. Negative for seizures, convulsions or paralysis. Psychiatric: Negative for psychiatric illness or depression confusion. Nodes: Negative for any cervical, supraclavicular, axillary or submandibular adenopathy. Skin: Negative for any significant skin rashes or diseases. Physical examination: General: The patient is actually well-developed, well-nourished and in no acute distress. Eyes: Lids and conjunctive are normal. ENT: Her oral mucosa and pharynx are normal. Her trachea is midline. She has no neck masses. Lungs: Breath sounds are normal without rubs, rales or rhonchi. There is symmetrical unlabored chest motion with respiration. Cardiovascular: Her heart rhythm is regular without murmur, gallop or rub. There is no jugular venous distention, clubbing, cyanosis or edema. Abdomen: There are no abdominal masses, organomegaly, distention, tenderness or ascites. Musculoskeletal: She walks with a cane. Otherwise there is no focal muscle atrophy or bone or joint deformity. Neurologic: Cranial nerves II through XII are intact. There are no focal neurologic deficits. Nodes: There is no submandibular, cervical, supraclavicular or axillary adenopathy. Skin: There are no significant rashes or lesions. Impression: Acute myelogenous leukemia admitted for course #2 of consolidation chemotherapy and monitoring for toxicity Past history of Klebsiella sepsis Past history of severe thrombocytopenia Past history of neutropenic sepsis and severe neutropenia Past history of anemia secondary to chemotherapy Home Medications Medication Instructions Recorded Confirmed Type Docusate Sodium Cap [Colace Cap] 200 mg PO DAILY PRN 12/10/14 08/05/16 History Famotidine 20 mg PO BID 12/10/14 08/05/16 History Magnesium Chloride [Mag Delay] 64 mg PO TID W/MEALS 12/31/14 08/05/16 History HYDROcodone/ACETAMIN 5-325 [[place] 1 tablet PO Q4H 08/05/16 08/05/16 History 5-325] Metoprolol Succinate Xl [Toprol Xl] 50 mg PO DAILY 08/05/16 08/05/16 History Promethazine Tab [Phenergan Tab] 25 mg PO Q6H PRN 08/05/16 08/05/16 History Potassium Chloride Cap/Tab [K Dur] 20 meq PO DAILY 08/10/16 08/10/16 History Allergies Allergy/AdvReac Type Severity Reaction Status Date / Time No Known Allergies Allergy Verified 01/07/15 10:52 Medical,Surgical,& Family Hx - Medical History Cardio: History of: Hypertension Rheumatology: History of;: 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) Gastrointestinal: History of: Gastrointestinal Cancer (colon cancer) Hematology: History of: Hematologic Cancer (leukemia) No history of: Blood Transfusion Reaction Reproductive: History of: Reproductive Cancer (hx of ovarian cancer) Other: History of: Cancer - Surgical History Abdominal Surgeries: Surgical HX of: Abdominal Surgery (colon surgery) - Family History Family History: Reports;: Family Diabetes (grandmother), Family Heart Disease ( grandmother), Family Hypertension (grandmother) Denies;: Family Cancer - Social History Smoking Status: Never smoker
[2016-08-31] MEDS ORDERED: GRANISETRON 1 MG/1 ML VIAL IV SCH (09:00)
[2016-08-31 09:12] LABS: Basophils % 0.3 % (0.0-0.8); Eosinophils # 0.1 10*3/uL (0.0-0.87); Eosinophils % 1.1 % (0.00-10.9); Hematocrit 27.4 VOL% (35.7-47.0); Hemoglobin 9.6 GM/DL (12.0-16.0); Immature Granulocytes % 0.6 %; Immature Granulocytes Absolute 0.06 #; Lymphocytes # 1.6 10*3/uL (1.4-4.0); Lymphocytes % 16.2 % (21.3-54.2); Mean Corpuscular Hemoglobin 35 PG (27-34); Mean Corpuscular Volume 99.6 FL (87-102); Mean Platelet Volume 9.3 FL (9.6-12.0); Monocytes # 1.3 10*3/uL (0.11-0.8); Monocytes % 12.8 % (1.7-12.7); Neutrophils # 6.7 10*3/uL (1.4-7.4); Platelet Count 227 T/CUMM (130-400); Red Blood Count 2.75 MC/CUMM (3.8-5.5); Red Cell Distribution Width 19.5 % (9.3-17.3); White Blood Count 9.8 T/CUMM (4-12)
[2016-08-31] MEDS: GRANISETRON 1 MG/1 ML VIAL IV SCH (10:20)
[2016-08-31] MEDS: DEXAMETHASONE INJ 20 MG in SODIUM CHLORIDE 0.9% 50 ML IV SCH (10:20)
--- NOTE | 2016-08-31 10:27 | XRay Report ---
History: AML. History of colon and ovarian cancer Date: 08/31/2016 Study: Chest x-ray PA and lateral Comparison exam: Chest x-ray August 05, 2016 The right upper extremity Mediport-type catheter remains in stable satisfactory position. There is stable mild cardiomegaly. The mediastinal contours are unchanged. The pulmonary vasculature is not engorged. Lungs and pleural spaces are generally clear. Osseous structures are unchanged. Impression: No acute cardiopulmonary process compared to the previous study PROCEDURE INTERPRETED AT [facility] DEPARTMENT OF RADIOLOGY Final Report Signed by: Dr. Svaanna Lock
[2016-08-31] MEDS ORDERED: diphenhydrAMINE CAP 25 MG CAPSULE PO PRN (10:35)
[2016-08-31] MEDS ORDERED: chlorproMAZINE INJ 25 MG in SODIUM CHLORIDE 0.9% 100 ML IV PRN (10:35)
[2016-08-31] MEDS ORDERED: LACTULOSE 20 GM/30 ML UDCUP PO PRN (10:35)
[2016-08-31] MEDS ORDERED: LOPERAMIDE 2 MG CAPSULE PO PRN ×2 (10:35)
[2016-08-31] MEDS ORDERED: PROMETHAZINE INJ 25 MG in SODIUM CHLORIDE 0.9% 50 ML IV PRN (10:35)
[2016-08-31] MEDS ORDERED: guaiFENesin 200 MG/10 ML UDCUP PO PRN (10:35)
[2016-08-31] MEDS ORDERED: traMADol 50 MG TABLET PO PRN (10:35)
[2016-08-31] MEDS ORDERED: ALPRAZolam 0.25 MG TABLET PO PRN (10:35)
[2016-08-31] MEDS ORDERED: ALUMINUM/MAGNES/SIMETH MAX STR 30 ML UDCUP PO PRN (10:35)
[2016-08-31] MEDS ORDERED: TEMAZEPAM 7.5 MG CAPSULE PO PRN (10:35)
[2016-08-31] MEDS ORDERED: BENZTROPINE 2 MG/2 ML AMP IV PRN (10:35)
[2016-08-31] MEDS ORDERED: chlorproMAZINE 25 MG TABLET PO PRN (10:35)
[2016-08-31] MEDS ORDERED: chlorproMAZINE INJ 50 MG in SODIUM CHLORIDE 0.9% 100 ML IV PRN (10:35)
[2016-08-31] MEDS ORDERED: ACETAMINOPHEN 325 MG TABLET PO PRN (10:35)
[2016-08-31] MEDS ORDERED: MYLANTA/LIDO VISC 2:1 300 ML BOTTLE SWISH/SWAL PRN (10:35)
[2016-08-31] MEDS ORDERED: MYLANTA/LIDO VISC 2:1 300 ML BOTTLE SWISH/SPIT PRN (10:35)
[2016-08-31] MEDS ORDERED: ONDANSETRON 4 MG/2 ML VIAL IV PRN (10:35)
[2016-08-31] MEDS ORDERED: PROMETHAZINE 25 MG TABLET PO PRN (10:39)
[2016-08-31] MEDS: FOSAPREPITANT 150 MG in SODIUM CHLORIDE 0.9% 100 ML IV SCH (10:54)
[2016-08-31 11:11] LABS: Albumin 2.6 G/DL (3.4-5.0); Bilirubin,Total 0.4 MG/DL (0.2-1.0); Calcium 8.5 MG/DL (8.5-10.1); Osmolality,Calculated 283.5 MOS/KG (273-304); Potassium 3.6 MMOL/L (3.5-5.1); Total Protein 6.6 G/DL (6.4-8.3)
[2016-08-31 11:17] LABS: Magnesium 1.3 MG/DL (1.8-2.4); Uric Acid 6.5 MG/DL (2.6-6.0)
[2016-08-31] MEDS: DEXTROSE 5% IV SCH ×2 (11:38→22:14)
[2016-08-31] MEDS: CYTARABINE IV SCH ×2 (11:38→22:14)
--- NOTE | 2016-08-31 12:01 | EKG Report ---
Stationary ECG Study [facility] Test Date: 08/31/2016 12:01:33 PM Pat Name: JAYJAY DUNN Department: Room: 416 Gender: F Parole Director: GUDELIA : 1955 Requested by: Marvin Graves Order Number: [id number] Reading MD: BRANDIE GALE Intervals [place] Rate: 68 P: 60 RI: 103 QRS: 64 QRSD: 88 T: 51 QT: 378 QTc: 396 Interpretive Statements SINUS RHYTHM WITH SHORT RI INTERVAL POSSIBLE INFERIOR MYOCARDIAL INFACTIONOLD IF PRESENT LOW QRS VOLTAGE IN PRECORDIAL LEADS Electronically Signed On 09-01-16 09:26:11 CDT by BRANDIE GALE [email or web address]
[2016-08-31] MEDS: DOCUSATE SODIUM 100 MG CAPSULE PO PRN (12:09)
[2016-08-31] MEDS: METOPROLOL SUCCINATE XL 50 MG TABLET PO SCH (12:11)
[2016-08-31] MEDS: FAMOTIDINE 20 MG TABLET PO SCH ×2 (12:12→22:18)
[2016-08-31] MEDS: POTASSIUM CHLORIDE 20 MEQ TABLET PO SCH (12:12)
[2016-08-31] MEDS: cycloSPORINE OPH EMUL 1 VIAL BOTH EYES SCH ×2 (12:12→22:18)
[2016-08-31 13:06] LABS: Apearance,Urine CLEAR (Clear); Bilirubin,Urine Negative (Negative); Blood, Urine Negative (Negative); Glucose,Urine (UA) Negative (Negative); Ketones,Urine Negative (Negative); Mucus,Urine Occasional /LPF (Occasional); Nitrite,Urine Negative (Negative); Protein,Urine Negative; RBC,Urine <1 /HPF (0-4); Squamous Epithelial Cell,Urine Occasional /HPF (0-10); Urine Color Yellow (Yellow); Urine Specific Gravity 1.008 (1.001-1.035); Urine Urobilinogen < 2.0 EU/DL (0.2-1.0); WBC,Urine 1 /HPF (0-6)
[2016-08-31] MEDS: MAGNESIUM CHLORIDE 64 MG TABLET PO SCH ×2 (15:37→22:18)
--- NOTE | 2016-09-01 07:11 | Oncology Progress Note ---
Oncology Subjective PN Interval history: We are continuing to monitor this patient for toxicity from high-dose Cytosar. This is course #2 of consolidation chemotherapy for acute myelogenous leukemia that is in complete remission. Prior diagnoses on this patient include stage IV adenocarcinoma: And also stage III unresectable ovarian carcinoma that preceded the colon cancer. When the patient was being restaged with ovarian cancer, she was found to have colon cancer with liver metastases which precluded any consideration for ball reduction or additional surgery for the patient's ovarian cancer. I am ordering lab work daily beginning tomorrow while she receives a second course of consolidation chemotherapy. She tolerated the first day of chemotherapy well. She has had no nausea or vomiting and no neurologic symptoms. Also no new eye problems. She is oriented and alert. Her oral mucosa is normal. Cranial nerves II through XII are intact. She has no focal neurologic deficits. Her respirations appear unlabored. Continuing chemotherapy and monitoring for toxicity. Exam - Constitutional Vitals: Period Temp Pulse Resp BP Sys/Ceballos Pulse Ox Last 24 Hr 96.8 F-99.4 F 65-91 18-20 122-142/60-68 94-97 Results - Labs CBC & BMP: 08/31/16 08:05 08/31/16 08:05
[2016-09-01] MEDS: FAMOTIDINE 20 MG TABLET PO SCH ×2 (09:33→21:18)
[2016-09-01] MEDS: POTASSIUM CHLORIDE 20 MEQ TABLET PO SCH (09:33)
[2016-09-01] MEDS: MAGNESIUM CHLORIDE 64 MG TABLET PO SCH ×3 (09:33→21:17)
[2016-09-01] MEDS: METOPROLOL SUCCINATE XL 50 MG TABLET PO SCH (09:34)
[2016-09-01] MEDS: GRANISETRON 1 MG/1 ML VIAL IV SCH (09:34)
[2016-09-01] MEDS: cycloSPORINE OPH EMUL 1 VIAL BOTH EYES SCH ×2 (09:35→21:18)
[2016-09-02] MEDS ORDERED: HEPARIN LOCK FLUSH 500 UNIT/5 ML SYRINGE IV ONE (04:29)
[2016-09-02 05:01] LABS: Basophils % 0.2 % (0.0-0.8); Eosinophils % 0.3 % (0.00-10.9); Hematocrit 29.8 VOL% (35.7-47.0); Hemoglobin 9.7 GM/DL (12.0-16.0); Immature Granulocytes % 0.6 %; Immature Granulocytes Absolute 0.06 #; Lymphocytes # 1.1 10*3/uL (1.4-4.0); Lymphocytes % 10.7 % (21.3-54.2); Mean Corpuscular HGB Conc 32.6 GM/DL (32-36); Mean Corpuscular Hemoglobin 32 PG (27-34); Mean Corpuscular Volume 97.4 FL (87-102); Mean Platelet Volume 9.4 FL (9.6-12.0); Monocytes # 0.6 10*3/uL (0.11-0.8); Monocytes % 5.8 % (1.7-12.7); Neutrophils # 8.1 10*3/uL (1.4-7.4); Neutrophils % 82.4 % (38.7-73.9); Platelet Count 252 T/CUMM (130-400); Red Blood Count 3.06 MC/CUMM (3.8-5.5); Red Cell Distribution Width 17.8 % (9.3-17.3); White Blood Count 9.8 T/CUMM (4-12)
[2016-09-02 05:34] LABS: Alanine Aminotransferase 22 U/L (13-56); Albumin 2.5 G/DL (3.4-5.0); Alkaline Phosphatase 78 U/L (45-117); Aspartate Amino Transferase 17 U/L (0-37); Bilirubin,Total < 0.39 MG/DL (0.2-1.0); Blood Urea Nitrogen 15 MG/DL (7-18); Calcium 8.9 MG/DL (8.5-10.1); Glucose 149 MG/DL (74-106); Potassium 3.8 MMOL/L (3.5-5.1); Sodium 143 MMOL/L (136-145); Total Protein 6.1 G/DL (6.4-8.3)
--- NOTE | 2016-09-02 07:04 | Oncology Progress Note ---
Oncology Subjective PN Interval history: Ms. Hadley is continuing course #2 of consolidation chemotherapy for acute myelogenous leukemia in remission. She has some facial puffiness but she is tolerating the chemotherapy well otherwise. She has had no headaches. She has had no visual impairment. She has had very little nausea and no vomiting. She has had no shortness of breath. She has had no vertigo. She is fully oriented and alert and we are continuing chemotherapy and continue to monitor for toxicity. On physical examination she has normal lids and conjunctivae. Cranial nerves II through XII are intact. There are no focal neurologic deficits. Her oral mucosa is normal. She is oriented to time, place, person and situation. Respirations are unlabored and her chest is moving symmetrically. Exam - Constitutional Vitals: Period Temp Pulse Resp BP Sys/Ceballos Pulse Ox Last 24 Hr 96.5 F-97.4 F 57-86 18-20 111-150/56-91 97-100 Results - Labs CBC & BMP: 09/02/16 04:00 09/02/16 04:00
[2016-09-02] MEDS: DEXAMETHASONE INJ 20 MG in SODIUM CHLORIDE 0.9% 50 ML IV SCH (09:25)
[2016-09-02] MEDS: cycloSPORINE OPH EMUL 1 VIAL BOTH EYES SCH ×2 (09:25→20:49)
[2016-09-02] MEDS: MAGNESIUM CHLORIDE 64 MG TABLET PO SCH ×3 (09:25→20:48)
[2016-09-02] MEDS: FAMOTIDINE 20 MG TABLET PO SCH ×2 (09:25→20:48)
[2016-09-02] MEDS: POTASSIUM CHLORIDE 20 MEQ TABLET PO SCH (09:27)
[2016-09-02] MEDS: GRANISETRON 1 MG/1 ML VIAL IV SCH (09:27)
[2016-09-02] MEDS: METOPROLOL SUCCINATE XL 50 MG TABLET PO SCH (09:27)
[2016-09-02] MEDS ORDERED: CYTARABINE IV SCH (09:30)
[2016-09-02] MEDS ORDERED: DEXTROSE 5% IV SCH (09:30)
[2016-09-02] MEDS: FOSAPREPITANT 150 MG in SODIUM CHLORIDE 0.9% 100 ML IV SCH (10:06)
[2016-09-02] MEDS: CYTARABINE IV SCH ×2 (10:42→22:30)
[2016-09-02] MEDS: DEXTROSE 5% IV SCH ×2 (10:42→22:30)
[2016-09-03 04:35] LABS: Hematocrit 30.6 VOL% (35.7-47.0); Hemoglobin 9.8 GM/DL (12.0-16.0); Immature Granulocytes % 0.7 %; Immature Granulocytes Absolute 0.06 #; Lymphocytes # 0.4 10*3/uL (1.4-4.0); Lymphocytes % 4.5 % (21.3-54.2); Mean Corpuscular Hemoglobin 31 PG (27-34); Mean Corpuscular Volume 96.2 FL (87-102); Mean Platelet Volume 9.5 FL (9.6-12.0); Monocytes # 0.2 10*3/uL (0.11-0.8); Monocytes % 2.5 % (1.7-12.7); Neutrophils # 7.7 10*3/uL (1.4-7.4); Neutrophils % 92.3 % (38.7-73.9); Platelet Count 246 T/CUMM (130-400); Red Blood Count 3.18 MC/CUMM (3.8-5.5); Red Cell Distribution Width 17.4 % (9.3-17.3); White Blood Count 8.3 T/CUMM (4-12)
[2016-09-03 04:58] LABS: Albumin 2.5 G/DL (3.4-5.0); Osmolality,Calculated 286.5 MOS/KG (273-304); Potassium 4.4 MMOL/L (3.5-5.1); Total Protein 6.3 G/DL (6.4-8.3)
[2016-09-03 05:14] LABS: Hypochromasia 1+; Lymphocytes 4 % (20-55); Segmented Neutrophils 94 % (50-85); Total Cells Counted 100
[2016-09-03 05:15] LABS: Microcytosis 1+; Platelet Estimate Normal
--- NOTE | 2016-09-03 06:50 | Oncology Progress Note ---
Oncology Subjective PN Interval history: Diagnoses: Acute myelogenous leukemia admitted for course #2 of consolidation chemotherapy using high-dose Cytosar. We are continuing chemotherapy using high -dose Cytosar and we are monitoring for toxicity. Complications can include brain necrosis as well as loss of vision. Blood work today includes a white cell count of 8300 with a hemoglobin of 9.8 and a platelet count of 246,000. The absolute neutrophil count is 7700. This patient has documented stage IV adenocarcinoma colon with liver metastases. This is an apparent complete remission. The patient has stage III ovarian cancer that was treated with chemotherapy but without surgery because she was diagnosed as having adenocarcinoma the colon shortly after she completed chemotherapy for the ovarian cancer. There has been no evidence of recurrence of the patient's ovarian cancer. Lab work during this hospital stay has included a CEA level of 4.4 with an ovarian cancer antigen level of 10, both of which are normal in range. She is having headaches in the frontal region and photophobia. She is developed mild stomatitis. She has a whitish coating on her tongue. She has had no nausea or vomiting. She has had no worsening of difficulty ambulating but she says she is slightly more dizzy. She is oriented and alert. Cranial nerves II through XII are intact. Her respirations are unlabored. I am adding Diflucan because of her stomatitis. Exam - Constitutional Vitals: Period Temp Pulse Resp BP Sys/Ceballos Pulse Ox Last 24 Hr 96.1 F-97.5 F 46-71 14-20 103-167/56-83 95-99 Results - Labs CBC & BMP: 09/03/16 04:00 09/03/16 04:00
[2016-09-03] MEDS: GRANISETRON 1 MG/1 ML VIAL IV SCH (08:54)
[2016-09-03] MEDS: POTASSIUM CHLORIDE 20 MEQ TABLET PO SCH (08:55)
[2016-09-03] MEDS: DOCUSATE SODIUM 100 MG CAPSULE PO PRN (08:55)
[2016-09-03] MEDS: FLUCONAZOLE 100 MG TABLET PO SCH (08:55)
[2016-09-03] MEDS: METOPROLOL SUCCINATE XL 50 MG TABLET PO SCH (08:55)
[2016-09-03] MEDS: cycloSPORINE OPH EMUL 1 VIAL BOTH EYES SCH ×2 (08:55→20:41)
[2016-09-03] MEDS: FAMOTIDINE 20 MG TABLET PO SCH ×2 (08:55→20:42)
[2016-09-03] MEDS: MAGNESIUM CHLORIDE 64 MG TABLET PO SCH ×3 (08:55→20:42)
[2016-09-03] MEDS: MAGNESIUM HYDROXIDE SUSP 30 ML UDCUP PO PRN ×2 (15:30→18:27)
[2016-09-04 05:49] LABS: Basophils % 0.2 % (0.0-0.8); Eosinophils % 0.5 % (0.00-10.9); Hematocrit 28.8 VOL% (35.7-47.0); Hemoglobin 10.2 GM/DL (12.0-16.0); Immature Granulocytes % 0.6 %; Immature Granulocytes Absolute 0.04 #; Lymphocytes # 0.7 10*3/uL (1.4-4.0); Lymphocytes % 10.7 % (21.3-54.2); Mean Corpuscular HGB Conc 35.4 GM/DL (32-36); Mean Corpuscular Hemoglobin 34 PG (27-34); Mean Corpuscular Volume 96.3 FL (87-102); Mean Platelet Volume 9.7 FL (9.6-12.0); Monocytes # 0.2 10*3/uL (0.11-0.8); Monocytes % 2.9 % (1.7-12.7); Neutrophils # 5.3 10*3/uL (1.4-7.4); Neutrophils % 85.1 % (38.7-73.9); Platelet Count 245 T/CUMM (130-400); Red Blood Count 2.99 MC/CUMM (3.8-5.5); Red Cell Distribution Width 17.4 % (9.3-17.3); White Blood Count 6.3 T/CUMM (4-12)
[2016-09-04 06:20] LABS: Alanine Aminotransferase 32 U/L (13-56); Albumin 2.6 G/DL (3.4-5.0); Alkaline Phosphatase 89 U/L (45-117); Aspartate Amino Transferase 20 U/L (0-37); Bilirubin,Total < 0.39 MG/DL (0.2-1.0); Blood Urea Nitrogen 14 MG/DL (7-18); Glucose 173 MG/DL (74-106); Osmolality,Calculated 283.4 MOS/KG (273-304); Potassium 4.2 MMOL/L (3.5-5.1); Sodium 140 MMOL/L (136-145); Total Protein 6.4 G/DL (6.4-8.3)
[2016-09-04] MEDS: cycloSPORINE OPH EMUL 1 VIAL BOTH EYES SCH ×2 (09:44→21:18)
[2016-09-04] MEDS: POTASSIUM CHLORIDE 20 MEQ TABLET PO SCH (09:44)
[2016-09-04] MEDS: FAMOTIDINE 20 MG TABLET PO SCH ×2 (09:45→21:18)
[2016-09-04] MEDS: FLUCONAZOLE 100 MG TABLET PO SCH (09:45)
[2016-09-04] MEDS: MAGNESIUM CHLORIDE 64 MG TABLET PO SCH ×3 (09:45→21:18)
[2016-09-04] MEDS: DOCUSATE SODIUM 100 MG CAPSULE PO PRN (09:46)
[2016-09-04] MEDS: METOPROLOL SUCCINATE XL 50 MG TABLET PO SCH (09:46)
[2016-09-04] MEDS: GRANISETRON 1 MG/1 ML VIAL IV SCH (09:47)
[2016-09-04] MEDS: FOSAPREPITANT 150 MG in SODIUM CHLORIDE 0.9% 100 ML IV SCH (09:48)
--- NOTE | 2016-09-04 10:26 | Discharge Summary ---
Hospital Course - Hospital Course Hospital Course: Diagnoses: Acute myelogenous leukemia admitted for course #2 of consolidation chemotherapy and monitoring for toxicity Past history of Klebsiella sepsis Past history of severe thrombocytopenia Past history of neutropenic sepsis and severe neutropenia Past history of anemia secondary to chemotherapy This patient was admitted for her second course of consolidation chemotherapy for acute myelogenous leukemia that is in complete remission. She was diagnosed as having AML late last year and was treated with 2 courses of induction chemotherapy followed by high-dose Cytosar consolidation chemotherapy. This admission was her second admission for consolidation chemotherapy. Blood work on this admission was normal including a CBC, CMP, CEA and CA 125. She was treated with Cytosar 3 g IV every 12 hours on August 31, August 3 and today, September 04. She will complete chemotherapy this evening and will go home tomorrow. The Cytosar was administered IV over 2 hours each time. The patient has a past history of adenocarcinoma the colon with liver metastases. She achieved complete remission with chemotherapy treating it. Prior to that diagnosis, she was treated for unresectable ovarian cancer and achieved a remission with chemotherapy alone. She actually underwent repeat laparotomy after she completed the chemotherapy for ovarian cancer because of abnormalities in the transverse colon. We were considering debulking of her ovarian cancer when she was found to have the colon cancer with liver metastases so we did not even attempt that resection. This is been an incredible case and that the patient has now achieved remission with 3 separate malignancies. I do not anticipate another course of consolidation chemotherapy for her acute myelogenous leukemia. However, there are needed medications available and she could also be considered for a bone marrow transplant although I am not sure she is a candidate for it with her history of 2 previous malignancies that were both unlikely to achieve remission , but did. I am going to discharge her today with lab work to be done weekly. We have already had a prolonged discussion about what she needs to do if she has a fever spike or becomes acutely ill. I will see her back in my office in 4 weeks but I expect she will be readmitted prior to that time with anemia, thrombocytopenia, neutropenia or an acute febrile illness. Discharge Plan - Discharge Data Disposition: Disch To Home/Self Care Condition at Discharge: Guarded Discharge Diet: advance to your usual diet Activity: resume usual activities as tolerated Hygiene: no restrictions Weight Bearing at Discharge: weight bear as tolerated Driving: other Contact your physician if you experience:: fever over 101, Difficulty voiding, Redness or swelling, Nausea/Vomiting, Shortness of breath, Bleeding, pain uncontrolled by pain medications - Discharge Medications Continue Docusate Sodium Cap [Colace Cap] 200 mg PO DAILY PRN PRN Reason: Constipation Famotidine 20 mg PO BID Magnesium Chloride [Mag Delay] 64 mg PO TID W/MEALS Promethazine Tab [Phenergan Tab] 25 mg PO Q6H PRN PRN Reason: Nausea/Vomiting Potassium Chloride Cap/Tab [K Dur] 20 meq PO DAILY cycloSPORINE OPH EMUL [Restasis] 1 drop BOTH EYES BID HYDROcodone/ACETAMIN 5-325 [[place] 5-325] 1 tablet PO Q4H Metoprolol Succinate Xl [Toprol Xl] 50 mg PO DAILY - Follow Up or Referral - Forms/Instructions Additional Discharge Instructions: Discharge in a.m. Schedule CBC and CMP and LDH at my office weekly. Appointment to see me in 4 weeks with CBC, CMP and LDH. Exam - Constitutional Vitals: Period Temp Pulse Resp BP Sys/Ceballos Pulse Ox Last 24 Hr 96.5 F-97.6 F 52-81 12-20 94-154/53-71 95-100 Discharge Results Procedures and tests throughout hospitalization: Pending Orders 09/05/16 04:00 Comp Blood Count Auto Diff IN AM Comprehensive Metabolic Panel IN AM LDH [Lactate Dehydrogenase] IN AM 09/06/16 04:00 Comp Blood Count Auto Diff IN AM Comprehensive Metabolic Panel IN AM LDH [Lactate Dehydrogenase] IN AM 09/07/16 04:00 Comp Blood Count Auto Diff IN AM Comprehensive Metabolic Panel IN AM Labs on day of discharge: Labs from last 24 hours 09/04/16 09/04/16 04:00 04:00 WBC 6.3 RBC 2.99 L Hgb 10.2 L Hct 28.8 L MCV 96.3 MCH 34 MCHC 35.4 RDW 17.4 H Plt Count 245 MPV 9.7 Neut % (Auto) 85.1 H Lymph % (Auto) 10.7 L [place] % (Auto) 2.9 Eos % (Auto) 0.5 Baso % (Auto) 0.2 Neut # (Auto) 5.3 Lymph # (Auto) 0.7 L [place] # (Auto) 0.2 Eos # (Auto) 0.0 Baso # (Auto) 0.0 Immature Gran % 0.6 Nucleated RBC % 0.0 Immature Gran # 0.04 Nucleated RBCs # 0.00 Sodium 140 Potassium 4.2 Chloride 104 Carbon Dioxide 30 Anion Gap 10.2 BUN 14 Creatinine 0.60 GFR Calculation 127 BUN/Creatinine Ratio 23.00 H Glucose 173 H Calculated Osmolality 283.4 Calcium 9.0 Total Bilirubin < 0.39 AST 20 ALT 32 Alkaline Phosphatase 89 Lactate Dehydrogenase 132 Total Protein 6.4 Albumin 2.6 L Globulin 3.8 H Albumin/Globulin Ratio 0.6 L DS: Provider Date of admission: 08/31/16 07:03 Primary care physician: . No PCP Attending physician on admission: Marvin Castaneda MD Consults: 08/31/16 11:31 Consult to Pharmacy [CONS] Routine Reason for Pharmacy Consult: Adjust Meds Renal Funct Discharging clinician: Marvin Castaneda MD
[2016-09-04] MEDS: DEXAMETHASONE INJ 20 MG in SODIUM CHLORIDE 0.9% 50 ML IV SCH (10:35)
[2016-09-04] MEDS: CYTARABINE IV SCH ×2 (11:11→21:25)
[2016-09-04] MEDS: DEXTROSE 5% IV SCH ×2 (11:11→21:25)
[2016-09-05 04:59] LABS: Hematocrit 29.9 VOL% (35.7-47.0); Immature Granulocytes Absolute 0.07 #; Lymphocytes # 0.2 10*3/uL (1.4-4.0); Lymphocytes % 3.2 % (21.3-54.2); Mean Corpuscular HGB Conc 33.4 GM/DL (32-36); Mean Corpuscular Hemoglobin 31 PG (27-34); Mean Corpuscular Volume 93.1 FL (87-102); Mean Platelet Volume 9.5 FL (9.6-12.0); Monocytes # 0.1 10*3/uL (0.11-0.8); Monocytes % 1.4 % (1.7-12.7); Neutrophils # 6.5 10*3/uL (1.4-7.4); Neutrophils % 94.4 % (38.7-73.9); Platelet Count 241 T/CUMM (130-400); Red Blood Count 3.21 MC/CUMM (3.8-5.5); Red Cell Distribution Width 16.6 % (9.3-17.3); White Blood Count 6.9 T/CUMM (4-12)
[2016-09-05 05:18] LABS: Albumin 2.8 G/DL (3.4-5.0); Bilirubin,Total 0.7 MG/DL (0.2-1.0); Calcium 9.6 MG/DL (8.5-10.1); Osmolality,Calculated 287.8 MOS/KG (273-304); Potassium 4.6 MMOL/L (3.5-5.1); Total Protein 6.6 G/DL (6.4-8.3)
[2016-09-05 05:52] LABS: Lymphocytes 2 % (20-55); Platelet Estimate Adequate; Segmented Neutrophils 97 % (50-85); Total Cells Counted 100
[2016-09-05 05:53] LABS: Hypochromasia 1+; Microcytosis Slight; Ovalocytes Slight
[2016-09-05] MEDS ORDERED: HEPARIN LOCK FLUSH 500 UNIT/5 ML SYRINGE IV ONE (07:23)
[2016-09-05 08:07] VITALS: BP 113/57
[2016-09-05] MEDS: POTASSIUM CHLORIDE 20 MEQ TABLET PO SCH (09:39)
[2016-09-05] MEDS: FLUCONAZOLE 100 MG TABLET PO SCH (09:39)
[2016-09-05] MEDS: FAMOTIDINE 20 MG TABLET PO SCH (09:39)
[2016-09-05] MEDS: MAGNESIUM CHLORIDE 64 MG TABLET PO SCH (09:39)
[2016-09-05] MEDS: GRANISETRON 1 MG/1 ML VIAL IV SCH (09:39)
[2016-09-05] MEDS: METOPROLOL SUCCINATE XL 50 MG TABLET PO SCH (09:39)
[2016-09-05] MEDS: cycloSPORINE OPH EMUL 1 VIAL BOTH EYES SCH (09:40)
[2016-09-05] MEDS: DOCUSATE SODIUM 100 MG CAPSULE PO PRN (09:43)
== END 2016-09-05 10:00 | disposition home or self-care (01) | DRG 847 ==
LOC: N.4E 07:03
PROVIDERS: ADMIT Specialist; ATTEND Specialist

== ENCOUNTER 2016-09-20 11:53 | Inpatient (IN) ==
--- NOTE | 2016-09-20 12:52 | Emergency Department Note ---
Angela Soto [place], am scribing for, and in the presence of, Jerry Singh MD 12 :44. Samantha Soto James D, MD, personally performed the services described in this documentation, ascribed by Lara Miller in my presence, and it is both accurate and complete . Arrival - Arrival Chief Complaint: Fever Stated Complaint: sent by Dr. Castaneda fever ED Nursing Triage Note: Pt c/o fever (101.6) and chills since last night. Denies cough. Last chemo on September 05. Mode of Arrival: Wheelchair Limitations: No Limitations Source: Patient Time Seen by Provider: 09/20/16 12:36 - History of Present Illness HPI Narrative: This is a 61 y/o black female presenting to the ED with c/o 101.6 fever and chills that onset last night. Pt denies cough and states she has been eating and drinking well with no decreased PO intake. She is a pt of Dr. Castaneda and is being treated through chemotherapy. Her last chemotherapy was September 05. Pt has a PMHx of HTN, gout, leukemia, ovarian, colon, and bone cancer. Pt has some nausea but denies vomiting, diarrhea, abdominal pain, back pain, dysuria, back pain, vision change, and MACKEY. Consistency: constant Severity: moderate Allergies/Adverse Reactions: Allergies Allergy/AdvReac Type Severity Reaction Status Date / Time No Known Allergies Allergy Verified 01/07/15 10:52 Home Medications: Home Medications Medication Instructions Recorded Confirmed Type Docusate Sodium Cap [Colace Cap] 200 mg PO QAM 12/10/14 09/20/16 History Famotidine 20 mg PO BID 12/10/14 09/20/16 History Magnesium Chloride [Mag Delay] 64 mg PO TID W/MEALS 12/31/14 09/20/16 History HYDROcodone/ACETAMIN 5-325 [[place] 1 tablet PO Q4H 08/05/16 09/20/16 History 5-325] Metoprolol Succinate Xl [Toprol Xl] 50 mg PO QAM 08/05/16 09/20/16 History Promethazine Tab [Phenergan Tab] 25 mg PO Q6H PRN 08/05/16 09/20/16 History Potassium Chloride Cap/Tab [K Dur] 20 meq PO QAM 08/10/16 09/20/16 History cycloSPORINE OPH EMUL [Restasis] 1 drop BOTH EYES BID 08/31/16 09/20/16 History Review of System - Review of System 12 point system: reviewed and no additional remarkable complaints except as stated - Review of System Constitutional: Present: chills, fever (101.6). Absent: diaphoresis, weakness Eyes: Absent: vision change Head/Ears/Nose/Throat: Absent: nasal drainage Respiratory: Absent: cough, wheezing Cardiovascular: Absent: chest pain Gastrointestinal: Present: nausea. Absent: abdominal pain, vomiting, diarrhea Genitourinary female: Absent: dysuria Musculoskeletal: Absent: arm pain, back pain, leg pain, neck pain Skin: Absent: rash Neurological: Absent: headache, weakness, numbness, confusion, vertigo Psychiatric: Absent: anxiety Endocrine: Absent: fatigue Hematological/Lymphatic: Absent: easy bleeding Allergic/Immunologic: Absent: facial swelling Medical,Surgical,& Family Hx - Medical History Cardio: History of: Hypertension Rheumatology: History of;: 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) Gastrointestinal: History of: Gastrointestinal Cancer (colon cancer) Hematology: History of: Hematologic Cancer (leukemia) No history of: Blood Transfusion Reaction Reproductive: History of: Reproductive Cancer (hx of ovarian cancer) Other: History of: Cancer - Surgical History Abdominal Surgeries: Surgical HX of: Abdominal Surgery (colon surgery) - Family History Family History: Reports;: Family Diabetes (grandmother), Family Heart Disease ( grandmother), Family Hypertension (grandmother) Denies;: Family Cancer - Social History Smoking Status: Never smoker Exam Vital Signs: Vital Signs Temperature 100.7 F H 09/20/16 13:43 Pulse Rate 116 H 09/20/16 13:43 Respiratory Rate 20 09/20/16 13:43 Blood Pressure 108/60 09/20/16 13:43 O2 Sat by Pulse Oximetry 98 09/20/16 11:59 - General General appearance: alert, in no apparent distress - Head Head exam: Present: atraumatic, normocephalic, normal inspection - Eye Eye exam: Present: normal appearance, PERRL, EOMI - ENT ENT exam: Present: normal exam, normal oropharynx, mucous membranes moist, TM's normal bilaterally, normal external ear exam - Neck Neck exam: Present: normal inspection, full ROM, trachea midline. Absent: tenderness - Chest Chest inspection: Present: normal inspection, symmetric chest wall rise. Absent : tenderness - Respiratory Respiratory exam: Present: normal lung sounds bilaterally - Cardiovascular Cardiovascular exam: Present: normal rhythm, tachycardia, normal heart sounds. Absent: regular rate - Abdominal Exam Abdominal exam: Present: soft, normal bowel sounds. Absent: distention, tenderness - Extremities Exam Extremities exam: Present: normal inspection, full ROM, normal capillary refill. Absent: tenderness, pedal edema, calf tenderness - Back Exam Back exam: Present: normal inspection, full ROM. Absent: tenderness - Neurological Exam Neurological exam: Present: alert, oriented X3, CN II-XII intact, normal gait, reflexes normal - Psychiatric Psychiatric exam: Present: normal affect, normal mood - Skin Skin exam: Present: warm, dry, intact, normal color. Absent: rash, diaphoresis Course - Consultations Consultation #1: Discussed with Dr. Catsaneda. Patient will be admitted to his service. Initial orders written for him. He will assume patient's care upon arrival to the prater. Time: 14:17 Results - Labs CBC & BMP: 09/20/16 13:31 Lab Results: I have reviewed the patients labs Labs: Laboratory Tests 09/20/16 09/20/16 13:31 13:31 WBC 1.3 L Hgb 6.8 L Hct 20.0 L Plt Count 80 L INR 1.1 - Diagnostic Findings Procedure: Chest x-ray: image reviewed by me (No cardiomegaly, no pleural effusions, no infiltrates. Mediport is in position with the tip in the superior vena cava.) Disposition Clinical Impression: Fever, Ovarian cancer, AML (acute myelogenous leukemia), Colorectal cancer, stage IV, Pancytopenia, Sepsis Case discussed with: patient Disposition: Still a Patient Condition: Stable Time of Disposition: 14:06
--- NOTE | 2016-09-20 13:24 | XRay Report ---
XR chest 1V portable Indication: Fever. History of ovarian cancer and colon cancer. Comparison: Chest x-ray 08/31/2016. Technique: Portable AP chest was performed. Findings: The heart size appears within normal limits. Right-sided venous access device is stable in appearance. Pulmonary vasculature demonstrates no specific abnormality. Hilar structures demonstrate fairly symmetric appearance. The lungs appear clear. Bones and soft tissues demonstrate no evidence of acute pathology. Impression: 1. No evidence of acute pathology. 09/20/2016 1:19 PM PROCEDURE INTERPRETED AT [facility] DEPARTMENT OF RADIOLOGY Final Report Signed by: Dr. Vitaliy Park
[2016-09-20 13:42] LABS: Eosinophils % 0.8 % (0.00-10.9); Hemoglobin 6.8 GM/DL (12.0-16.0); Lymphocytes # 0.8 10*3/uL (1.4-4.0); Lymphocytes % 62.8 % (21.3-54.2); Mean Corpuscular Hemoglobin 31 PG (27-34); Mean Corpuscular Volume 92.2 FL (87-102); Mean Platelet Volume 10.1 FL (9.6-12.0); Monocytes # 0.5 10*3/uL (0.11-0.8); Monocytes % 34.9 % (1.7-12.7); NRBC # 0.02 10*3/uL; Neutrophils % 1.5 % (38.7-73.9); Platelet Count 80 T/CUMM (130-400); Red Blood Count 2.17 MC/CUMM (3.8-5.5); Red Cell Distribution Width 15.9 % (9.3-17.3); White Blood Count 1.3 T/CUMM (4-12)
[2016-09-20 13:52] LABS: INR 1.1; PT Patient Result 11.5 SECS; Partial Thromboplastin Time 28.6 SECS (0-40)
[2016-09-20 14:03] LABS: Albumin 2.9 G/DL (3.4-5.0); Bilirubin,Total 0.4 MG/DL (0.2-1.0); Calcium 8.3 MG/DL (8.5-10.1); Osmolality,Calculated 280.4 MOS/KG (273-304); Potassium 3.8 MMOL/L (3.5-5.1); Total Protein 6.2 G/DL (6.4-8.3)
[2016-09-20] MEDS ORDERED: PIPERACILLIN/TAZOBACTAM 3,375 MG in SODIUM CHLORIDE 0.9% 100 ML IV STA (14:03)
[2016-09-20] MEDS ORDERED: SODIUM CHLORIDE 0.9% 1,000 ML IV STA (14:06)
[2016-09-20] MEDS ORDERED: VANCOMYCIN INJ 1,000 MG in SODIUM CHLORIDE 0.9% 250 ML IV STA (14:10)
[2016-09-20 14:14] LABS: Anisocytosis 1+; Eosinophils 2 % (0-10); Lymphocytes 69 % (20-55); Segmented Neutrophils 1 % (50-85); Total Cells Counted 100
[2016-09-20 14:15] LABS: Hypochromasia Slight; Platelet Estimate Decreased
--- NOTE | 2016-09-20 14:36 | Oncology History&Physical ---
History of Present Illness Chief complaint: Neutropenic sepsis History of present illness: Ms. 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 It consisted of high-dose Cytosar. Last night she had shaking chills and fever but did not come to the emergency room in spite of our recommendation that she do so. This morning she began having fever and chills again and she arrived at the emergency room and was appropriately cultured and started on IV antibiotics and she will be admitted at this point. Blood work on this admission includes a white cell count of 1300 with an absolute neutrophil count of 0 and a platelet count of 80,000. Her comprehensive metabolic profile is normal except for a low serum calcium of 8.3 which corresponds to a low serum albumin of 2.9. She has a history of acute myelogenous leukemia and a past history of stage IV colon cancer as well as a past history of stage III ovarian cancer. She was treated with 2 courses of induction chemotherapy and because of prolonged debilitation, which caused a delay in her first course of consolidation chemotherapy but now she has completed the 2 full courses of consolidation and I do not plan to administer further chemotherapy. She received consolidation chemotherapy for the first time on July 19, July 21 and July 23 and the doses consisted of 2 or 3 g of Cytosar every 12 hours on those 3 days, given outpatient. The second course of consolidation chemotherapy was started by first and she received Cytosar-U 3 g IV every 12 hours on August 31, September 02 and September 04. She received induction chemotherapy with daunorubicin and Cytosar in April 2016 and she received a second course of induction chemotherapy about 6 weeks later because of persistent disease. Following marrow recovery, she was found to have achieved a complete remission confirmed on bone marrow biopsy including flow cytometry and cytogenetics and she has now had the 2 courses of consolidation chemotherapy using high-dose Cytosar given on the dates mentioned above. 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 She is in remission from this. She also has a history of stage IIIB ovarian cancer and she is in remission from it as well. Her last course of palliative chemotherapy for the colon cancer was about a year ago although she continued to receive Avastin as a single agent until January or February 2016. Prior to being diagnosed with colon cancer, she was diagnosed as having stage IIIc ovarian cancer. The ovarian cancer was diagnosed in March 2013 and she was treated with Abraxane and carboplatin. Her ovarian cancer antigen improved. 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 She was treated with 11 courses of FOLFOX/Folfiri and has recently been on Avastin as a single agent. She is in complete remission from both the colon cancer and ovarian cancer. She has actually had a remarkable response to chemotherapy and had been off chemotherapy since April 2015. She has had a normal CEA level of 4.6 and a normal ovarian cancer antigen rechecked on several occasions. A CT of the abdomen and pelvis on March 30, 2016 and she had no evidence of metastatic disease to suggest recurrence of these of the colon or ovarian cancers. Past medical history: She has no known allergies. She has a past medical history is positive for anemia, hypertension and for ovarian cancer for which she is undergone surgery. She also has a history of gastroesophageal reflux disease and peptic ulcer disease. In March 2016, the patient had an event that I suspect was a small cerebral infarct resulting in difficulty ambulating. Family history is positive for diabetes in her grandmother and cancer of the pancreas and her mother. Social history is negative for alcohol or tobacco use. Review of systems Gen.: Positive for shaking chills and fever and anorexia. Eyes: Negative for inflammation or infections or further visual impairment ENT: Positive for stomatitis, mucositis or odynophagia. Pulmonary: Negative for asthma, emphysema or recurrent pneumonia and negative for hemoptysis Cardiovascular: Negative for congestive heart failure, angina, heart attack, coronary artery disease or cardiac arrhythmia GI: Negative for pancreatic disease or disorders but otherwise positive as pertains to her colon cancer. Negative for abdominal pain or bloating, hematemesis, melena or hematochezia. : Negative for kidney stones, kidney infections or hematuria. Neurologic: She has had a minor TIA and walks with a cane. Negative for seizures, convulsions or paralysis. Psychiatric: Negative for psychiatric illness or depression confusion. Nodes: Negative for any cervical, supraclavicular, axillary or submandibular adenopathy. Skin: Negative for any significant skin rashes or diseases. Physical examination: General: The patient is surprisingly well-developed well-nourished and only in moderate distress. Eyes: Normal lids and conjunctivae. ENT: Her oral mucosa and pharynx are normal. Her hearing is normal. Teeth are in good repair. Neck: Her trachea is midline. Thyroid is normal. Cardiovascular: Her heart rhythm is regular without murmur, gallop or rub. There is no jugular venous distention, clubbing, cyanosis or edema. Abdomen: She has no abdominal masses, organomegaly, distention, tenderness or ascites. Musculoskeletal: There is no focal muscle atrophy or bone or joint deformity. Neurologic: Cranial nerves II through XII are intact. There are no focal neurologic deficits. Nodes: There is no submandibular, cervical, supraclavicular or axillary adenopathy. Psychiatric: She is oriented to time, place, person and situation with normal mood and affect. Skin: I find no skin lesions or rashes on cursory examination but I did not do a thorough examination. Impression: #1: Neutropenic sepsis #2: Past history of Klebsiella sepsis #3: Acute myelogenous leukemia in complete remission having recently completed course #2 of consolidation chemotherapy #4: History of stage IV adenocarcinoma of the transverse colon without evidence of recurrence #5: History of stage III ovarian cancer, treated with chemotherapy only but without evidence of recurrence Home Medications Medication Instructions Recorded Confirmed Type Docusate Sodium Cap [Colace Cap] 200 mg PO QAM 12/10/14 09/20/16 History Famotidine 20 mg PO BID 12/10/14 09/20/16 History Magnesium Chloride [Mag Delay] 64 mg PO TID W/MEALS 12/31/14 09/20/16 History HYDROcodone/ACETAMIN 5-325 [Lostant 1 tablet PO Q4H 08/05/16 09/20/16 History 5-325] Metoprolol Succinate Xl [Toprol Xl] 50 mg PO QAM 08/05/16 09/20/16 History Promethazine Tab [Phenergan Tab] 25 mg PO Q6H PRN 08/05/16 09/20/16 History Potassium Chloride Cap/Tab [K Dur] 20 meq PO QAM 08/10/16 09/20/16 History cycloSPORINE OPH EMUL [Restasis] 1 drop BOTH EYES BID 08/31/16 09/20/16 History Allergies Allergy/AdvReac Type Severity Reaction Status Date / Time No Known Allergies Allergy Verified 01/07/15 10:52 Medical,Surgical,& Family Hx - Medical History Cardio: History of: Hypertension Rheumatology: History of;: 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) Gastrointestinal: History of: Gastrointestinal Cancer (colon cancer) Hematology: History of: Hematologic Cancer (leukemia) No history of: Blood Transfusion Reaction Reproductive: History of: Reproductive Cancer (hx of ovarian cancer) Other: History of: Cancer - Surgical History Abdominal Surgeries: Surgical HX of: Abdominal Surgery (colon surgery) - Family History Family History: Reports;: Family Diabetes (grandmother), Family Heart Disease ( grandmother), Family Hypertension (grandmother) Denies;: Family Cancer - Social History Smoking Status: Never smoker Results - Labs CBC & BMP: 09/20/16 13:31 09/20/16 13:31
[2016-09-20] MEDS ORDERED: MEROPENEM 1,000 MG VIAL IV ONE (14:52)
[2016-09-20 15:00] LABS: Lactic Acid 1.4 MMOL/L (0.4-2.0)
[2016-09-20] MEDS: MEROPENEM 1,000 MG in SODIUM CHLORIDE 0.9% 100 ML IV SCH ×2 (15:07→22:06)
[2016-09-20] MEDS ORDERED: TEMAZEPAM 7.5 MG CAPSULE PO PRN ×2 (16:31→16:38)
[2016-09-20] MEDS ORDERED: BENZTROPINE 2 MG/2 ML AMP IV PRN ×2 (16:31→16:38)
[2016-09-20] MEDS ORDERED: PROMETHAZINE INJ 25 MG in SODIUM CHLORIDE 0.9% 50 ML IV PRN ×2 (16:31→16:38)
[2016-09-20] MEDS ORDERED: traMADol 50 MG TABLET PO PRN ×2 (16:31→16:38)
[2016-09-20] MEDS ORDERED: ONDANSETRON 4 MG/2 ML VIAL IV PRN ×2 (16:31→16:38)
[2016-09-20] MEDS ORDERED: MYLANTA/LIDO VISC 2:1 300 ML BOTTLE SWISH/SPIT PRN ×2 (16:31→16:38)
[2016-09-20] MEDS ORDERED: MAGNESIUM HYDROXIDE SUSP 30 ML UDCUP PO PRN ×2 (16:31→16:38)
[2016-09-20] MEDS ORDERED: ALUMINUM/MAGNES/SIMETH MAX STR 30 ML UDCUP PO PRN ×2 (16:31→16:38)
[2016-09-20] MEDS ORDERED: chlorproMAZINE INJ 25 MG in SODIUM CHLORIDE 0.9% 100 ML IV PRN ×2 (16:31→16:38)
[2016-09-20] MEDS ORDERED: ALPRAZolam 0.25 MG TABLET PO PRN ×2 (16:31→16:38)
[2016-09-20] MEDS ORDERED: MYLANTA/LIDO VISC 2:1 300 ML BOTTLE SWISH/SWAL PRN ×2 (16:31→16:38)
[2016-09-20] MEDS ORDERED: guaiFENesin 200 MG/10 ML UDCUP PO PRN ×2 (16:31→16:38)
[2016-09-20] MEDS ORDERED: diphenhydrAMINE CAP 25 MG CAPSULE PO PRN ×2 (16:31→16:38)
[2016-09-20] MEDS ORDERED: LOPERAMIDE 2 MG CAPSULE PO PRN ×4 (16:31→16:38)
[2016-09-20] MEDS ORDERED: LACTULOSE 20 GM/30 ML UDCUP PO PRN ×2 (16:31→16:38)
[2016-09-20] MEDS ORDERED: chlorproMAZINE 25 MG TABLET PO PRN ×2 (16:31→16:38)
[2016-09-20] MEDS ORDERED: chlorproMAZINE INJ 50 MG in SODIUM CHLORIDE 0.9% 100 ML IV PRN ×2 (16:31→16:38)
[2016-09-20] MEDS ORDERED: ACETAMINOPHEN 325 MG TABLET PO PRN ×2 (16:31→16:38)
[2016-09-20] MEDS: SODIUM CHLORIDE 0.9% 1,000 ML IV SCH (17:06)
[2016-09-21] MEDS: SODIUM CHLORIDE 0.9% 1,000 ML IV SCH ×3 (03:46→16:44)
[2016-09-21 05:39] LABS: Eosinophils % 1.2 % (0.00-10.9); Immature Granulocytes % 0.6 %; Immature Granulocytes Absolute 0.01 #; Lymphocytes % 59.8 % (21.3-54.2); Mean Corpuscular HGB Conc 33.3 GM/DL (32-36); Mean Corpuscular Hemoglobin 32 PG (27-34); Mean Corpuscular Volume 95.5 FL (87-102); Mean Platelet Volume 9.9 FL (9.6-12.0); Monocytes # 0.6 10*3/uL (0.11-0.8); Monocytes % 36.6 % (1.7-12.7); NRBC # 0.02 10*3/uL; Neutrophils % 1.8 % (38.7-73.9); White Blood Count 1.6 T/CUMM (4-12)
[2016-09-21 05:41] LABS: Platelet Count 88 T/CUMM (130-400)
[2016-09-21 06:00] LABS: Calcium 8.1 MG/DL (8.5-10.1); Osmolality,Calculated 284.8 MOS/KG (273-304); Potassium 3.9 MMOL/L (3.5-5.1)
[2016-09-21 06:27] LABS: Hypochromasia Slight; Lymphocytes 74 % (20-55); Microcytosis 1+; Nucleated Red Blood Cells 1 (0-5); Platelet Estimate Decreased; Segmented Neutrophils 3 % (50-85); Total Cells Counted 100
[2016-09-21] MEDS: MEROPENEM 1,000 MG in SODIUM CHLORIDE 0.9% 100 ML IV SCH ×3 (06:43→22:20)
[2016-09-21] MEDS ORDERED: SODIUM CHLORIDE 0.9% 250 ML IV PRN (07:23)
[2016-09-21 07:25] LABS: Apearance,Urine CLEAR (Clear); Bilirubin,Urine Negative (Negative); Blood, Urine Negative (Negative); Glucose,Urine (UA) Negative (Negative); Ketones,Urine Negative (Negative); Mucus,Urine Occasional /LPF (Occasional); Nitrite,Urine Negative (Negative); Protein,Urine Negative; RBC,Urine 1 /HPF (0-4); Urine Color Yellow (Yellow); Urine Specific Gravity 1.011 (1.001-1.035); Urine Urobilinogen < 2.0 EU/DL (0.2-1.0); WBC,Urine 2 /HPF (0-6)
--- NOTE | 2016-09-21 08:38 | Oncology Progress Note ---
Oncology Subjective PN Interval history: Ms. Hadley is admitted at this time with neutropenic sepsis and shaking chills and fever due to recent consolidation chemotherapy for acute myelogenous leukemia. She received Cytosar-U a dose of 3 g IV every 12 hours on August 31, and . This was her second course of consolidation chemotherapy for apparent complete remission from acute myelogenous leukemia. 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 The colon cancer was diagnosed when she was being evaluated to possibly undergo a second laparotomy to look for residual ovarian cancer. Blood work today includes a white cell count of 1600 with an absolute neutrophil count of 0. The hemoglobin of 7.0 and I am transfusing packed red cells. The platelet count is actually rising and is 88,000. Basic metabolic profile is normal. Going to order CBCs and CMP's in serious for the next 6 days. She is currently on IV fluids with hydration and she is on IV antibiotics and we are monitoring her closely. Blood cultures were drawn yesterday while the patient was in the emergency room but I find no record of them on the electronic health record today. We are checking on that. On physical examination, she is oriented and alert. Her oral mucosa demonstrates yeast. She complains of right lower quadrant abdominal pain but it is evidently not extremely severe. I did not check it today because frankly until her absolute neutrophil count rises, there is not much to do about it. Is having no dysuria and the pain is localized to the right lower quadrant. She is oriented to time, place, person and situation. Exam - Constitutional Vitals: Period Temp Pulse Resp BP Sys/Ceballos Pulse Ox Last 24 Hr 97.8 F-103.2 F 87-116 20-22 108-129/51-58 95-100 Results - Labs CBC & BMP: 09/21/16 05:25 09/21/16 05:25 Quality Measures - Stroke Symptom Onset Unknown: No
[2016-09-22] MEDS: SODIUM CHLORIDE 0.9% 1,000 ML IV SCH ×3 (03:39→16:35)
[2016-09-22 04:00] LABS: Eosinophils % 1.3 % (0.00-10.9); Hematocrit 26.1 VOL% (35.7-47.0); Hemoglobin 8.7 GM/DL (12.0-16.0); Lymphocytes # 0.8 10*3/uL (1.4-4.0); Mean Corpuscular HGB Conc 33.3 GM/DL (32-36); Mean Corpuscular Hemoglobin 31 PG (27-34); Mean Corpuscular Volume 91.9 FL (87-102); Mean Platelet Volume 9.5 FL (9.6-12.0); Monocytes # 0.7 10*3/uL (0.11-0.8); Monocytes % 42.3 % (1.7-12.7); NRBC # 0.02 10*3/uL; Neutrophils # 0.1 10*3/uL (1.4-7.4); Neutrophils % 6.4 % (38.7-73.9); Platelet Count 100 T/CUMM (130-400); Red Blood Count 2.84 MC/CUMM (3.8-5.5); White Blood Count 1.6 T/CUMM (4-12)
[2016-09-22 04:38] LABS: Eosinophils 2 % (0-10); Lymphocytes 50 % (20-55); Myelocytes 2 %; Nucleated Red Blood Cells 1 (0-5); Segmented Neutrophils 8 % (50-85); Total Cells Counted 100
[2016-09-22 04:40] LABS: Platelet Estimate Adequate
[2016-09-22 04:41] LABS: Microcytosis Slight
[2016-09-22] MEDS: MEROPENEM 1,000 MG in SODIUM CHLORIDE 0.9% 100 ML IV SCH ×3 (06:37→23:17)
--- NOTE | 2016-09-22 07:24 | Oncology Progress Note ---
Oncology Subjective PN Interval history: This lady has AML and she is admitted with neutropenic sepsis following her second course of consolidation chemotherapy which was given August 31, and . In addition, she has underlying stage IV metastatic colon cancer that is in remission. She also has a history of stage III ovarian cancer for which she never underwent debulking after chemotherapy because she had newly diagnosed colon cancer at the time we were considering referring her to a gynecologic oncologist. That referral never took place because of the discovery of the adenocarcinoma of the transverse colon with liver metastases. Today's lab work includes a white cell count of 1600 with an absolute neutrophil count of 100. The patient's platelet count is up to 100,000. Her hemoglobin is improved to 8.7 after transfusion. The comprehensive metabolic profile ordered for this morning is pending. In fact, it does not even appear on the electronic orders. I am ordering it now. Her comprehensive metabolic profile has returned and she has a normal serum creatinine of 0.6. Her electrolytes are normal. Her calcium is slightly low at 8.0, corresponding to a low serum albumin of 2.4. There are no reports of posterior blood cultures at this point. However, she is having tenderness in the right lower abdomen involving the abdominal wall just above the right groin. There is perhaps slight firmness in the area. I am adding vancomycin for staph coverage since this could be a more serious infection that it appears to be because of her effective immunosuppression and severely low neutrophil count. Exam - Constitutional Vitals: Period Temp Pulse Resp BP Sys/Ceballos Pulse Ox Last 24 Hr 98.1 F-100.9 F 96-108 18-20 98-133/54-79 95-98 Results - Labs CBC & BMP: 09/22/16 03:54 09/22/16 04:00 Quality Measures - Stroke Symptom Onset Unknown: No
[2016-09-22 07:53] LABS: Albumin 2.4 G/DL (3.4-5.0); Bilirubin,Total 0.5 MG/DL (0.2-1.0); Osmolality,Calculated 283.8 MOS/KG (273-304); Potassium 3.7 MMOL/L (3.5-5.1); Total Protein 5.7 G/DL (6.4-8.3)
[2016-09-22] MEDS: VANCOMYCIN INJ 1,000 MG in SODIUM CHLORIDE 0.9% 250 ML IV SCH ×2 (10:01→21:27)
[2016-09-22] MEDS: METOPROLOL SUCCINATE XL 50 MG TABLET PO SCH (10:40)
[2016-09-22] MEDS: FAMOTIDINE 20 MG TABLET PO SCH ×2 (10:40→21:26)
[2016-09-22] MEDS: DOCUSATE SODIUM 100 MG CAPSULE PO SCH (10:40)
[2016-09-22] MEDS: POTASSIUM CHLORIDE 20 MEQ TABLET PO SCH (10:41)
--- NOTE | 2016-09-22 12:51 | Physician Query Form ---
CLICK EDIT DOCUMENT TO SELECT QUERY ANSWER --> OK --> SIGN Geraldine Shah RN Clinical Watch Repair Technician W) [phone] (f) [phone] [email or web address] PROVIDERS: Make your selection(s) from the choices in EACH section by typing an "x" and enter comments in the comment section. Please use your independent medical judgment in providing your response. This request does not imply that any particular answer is desired or expected. CLINICAL INDICATORS: (Providers should not edit this section) Based on documentation of "Pancytopenia" "Her last chemotherapy was September 05" On admission: WBC 1.3, RBC 2.17, PLT 80. Transfused 2 units PRBC. Based on the above, could you clarify the appropriate diagnosis, if significant , that supports the above abnormalities and additional evaluation, monitoring, and/or treatment rendered: ( ) Chemotherapy induced Pancytopenia ( ) Did NOT have Chemotherapy induced Pancytopenia (x ) Other, please specify: ( ) Clinically unable to determine COMMENTS: PLEASE ALSO DOCUMENT RESPONSE IN PROGRESS NOTES AND/OR DISCHARGE SUMMARY Use of terms such as suspected, likely, or probable (associated with a specific diagnosis that is being evaluated, monitored, or treated as if it exists) are acceptable and can be restated in the discharge summary if not ruled out. MTDD
[2016-09-22] MEDS: MAGNESIUM CHLORIDE 64 MG TABLET PO SCH ×2 (14:36→21:26)
[2016-09-22] MEDS ORDERED: HEPARIN LOCK FLUSH 500 UNIT/5 ML SYRINGE IV ONE (18:15)
[2016-09-23 05:04] LABS: Eosinophils % 0.9 % (0.00-10.9); Hematocrit 24.1 VOL% (35.7-47.0); Immature Granulocytes % 0.9 %; Immature Granulocytes Absolute 0.02 #; Mean Corpuscular HGB Conc 33.2 GM/DL (32-36); Mean Corpuscular Hemoglobin 30 PG (27-34); Mean Corpuscular Volume 91.6 FL (87-102); Mean Platelet Volume 9.9 FL (9.6-12.0); Monocytes # 0.9 10*3/uL (0.11-0.8); Monocytes % 40.5 % (1.7-12.7); NRBC # 0.02 10*3/uL; Neutrophils # 0.3 10*3/uL (1.4-7.4); Neutrophils % 12.7 % (38.7-73.9); Platelet Count 112 T/CUMM (130-400); Red Blood Count 2.63 MC/CUMM (3.8-5.5); Red Cell Distribution Width 16.1 % (9.3-17.3); White Blood Count 2.2 T/CUMM (4-12)
[2016-09-23 05:29] LABS: Alanine Aminotransferase 16 U/L (13-56); Albumin 2.3 G/DL (3.4-5.0); Alkaline Phosphatase 88 U/L (45-117); Aspartate Amino Transferase 17 U/L (0-37); Bilirubin,Total < 0.39 MG/DL (0.2-1.0); Blood Urea Nitrogen 3 MG/DL (7-18); Calcium 8.1 MG/DL (8.5-10.1); Glucose 120 MG/DL (74-106); Osmolality,Calculated 285.7 MOS/KG (273-304); Potassium 3.9 MMOL/L (3.5-5.1); Sodium 145 MMOL/L (136-145); Total Protein 5.3 G/DL (6.4-8.3)
[2016-09-23 05:44] LABS: Band Neutrophils 1 % (0-10); Eosinophils 1 % (0-10); Hypochromasia 1+; Lymphocytes 58 % (20-55); Microcytosis 1+; Segmented Neutrophils 15 % (50-85); Total Cells Counted 100
[2016-09-23 05:45] LABS: Platelet Estimate Decreased
[2016-09-23] MEDS: MEROPENEM 1,000 MG in SODIUM CHLORIDE 0.9% 100 ML IV SCH ×3 (06:20→23:37)
[2016-09-23] MEDS: SODIUM CHLORIDE 0.9% 1,000 ML IV SCH ×2 (06:21→21:08)
--- NOTE | 2016-09-23 07:42 | Oncology Progress Note ---
Oncology Subjective PN Interval history: Patient with acute myelogenous leukemia. She has had 2 courses of consolidation chemotherapy using high-dose Cytosar. The second dose was given August 31, September 02 and august and she was admitted at this time with apparent neutropenic sepsis. Her white cell count is rising. It is 2200 today and she has a hemoglobin of 8.0. Her platelet count is now 112,000. Her absolute neutrophil count is 300 today. Her comprehensive metabolic profile is normal except for a serum calcium of 8.1 which corresponds to her low serum albumin of 2.3. Her serum creatinine is 0.5. She is on vancomycin and we are monitoring for nephrotoxicity. Blood cultures apparently are still negative although the report simply states that blood cultures had no growth at 1 day. There were drawn September 20. Additional diagnoses on this patient include: Stage IV colon cancer that is apparently in complete remission stage III ovarian cancer that was treated with chemotherapy only and apparently is in complete remission. Exam - Constitutional Vitals: Period Temp Pulse Resp BP Sys/Ceballos Pulse Ox Last 24 Hr 96.5 F-99.7 F 86-96 18-20 107-137/58-65 96-98 Results - Labs CBC & BMP: 09/23/16 04:00 09/23/16 04:00 Quality Measures - Stroke Symptom Onset Unknown: No
[2016-09-23] MEDS: FAMOTIDINE 20 MG TABLET PO SCH ×3 (09:27→21:06)
[2016-09-23] MEDS: METOPROLOL SUCCINATE XL 50 MG TABLET PO SCH (09:27)
[2016-09-23] MEDS: MAGNESIUM CHLORIDE 64 MG TABLET PO SCH ×3 (09:27→19:59)
[2016-09-23] MEDS: DOCUSATE SODIUM 100 MG CAPSULE PO SCH (09:28)
[2016-09-23] MEDS: POTASSIUM CHLORIDE 20 MEQ TABLET PO SCH (09:28)
[2016-09-23] MEDS: VANCOMYCIN INJ 1,000 MG in SODIUM CHLORIDE 0.9% 250 ML IV SCH ×2 (09:28→21:07)
[2016-09-24] MEDS: SODIUM CHLORIDE 0.9% 1,000 ML IV SCH (00:10)
[2016-09-24 06:48] LABS: Eosinophils % 0.7 % (0.00-10.9); Hematocrit 26.3 VOL% (35.7-47.0); Hemoglobin 8.8 GM/DL (12.0-16.0); Immature Granulocytes % 1.1 %; Immature Granulocytes Absolute 0.03 #; Lymphocytes # 1.4 10*3/uL (1.4-4.0); Lymphocytes % 49.3 % (21.3-54.2); Mean Corpuscular HGB Conc 33.5 GM/DL (32-36); Mean Corpuscular Hemoglobin 31 PG (27-34); Mean Corpuscular Volume 92.3 FL (87-102); Mean Platelet Volume 9.2 FL (9.6-12.0); Monocytes # 0.8 10*3/uL (0.11-0.8); Monocytes % 27.9 % (1.7-12.7); NRBC # 0.02 10*3/uL; Neutrophils # 0.6 10*3/uL (1.4-7.4); Platelet Count 148 T/CUMM (130-400); Red Blood Count 2.85 MC/CUMM (3.8-5.5); Red Cell Distribution Width 16.1 % (9.3-17.3); White Blood Count 2.8 T/CUMM (4-12)
[2016-09-24 07:52] LABS: Albumin 2.4 G/DL (3.4-5.0); Bilirubin,Total 0.4 MG/DL (0.2-1.0); Calcium 8.3 MG/DL (8.5-10.1); Osmolality,Calculated 283.8 MOS/KG (273-304); Potassium 3.9 MMOL/L (3.5-5.1); Total Protein 5.4 G/DL (6.4-8.3)
[2016-09-24 07:53] LABS: Lymphocytes 51 % (20-55); Segmented Neutrophils 26 % (50-85); Total Cells Counted 100
[2016-09-24 07:54] LABS: Platelet Estimate Adequate
[2016-09-24] MEDS: VANCOMYCIN INJ 1,000 MG in SODIUM CHLORIDE 0.9% 250 ML IV SCH ×2 (09:15→20:54)
[2016-09-24] MEDS: DOCUSATE SODIUM 100 MG CAPSULE PO SCH (09:16)
[2016-09-24] MEDS: POTASSIUM CHLORIDE 20 MEQ TABLET PO SCH (09:17)
[2016-09-24] MEDS: FAMOTIDINE 20 MG TABLET PO SCH ×2 (09:17→20:53)
[2016-09-24] MEDS: METOPROLOL SUCCINATE XL 50 MG TABLET PO SCH (09:17)
[2016-09-24] MEDS: MAGNESIUM CHLORIDE 64 MG TABLET PO SCH ×3 (09:17→20:53)
--- NOTE | 2016-09-24 12:15 | Oncology Progress Note ---
Oncology Subjective PN Interval history: This lady was admitted with neutropenic sepsis. She has acute myelogenous leukemia and received her second course of consolidation chemotherapy on August 31, and and presented with severe neutropenia with a 0 absolute neutrophil count. Her lab work today includes white cell count of 2800 with an absolute neutrophil count of 600 and rising. Her hemoglobin is 8.8 and her platelet count is 148,000. Her comprehensive metabolic profile is normal except for a low serum albumin of 2.4 with a correspondingly low serum calcium of 8.3. Her serum creatinine is 0.5. She is has been afebrile since the evening of September 21. She complains of some mouth soreness and irritation but on examination it appears fairly normal. She is having no discomfort and she is fully oriented and alert. Her respirations are unlabored. She has no focal neurologic deficits. Her condition continues to improve and I anticipate discharge tomorrow barring any unforeseen complications. She has underlying additional malignancies that include stage IV adenocarcinoma colon with liver metastases in complete remission and stage III ovarian cancer in complete remission. I anticipate having her return to see me in follow-up in about 6 weeks. Exam - Constitutional Vitals: Period Temp Pulse Resp BP Sys/Ceballos Pulse Ox Last 24 Hr 96.3 F-98.5 F 86-97 18-20 118-133/57-66 95-99 Results - Labs CBC & BMP: 09/24/16 04:00 09/24/16 06:50 Quality Measures - Stroke Symptom Onset Unknown: No
--- NOTE | 2016-09-24 14:06 | Mammography Report ---
BILATERAL DIGITAL SCREENING MAMMOGRAM WITH CAD Date of study: 09/24/2016 9:54 AM History: Routine screening mammogram, previous ultrasound-guided benign right breast biopsy Comparison: 09/23/2015 with additional multiple prior exams The breasts are composed of scattered fibroglandular densities. Stable biopsy clip in the 8:00 position of the right breast. Persistent benign densities and benign calcifications. There is no significant interval change. No masses, areas of architectural distortion, or suspicious microcalcifications are noted within either breast. IMPRESSION: BI-RADS category 2-benign findings. Annual screening mammography is recommended. Patient information entered into a reminder system with target due date for the next mammogram. PROCEDURE INTERPRETED AT [facility] DEPARTMENT OF RADIOLOGY Final Report Signed by: Dr. Georgette Herrera
[2016-09-24] MEDS: MEROPENEM 1,000 MG in SODIUM CHLORIDE 0.9% 100 ML IV SCH ×3 (14:20→22:26)
[2016-09-25] MEDS ORDERED: HEPARIN LOCK FLUSH 500 UNIT/5 ML SYRINGE IV ONE ×2 (03:19→11:37)
[2016-09-25] MEDS: SODIUM CHLORIDE 0.9% 1,000 ML IV SCH ×2 (03:52→07:27)
[2016-09-25 04:34] LABS: Eosinophils % 0.7 % (0.00-10.9); Hematocrit 26.5 VOL% (35.7-47.0); Hemoglobin 8.9 GM/DL (12.0-16.0); Immature Granulocytes % 0.7 %; Immature Granulocytes Absolute 0.02 #; Lymphocytes # 1.3 10*3/uL (1.4-4.0); Lymphocytes % 46.4 % (21.3-54.2); Mean Corpuscular HGB Conc 33.6 GM/DL (32-36); Mean Corpuscular Hemoglobin 32 PG (27-34); Mean Platelet Volume 9.7 FL (9.6-12.0); Monocytes # 0.6 10*3/uL (0.11-0.8); Monocytes % 19.8 % (1.7-12.7); NRBC # 0.02 10*3/uL; Neutrophils # 0.9 10*3/uL (1.4-7.4); Neutrophils % 32.4 % (38.7-73.9); Platelet Count 162 T/CUMM (130-400); Red Blood Count 2.82 MC/CUMM (3.8-5.5); Red Cell Distribution Width 17.1 % (9.3-17.3); White Blood Count 2.8 T/CUMM (4-12)
[2016-09-25 04:57] LABS: Band Neutrophils 1 % (0-10); Eosinophils 1 % (0-10); Lymphocytes 44 % (20-55); Metamyelocytes 1 %; Myelocytes 1 %; Platelet Estimate Normal; Segmented Neutrophils 41 % (50-85); Total Cells Counted 100
[2016-09-25 04:58] LABS: Atypical Lymphocytes Few; Smudge Cells Few
[2016-09-25 05:07] LABS: Albumin 2.5 G/DL (3.4-5.0); Bilirubin,Total 0.6 MG/DL (0.2-1.0); Calcium 8.3 MG/DL (8.5-10.1); Osmolality,Calculated 283.8 MOS/KG (273-304); Total Protein 5.8 G/DL (6.4-8.3)
[2016-09-25] MEDS: MEROPENEM 1,000 MG in SODIUM CHLORIDE 0.9% 100 ML IV SCH (06:23)
--- NOTE | 2016-09-25 07:50 | Oncology Progress Note ---
Oncology Subjective PN Interval history: This patient was admitted with neutropenic sepsis. Patient with AML in remission, recovering from low blood counts as result of recent chemotherapy. She also has been heavily treated in the past with additional chemotherapy because she has had stage IV adenocarcinoma colon and has had unresectable stage III ovarian cancer. She has been afebrile since September 21. Blood cultures remain negative. Exam - Constitutional Vitals: Period Temp Pulse Resp BP Sys/Ceballos Pulse Ox Last 24 Hr 97.4 F-98.8 F 73-91 18-20 107-142/58-69 98-100 Results - Labs CBC & BMP: 09/25/16 04:00 09/25/16 04:00 Quality Measures - Stroke Symptom Onset Unknown: No
[2016-09-25] MEDS: DOCUSATE SODIUM 100 MG CAPSULE PO SCH (09:02)
[2016-09-25] MEDS: FAMOTIDINE 20 MG TABLET PO SCH (09:03)
[2016-09-25] MEDS: MAGNESIUM CHLORIDE 64 MG TABLET PO SCH (09:03)
[2016-09-25] MEDS: METOPROLOL SUCCINATE XL 50 MG TABLET PO SCH (09:03)
[2016-09-25] MEDS: POTASSIUM CHLORIDE 20 MEQ TABLET PO SCH (09:03)
[2016-09-25] MEDS: VANCOMYCIN INJ 1,000 MG in SODIUM CHLORIDE 0.9% 250 ML IV SCH (09:03)
[2016-09-25 09:54] VITALS: BP 110/64
--- NOTE | 2016-09-25 10:06 | Discharge Summary ---
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 twice daily for 7 days and she is given 1 refill on it. Ms. 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 It consisted of high-dose Cytosar. Last night she had shaking chills and fever but did not come to the emergency room in spite of our recommendation that she do so. This morning she began having fever and chills again and she arrived at the emergency room and was appropriately cultured and started on IV antibiotics and she will be admitted at this point. Blood work on this admission includes a white cell count of 1300 with an absolute neutrophil count of 0 and a platelet count of 80,000. Her comprehensive metabolic profile is normal except for a low serum calcium of 8.3 which corresponds to a low serum albumin of 2.9. She has a history of acute myelogenous leukemia and a past history of stage IV colon cancer as well as a past history of stage III ovarian cancer. She was treated with 2 courses of induction chemotherapy and because of prolonged debilitation, which caused a delay in her first course of consolidation chemotherapy but now she has completed the 2 full courses of consolidation and I do not plan to administer further chemotherapy. She received consolidation chemotherapy for the first time on July 19, July 21 and July 23 and the doses consisted of 2 or 3 g of Cytosar every 12 hours on those 3 days, given outpatient. The second course of consolidation chemotherapy was started by first and she received Cytosar-U 3 g IV every 12 hours on August 31, September 02 and September 04. She received induction chemotherapy with daunorubicin and Cytosar in April 2016 and she received a second course of induction chemotherapy about 6 weeks later because of persistent disease. Following marrow recovery, she was found to have achieved a complete remission confirmed on bone marrow biopsy including flow cytometry and cytogenetics and she has now had the 2 courses of consolidation chemotherapy using high-dose Cytosar given on the dates mentioned above. 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 She is in remission from this. She also has a history of stage IIIB ovarian cancer and she is in remission from it as well. Her last course of palliative chemotherapy for the colon cancer was about a year ago although she continued to receive Avastin as a single agent until January or February 2016. Prior to being diagnosed with colon cancer, she was diagnosed as having stage IIIc ovarian cancer. The ovarian cancer was diagnosed in March 2013 and she was treated with Abraxane and carboplatin. Her ovarian cancer antigen improved. 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 She was treated with 11 courses of FOLFOX/Folfiri and has recently been on Avastin as a single agent. She is in complete remission from both the colon cancer and ovarian cancer. She has actually had a remarkable response to chemotherapy and had been off chemotherapy since April 2015. She has had a normal CEA level of 4.6 and a normal ovarian cancer antigen rechecked on several occasions. A CT of the abdomen and pelvis on March 30, 2016 and she had no evidence of metastatic disease to suggest recurrence of these of the colon or ovarian cancers. Blood cultures were done on admission and have remained negative. The patient was begun on Merrem and later vancomycin was added intravenously and we monitored for toxicity of both of these antibiotics. Her condition is improved. She still has significant neutropenia but she is afebrile.Ms. 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 It consisted of high-dose Cytosar. On the night prior to this admission she had shaking chills and fever but did not come to the emergency room in spite of our recommendation that she do so. This morning she began having fever and chills again and she arrived at the emergency room and was appropriately cultured and started on IV antibiotics and she will be admitted at this point. She has a history of acute myelogenous leukemia and a past history of stage IV colon cancer as well as a past history of stage III ovarian cancer. She was treated with 2 courses of induction chemotherapy and because of prolonged debilitation, which caused a delay in her first course of consolidation chemotherapy but now she has completed the 2 full courses of consolidation and I do not plan to administer further chemotherapy. She received consolidation chemotherapy for the first time on July 19, July 21 and July 23 and the doses consisted of 2 or 3 g of Cytosar every 12 hours on those 3 days, given outpatient. The second course of consolidation chemotherapy was started by first and she received Cytosar-U 3 g IV every 12 hours on August 31, September 02 and September 04. She received induction chemotherapy with daunorubicin and Cytosar in April 2016 and she received a second course of induction chemotherapy about 6 weeks later because of persistent disease. Following marrow recovery, she was found to have achieved a complete remission confirmed on bone marrow biopsy including flow cytometry and cytogenetics and she has now had the 2 courses of consolidation chemotherapy using high-dose Cytosar given on the dates mentioned above. 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 She is in remission from this. She also has a history of stage IIIB ovarian cancer and she is in remission from it as well. Her last course of palliative chemotherapy for the colon cancer was about a year ago although she continued to receive Avastin as a single agent until January or February 2016. Prior to being diagnosed with colon cancer, she was diagnosed as having stage IIIc ovarian cancer. The ovarian cancer was diagnosed in March 2013 and she was treated with Abraxane and carboplatin. Her ovarian cancer antigen improved. 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 She was treated with 11 courses of FOLFOX/Folfiri and has recently been on Avastin as a single agent. She is in complete remission from both the colon cancer and ovarian cancer. She has actually had a remarkable response to chemotherapy and had been off chemotherapy since April 2015. She has had a normal CEA level of 4.6 and a normal ovarian cancer antigen rechecked on several occasions. A CT of the abdomen and pelvis on March 30, 2016 and she had no evidence of metastatic disease to suggest recurrence of these of the colon or ovarian cancers. Blood work today includes white cell count 2800 with an absolute neutrophil count of 900. Her hemoglobin is 8.9 and her platelet count is 162,000. Her comprehensive metabolic profile includes a serum creatinine of 0.4. I am discharging the patient today with an appointment to see me in 6 weeks which she is instructed to return immediately should she have further shaking chills or fever or any other acute problems. If she remains in complete remission from this leukemia, this will be the third cancer for which she has been treated. - Time spent with patient Time with patient DS: Greater than 30 minutes Discharge Plan - Discharge Data Disposition: Disch To Home/Self Care Condition at Discharge: Guarded Discharge Diet: advance to your usual diet Activity: resume usual activities as tolerated Hygiene: no restrictions Weight Bearing at Discharge: weight bear as tolerated Driving: other Contact your physician if you experience:: fever over 101, Difficulty voiding, Redness or swelling, Nausea/Vomiting, Shortness of breath, Bleeding, pain uncontrolled by pain medications - Discharge Medications No Action Docusate Sodium Cap [Colace Cap] 200 mg PO QAM Famotidine 20 mg PO BID Magnesium Chloride [Mag Delay] 64 mg PO TID W/MEALS Promethazine Tab [Phenergan Tab] 25 mg PO Q6H PRN PRN Reason: Nausea/Vomiting Potassium Chloride Cap/Tab [K Dur] 20 meq PO QAM cycloSPORINE OPH EMUL [Restasis] 1 drop BOTH EYES BID HYDROcodone/ACETAMIN 5-325 [[place] 5-325] 1 tablet PO Q4H Metoprolol Succinate Xl [Toprol Xl] 50 mg PO QAM - Follow Up or Referral - Forms/Instructions Additional Discharge Instructions: Appointment to see me in 6 weeks with CBC, CMP and LDH and extra red top tube. Be sure she gets a prescription for Cipro 500 mg p.o. twice daily for 7 days with 1 refill. I have written this already. Exam - Constitutional Vitals: Period Temp Pulse Resp BP Sys/Ceballos Pulse Ox Last 24 Hr 97.4 F-98.8 F 73-91 18-20 107-142/58-69 96-100 Discharge Results Procedures and tests throughout hospitalization: Pending Orders 09/20/16 13:59 Blood Culture Stat 09/26/16 04:00 Comp Blood Count Auto Diff IN AM Comprehensive Metabolic Panel IN AM LDH [Lactate Dehydrogenase] IN AM 09/27/16 04:00 Comp Blood Count Auto Diff IN AM Comprehensive Metabolic Panel IN AM LDH [Lactate Dehydrogenase] IN AM 09/28/16 04:00 Comp Blood Count Auto Diff IN AM Comprehensive Metabolic Panel IN AM Labs on day of discharge: Labs from last 24 hours 09/25/16 09/25/16 04:00 04:00 WBC 2.8 L RBC 2.82 L Hgb 8.9 L Hct 26.5 L MCV 94.0 MCH 32 MCHC 33.6 RDW 17.1 Plt Count 162 MPV 9.7 Neut % (Auto) 32.4 L Lymph % (Auto) 46.4 [place] % (Auto) 19.8 H Eos % (Auto) 0.7 Baso % (Auto) 0.0 Neut # (Auto) 0.9 L Lymph # (Auto) 1.3 L [place] # (Auto) 0.6 Eos # (Auto) 0.0 Baso # (Auto) 0.0 Total Counted 100 Immature Gran % 0.7 Nucleated RBC % 0.7 Immature Gran # 0.02 Segmented Neutrophils 41 L Band Neutrophils 1 Lymphocytes 44 Monocytes 11 Eosinophils 1 Metamyelocytes 1 Myelocytes 1 Nucleated RBCs # 0.02 Atypical Lymphocytes Few Smudge Cells Few Platelet Estimate Normal [employer] Representative Sodium 144 Potassium 4.0 Chloride 110 H Carbon Dioxide 26 Anion Gap 12.0 BUN 3 L Creatinine 0.40 L GFR Calculation 145 BUN/Creatinine Ratio 7.00 Glucose 124 H Calculated Osmolality 283.8 Calcium 8.3 L Total Bilirubin 0.60 AST 15 ALT 15 Alkaline Phosphatase 105 Lactate Dehydrogenase 160 Total Protein 5.8 L Albumin 2.5 L Globulin 3.3 Albumin/Globulin Ratio 0.7 L Preliminary micro results at discharge 09/20/16 13:59 Blood Culture - Preliminary Blood No growth at 3 days 09/20/16 13:31 Blood Culture - Preliminary Blood No growth at 3 days DS: Provider Date of admission: 09/20/16 14:13 Primary care physician: . No PCP Attending physician on admission: Marvin Castaneda MD Discharging clinician: Marvin Castaneda MD
== END 2016-09-25 12:17 | disposition home or self-care (01) | DRG 872 ==
LOC: N.ED 11:53 → N.EDINP 14:13 → N.4E 14:36
PROVIDERS: ADMIT Specialist; ATTEND Specialist

== ENCOUNTER 2016-12-11 16:48 | Inpatient (IN) ==
--- NOTE | 2016-12-11 17:50 | Emergency Department Note ---
Jacob Soto Rolonda, am scribing for, and in the presence of, Edouard Best MD 17:19. Nasir Soto Phillip K, MD, personally performed the services described in this documentation, ascribed by Sue James in my presence, and it is both accurate and complete [id number] . Arrival - Arrival Chief Complaint: Non-Specific Stated Complaint: ask pt ED Nursing Triage Note: pt to triage via wc with c/o having bleeding from procedure site to right hip area. pt states she had a bone marrow transplant today and was discharged home, pt went home and took a nap and then woke up bleeding to procedure area. pt states having a slow oozing of blood. Mode of Arrival: Wheelchair Limitations: No Limitations Source: Patient, Old Records Reviewed, RN Notes Reviewed - History of Present Illness HPI Narrative: Pt is a 61 y/o female who presents to the ED with c/o bleeding with an onset of hours. Pt states that she recently had a bone marrow biopsy and was d/c home. She states that she went home, took a nap, and awakened to being in "a pool of blood". She states that she saw Dr. Castaneda today and was told to go to the ED if the surgia site worsened. During exam, pt was not bleeding as bad as before. No other complaint/pain in ED. Onset (ago): hour(s) Consistency: constant Severity: moderate Severity scale (1-10): 4 Allergies/Adverse Reactions: Allergies Allergy/AdvReac Type Severity Reaction Status Date / Time No Known Allergies Allergy Verified 12/11/16 16:56 Home Medications: Home Medications Medication Instructions Recorded Confirmed Type Docusate Sodium Cap [Colace Cap] 200 mg PO QAM PRN 12/10/14 12/11/16 History Famotidine 20 mg PO BID 12/10/14 12/11/16 History Magnesium Chloride [Mag Delay] 64 mg PO TID 12/31/14 12/11/16 History Metoprolol Succinate Xl [Toprol Xl] 50 mg PO QAM 08/05/16 12/11/16 History Promethazine Tab [Phenergan Tab] 25 mg PO Q6H PRN 08/05/16 12/11/16 History cycloSPORINE OPH EMUL [Restasis] 1 drop BOTH EYES BID 08/31/16 12/11/16 History HYDROcodone/ACETAMIN 5-325 [[place] 1 tablet PO Q4H PRN 12/11/16 12/11/16 History 5-325] Ibuprofen Tab [Motrin Tab] 800 mg PO Q8H PRN 12/11/16 12/11/16 History Potassium Chloride [Klor-Con M20] 20 meq PO QAM 12/11/16 12/11/16 History Review of System - Review of System 12 point system: reviewed and no additional remarkable complaints except as stated - Review of System Constitutional: Absent: chills, fever Eyes: Absent: discharge, redness Head/Ears/Nose/Throat: Absent: earache, epistaxis Respiratory: Absent: cough, respiratory distress Cardiovascular: Absent: chest pain, dyspnea on exertion Gastrointestinal: Absent: abdominal pain, diarrhea Genitourinary female: Absent: dysuria Musculoskeletal: Absent: arm pain, back pain Skin: Absent: rash Neurological: Absent: headache Psychiatric: Absent: anxiety Endocrine: Absent: cold intolerance Hematological/Lymphatic: Absent: easy bleeding (some bleeding from surgical site ) Allergic/Immunologic: Absent: facial swelling Medical,Surgical,& Family Hx - Medical History Cardio: History of: Hypertension Neurology: No history of: Seizures Rheumatology: History of;: 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) Gastrointestinal: History of: Gastrointestinal Cancer (colon cancer) Hematology: History of: Hematologic Cancer (leukemia) No history of: Blood Transfusion Reaction Reproductive: History of: Reproductive Cancer (hx of ovarian cancer) Other: History of: Cancer - Surgical History Abdominal Surgeries: Surgical HX of: Abdominal Surgery (colon surgery) - Family History Family History: Reports;: Family Diabetes (grandmother), Family Heart Disease ( grandmother), Family Hypertension (grandmother) Denies;: Family Cancer - Social History Smoking Status: Never smoker Frequency of Alcohol Use: None Type of Drug Use: None Exam Vital Signs: Vital Signs Temperature 98.5 F 12/14/16 15:35 Pulse Rate 131 H 12/14/16 15:25 Respiratory Rate 22 12/14/16 15:25 Blood Pressure 105/55 12/14/16 15:25 O2 Sat by Pulse Oximetry 91 L 12/14/16 15:25 - General General appearance: alert, in no apparent distress - Head Head exam: Present: atraumatic, normocephalic - Eye Eye exam: Present: PERRL, EOMI - ENT ENT exam: Present: mucous membranes moist. Absent: mucous membranes dry - Neck Neck exam: Present: full ROM. Absent: tenderness - Chest Chest inspection: Present: symmetric chest wall rise. Absent: tenderness - Respiratory Respiratory exam: Present: normal lung sounds bilaterally. Absent: wheezes - Cardiovascular Cardiovascular exam: Present: regular rate, normal rhythm, normal heart sounds. Absent: bradycardia - Abdominal Exam Abdominal exam: Present: soft, normal bowel sounds. Absent: tenderness - External exam: Absent: normal external exam (small puncture wound to right pelvis are from bone marrow biopsy) - Extremities Exam Extremities exam: Present: full ROM. Absent: tenderness - Back Exam Back exam: Present: full ROM. Absent: tenderness - Neurological Exam Neurological exam: Present: alert, oriented X3, CN II-XII intact - Psychiatric Psychiatric exam: Present: normal affect, normal mood - Skin Skin exam: Present: warm, dry, intact, normal color. Absent: rash Course Course Narrative: No active bleeding noted at bone marrow biopsy site. Patient's platelets came back extremely low so we will admit for platelet transfusion. Results - Labs CBC & BMP: 12/14/16 02:00 12/14/16 02:00 Disposition Clinical Impression: Bleeding from biopsy site resolved, AML (acute myeloblastic leukemia), Thrombocytopenia Case discussed with: patient Disposition: Still a Patient Condition: Stable
[2016-12-11 18:14] LABS: Basophils % 0.5 % (0.0-0.8); Hematocrit 31.3 VOL% (35.7-47.0); Hemoglobin 10.8 GM/DL (12.0-16.0); Immature Granulocytes Absolute 0.02 #; Lymphocytes # 1.5 10*3/uL (1.4-4.0); Lymphocytes % 72.2 % (21.3-54.2); Mean Corpuscular HGB Conc 34.5 GM/DL (32-36); Mean Corpuscular Hemoglobin 35 PG (27-34); Mean Corpuscular Volume 102.6 FL (87-102); Mean Platelet Volume 11.5 FL (9.6-12.0); Monocytes # 0.3 10*3/uL (0.11-0.8); Monocytes % 13.2 % (1.7-12.7); Neutrophils # 0.3 10*3/uL (1.4-7.4); Neutrophils % 13.1 % (38.7-73.9); Red Blood Count 3.05 MC/CUMM (3.8-5.5); Red Cell Distribution Width 15.3 % (9.3-17.3); White Blood Count 2.1 T/CUMM (4-12)
[2016-12-11 18:18] LABS: Platelet Count 12 T/CUMM (130-400)
[2016-12-11] MEDS ORDERED: SODIUM CHLORIDE 0.9% 250 ML IV PRN (18:34)
[2016-12-11] MEDS ORDERED: LOPERAMIDE 2 MG CAPSULE PO PRN ×2 (19:35)
[2016-12-11] MEDS ORDERED: PROMETHAZINE INJ 25 MG in SODIUM CHLORIDE 0.9% 50 ML IV PRN (19:35)
[2016-12-11] MEDS ORDERED: MAGNESIUM HYDROXIDE SUSP 30 ML UDCUP PO PRN (19:35)
[2016-12-11] MEDS ORDERED: traMADol 50 MG TABLET PO PRN (19:35)
[2016-12-11] MEDS ORDERED: diphenhydrAMINE CAP 25 MG CAPSULE PO PRN (19:35)
[2016-12-11] MEDS ORDERED: LACTULOSE 20 GM/30 ML UDCUP PO PRN (19:35)
[2016-12-11] MEDS ORDERED: guaiFENesin 200 MG/10 ML UDCUP PO PRN (19:35)
[2016-12-11] MEDS ORDERED: ALUMINUM/MAGNES/SIMETH MAX STR 30 ML UDCUP PO PRN (19:35)
[2016-12-11] MEDS ORDERED: TEMAZEPAM 7.5 MG CAPSULE PO PRN (19:35)
[2016-12-11] MEDS ORDERED: BISACODYL 5 MG TABLET PO PRN (19:35)
[2016-12-11] MEDS ORDERED: ALPRAZolam 0.25 MG TABLET PO PRN (19:35)
[2016-12-11 20:00] LABS: INR 1.1; PT Patient Result 11.6 SECS; Partial Thromboplastin Time 29.6 SECS (0-40)
--- NOTE | 2016-12-11 20:02 | Oncology History&Physical ---
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 -- Reviewed the peripheral smear: severe thrombocytopenia without evidence of large/giant platelets. Check coags. No schistocytes, so not worried about consumptive disorder. No circulating blasts identified -- Plts 12k in the ER. Will transfuse 1 unit of platelets and check post-count in the AM Current Visit: Yes (2) Pancytopenia Status: Acute Assessment and plan: As above; highly concerning for relapsed t-AML. -- afebrile. Concern for mild, nonpurulent cellulitis -- no requirement for red cell transfusion -- transfuse 1 unit platelets as above -- if afebrile, may be able to discharge after 1 unit of platelets to follow up with Dr. Castaneda to discuss biopsy results Current Visit: No (3) Cellulitis and abscess of right lower extremity Status: Acute Assessment and plan: 4cm irregular shaped patch of skin with erythema and calor. Mildly tender to palpation. Non-purulent. No discrete abscess - afebrile - Start Clindamycin 300 mg Q8H tonight Current Visit: Yes History of Present Illness Chief complaint: Bleeding History of present illness: Ms. Hadley is a 61 year old female with a complicated Oncologic history who presented to the ER after noticing bleeding from a bone marrow biopsy site after biopsied earlier today. She has a history of a Stage IIIc Ovarian Carcinoma diagnosed in 2012, treated with hysterectomy and chemotherapy. She was then diagnosed with colon cancer in 2013. She reports that she had surgery and then chemotherapy (previous notes indicate she had metastatic disease from the outset). She was then diagnosed with a treatment-related AML in April,. She received induction chemotherapy and had a positive Day 14 marrow necessitating reinduction. She then had consolidation HIDAC x 2 in July and Aug, 2016. She reports that her counts recovered after this but that they have trended downward the last month or so. This prompted Dr. Castaneda to pursue biopsy today. She reports feeling ok after the biopsy. Went home to nap and awoke with a cramp in her foot. She then noticed that she was lying in a small puddle of blood and that her bandage was completely saturated. She denies chest pain, palpitations, orthostatic dizziness. States that she has felt unwell for the last few weeks and has had fatigue and bruising and dyspnea with little exertion. Denies epistaxis, gingival bleeding, hemoptysis, hematemesis, blood in the urine or stool. Denies fever, chills, adenopathy. Denies sore throat, sinus congestion, cough, abdominal pain, diarrhea, dysuria. States she does have a slightly painful red rash to the right lower leg that is new over the last day or so. Bleeding had apparently resolved by arrival to ER. TOOL LIAISON had already changed dressing and applied Surgicell to the site prior to my examination. Home Medications Medication Instructions Recorded Confirmed Type Docusate Sodium Cap [Colace Cap] 200 mg PO QAM PRN 12/10/14 12/11/16 History Famotidine 20 mg PO BID 12/10/14 12/11/16 History Magnesium Chloride [Mag Delay] 64 mg PO TID 12/31/14 12/11/16 History Metoprolol Succinate Xl [Toprol Xl] 50 mg PO QAM 08/05/16 12/11/16 History Promethazine Tab [Phenergan Tab] 25 mg PO Q6H PRN 08/05/16 12/11/16 History cycloSPORINE OPH EMUL [Restasis] 1 drop BOTH EYES BID 08/31/16 12/11/16 History HYDROcodone/ACETAMIN 5-325 [[place] 1 tablet PO Q4H PRN 12/11/16 12/11/16 History 5-325] Potassium Chloride [Klor-Con M20] 20 meq PO QAM 12/11/16 12/11/16 History Allergies Allergy/AdvReac Type Severity Reaction Status Date / Time No Known Allergies Allergy Verified 12/11/16 16:56 Medical,Surgical,& Family Hx - Medical History Cardio: History of: Hypertension Neurology: History of: Seizures Rheumatology: History of;: 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) Gastrointestinal: History of: Gastrointestinal Cancer (colon cancer) Hematology: History of: Hematologic Cancer (leukemia) No history of: Blood Transfusion Reaction Reproductive: History of: Reproductive Cancer (hx of ovarian cancer) Other: History of: Cancer - Surgical History Cardiac Surgeries: Sugical HX of: Vascular Access Devices (right chest chemoport ) Abdominal Surgeries: Surgical HX of: Abdominal Surgery (colon surgery) Reproductive Surgeries: Surgical HX of;: Hysterectomy - Family History Family History: Reports;: Family Cancer (Mother with pancreatic cancer), Family Diabetes (grandmother), Family Heart Disease (grandmother), Family Hypertension (grandmother) - Social History Smoking Status: Never smoker Frequency of Alcohol Use: None Type of Drug Use: None - Constitutional Constitutional: Present: fatigue. Absent: fever(s), weight loss - EENT Eye: Absent: blurry vision, loss of vision Nose, mouth and throat: Absent: epistaxis, sore throat - Cardiovascular Cardiovascular ROS IM: Absent: chest pain, palpitations - Respiratory Respiratory: Absent: cough, hemoptysis - Gastrointestinal Gastrointestinal: Absent: hematemesis, hematochezia, melena - Genitourinary Genitourinary ROS female: Absent: dysuria, hematuria - Musculoskeletal Musculoskeletal ROS: Present: muscle cramps. Absent: arthralgias - Neurological Neurological ROS: Absent: dizziness, focal weakness - Psychiatric Psychiatric General: Absent: anxiety, depression - Hematologic/Lymphatic Hematologic/Lymphatic: Present: easy bruising. Absent: easy bleeding Exam - Constitutional Vitals: Period Temp Pulse Resp BP Sys/Ceballos Pulse Ox Last 24 Hr 97.9 F-97.9 F 95-95 17-17 129-129/78-78 96 General appearance: over weight Exam: Middle age, obese black female, non-toxic - Head Head Exam: Present: normal inspection - Eye Eye Exam: Present: other (pink palpebral conjunctivae). Absent: conjunctival injection, scleral icterus - ENT ENT exam: Present: normal oropharynx - Neck Neck exam: Absent: lymphadenopathy - Respiratory Respiratory exam: Present: CTAB (normal rate and effort on room air without conversational dyspnea) - Cardiovascular Cardiovascular exam: Present: RRR. Absent: JVD - GI/Abdominal GI/Abdominal exam: Present: soft. Absent: ascites, distended, tenderness - Extremities Exam Extremities exam: Present: other (4cm patch of erythematous, calorous skin to the anterior mid-distal RLE) - Back Exam Back exam general: Present: other (right hip BM biopsy site covered in clean, new dressing. There is no active bleeding and no significant hematoma around the site). Absent: CVA tenderness (L), vertebral tenderness - Neurological Exam Neurological exam: Present: alert, CN II-XII intact - Psychiatric Psychiatric exam: Present: normal affect, normal mood - Skin Skin exam: Present: warm, rash (4cm patch of erythematous, calorous skin to the mid-distal RLE anteriorly), other (scattered purpura to the arms and legs) Results - Labs CBC & BMP: 12/11/16 18:06 12/11/16 19:28 Quality Measures - VTE Contraindication to Pharmacological VTE Prophylaxis: Thrombocytopenia Contraindication to Mechanical VTE Prophylaxis: Local Inflammation
[2016-12-11 20:20] LABS: Albumin 3.2 G/DL (3.4-5.0); Bilirubin,Total 0.4 MG/DL (0.2-1.0); Calcium 8.7 MG/DL (8.5-10.1); Magnesium 1.6 MG/DL (1.8-2.4); Osmolality,Calculated 274.7 MOS/KG (273-304); Potassium 4.1 MMOL/L (3.5-5.1); Total Protein 7.1 G/DL (6.4-8.3); Uric Acid 4.8 MG/DL (2.6-6.0)
[2016-12-11] MEDS: SODIUM CHLORIDE 0.9% 1,000 ML IV SCH (20:50)
[2016-12-11] MEDS ORDERED: CLINDAMYCIN 300 MG CAPSULE PO SCH (22:00)
[2016-12-11] MEDS: cycloSPORINE OPH EMUL 1 VIAL BOTH EYES SCH (22:39)
[2016-12-11] MEDS: CEFEPIME 2,000 MG in SODIUM CHLORIDE 0.9% 100 ML IV SCH (23:13)
[2016-12-12] MEDS: VANCOMYCIN INJ 1,250 MG in SODIUM CHLORIDE 0.9% 250 ML IV SCH ×2 (01:05→15:20)
[2016-12-12 01:46] LABS: Apearance,Urine CLEAR (Clear); Bacteria,Urine Occasional /HPF (Few); Bilirubin,Urine Negative (Negative); Blood, Urine Moderate mg/dL (Negative); Glucose,Urine (UA) Negative (Negative); Ketones,Urine Negative (Negative); Mucus,Urine Occasional /LPF (Occasional); Nitrite,Urine Negative (Negative); Protein,Urine Negative; RBC,Urine 4 /HPF (0-4); Squamous Epithelial Cell,Urine Occasional /HPF (0-10); Urine Color Straw (Yellow); Urine Urobilinogen < 2.0 EU/DL (0.2-1.0); WBC,Urine <1 /HPF (0-6)
[2016-12-12 05:05] LABS: Hematocrit 24.5 VOL% (35.7-47.0); Immature Granulocytes % 2.6 %; Immature Granulocytes Absolute 0.05 #; Lymphocytes # 1.5 10*3/uL (1.4-4.0); Lymphocytes % 75.5 % (21.3-54.2); Mean Corpuscular HGB Conc 35.1 GM/DL (32-36); Mean Corpuscular Hemoglobin 36 PG (27-34); Mean Corpuscular Volume 103.4 FL (87-102); Mean Platelet Volume 9.3 FL (9.6-12.0); Monocytes # 0.3 10*3/uL (0.11-0.8); Neutrophils # 0.2 10*3/uL (1.4-7.4); Neutrophils % 8.9 % (38.7-73.9); Red Blood Count 2.37 MC/CUMM (3.8-5.5); Red Cell Distribution Width 15.2 % (9.3-17.3); White Blood Count 1.9 T/CUMM (4-12)
[2016-12-12 05:06] LABS: Hemoglobin 8.6 GM/DL (12.0-16.0); Platelet Count 54 T/CUMM (130-400)
[2016-12-12 06:02] LABS: Atypical Lymphocytes Few; Hypochromasia 1+; Lymphocytes 80 % (20-55); Microcytosis Slight; Platelet Estimate Decreased; Segmented Neutrophils 12 % (50-85); Total Cells Counted 100
[2016-12-12] MEDS: CEFEPIME 2,000 MG in SODIUM CHLORIDE 0.9% 100 ML IV SCH ×2 (08:34→21:39)
--- NOTE | 2016-12-12 08:50 | XRay Report ---
Portable chest Date: 12/11/2016 Clinical history: Febrile neutropenia, evaluate for pneumonia Comparison: 09/20/2016 Technique: Portable AP sitting chest Findings: The heart remains normal in size with stable right IJ venous access catheter. Chronic scarring in the lungs with minimal atelectasis/infiltration at the lung bases. Degenerative changes are noted. Impression: Chronic scarring lungs with minimal atelectasis/infiltration at the lung bases. PROCEDURE INTERPRETED AT [facility] DEPARTMENT OF RADIOLOGY Final Report Signed by: Dr. Georgette Herrera
[2016-12-12] MEDS: ACETAMINOPHEN 325 MG TABLET PO PRN ×2 (11:52→21:39)
[2016-12-12] MEDS: METOPROLOL SUCCINATE XL 50 MG TABLET PO SCH (11:53)
[2016-12-12] MEDS: PANTOPRAZOLE 40 MG TABLET PO SCH (11:53)
[2016-12-12] MEDS: SODIUM CHLORIDE 0.9% 1,000 ML IV SCH (13:23)
--- NOTE | 2016-12-12 13:43 | Oncology Progress Note ---
Assessment and Plan (1) Febrile neutropenia Status: Acute Assessment and plan: CXR clear. Blood and urine cultures drawn. - On Cefepime 2 gram Q8H and Vancomycin 15 mg/kg Q12H. 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 -- Reviewed the peripheral smear: severe thrombocytopenia without evidence of large/giant platelets; no schistocytes. Coags normal. -- Responded well to 1 unit platelet transfusion. 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 -- now with febrile neutropenia -- bleeding resolved after 1 unit platelets -- monitoring H/H Current Visit: No (4) Cellulitis and abscess of right lower extremity Status: Acute Assessment and plan: 4cm irregular shaped patch of skin with erythema and calor. Mildly tender to palpation. Non-purulent. No discrete abscess - now with febrile neutropenia. Continue Vanc and Cefepime Current Visit: Yes Oncology Subjective PN Interval history: Febrile up to 102.6 last night prior to receiving platelet transfusion. Onyx well this am. Denies new infectious symptoms. States pain in the RLE rash already seems improved. Has not experienced any further bleeding. Denies chest pain, palpitations, dyspnea, diarrhea, dysuria. Exam - Constitutional Vitals: Period Temp Pulse Resp BP Sys/Ceballos Pulse Ox Last 24 Hr 97.9 F-102.6 F 95-123 17-20 113-138/55-93 95-96 Exam: Middle age, obese black female lying back in bed comfortably, non-toxic - Eye Eye Exam: Absent: conjunctival injection, scleral icterus - ENT ENT exam: Present: normal oropharynx - Respiratory Respiratory exam: Present: CTAB - Cardiovascular Cardiovascular exam: Present: RRR. Absent: JVD - GI/Abdominal GI/Abdominal exam: Present: tenderness, soft - Extremities Exam Extremities exam: Present: other (RLE rash appears less erythematous already) - Skin Skin exam: Present: rash Results - Labs CBC & BMP: 12/12/16 05:00 12/11/16 19:28 Quality Measures - VTE Contraindication to Pharmacological VTE Prophylaxis: Thrombocytopenia Contraindication to Mechanical VTE Prophylaxis: Local Inflammation
[2016-12-12] MEDS: cycloSPORINE OPH EMUL 1 VIAL BOTH EYES SCH ×2 (13:45→21:38)
[2016-12-12] MEDS ORDERED: VANCOMYCIN INJ 1,500 MG in SODIUM CHLORIDE 0.9% 300 ML IV SCH (14:30)
[2016-12-12] MEDS: VANCOMYCIN INJ 1,500 MG in SODIUM CHLORIDE 0.9% 500 ML IV SCH (16:00)
[2016-12-13] MEDS: VANCOMYCIN INJ 1,500 MG in SODIUM CHLORIDE 0.9% 500 ML IV SCH ×2 (03:31→18:12)
[2016-12-13 06:40] LABS: Basophils % 0.5 % (0.0-0.8); Hematocrit 24.7 VOL% (35.7-47.0); Hemoglobin 8.8 GM/DL (12.0-16.0); Lymphocytes # 1.2 10*3/uL (1.4-4.0); Lymphocytes % 59.7 % (21.3-54.2); Mean Corpuscular HGB Conc 35.6 GM/DL (32-36); Mean Corpuscular Hemoglobin 37 PG (27-34); Mean Corpuscular Volume 103.3 FL (87-102); Mean Platelet Volume 10.3 FL (9.6-12.0); Monocytes # 0.3 10*3/uL (0.11-0.8); Monocytes % 14.1 % (1.7-12.7); Neutrophils # 0.5 10*3/uL (1.4-7.4); Neutrophils % 25.7 % (38.7-73.9); Red Blood Count 2.39 MC/CUMM (3.8-5.5); Red Cell Distribution Width 15.1 % (9.3-17.3); White Blood Count 2.1 T/CUMM (4-12)
[2016-12-13 06:42] LABS: Platelet Count 44 T/CUMM (130-400)
[2016-12-13] MEDS: CEFEPIME 2,000 MG in SODIUM CHLORIDE 0.9% 100 ML IV SCH ×2 (06:44→15:59)
[2016-12-13 07:04] LABS: Calcium 8.5 MG/DL (8.5-10.1); Osmolality,Calculated 274.7 MOS/KG (273-304); Potassium 3.7 MMOL/L (3.5-5.1)
[2016-12-13 07:16] LABS: Atypical Lymphocytes Few; Band Neutrophils 2 % (0-10); Hypochromasia 1+; Lymphocytes 70 % (20-55); Microcytosis 1+; Ovalocytes Slight; Platelet Estimate Decreased; Segmented Neutrophils 14 % (50-85); Total Cells Counted 100
[2016-12-13] MEDS: ACETAMINOPHEN 325 MG TABLET PO PRN ×3 (08:54→23:22)
[2016-12-13] MEDS: PANTOPRAZOLE 40 MG TABLET PO SCH (08:54)
[2016-12-13] MEDS: cycloSPORINE OPH EMUL 1 VIAL BOTH EYES SCH ×2 (08:56→21:35)
--- NOTE | 2016-12-13 11:59 | Oncology Progress Note ---
Assessment and Plan (1) Febrile neutropenia Status: Acute Assessment and plan: Septic, though does not have a toxic appearance. CXR clear. Blood and urine cultures so far negative. Still has not defervesced. Will send fungitell and galactomannan. - On Cefepime 2 gram Q8H and Vancomycin with pharmacy to continue dosing. Start Micafungin 100 mg daily Current Visit: No (2) Sepsis affecting skin Status: Acute Assessment and plan: Defined by fever, tachycardia, leukopenia and source (cellulitis) - not improving. More aggressive fluid resuscitation and broadening anti- microbials to include antifungal Current Visit: Yes (3) Cellulitis and abscess of right lower extremity Status: Acute Assessment and plan: Non-purulent cellulitis appears improved, though patient has not really improved. No other definite source at this time. Treatment as above. Current Visit: Yes (4) Pancytopenia Status: Acute Assessment and plan: As above; highly concerning for relapsed t-AML vs metastatic colon/ovarian. -- now with febrile neutropenia -- bleeding resolved after 1 unit platelets. Platelets stable -- monitoring H/H. 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 -- Reviewed the peripheral smear on admission: severe thrombocytopenia without evidence of large/giant platelets; no schistocytes. Coags normal. -- Responded well to 1 unit platelet transfusion. Monitoring Current Visit: Yes Oncology Subjective PN Interval history: Feeling poorly from persistent fevers. Denies new infectious symptoms: cough, chest pain, dyspnea, abdominal pain, diarrhea, dysuria, urinary frequency, other rash/sore, painful/swollen joints. - appetite is poor. Eating only a little. Exam - Constitutional Vitals: Period Temp Pulse Resp BP Sys/Ceballos Pulse Ox Last 24 Hr 96.7 F-103.0 F 86-125 16-20 112-164/58-84 90-97 Exam: Middle age, obese black female lying back in bed comfortably, non-toxic - Head Head Exam: Present: normal inspection - Eye Eye Exam: Present: other (anicteric sclera, pink palpebral conjunctiva) - ENT ENT exam: Present: normal oropharynx - Neck Neck exam: Absent: lymphadenopathy, tenderness - Respiratory Respiratory exam: Present: other (normal rate and effort on RA. CTAB) - Cardiovascular Cardiovascular exam: Present: tachycardia (Tachycardic with regular rhythm. JVP normal. No edema). Absent: JVD - GI/Abdominal GI/Abdominal exam: Present: soft. Absent: distended, tenderness - Extremities Exam Extremities exam: Present: normal inspection. Absent: edema - Neurological Exam Neurological exam: Present: alert. Absent: CN II-XII intact - Psychiatric Psychiatric exam: Present: depressed, flat affect - Skin Skin exam: Present: warm, dry (the right lower extremity rash is still warmer than the surrounding area but is less erythematous) Results - Labs CBC & BMP: 12/13/16 04:15 12/13/16 04:15 Quality Measures - VTE Contraindication to Pharmacological VTE Prophylaxis: Thrombocytopenia Contraindication to Mechanical VTE Prophylaxis: Local Inflammation
[2016-12-13] MEDS ORDERED: SODIUM CHLORIDE 0.9% 1,000 ML IV ONE (12:51)
[2016-12-13] MEDS: MICAFUNGIN 100 MG in SODIUM CHLORIDE 0.9% 100 ML IV SCH (12:56)
[2016-12-13] MEDS: SODIUM CHLORIDE 0.9% 1,000 ML IV SCH ×2 (12:58→18:20)
[2016-12-13] MEDS ORDERED: NAPROXEN 500 MG TABLET PO ONE (16:07)
[2016-12-13] MEDS ORDERED: CLOTRIMAZOLE 10 MG TROCHE PO SCH (17:00)
--- NOTE | 2016-12-13 17:27 | CT Report ---
Referring physician: Marvin Castaneda EXAM: CT abdomen and pelvis with contrast DATE: 12/13/2016 COMPARISON: 03/30/2016 REASON: CLL, metastatic colon and ovarian cancer TECHNIQUE: Axial images of the abdomen and pelvis were obtained after administration of 100 cc of Omnipaque 350 IV contrast. Oral contrast was also administered. Coronal and sagittal reformatted images were also provided. Total DLP is 1571.90 mGy*cm. FINDINGS: Minimal atelectasis at the lung bases with cardiomegaly and cardiac fat pads. The liver is normal in size with progressive multiple small hypodensities with the largest finding measuring 12 mm compared to 11 mm on the previous exam. 7.6 mm subcapsular nodular finding in the right lobe of the liver now measures 16 mm. The gallbladder is contracted. The spleen, pancreas, adrenal glands, and kidneys are stable in appearance with persistent 15 mm right mid to lower pole renal cyst. Calcification in the wall of the nondilated abdominal aorta with no adjacent adenopathy. 30 mm hiatal hernia with limited oral contrast in the stomach. No dilatation of the small bowel which extends into the neck of the umbilical hernia. Increased fecal material in the colon with post operative findings in the right colon. No evidence of diverticulitis, free air, or free fluid. Prior hysterectomy with stable prominence of the vaginal cuff. 6.7 mg anterolisthesis of L5 in relationship to S1 with chronic pars defects. Stable sclerotic findings in the area the SI joints. IMPRESSION: Decreased parenchymal findings at the lung bases where there is residual atelectasis. Findings consistent with progressive hepatic metastatic disease with nonspecific contraction of the gallbladder. Stable 15 mm right renal cyst, 30 mm hiatal hernia with limited oral contrast in the stomach which makes it difficult to exclude nonspecific thickening of the wall of the stomach. Nondilated small bowel extends into neck of the umbilical hernia. Post operative findings in the right colon with increased fecal material consistent with constipation. Prior hysterectomy with stable prominence of the vaginal cuff. Grade 1 spondylolisthesis at L5-S1 with chronic pars defects and persistent degenerative changes. The CT exam was performed using one or more of the following dose reduction techniques: Automated exposure control and adjustment of the mA and/or kV according to patient size. PROCEDURE INTERPRETED AT [facility] DEPARTMENT OF RADIOLOGY Final Report Signed by: Dr. Georgette Herrera
[2016-12-13] MEDS: CLOTRIMAZOLE 10 MG TROCHE PO SCH ×3 (18:14→23:22)
[2016-12-13] MEDS: METOPROLOL SUCCINATE XL 50 MG TABLET PO SCH (18:16)
[2016-12-13] MEDS: MEROPENEM 1,000 MG in SODIUM CHLORIDE 0.9% 100 ML IV SCH (20:16)
[2016-12-13] MEDS: LACTATED RINGERS 1,000 ML IV SCH (20:16)
[2016-12-14 02:18] LABS: Basophils % 1.2 % (0.0-0.8); Hematocrit 25.4 VOL% (35.7-47.0); Immature Granulocytes % 11.7 %; Lymphocytes # 0.9 10*3/uL (1.4-4.0); Lymphocytes % 33.5 % (21.3-54.2); Mean Corpuscular HGB Conc 35.4 GM/DL (32-36); Mean Corpuscular Hemoglobin 36 PG (27-34); Mean Corpuscular Volume 100.8 FL (87-102); Mean Platelet Volume 9.2 FL (9.6-12.0); Monocytes # 0.4 10*3/uL (0.11-0.8); Monocytes % 17.1 % (1.7-12.7); Neutrophils # 0.9 10*3/uL (1.4-7.4); Neutrophils % 36.5 % (38.7-73.9); Red Blood Count 2.52 MC/CUMM (3.8-5.5); Red Cell Distribution Width 14.9 % (9.3-17.3); White Blood Count 2.6 T/CUMM (4-12)
[2016-12-14 02:49] LABS: Platelet Count 27 T/CUMM (130-400)
[2016-12-14] MEDS: VANCOMYCIN INJ 1,500 MG in SODIUM CHLORIDE 0.9% 500 ML IV SCH ×2 (02:55→14:31)
[2016-12-14 03:28] LABS: Bilirubin,Total 0.8 MG/DL (0.2-1.0); Calcium 8.7 MG/DL (8.5-10.1)
[2016-12-14 03:29] LABS: Albumin 2.5 G/DL (3.4-5.0); Osmolality,Calculated 272.8 MOS/KG (273-304); Potassium 3.4 MMOL/L (3.5-5.1); Total Protein 6.1 G/DL (6.4-8.3)
[2016-12-14 04:18] LABS: Anisocytosis 1+; Band Neutrophils 2 % (0-10); Lymphocytes 50 % (20-55); Macrocytosis 1+; Metamyelocytes 3 %; Myelocytes 1 %; Nucleated Red Blood Cells 6 (0-5); Platelet Estimate Decreased; Segmented Neutrophils 23 % (50-85); Total Cells Counted 100
[2016-12-14] MEDS: ACETAMINOPHEN 325 MG TABLET PO PRN ×4 (04:29→23:57)
[2016-12-14 05:10] LABS: INR 1.3; PT Patient Result 14.1 SECS; Partial Thromboplastin Time 34.1 SECS (0-40)
[2016-12-14] MEDS: MEROPENEM 1,000 MG in SODIUM CHLORIDE 0.9% 100 ML IV SCH ×3 (06:05→20:55)
--- NOTE | 2016-12-14 07:10 | Oncology Progress Note ---
Oncology Subjective PN Interval history: Diagnoses: Neutropenic sepsis: White cell count today 2600 with an absolute neutrophil count of 900.Blood cultures have been drawn and there is no growth so far. Also urine culture contains no growth so far. 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 She was diagnosed as having acute myelogenous leukemia April 17, 2016. She has poor cytogenetic prognostic features. We are awaiting the report of the bone marrow biopsy and aspirate done last week. She was treated with 2 courses of induction chemotherapy followed by 2 courses of consolidation chemotherapy using high-dose Cytosar. Her last chemotherapy was given in August 2016. 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 The patient has a documented rise in her CEA level. She was initially diagnosed as having adenocarcinoma of the right colon in June 2014. The primary was resected but she was found to have liver metastases. She was treated with FOLFOX and Folfiri plus Avastin for 11 courses and then placed on Avastin as a single agent until she developed leukopenia and was diagnosed as having AML. A CEA level done December 10, 2016 was 30.8 and rising. Stage IIIc ovarian cancer: Her most recent ovarian cancer antigen was within normal range. She was diagnosed as having stage IIIc ovarian cancer in March 2013 and was treated with chemotherapy using Abraxane and carboplatin. She was referred for surgical evaluation but was found to have adenocarcinoma of the colon before she could undergo debulking of her colon cancer. Her ovarian cancer antigen done December 10, 2016 was 4.2. Thrombocytopenia: Platelet count 27,000 today. Anemia multifactorial due to leukemia as well as previous extensive treatment for colon cancer, ovarian cancer and acute myelogenous leukemia: Hemoglobin 9.0 today. History of hypokalemia:Serum potassium today 3.4. I am altering her IV fluids and adjusting IV potassium intake. The patient has a history of hypokalemia. Exam - Constitutional Vitals: Period Temp Pulse Resp BP Sys/Ceballos Pulse Ox Last 24 Hr 97.5 F-102.5 F 111-133 16-22 89-170/55-83 90-97 Results - Labs CBC & BMP: 12/14/16 02:00 12/14/16 02:00 Quality Measures - VTE Contraindication to Pharmacological VTE Prophylaxis: Thrombocytopenia Contraindication to Mechanical VTE Prophylaxis: Local Inflammation
[2016-12-14] MEDS: PANTOPRAZOLE 40 MG TABLET PO SCH (08:18)
[2016-12-14] MEDS: CLOTRIMAZOLE 10 MG TROCHE PO SCH ×4 (08:18→20:54)
[2016-12-14] MEDS: cycloSPORINE OPH EMUL 1 VIAL BOTH EYES SCH ×2 (08:18→20:55)
[2016-12-14] MEDS: METOPROLOL SUCCINATE XL 50 MG TABLET PO SCH (08:18)
[2016-12-14] MEDS: MICAFUNGIN 100 MG in SODIUM CHLORIDE 0.9% 100 ML IV SCH (09:37)
[2016-12-14] MEDS: ONDANSETRON 4 MG/2 ML VIAL IV PRN ×2 (09:37→22:08)
[2016-12-14] MEDS: DEXT 5% NACL 0.45% KCL 40 MEQ 40 MEQ/1,000 ML BAG IV SCH ×2 (11:40→20:56)
[2016-12-14] MEDS: LACTATED RINGERS 1,000 ML IV SCH (11:47)
[2016-12-15] MEDS: VANCOMYCIN INJ 1,500 MG in SODIUM CHLORIDE 0.9% 500 ML IV SCH (02:32)
[2016-12-15] MEDS: DEXT 5% NACL 0.45% KCL 40 MEQ 40 MEQ/1,000 ML BAG IV SCH ×3 (02:32→19:33)
[2016-12-15] MEDS: MEROPENEM 1,000 MG in SODIUM CHLORIDE 0.9% 100 ML IV SCH ×2 (04:48→12:39)
[2016-12-15] MEDS: ACETAMINOPHEN 325 MG TABLET PO PRN ×2 (06:17→10:49)
[2016-12-15 07:28] LABS: Basophils # 0.1 10*3/uL (0.0-0.2); Basophils % 2.3 % (0.0-0.8); Hematocrit 25.1 VOL% (35.7-47.0); Hemoglobin 8.8 GM/DL (12.0-16.0); Immature Granulocytes % 6.8 %; Immature Granulocytes Absolute 0.21 #; Lymphocytes # 0.6 10*3/uL (1.4-4.0); Lymphocytes % 20.8 % (21.3-54.2); Mean Corpuscular HGB Conc 35.1 GM/DL (32-36); Mean Corpuscular Hemoglobin 37 PG (27-34); Mean Corpuscular Volume 104.1 FL (87-102); Mean Platelet Volume 9.8 FL (9.6-12.0); Monocytes # 0.4 10*3/uL (0.11-0.8); Monocytes % 11.4 % (1.7-12.7); Neutrophils # 1.8 10*3/uL (1.4-7.4); Neutrophils % 58.7 % (38.7-73.9); Red Blood Count 2.41 MC/CUMM (3.8-5.5); Red Cell Distribution Width 15.4 % (9.3-17.3); White Blood Count 3.1 T/CUMM (4-12)
[2016-12-15 07:36] LABS: Platelet Count 16 T/CUMM (130-400)
[2016-12-15 07:50] LABS: Band Neutrophils 2 % (0-10); Lymphocytes 28 % (20-55); Platelet Estimate Decreased; Polychromasia Slight; Segmented Neutrophils 60 % (50-85); Target Cells Slight; Total Cells Counted 100
[2016-12-15 08:00] LABS: Albumin 2.2 G/DL (3.4-5.0); Bilirubin,Total 1.2 MG/DL (0.2-1.0); Calcium 8.5 MG/DL (8.5-10.1); Osmolality,Calculated 280.7 MOS/KG (273-304); Potassium 4.2 MMOL/L (3.5-5.1); Total Protein 5.7 G/DL (6.4-8.3)
--- NOTE | 2016-12-15 08:13 | Oncology Progress Note ---
Oncology Subjective PN Interval history: We are continuing aggressive treatment for neutropenic sepsis. We are also awaiting the results of the bone marrow biopsy and aspirate done last Wednesday. Diagnoses: Neutropenic sepsis: White cell count today 3100 with an absolute neutrophil count of 1800. Blood cultures have been drawn and there is no growth so far. Also urine culture contains no growth so far. Her fever is 103 today. 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 She was diagnosed as having acute myelogenous leukemia April 17, 2016. She has poor cytogenetic prognostic features. We are awaiting the report of the bone marrow biopsy and aspirate done last week. She was treated with 2 courses of induction chemotherapy followed by 2 courses of consolidation chemotherapy using high-dose Cytosar. Her last chemotherapy was given in August 2016. She feels bad today. She has anorexia. Her throat is sore. She has had some mild odynophagia. . 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 The patient has a documented rise in her CEA level. She was initially diagnosed as having adenocarcinoma of the right colon in June 2014. The primary was resected but she was found to have liver metastases. She was treated with FOLFOX and Folfiri plus Avastin for 11 courses and then placed on Avastin as a single agent until she developed leukopenia and was diagnosed as having AML. A CEA level done December 10, 2016 was 30.8 and rising. Stage IIIc ovarian cancer: Her most recent ovarian cancer antigen was within normal range. She was diagnosed as having stage IIIc ovarian cancer in March 2013 and was treated with chemotherapy using Abraxane and carboplatin. She was referred for surgical evaluation but was found to have adenocarcinoma of the colon before she could undergo debulking of her colon cancer. Her ovarian cancer antigen done December 10, 2016 was 4.2. Thrombocytopenia: Platelet count 16,000 today. Anemia multifactorial due to leukemia as well as previous extensive treatment for colon cancer, ovarian cancer and acute myelogenous leukemia: Hemoglobin 8.8 today. History of hypokalemia:Serum potassium today 4.2. I altered her IV fluids and added IV potassium. The patient has a history of hypokalemia. Acute Renal Failure:Serum creatinine 1.3. The pharmacy is managing her vancomycin dose. Exam - Constitutional Vitals: Period Temp Pulse Resp BP Sys/Ceballos Pulse Ox Last 24 Hr 98.5 F-103.1 F 99-153 18-36 92-132/54-71 90-96 Results - Labs CBC & BMP: 12/15/16 05:09 12/15/16 05:09 Quality Measures - VTE Contraindication to Pharmacological VTE Prophylaxis: Thrombocytopenia Contraindication to Mechanical VTE Prophylaxis: Local Inflammation
[2016-12-15] MEDS: METOPROLOL SUCCINATE XL 50 MG TABLET PO SCH (09:30)
[2016-12-15] MEDS: CLOTRIMAZOLE 10 MG TROCHE PO SCH ×4 (09:32→21:14)
[2016-12-15] MEDS: PANTOPRAZOLE 40 MG TABLET PO SCH (09:48)
[2016-12-15] MEDS: cycloSPORINE OPH EMUL 1 VIAL BOTH EYES SCH ×2 (09:48→21:14)
[2016-12-15] MEDS: MICAFUNGIN 100 MG in SODIUM CHLORIDE 0.9% 100 ML IV SCH (10:46)
[2016-12-15] MEDS: ONDANSETRON 4 MG/2 ML VIAL IV PRN (10:57)
[2016-12-15] MEDS ORDERED: SODIUM CHLORIDE 0.9% 500 ML IV ONE (13:23)
--- NOTE | 2016-12-15 16:12 | Infectious Disease Consult ---
Assessment and Plan (1) AML (acute myelogenous leukemia) Status: Acute Current Visit: Yes (2) Colorectal cancer, stage IV Status: Acute Current Visit: No (3) Fever Status: Acute Assessment and plan: Patient has had persisting fever since admission but her cultures are negative. She does not have any specific symptoms indicating a focus of infection. I think it is possible that the fever is noninfectious in etiology particularly it could be due to her malignancy with the liver metastases. Recommendations: 1. Agree with current empiric antibiotics - vancomycin, ceftazidime, and micafungin 2. Follow-up results of all cultures which are pending 3. Monitor renal function closely on the vancomycin Thank you very much for the consult. Will follow. Current Visit: No History of Present Illness Chief complaint: Fever History of present illness: Ms. Hadley is a 61 year old female with history of multiple cancers, initially colon cancer in 2015, then ovarian cancer in 2016, now AML diagnosed late last year. The patient had different rounds of chemotherapy. She came in last week Wednesday for bone marrow biopsy, I think to assess the status of the AML. She went home however she developed significant bleeding from the bone marrow biopsy site and so came to the emergency room. She was admitted and subsequently started having fever to more than 102. Empiric antibiotics were started especially because she was neutropenic. The fevers have persisted over the past 4 days on antibiotics therefore I am asked to assist with management. The patient says that she does not have any cough or shortness of breath, no nausea vomiting or diarrhea, no irritative urinary symptoms. Main complaint is that she feels weak/malaise. Home Medications Medication Instructions Recorded Confirmed Type Docusate Sodium Cap [Colace Cap] 200 mg PO QAM PRN 12/10/14 12/11/16 History Famotidine 20 mg PO BID 12/10/14 12/11/16 History Magnesium Chloride [Mag Delay] 64 mg PO TID 12/31/14 12/11/16 History Metoprolol Succinate Xl [Toprol Xl] 50 mg PO QAM 08/05/16 12/11/16 History Promethazine Tab [Phenergan Tab] 25 mg PO Q6H PRN 08/05/16 12/11/16 History cycloSPORINE OPH EMUL [Restasis] 1 drop BOTH EYES BID 08/31/16 12/11/16 History HYDROcodone/ACETAMIN 5-325 [Loraine 1 tablet PO Q4H PRN 12/11/16 12/11/16 History 5-325] Ibuprofen Tab [Motrin Tab] 800 mg PO Q8H PRN 12/11/16 12/11/16 History Potassium Chloride [Klor-Con M20] 20 meq PO QAM 12/11/16 12/11/16 History Allergies Allergy/AdvReac Type Severity Reaction Status Date / Time No Known Allergies Allergy Verified 12/11/16 16:56 12 point system: reviewed and no additional remarkable complaints except as stated (Per HPI) Medical,Surgical,& Family Hx - Medical History Cardio: History of: CHF, CAD, Hypertension No history of: Cardiovascular Problems Psychological: No history of: Anxiety Disorders, Depression Neurology: No history of: Peripheral Neuropathy, Seizures, Neurological Problems HEENT: No history of: HEENT Problems Endocrine: No history of: Diabetes Mellitus (IDDM), Dyslipidemia Rheumatology: History of;: 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) Respiratory: No history of: Asthma, COPD Renal: No history of: Renal Problems Genitourinary: History of: Recurring Urinary Tract Infections No history of: Problems Gastrointestinal: History of: Gastrointestinal Bleed, Gastrointestinal Cancer ( colon cancer) No history of: Hematochezia Hematology: History of: Hematologic Cancer (leukemia) No history of: Blood Transfusion Reaction Reproductive: History of: Reproductive Cancer (hx of ovarian cancer) Other: History of: Cancer - Surgical History Cardiac Surgeries: Sugical HX of: Vascular Access Devices (right chest chemoport ) Abdominal Surgeries: Surgical HX of: Abdominal Surgery (colon surgery) Reproductive Surgeries: Surgical HX of;: Hysterectomy - Family History Family History: Reports;: Family Diabetes (grandmother), Family Heart Disease ( grandmother), Family Hypertension (grandmother) Denies;: Family Cancer - Social History Smoking Status: Never smoker Frequency of Alcohol Use: None Type of Drug Use: None Infectious Disease Exam H&P - Constitutional Vitals: Vital Signs Temp Pulse Resp BP Pulse Ox 99.8 F H 138 H 34 H 103/56 96 12/15/16 15:46 12/15/16 15:46 12/15/16 15:45 12/15/16 15:46 12/15/16 15:46 Intake and Output 08/15/17 08/15/17 08/15/17 07:59 15:59 23:59 Intake Total 1840 / 1840 1300 / 1300 Balance 1840 / 1840 1300 / 1300 Intake: IV 1600 / 1600 1300 / 1300 D5 1/2NS KCL 40 MEQ 40 1000 / 1000 1000 / 1000 meq In 1,000 ml @ 100 mls /hr IV .Q10H CA Rx#: [id number] Merrem 1,000 mg In Ns 100 100 / 100 100 / 100 ml @ 200 mls/hr IV Q8H CA Rx#:[id number] Mycamine 100 mg In Ns 100 100 / 100 ml @ 100 mls/hr IV Q24H CA Rx#:[id number] Vancomycin Inj 5,000 mg 500 / 500 In Ns 500 ml @ 250 mls/hr IV Q12H CA Rx#: [id number] Fortaz 1,000 mg In Ns 100 100 / 100 ml @ 200 mls/hr IV Q8H CA Rx#:[id number] Oral 240 / 240 Other: Voiding Method Toilet Toilet # Voids 2 3 # Bowel Movements 1 Exam: General: Patient looks unwell HEENT: Mucous membranes pale but moist, anicteric acyanotic, JIM, no oral exudates Neck: Supple, no thyroid gland enlargement Respiratory system: Breath sounds vesicular, no crepitations or wheezes Cardiovascular: Normal S1 and S2, no murmurs appreciated Abdomen: Normal bowel sounds, soft nontender throughout, no organomegaly or mass Genitourinary: No suprapubic pain or bladder distention Extremities: no edema Skin: No rash Reports - Labs CBC & BMP: 12/15/16 05:09 12/15/16 05:09 Labs: Laboratory Results - last 24 hr 12/13/16 12/15/16 12/15/16 04:15 05:09 05:09 WBC 3.1 L RBC 2.41 L Hgb 8.8 L Hct 25.1 L MCV 104.1 H MCH 37 H MCHC 35.1 RDW 15.4 Plt Count 16 L* D MPV 9.8 Neut % (Auto) 58.7 Lymph % (Auto) 20.8 L [place] % (Auto) 11.4 Eos % (Auto) 0.0 Baso % (Auto) 2.3 H Neut # (Auto) 1.8 Lymph # (Auto) 0.6 L [place] # (Auto) 0.4 Eos # (Auto) 0.0 Baso # (Auto) 0.1 Total Counted 100 Immature Gran % 6.8 Nucleated RBC % 0.0 Immature Gran # 0.21 Segmented Neutrophils 60 Band Neutrophils 2 Lymphocytes 28 Monocytes 10 Nucleated RBCs # 0.00 Platelet Estimate Decreased Immature Plt Fraction 1.2 Polychromasia Slight Target Cells Slight Sodium 138 Potassium 4.2 Chloride 106 Carbon Dioxide 23 Anion Gap 13.2 BUN 10 Creatinine 1.30 H GFR Calculation 58 BUN/Creatinine Ratio 7.00 Glucose 224 H Calculated Osmolality 280.7 Calcium 8.5 Total Bilirubin 1.20 H AST 17 ALT 15 Alkaline Phosphatase 56 Lactate Dehydrogenase 296 H Total Protein 5.7 L Albumin 2.2 L Globulin 3.5 Albumin/Globulin Ratio 0.6 L Procalcitonin 0.35 H - Reports Microbiology: Microbiology 12/11/16 23:00 Blood Culture - Preliminary Blood No growth at 3 days 12/11/16 23:01 Blood Culture - Preliminary Blood No growth at 3 days - Diagnostic Findings Procedure: Chest x-ray: image reviewed by me, report reviewed by me (No infiltrates or effusions), CT Abdomen and Pelvis: report reviewed by me (Liver metastases)
[2016-12-15] MEDS ORDERED: FUROSEMIDE 40 MG/4 ML VIAL IV ONE (18:16)
[2016-12-15] MEDS ORDERED: FUROSEMIDE 100 MG/10 ML VIAL ONE (18:17)
[2016-12-15] MEDS ORDERED: ALBUTEROL 2.5 MG/3 ML NEB RESP TX ONE (18:20)
[2016-12-15] MEDS ORDERED: DEXAMETHASONE 10 MG/1 ML VIAL IV ONE (18:25)
[2016-12-15] MEDS ORDERED: ACETAMINOPHEN INJ 1,000 MG in PREMIX 1 EACH IV PRN (18:31)
--- NOTE | 2016-12-15 18:59 | XRay Report ---
Portable chest Date: 12/15/2016 Clinical history: Shortness of breath Comparison: 12/11/2016 Technique: Portable AP sitting chest Findings: The heart is larger in size with stable right IJ venous access catheter. More prominent pulmonary vasculature/alfredo. Progressive diffuse parenchymal findings especially in the left mid to lower lung zone with small pleural effusions. Degenerative changes are noted. Impression: Progressive cardiomegaly and bilateral pneumonia/CHF with small pleural effusions. Findings are more pronounced on the left. Follow-up chest x-ray is recommended. PROCEDURE INTERPRETED AT [facility] DEPARTMENT OF RADIOLOGY Final Report Signed by: Dr. Georgette Herrera
[2016-12-15 19:01] LABS: Amorphous Crystals,Urine Few /HPF (Few); Apearance,Urine CLOUDY (Clear); Bilirubin,Urine Negative (Negative); Blood, Urine Moderate mg/dL (Negative); Glucose,Urine (UA) 150 mg/dL (Negative); Ketones,Urine 5 mg/dL (Negative); Nitrite,Urine Negative (Negative); Protein,Urine 100 MG/DL; RBC,Urine 13 /HPF (0-4); Squamous Epithelial Cell,Urine Occasional /HPF (0-10); Urine Specific Gravity 1.018 (1.001-1.035); Urine Urobilinogen < 2.0 EU/DL (0.2-1.0); WBC,Urine 3 /HPF (0-6)
[2016-12-15 19:02] LABS: Urine Color Yellow (Yellow)
[2016-12-15 19:29] LABS: Calcium 8.1 MG/DL (8.5-10.1); Osmolality,Calculated 283.8 MOS/KG (273-304); Potassium 4.7 MMOL/L (3.5-5.1)
[2016-12-16] MEDS ORDERED: VANCOMYCIN INJ 1,500 MG in SODIUM CHLORIDE 0.9% 500 ML IV SCH (02:00)
[2016-12-16 04:23] LABS: Basophils # 0.1 10*3/uL (0.0-0.2); Basophils % 2.7 % (0.0-0.8); Hematocrit 28.9 VOL% (35.7-47.0); Hemoglobin 9.7 GM/DL (12.0-16.0); Immature Granulocytes % 10.9 %; Lymphocytes # 0.5 10*3/uL (1.4-4.0); Lymphocytes % 26.8 % (21.3-54.2); Mean Corpuscular HGB Conc 33.6 GM/DL (32-36); Mean Corpuscular Hemoglobin 36 PG (27-34); Mean Platelet Volume 13.7 FL (9.6-12.0); Monocytes # 0.2 10*3/uL (0.11-0.8); Monocytes % 13.1 % (1.7-12.7); Neutrophils # 0.9 10*3/uL (1.4-7.4); Neutrophils % 46.5 % (38.7-73.9); Red Cell Distribution Width 15.9 % (9.3-17.3); White Blood Count 1.8 T/CUMM (4-12)
[2016-12-16 04:27] LABS: Platelet Count 7 T/CUMM (130-400)
[2016-12-16 05:42] LABS: Albumin 1.9 G/DL (3.4-5.0); Bilirubin,Total 0.6 MG/DL (0.2-1.0); Calcium 8.5 MG/DL (8.5-10.1); Osmolality,Calculated 294.4 MOS/KG (273-304); Potassium 5.2 MMOL/L (3.5-5.1); Total Protein 5.6 G/DL (6.4-8.3)
[2016-12-16 06:06] LABS: Band Neutrophils 2 % (0-10); Lymphocytes 50 % (20-55); Metamyelocytes 2 %; Segmented Neutrophils 32 % (50-85)
[2016-12-16 06:07] LABS: Burr Cells Few; Platelet Estimate Decreased; Polychromasia Few; Total Cells Counted 100
[2016-12-16] MEDS ORDERED: DEXTROSE 50% 25 GM/50 ML SYRINGE IV PRN (06:14)
[2016-12-16] MEDS ORDERED: GLUCAGON 1 MG VIAL IM PRN (06:14)
[2016-12-16] MEDS ORDERED: SODIUM CHLORIDE 0.9% 250 ML IV PRN (06:15)
--- NOTE | 2016-12-16 06:27 | EKG Report ---
Stationary ECG Study [facility] Test Date: 12/15/2016 6:22:50 PM Pat Name: JAYJAY DUNN Department: Room: 424 Gender: F Gel Coater: : 1955 Requested by: Marvin Graves Order Number: [id number] Reading MD: ROS MCINTYRE Intervals [place] Rate: 157 P: 999 ND: 0 QRS: 95 QRSD: 64 T: 55 QT: 249 QTc: 337 Interpretive Statements SINUS TACHYCARDIA WITH RAPID VENTRICULAR RESPONSE BORDERLINE RIGHT AXIS DEVIATION ABNORMAL RHYTHM ECG Electronically Signed On 12-16-16 07:26:02 CDT by ROS MCINTYRE [email or web address]
[2016-12-16] MEDS: INSULIN LISPRO 100 UNIT/ML SUBCUT SCH ×2 (06:36→11:42)
--- NOTE | 2016-12-16 08:08 | Oncology Progress Note ---
Oncology Subjective PN Interval history: For whatever reason, the biopsy report is not back on Ms. Hadley from the bone marrow biopsy and aspirate done December 11. I have personally discussed this with Dr. Rubalcava and I have asked him to look into it. Her platelet count today is 7000 and we are transfusing platelets. Her white cell count is 1800 with an absolute neutrophil count of 900. She has a hemoglobin of 9.7. The CT of her abdomen demonstrates progression of multiple lesions within the liver that are very likely due to progression of the metastatic disease in the liver that it has been previously documented. We are having trouble maintaining her blood pressure. Her serum creatinine has risen to 2.0. It was normal when she came in and I suspect that this is toxicity from the vancomycin. The pharmacy is managing her vancomycin dose. She has previously documented stage IV colon cancer. She also has AML with poor cytogenetics. Furthermore, the leukemia seems to have relapsed now after completing induction chemotherapy in August of this year. However, we still are awaiting interpretation of the bone marrow biopsy and aspirate. Her serum potassium is slightly above normal some removing the potassium from her IV fluids and using D5 half-normal. I have explained to her daughter personally that it appears that the patient has recurrence of both her metastatic colon cancer and her acute myelogenous leukemia and that her prognosis is grave. We have changed her status to comfort measures only. Exam - Constitutional Vitals: Period Temp Pulse Resp BP Sys/Ceballos Pulse Ox Last 24 Hr 97.6 F-103.1 F 129-159 18-44 85-117/55-77 76-100 Results - Labs CBC & BMP: 12/16/16 04:00 12/16/16 04:00 Quality Measures - VTE Contraindication to Pharmacological VTE Prophylaxis: Thrombocytopenia Contraindication to Mechanical VTE Prophylaxis: Local Inflammation
[2016-12-16] MEDS ORDERED: DEXTROSE 5% NACL 0.45% 1,000 ML IV SCH (09:00)
[2016-12-16] MEDS: PANTOPRAZOLE 40 MG TABLET PO SCH (09:46)
[2016-12-16] MEDS: METOPROLOL SUCCINATE XL 50 MG TABLET PO SCH (09:46)
[2016-12-16] MEDS: CLOTRIMAZOLE 10 MG TROCHE PO SCH ×2 (09:47→13:09)
[2016-12-16] MEDS: cycloSPORINE OPH EMUL 1 VIAL BOTH EYES SCH (09:52)
[2016-12-16] MEDS: DEXT 5% NACL 0.45% KCL 40 MEQ 40 MEQ/1,000 ML BAG IV SCH (09:54)
[2016-12-16] MEDS: MICAFUNGIN 100 MG in SODIUM CHLORIDE 0.9% 100 ML IV SCH (11:41)
[2016-12-16 11:59] VITALS: BP 112/65
--- NOTE | 2016-12-16 12:16 | Infectious Disease Progress ---
Assessment and Plan (1) AML (acute myelogenous leukemia) Status: Acute Current Visit: Yes (2) Colorectal cancer, stage IV Status: Acute Current Visit: No (3) Fever Status: Acute Assessment and plan: Patient has had persisting fever since admission but her cultures are negative. Fever likely due to malignancy and she has defervesced with steroids. Recommendations: 1. Stop vancomycin as no resistant gram positives isolated and also there is some deterioration in renal function 2. Can continue other antimicrobials for now with final decision to stop to be made by Dr. Castaneda I will sign off now. Call again as needed. Discussed with patient's daughter at bedside Current Visit: No Infectious Disease - PN: Subj Interval history: Patient seen and examined this morning. Her clinical status with poor prognosis was discussed with her and her family by Dr. Castaneda and now she is comfort measures. She got steroids last night and has not had fever since. Infectious Disease Exam (PN) - Constitutional Vitals: Temp Pulse Resp BP Pulse Ox 98.7 F 152 H 30 H 112/65 94 L 12/16/16 11:58 12/16/16 11:58 12/16/16 11:58 12/16/16 11:58 12/16/16 11:58 General appearance: over weight Exam: General appearance: Chronically ill looking - Eye Eye exam: Present: EOMI. no icterus Pupils: Present: JIM - ENT ENT exam: no oral exudates - Respiratory Respiratory exam: vesicular BS, no crepitations or wheezes - Cardiovascular Cardiovascular exam: regular rate and rhythm, no murmurs - GI/Abdominal GI/Abdominal exam: normal bowel sounds, soft, non-tender, no organomegaly or mass - Extremities Exam Extremities exam: no edema - Skin Skin exam: no rash Results - Labs CBC & BMP: 12/16/16 04:00 12/16/16 04:00 Lab Results: I have reviewed the past 24 hour labs Quality Measures - VTE Contraindication to Pharmacological VTE Prophylaxis: Thrombocytopenia Contraindication to Mechanical VTE Prophylaxis: Local Inflammation
[2016-12-16] MEDS ORDERED: ALBUTEROL/IPRATROPIUM 3 ML NEB RESP TX PRN (13:53)
[2016-12-16] MEDS ORDERED: DEXAMETHASONE INJ 20 MG in SODIUM CHLORIDE 0.9% 50 ML IV STA (13:58)
[2016-12-16] MEDS ORDERED: DEXAMETHASONE INJ 20 MG in SODIUM CHLORIDE 0.9% 50 ML IV PRN (13:59)
[2016-12-16] MEDS ORDERED: DEXAMETHASONE INJ 20 MG in SODIUM CHLORIDE 0.9% 50 ML IV SCH (14:00)
[2016-12-16] MEDS: MORPHINE 2 MG/1 ML SYRINGE IV PRN ×2 (15:01→15:20)
[2016-12-16] MEDS ORDERED: MORPHINE 2 MG/1 ML SYRINGE IV PRN (15:14)
--- NOTE | 2016-12-16 17:02 | Discharge Summary ---
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 Hadley was diagnosed as having stage IIIc ovarian cancer in March 2013 and was treated only with chemotherapy. She responded well and we had planned to debulk her tumor but she was subsequently diagnosed as having stage IV colon cancer. It was diagnosed in June 2014. The primary tumor was resected but she had liver metastases. She was treated for the colon cancer and achieved what appeared to be a complete remission but was then diagnosed as having acute myelogenous leukemia in April 2016. She was treated with 2 courses of induction chemotherapy followed by 2 courses of consolidation chemotherapy which she finished in August 2014. On this admission she had an acute febrile toxic appearing sepsis without blood cultures being positive. She was started on aggressive IV antibiotic therapy with the pharmacy managing her vancomycin levels. A bone marrow biopsy and aspirate had been performed on December 11. A copy of the report was sent to my office but it never reached this electronic medical record. I will provide a copy of it for the patient's permanent record. She was treated aggressively with blood transfusions because of thrombocytopenia and anemia. She was also treated aggressively for sepsis. We had not reinstituted any chemotherapy because we did not have the pathology report back. Even if it had come back, the patient had recurrence of both her colon cancer and her acute leukemia and she had cytogenetic studies from the bone marrow done initially in April that revealed that this was a poor prognosis leukemia. We were supporting her aggressively but her condition worsened and she developed acute renal failure. At that point we changed her to comfort measures only after discussing the case with her daughter. The patient ultimately today as result of both her colon cancer and her acute myelogenous leukemia. She at 1545, Discharge Plan - Discharge Medications No Action Docusate Sodium Cap [Colace Cap] 200 mg PO QAM PRN PRN Reason: STOOL SOFTENER Famotidine 20 mg PO BID Magnesium Chloride [Mag Delay] 64 mg PO TID Promethazine Tab [Phenergan Tab] 25 mg PO Q6H PRN PRN Reason: Nausea/Vomiting cycloSPORINE OPH EMUL [Restasis] 1 drop BOTH EYES BID Potassium Chloride [Klor-Con M20] 20 meq PO QAM HYDROcodone/ACETAMIN 5-325 [Danube 5-325] 1 tablet PO Q4H PRN PRN Reason: SEVERE PAIN Metoprolol Succinate Xl [Toprol Xl] 50 mg PO QAM Ibuprofen Tab [Motrin Tab] 800 mg PO Q8H PRN PRN Reason: Pain Moderate (4-7) - Follow Up or Referral - Forms/Instructions Exam - Constitutional Vitals: Period Temp Pulse Resp BP Sys/Ceballos Pulse Ox Last 24 Hr 97.6 F-103.1 F 129-159 18-44 95-117/55-77 76-100 Discharge Results Procedures and tests throughout hospitalization: Pending Orders 12/11/16 18:06 ABO/RH Type Stat Single Donor Platelets Stat 12/11/16 23:00 Blood Culture Routine 12/16/16 00:40 Single Donor Platelets Stat 12/17/16 04:00 Carcinoembryonic Antigen IN AM Comp Blood Count Auto Diff IN AM Comprehensive Metabolic Panel IN AM LDH [Lactate Dehydrogenase] IN AM 12/17/16 08:41 CA 125 [Cancer Antigen 125] Routine 12/18/16 04:00 Comp Blood Count Auto Diff IN AM Comprehensive Metabolic Panel IN AM LDH [Lactate Dehydrogenase] IN AM 12/19/16 04:00 Comp Blood Count Auto Diff IN AM Comprehensive Metabolic Panel IN AM LDH [Lactate Dehydrogenase] IN AM 12/20/16 04:00 Comp Blood Count Auto Diff IN AM Comprehensive Metabolic Panel IN AM Labs on day of discharge: Labs from last 24 hours 12/16/16 12/16/16 12/16/16 11:29 06:10 04:00 WBC RBC Hgb Hct MCV MCH MCHC RDW Plt Count MPV Neut % (Auto) Lymph % (Auto) [place] % (Auto) Eos % (Auto) Baso % (Auto) Neut # (Auto) Lymph # (Auto) [place] # (Auto) Eos # (Auto) Baso # (Auto) Total Counted Immature Gran % Nucleated RBC % Immature Gran # Segmented Neutrophils Band Neutrophils Lymphocytes Monocytes Metamyelocytes Nucleated RBCs # Platelet Estimate Immature Plt Fraction Polychromasia [place] Cells Sodium Potassium Chloride Carbon Dioxide Anion Gap BUN Creatinine GFR Calculation BUN/Creatinine Ratio Glucose POC Glucose 286 H 340 H Calculated Osmolality Calcium Total Bilirubin AST ALT Alkaline Phosphatase Lactate Dehydrogenase B-Natriuretic Peptide Total Protein Albumin Globulin Albumin/Globulin Ratio Urine Color Urine Appearance Urine pH Ur Specific [place] Urine Protein Urine Glucose (UA) Urine Ketones Urine Blood Urine Nitrate Urine Bilirubin Urine Urobilinogen Urine Leukocytes Urine RBC Urine WBC Ur Squamous Epith Cells Amorphous Crystals Ur Culture Indicated? Vancomycin Trough A. galactomannan Ag Beta-(1,3)-D-Glucan Blood Type O POSITIVE Antibody Screen Negative 12/16/16 12/16/16 12/15/16 04:00 04:00 20:07 WBC 1.8 L D RBC 2.70 L Hgb 9.7 L Hct 28.9 L MCV 107.0 H MCH 36 H MCHC 33.6 RDW 15.9 Plt Count 7 L* D MPV 13.7 H Neut % (Auto) 46.5 Lymph % (Auto) 26.8 [place] % (Auto) 13.1 H Eos % (Auto) 0.0 Baso % (Auto) 2.7 H Neut # (Auto) 0.9 L Lymph # (Auto) 0.5 L [place] # (Auto) 0.2 Eos # (Auto) 0.0 Baso # (Auto) 0.1 Total Counted 100 Immature Gran % 10.9 Nucleated RBC % 0.0 Immature Gran # 0.20 Segmented Neutrophils 32 L Band Neutrophils 2 Lymphocytes 50 Monocytes 14 Metamyelocytes 2 Nucleated RBCs # 0.00 Platelet Estimate Decreased Immature Plt Fraction 0.0 Polychromasia Few [place] Cells Few Sodium 140 Potassium 5.2 H Chloride 110 H Carbon Dioxide 19 L Anion Gap 16.2 H BUN 23 H Creatinine 2.00 H GFR Calculation 35 BUN/Creatinine Ratio 11.00 Glucose 307 H POC Glucose Calculated Osmolality 294.4 Calcium 8.5 Total Bilirubin 0.60 AST 14 ALT 12 L Alkaline Phosphatase 50 Lactate Dehydrogenase 438 H B-Natriuretic Peptide Total Protein 5.6 L Albumin 1.9 L Globulin 3.7 H Albumin/Globulin Ratio 0.5 L Urine Color Urine Appearance Urine pH Ur Specific [place] Urine Protein Urine Glucose (UA) Urine Ketones Urine Blood Urine Nitrate Urine Bilirubin Urine Urobilinogen Urine Leukocytes Urine RBC Urine WBC Ur Squamous Epith Cells Amorphous Crystals Ur Culture Indicated? Vancomycin Trough 21.9 H A. galactomannan Ag Beta-(1,3)-D-Glucan Blood Type Antibody Screen 12/15/16 12/15/16 12/15/16 18:36 18:36 18:30 WBC RBC Hgb Hct MCV MCH MCHC RDW Plt Count MPV Neut % (Auto) Lymph % (Auto) [place] % (Auto) Eos % (Auto) Baso % (Auto) Neut # (Auto) Lymph # (Auto) [place] # (Auto) Eos # (Auto) Baso # (Auto) Total Counted Immature Gran % Nucleated RBC % Immature Gran # Segmented Neutrophils Band Neutrophils Lymphocytes Monocytes Metamyelocytes Nucleated RBCs # Platelet Estimate Immature Plt Fraction Polychromasia [place] Cells Sodium 137 Potassium 4.7 Chloride 108 H Carbon Dioxide 21 Anion Gap 12.7 BUN 15 Creatinine 1.80 H GFR Calculation 39 BUN/Creatinine Ratio 8.00 Glucose 284 H POC Glucose Calculated Osmolality 283.8 Calcium 8.1 L Total Bilirubin AST ALT Alkaline Phosphatase Lactate Dehydrogenase B-Natriuretic Peptide 364 H Total Protein Albumin Globulin Albumin/Globulin Ratio Urine Color Yellow Urine Appearance Cloudy Urine pH 5.0 Ur Specific [place] 1.018 Urine Protein 100 Urine Glucose (UA) 150 Urine Ketones 5 Urine Blood Moderate Urine Nitrate Negative Urine Bilirubin Negative Urine Urobilinogen < 2.0 H Urine Leukocytes Negative Urine RBC 13 Urine WBC 3 Ur Squamous Epith Cells Occasional Amorphous Crystals Few Ur Culture Indicated? Not indicated Vancomycin Trough A. galactomannan Ag Beta-(1,3)-D-Glucan Blood Type Antibody Screen 12/13/16 12/13/16 10:27 10:27 WBC RBC Hgb Hct MCV MCH MCHC RDW Plt Count MPV Neut % (Auto) Lymph % (Auto) [place] % (Auto) Eos % (Auto) Baso % (Auto) Neut # (Auto) Lymph # (Auto) [place] # (Auto) Eos # (Auto) Baso # (Auto) Total Counted Immature Gran % Nucleated RBC % Immature Gran # Segmented Neutrophils Band Neutrophils Lymphocytes Monocytes Metamyelocytes Nucleated RBCs # Platelet Estimate Immature Plt Fraction Polychromasia [place] Cells Sodium Potassium Chloride Carbon Dioxide Anion Gap BUN Creatinine GFR Calculation BUN/Creatinine Ratio Glucose POC Glucose Calculated Osmolality Calcium Total Bilirubin AST ALT Alkaline Phosphatase Lactate Dehydrogenase B-Natriuretic Peptide Total Protein Albumin Globulin Albumin/Globulin Ratio Urine Color Urine Appearance Urine pH Ur Specific [place] Urine Protein Urine Glucose (UA) Urine Ketones Urine Blood Urine Nitrate Urine Bilirubin Urine Urobilinogen Urine Leukocytes Urine RBC Urine WBC Ur Squamous Epith Cells Amorphous Crystals Ur Culture Indicated? Vancomycin Trough A. galactomannan Ag < 0.500 Beta-(1,3)-D-Glucan <31 Blood Type Antibody Screen Preliminary micro results at discharge 12/11/16 23:00 Blood Culture - Preliminary Blood No growth at 3 days 08/11/17 23:01 Blood Culture - Preliminary Blood No growth at 3 days DS: Provider Date of admission: 12/11/16 22:37 Primary care physician: . No PCP Attending physician on admission: Rayray Brown MD Consults: 12/12/16 13:45 Consult to Pharmacy [CONS] Routine Reason for Pharmacy Consult: Dose/Manage Vancomycin 12/12/16 14:23 Consult to Pharmacy [CONS] Routine Reason for Pharmacy Consult: Dose/Manage Vancomycin 12/15/16 11:13 Consult to Physician [CONS] Routine Comment: fever Consulting Provider: Deanna Mata Consulting Provider Notified: Yes When should Consulting Provider be notified: Now Consult to Specialist Group: Infectious Disease When should Consulting Provider be notified: Now Person Notified: Jinny Date Notified: 12/15/16 Time Notified: 12:11 Discharging clinician: Marvin Castaneda MD
== END 2016-12-16 15:45 | disposition expired | DRG 862 ==
LOC: N.EDINP 16:48 → N.ED 16:48 → N.4E 20:00
PROVIDERS: ADMIT Internal Medicine Hematology & Oncology; ATTEND Specialist